=== PATIENT | male | born 1940 | race Caucasian/White ===

== ENCOUNTER 2016-12-05 19:30 | Inpatient (IN) | payer OTHER, MEDICARE ==
--- NOTE | 2016-12-05 21:36 | PDOC ---
History of Present Illness - General History Source: Patient, Old Records Exam Limitations: No Limitations <Domonique Mcgee - Last Filed: 12/05/16 23:54> - General History Source: Patient, Old Records Exam Limitations: No Limitations - History of Present Illness Initial Comments: 12/05/16 23:01 The patient is a 76 year old male, with a significant past medical history of hypothyroidism, chronic lower extremity venous insufficiency and recurrent left lower extremity ulcers, who presents to the emergency department with nausea, vomiting (coffee ground emesis) and abdominal pain for the past 2 days but worsening today. The patient describes the abdominal pain as burning which intermittently radiates to the throat. The patient reports 3 episodes of coffee ground emesis (2 yesterday, 1 today), prompting him to come to the ED for evaluation. The patient additionally reports a productive cough, he states that he is coughing up clear phlegm. The patient denies fever, chills, diarrhea, constipation or any dysuria. The patient denies any history of NSAID overuse. 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 Allergies: Vancomycin Past Surgical History: Appendectomy, Hernia Repair. Social History: Former smoker (quit 30 years ago). Reports social alcohol use (1 -2 glasses of wine per week). Denies drug use. Vascular Surgeon: Dr. Bakari Burkett <Ese Vallecillo - Last Filed: 12/05/16 23:59> - General Chief Complaint: Nausea/Vomiting Stated Complaint: NAUSEA/VOMITING Time Seen by Provider: 12/05/16 20:28 Past History - Past Medical History GI Disorders: Yes (GASTRIC) Thyroid Disease: Yes - Surgical History Abdominal Surgery: Yes (HERNIA) Appendectomy: Yes - Psycho/Social/Smoking Cessation Hx Anxiety: No Suicidal Ideation: No Smoking History: Former smoker Have you smoked in the past 12 months: No If you are a former smoker, when did you quit?: 30 yrs ago Information on smoking cessation initiated: No Hx Alcohol Use: Yes (SOCIAL) Drug/Substance Use Hx: No Substance Use Type: None <Yady Mcgeefany - Last Filed: 12/05/16 23:54> <Ese Vallecillo - Last Filed: 12/05/16 23:59> - Past Medical History Allergies/Adverse Reactions: Allergies Allergy/AdvReac Type Severity Reaction Status Date / Time levofloxacin [From Levaquin] Allergy Vomiting Verified 12/05/16 19:49 vancomycin Allergy Itching Verified 12/05/16 19:49 Home Medications: Ambulatory Orders Thyroid [[facility] Thyroid] 60 mg PO DAILY tablet 09/19/16 Collagenase Clostridium Hist. [Santyl] 1 applic TP DAILY #90 oint...g. 11/20/16 Review of Systems - Review of Systems Able to Perform ROS?: Yes Comments:: 12/05/16 23:01 GENERAL/CONSTITUTIONAL: No fever or chills. No weakness. HEAD, EYES, EARS, NOSE AND THROAT: No change in vision. No ear pain or discharge. No sore throat. CARDIOVASCULAR: No chest pain or shortness of breath. RESPIRATORY: +Cough. No wheezing or hemoptysis. GASTROINTESTINAL: +Nausea, vomiting (coffee ground emesis), abdominal pain. No diarrhea or constipation. GENITOURINARY: No dysuria, frequency, or change in urination. MUSCULOSKELETAL: No joint or muscle swelling or pain. No neck or back pain. SKIN: No rash. NEUROLOGIC: No headache, vertigo, loss of consciousness, or change in strength/ sensation. ENDOCRINE: No increased thirst. No abnormal weight change. HEMATOLOGIC/LYMPHATIC: No anemia, easy bleeding, or history of blood clots. ALLERGIC/IMMUNOLOGIC: No hives or skin allergy. <Ese Vallecillo - Last Filed: 12/05/16 23:59> *Physical Exam - Vital Signs Last Vital Signs Temp Pulse Resp BP Pulse Ox 98 F 88 26 H 130/66 96 12/05/16 19:50 12/05/16 19:50 12/05/16 19:50 12/05/16 19:50 12/05/16 19:50 <Domonique Mcgee - Last Filed: 12/05/16 23:54> - Vital Signs Last Vital Signs Temp Pulse Resp BP Pulse Ox 98 F 88 26 H 130/66 96 12/05/16 19:50 12/05/16 19:50 12/05/16 19:50 12/05/16 19:50 12/05/16 19:50 - Physical Exam Comments: 12/05/16 22:51 GENERAL: Awake, alert, and fully oriented, in no acute distress. HEAD: No signs of trauma. EYES: PERRLA, EOMI, sclera anicteric, conjunctiva clear. ENT: Auricles normal inspection, hearing grossly normal, nares patent, oropharynx clear without exudates. Moist mucosa. NECK: Normal ROM, supple, no lymphadenopathy, JVD, or masses. LUNGS: Breath sounds equal, clear to auscultation bilaterally. No wheezes, and no crackles. HEART: 2/6 holosystolic murmur. Regular rate and rhythm, normal S1 and S2, no rubs or gallops. ABDOMEN: Soft, nontender, normoactive bowel sounds. No guarding, no rebound. No masses. EXTREMITIES: Normal range of motion, no edema. No clubbing or cyanosis. No cords, erythema, or tenderness. NEUROLOGICAL: Cranial nerves II through XII grossly intact. Normal speech, normal gait. SKIN: Left lower extremity has surrounding erythema, there are extensive ulcerations to the lateral aspect of tibia/fibula region with fibrinous exudates. Right lower extremity, there is hyperpigmentation consistent with chronic venous stasis changes. <Ese Vallecillo - Last Filed: 12/05/16 23:59> ED Treatment Course - LABORATORY CBC & Chemistry Diagram: 12/05/16 22:30 12/05/16 22:30 <Domonique Mcgee - Last Filed: 12/05/16 23:54> - LABORATORY CBC & Chemistry Diagram: 12/05/16 22:30 12/05/16 22:30 <Ese Vallecillo - Last Filed: 12/05/16 23:59> Medical Decision Making - Medical Decision Making 12/05/16 22:27 76-year-old male with history of thyroid disease and peripheral vascular disease with chronic lower extremity wounds who presents to the emergency Department with complaints of burning epigastric and chest pain as well as nausea and vomiting. His left lower extremity appears to be cellulitic. Differential diagnosis includes but is not limited to: ACS, GERD, pancreatitis, gastritis, electrolyte abnormality, gallbladder disease, dehydration, toxic/ metabolic derangement. Plan: 1. EKG 2. Labs 3. Urine 4. IV antibiotics for a cellulitis 5. Pain management 6. Observe and reevaluate 12/05/16 23:54 Addendum: Labs are reviewed and are noted in the EMR. The hemoglobin is 9.1 which is lower than his baseline. The stool was brown and trace guaiac positive. I've discussed the case with Dr. Burkett and the plan is to admit to [facility] for cellulitis. I will admit to the hospitalist service and also have them workup the coffee-ground emesis and rule out GI bleed. <Domonique Mcgee - Last Filed: 12/05/16 23:54> - Medical Decision Making 12/05/16 22:[address] Bakari Burkett at at 22:20. Referred to answering service , awaiting callback. Dr. Burkett returned call at 22:21, case discussed. <Ese Vallecillo - Last Filed: 12/05/16 23:59> *DC/Admit/Observation/Transfer - Discharge Dispostion Admit: Yes - Attestations Physician Attestion: 12/05/16 22:29 I, Dr. Domonique Mcgee, attest that the scribes documentation that appears above has been prepared under my direction and personally reviewed by me in its entirety. I confirmed that the note above accurately reflects all work, treatment, procedures, and medical decision-making performed by me. <Domonique Mcgee - Last Filed: 12/05/16 23:54> - Attestations Scribe Attestion: 12/05/16 22:20 Documentation prepared by Ese Vallecillo, acting as medical laboratory technician for Domonique Mcgee MD. 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
[2016-12-05] MEDS ORDERED: SODIUM CHLORIDE 1,000 ML IV STA (21:37)
[2016-12-05] MEDS ORDERED: ONDANSETRON 4 MG/2 ML VIAL IVPUSH ONE (21:37)
[2016-12-05] MEDS ORDERED: FAMOTIDINE 20 MG/50 ML IVPB 50 ML IVPB ONE ×2 (22:29→22:38)
[2016-12-05] MEDS ORDERED: CLINDAMYCIN IVPB 300 MG in DEXTROSE 5%-WATER - 48 ML IVPB ONE (22:29)
[2016-12-05] MEDS ORDERED: MAG HYDROX/AL HYDROX/SIMETH 30 ML UNIT-DOSE CUP PO ONE (22:29)
[2016-12-05 22:38] LABS: BASOPHIL 0.5 % (0-2.0); EOSINOPHIL 1.1 % (0-4.5); MCH 22.9 pg (25.7-33.7); MCHC 31.2 g/dl (32.0-35.9); MEAN CELL VOLUME 73.4 fl (80-96); MEAN PLT VOLUME 7.7 fl (7.5-11.1); NEUTROPHILS 60.4 % (42.8-82.8); PLATELET COUNT 298 K/MM3 (134-434); RDW 18.4 % (11.9-15.9); WHITE BLOOD COUNT 5.7 K/mm3 (4.0-10.0)
[2016-12-05] MEDS ORDERED: ONDANSETRON 4 MG/2 ML VIAL ONE (22:38)
[2016-12-05] MEDS ORDERED: MAG HYDROX/AL HYDROX/SIMETH 30 ML UNIT-DOSE CUP ONE (22:38)
[2016-12-05] MEDS ORDERED: CLINDAMYCIN 600MG PREMIX IVPB 50 ML IVPB ONE ×2 (22:38→22:39)
[2016-12-05] MEDS ORDERED: WATER IVPB ONE (22:40)
[2016-12-05] MEDS ORDERED: DEXTROSE 5% IVPB ONE (22:40)
[2016-12-05] MEDS ORDERED: CLINDAMYCIN IVPB ONE (22:40)
[2016-12-05 23:01] LABS: ALBUMIN 2.6 g/dl (3.4-5.0); ANION GAP 8 (8-16); BILIRUBIN,TOTAL 0.2 mg/dL (0.2-1.0); CALCIUM 7.7 mg/dL (8.5-10.1); CO2 24 mmol/L (21-32); CREATININE 1.1 mg/dL (0.7-1.3); GLUCOSE,RANDOM 113 mg/dL (74-106); MAGNESIUM 2.1 mg/dL (1.8-2.4); PHOSPHOROUS 2.9 mg/dL (2.5-4.9); SGOT/AST 14 U/L (15-37); SGPT/ALT 18 U/L (12-78)
[2016-12-05 23:02] LABS: ALK PHOS 79 U/L (45-117); TROPONIN I < 0.02 ng/ml (0.00-0.05)
--- NOTE | 2016-12-06 00:15 | HP ---
<Aneudy Fulton - Last Filed: 12/06/16 01:53> CHIEF COMPLAINT: Nausea/Vomiting PCP: n/a HISTORY OF PRESENT ILLNESS: The patient is a 76 year old male, with a significant past medical history of hypothyroidism, chronic lower extremity venous insufficiency and recurrent left lower extremity ulcers, who presented to the emergency department with nausea, vomiting (coffee ground emesis) and abdominal pain for the past 2 days but worsening today. The patient described the abdominal pain as burning. The patient reported 3 episodes of coffee ground emesis (2 yesterday, 1 today), prompting him to come to the ED for evaluation. Patient also complained of left lower extremity swelling and redness which has worsened in the last few days associated with subjective fever and chills. ER course was notable for: (1) IVF (2) Clindomyosin (3) Famotidine Recent Travel: Denied PAST MEDICAL HISTORY: hypothyroidism, lower extremity venous insufficiency, recurrent lower extremity ulcers PAST SURGICAL HISTORY: Appendectomy, revascularization surgeries in lower extremities, tonsillectomy, hernia Social History: Smoking: Denied Alcohol: Social Drugs: Denied Family History: None reported Allergies levofloxacin [From Levaquin] Allergy (Verified 12/05/16 19:49) Vomiting vancomycin Allergy (Verified 12/05/16 19:49) Itching HOME MEDICATIONS: Home Medications Medication Instructions Recorded Thyroid [[place] Thyroid] 60 mg PO DAILY tablet 09/19/16 Collagenase Clostridium Hist. 1 applic TP DAILY #90 oint...g. 11/20/16 [Santyl] REVIEW OF SYSTEMS CONSTITUTIONAL: Present: fever, chills, Absent: diaphoresis, generalized weakness, malaise, loss of appetite, weight change HEENT: Absent: rhinorrhea, nasal congestion, throat pain, throat swelling, difficulty swallowing, mouth swelling, ear pain, eye pain, visual changes CARDIOVASCULAR: Absent: chest pain, syncope, palpitations, irregular heart rate, lightheadedness , peripheral edema RESPIRATORY: Absent: cough, shortness of breath, dyspnea with exertion, orthopnea, wheezing, stridor, hemoptysis GASTROINTESTINAL: Present: Nausea, vomiting, abdominal pain Absent: abdominal distension, diarrhea, constipation, melena, hematochezia GENITOURINARY: Absent: dysuria, frequency, urgency, hesitancy, hematuria, flank pain, genital pain MUSCULOSKELETAL: Present: Left lower extremity pain. Absent: arthralgia, joint swelling, back pain, neck pain SKIN: Absent: rash, itching, pallor HEMATOLOGIC/IMMUNOLOGIC: Absent: easy bleeding, easy bruising, lymphadenopathy, frequent infections ENDOCRINE: Absent: unexplained weight gain, unexplained weight loss, heat intolerance, cold intolerance NEUROLOGIC: Absent: headache, focal weakness or paresthesias, dizziness, unsteady gait, seizure, mental status changes, bladder or bowel incontinence PSYCHIATRIC: Absent: anxiety, depression, suicidal or homicidal ideation, hallucinations. PHYSICAL EXAMINATION GENERAL: Awake, alert, and fully oriented, in no acute distress. HEENT: Atraumatic. Moist mucosa. Normocephalic. No sinus tenderness. No LAD. NECK: No JVD. No thyroid masses. Supple. LUNGS: Clear to auscultation bilaterally. No wheezing, rhonchi or rales. HEART: Regular rate and rhythm, normal S1 and S2, (+) systolic murmur, rubs or gallops, peripheral pulses normal and equal bilaterally. ABDOMEN: Soft, nontender, normoactive bowel sounds. No guarding, no rebound. No Masses. MUSCULOSKELETAL: No muscle tenderness. Normal muscle bulk and tone. EXTREMITIES: (+) Left lower extremity is erythematous and warm to touch from ankle up to thigh. Chronic venous stasis changes bilaterally in legs. NEUROLOGICAL: Normal speech, no focal sensorimotor deficits. ASSESSMENT/PLAN: 1. Coffee ground emesis for 2 days with trace fecal occult blood in stool drop in hemoglobin. Hemodynamically stable, no melena. - NPO - IVF - [id number] IVPB Q12H - Monitor CBC Q8H -GI consult for endoscopy 2. Left lower extremity cellulitis with underlying chronic venous stasis changes. Allergic to vancomycin - Blood cultures x2 - Clindamycin 600mg Q8H IV - Local wound care - Wound care consult - Lower extremity duplex to r/o DVT 3. Hypothyroidism - Send TSH - Continue armour thyroid 60 mg daily 4. DVT moderate risk - SCDs (no heparin due to coffee ground emesis) Admit to observation Documentation prepared by Aneudy Fulton, acting as medical appointment clerk for Dr. Mary Ann MD. <Daren Reese - Last Filed: 12/06/16 06:56> CHIEF COMPLAINT: PCP: HISTORY OF PRESENT ILLNESS: ER course was notable for: (1) (2) (3) Recent Travel: PAST MEDICAL HISTORY: PAST SURGICAL HISTORY: Social History: Smoking: Alcohol: Drugs: Family History: Allergies levofloxacin [From Levaquin] Allergy (Verified 12/05/16 19:49) Vomiting vancomycin Allergy (Verified 12/05/16 19:49) Itching HOME MEDICATIONS: Home Medications Medication Instructions Recorded Thyroid [[place] Thyroid] 60 mg PO DAILY tablet 09/19/16 Collagenase Clostridium Hist. 1 applic TP DAILY #90 oint...g. 11/20/16 [Santyl] REVIEW OF SYSTEMS CONSTITUTIONAL: Absent: fever, chills, diaphoresis, generalized weakness, malaise, loss of appetite, weight change HEENT: Absent: rhinorrhea, nasal congestion, throat pain, throat swelling, difficulty swallowing, mouth swelling, ear pain, eye pain, visual changes CARDIOVASCULAR: Absent: chest pain, syncope, palpitations, irregular heart rate, lightheadedness , peripheral edema RESPIRATORY: Absent: cough, shortness of breath, dyspnea with exertion, orthopnea, wheezing, stridor, hemoptysis GASTROINTESTINAL: Absent: abdominal pain, abdominal distension, nausea, vomiting, diarrhea, constipation, melena, hematochezia GENITOURINARY: Absent: dysuria, frequency, urgency, hesitancy, hematuria, flank pain, genital pain MUSCULOSKELETAL: Absent: myalgia, arthralgia, joint swelling, back pain, neck pain SKIN: Absent: rash, itching, pallor HEMATOLOGIC/IMMUNOLOGIC: Absent: easy bleeding, easy bruising, lymphadenopathy, frequent infections ENDOCRINE: Absent: unexplained weight gain, unexplained weight loss, heat intolerance, cold intolerance NEUROLOGIC: Absent: headache, focal weakness or paresthesias, dizziness, unsteady gait, seizure, mental status changes, bladder or bowel incontinence PSYCHIATRIC: Absent: anxiety, depression, suicidal or homicidal ideation, hallucinations. PHYSICAL EXAMINATION Vital Signs - 24 hr 12/05/16 19:50 Temperature 98 F Pulse Rate 88 Respiratory 26 H Rate Blood Pressure 130/66 O2 Sat by Pulse 96 Oximetry (%) GENERAL: Awake, alert, and fully oriented, in no acute distress. HEAD: Normal with no signs of trauma. EYES: Pupils equal, round and reactive to light, extraocular movements intact, sclera anicteric, conjunctiva clear. No lid lag. EARS, NOSE, THROAT: Ears normal, nares patent, oropharynx clear without exudates. Moist mucous membranes. NECK: Normal range of motion, supple without lymphadenopathy, JVD, or masses. LUNGS: Breath sounds equal, clear to auscultation bilaterally. No wheezes, and no crackles. No accessory muscle use. HEART: Regular rate and rhythm, normal S1 and S2 without murmur, rub or gallop. ABDOMEN: Soft, nontender, not distended, normoactive bowel sounds, no guarding, no rebound, no masses. No hepatomegaly or splenomegaly. MUSCULOSKELETAL: Normal range of motion at all joints. No bony deformities or tenderness. No CVA tenderness. UPPER EXTREMITIES: 2+ pulses, warm, well-perfused. No cyanosis. No clubbing. Cap refill <2 seconds. No peripheral edema. LOWER EXTREMITIES: 2+ pulses, warm, well-perfused. No calf tenderness. No peripheral edema. NEUROLOGICAL: Cranial nerves II-XII intact. Normal speech. Normal gait. PSYCHIATRIC: Cooperative. Good eye contact. Appropriate mood and affect. SKIN: Warm, dry, normal turgor, no rashes or lesions noted. Laboratory Results - last 24 hr 12/05/16 12/05/16 12/05/16 22:30 22:30 22:30 WBC 5.7 RBC 3.97 L Hgb 9.1 L D Hct 29.1 L D MCV 73.4 L MCHC 31.2 L RDW 18.4 H D Plt Count 298 MPV 7.7 Neutrophils % 60.4 Lymphocytes % 27.0 D Monocytes % 11.0 H Eosinophils % 1.1 D Basophils % 0.5 Sodium 141 Potassium 4.1 Chloride 109 H Carbon Dioxide 24 Anion Gap 8 BUN 28 H D Creatinine 1.1 Creat Clearance w eGFR > 60 Random Glucose 113 H Lactic Acid 1.393 Calcium 7.7 L Phosphorus 2.9 Magnesium 2.1 Total Bilirubin 0.2 D AST 14 L ALT 18 Alkaline Phosphatase 79 Creatine Kinase 76 Troponin I < 0.02 Total Protein 6.0 L Albumin 2.6 L Lipase 102 Stool Occult Blood 12/05/16 22:35 WBC RBC Hgb Hct MCV MCHC RDW Plt Count MPV Neutrophils % Lymphocytes % Monocytes % Eosinophils % Basophils % Sodium Potassium Chloride Carbon Dioxide Anion Gap BUN Creatinine Creat Clearance w eGFR Random Glucose Lactic Acid Calcium Phosphorus Magnesium Total Bilirubin AST ALT Alkaline Phosphatase Creatine Kinase Troponin I Total Protein Albumin Lipase Stool Occult Blood Trace ASSESSMENT/PLAN: Visit type - Emergency Visit Emergency Visit: Yes ED Registration Date: 12/05/16 Care time: The patient presented to the Emergency Department on the above date and was hospitalized for further evaluation of their emergent condition. - New Patient This patient is new to me today: Yes Date on this admission: 12/06/16 - Critical Care Critical Care patient: No
[2016-12-06] MEDS ORDERED: ONDANSETRON 4 MG/2 ML VIAL IVPB PRN (01:41)
[2016-12-06] MEDS ORDERED: ACETAMINOPHEN 325 MG TABLET (FP) PO PRN (01:41)
[2016-12-06] MEDS: DEXTROSE 5%-NORMAL SALINE 1,000 ML IV SCH ×2 (02:25→21:41)
[2016-12-06] MEDS: PANTOPRAZOLE SODIUM 100 ML IVPB SCH ×3 (02:26→21:34)
[2016-12-06] MEDS: CLINDAMYCIN 600MG PREMIX IVPB 50 ML IVPB SCH ×3 (02:26→17:00)
[2016-12-06 03:26] VITALS: BMI 31.9
--- NOTE | 2016-12-06 09:02 | CON.GI ---
Consult Consult Specialty:: GI Referred by:: Hospitalists Reason for Consultation:: Coffee ground vomiting - History of Present Illness Chief Complaint: "I had nausea, vomiting and vomited coffee grounds" History of Present Illness: 76M admitted for evaluation of N/V coffee ground emesis. States he was in his USOH up until wednesday when he began having intermittent episodes on vomiting and nausea. the vomitus was clear at first/food material and then progressed to coffee grounds. This was the first episode of this kind. He denied any abdominal pain prior to the onset of his symptoms however described epigastric and chest burning afterwards. He has had no further episodes of vomiting since admission. In ER Hgb was 9.1 with miccrocytosis (This is lower than his usual baseline anemia) and stool guaiac sent was noted to be tracely guaiac positive. He denies rectal bleeding or melena. He denies any sick contacts with similar complaints / recent antibiotic use/medication adjustements. He has never had an upper endoscopy or colonoscopy. There is no family history of colorectal cancer or other GI malignancy. 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 [Santyl] 1 applic TP DAILY #90 oint...g. 11/20/16 Family Disease History - Family Disease History Family Disease History: Other: Father (: 65: [place]), Mother (: 76: CVA), Son (2 sons, 1 paralyzed from diving accident in pool), Daughter (healthy) Other Family History: No family history of colorectal cancer or other GI malignancy Review of Systems - Review of Systems Constitutional: denies: Unintentional Wgt. Loss Cardiovascular: denies: Chest Pain Respiratory: denies: SOB Gastrointestinal: reports: Vomiting. denies: Abdominal Pain, Dysphagia, Rectal Bleeding, Vomiting Blood Physical Exam-GI Vital Signs: Vital Signs Temperature 97.3 F L 12/06/16 06:11 Pulse Rate 60 12/06/16 06:11 Respiratory Rate 18 12/06/16 06:11 Blood Pressure 112/46 12/06/16 06:11 O2 Sat by Pulse Oximetry (%) 94 L 12/06/16 02:00 Constitutional: Yes: Calm Eyes: No: Sclera Icterus Cardiovascular: Yes: Regular Rate and Rhythm, Murmur (2/6 systolic murmur) Respiratory: Yes: CTA Bilaterally Gastrointestinal Inspection: Yes: Scars (RLQ) ...Auscultate: Yes: Normoactive Bowel Sounds ...Palpate: No: Hepatomegaly (Markedly enlarged prostate, scant light brown stool, guaiac negative), Splenomegaly, Tenderness ...Percussion: No: Tympanitic Edema: Yes (with left LE ulceration) Edema: LLE: 1+, RLE: 1+ Neurological: Yes: Alert, Oriented Problem List - Problems (1) Coffee ground emesis Assessment/Plan: No further vomiting and patient is hemodyamically stable ? if secondary to self limited process / acute gastroenteritis or alternate intraluminal pathology Discussed Upper Endoscopy with Dr. Sotelo to exclude intraluminal pathology such as PUD, bleeding blood vessels, reflux esophagitis, mass lesion. We discussed potential risks of the procedure like but not limited to bleeding, perforation, infection, sedation medication effects all of which could be potentially life threatening. he has agreed to the procedure Pending findings from the above we also discussed colonoscopy, especially in the setting of a micocytic anemia For now Continue Protonix 40mg IVPB BID Clear liquids Code(s): K92.0 - HEMATEMESIS
--- NOTE | 2016-12-06 09:14 | PN ---
Progress Note, Physician - Current Medication List Current Medications: Active Medications Acetaminophen (Tylenol -) 650 mg PO Q4H PRN PRN Reason: FEVER OR PAIN Collagenase (Santyl -) 1 applic TP DAILY [facility] Dextrose/Sodium Chloride (D5-Ns -) 1,000 mls @ 75 mls/hr IV ASDIR [facility] Last Admin: 12/06/16 02:25 Dose: 75 mls/hr Pantoprazole Sodium (Protonix 40mg Ivpb (Pre-Docked)) 100 mls @ 200 mls/hr IVPB BID [facility] Last Admin: 12/06/16 02:26 Dose: 200 mls/hr Clindamycin Phosphate (Cleocin 600 Mg Premix Ivpb -) 50 mls @ 100 mls/hr IVPB Q8H-IV [facility] Last Admin: 12/06/16 02:26 Dose: 100 mls/hr Ondansetron HCl (Zofran Injection) 4 mg IVPB Q6H PRN PRN Reason: NAUSEA Thyroid ([place] Thyroid -) 60 mg PO DAILY [facility] - Objective Vital Signs: Vital Signs Temperature 97.3 F L 12/06/16 06:11 Pulse Rate 60 12/06/16 06:11 Respiratory Rate 18 12/06/16 06:11 Blood Pressure 112/46 12/06/16 06:11 O2 Sat by Pulse Oximetry (%) 94 L 12/06/16 02:00 Constitutional: Yes: Well Nourished, No Distress, Calm Eyes: Yes: WNL, Conjunctiva Clear HENT: Yes: WNL, Atraumatic, Normocephalic Neck: Yes: WNL, Supple, Trachea Midline Cardiovascular: Yes: WNL, Regular Rate and Rhythm Respiratory: Yes: WNL, Regular, CTA Bilaterally Gastrointestinal: Yes: WNL, Normal Bowel Sounds Musculoskeletal: Yes: WNL Extremities: Yes: Other (wrapped in compression dressing) Edema: No Integumentary: Yes: WNL, Venous Stasis Changes Neurological: Yes: WNL, Alert, Oriented ...Motor Strength: WNL Psychiatric: Yes: WNL Impression/Plan Impression/Plan: 76 year old male, with a significant past medical history of hypothyroidism, chronic lower extremity venous insufficiency and recurrent left lower extremity ulcers admitted for acute blood loss anemia due to upper GI bleed Upper GI bleed -has had coffee ground emesis for past few days -decrease of Hb from baseline of 11 to 9 -cont PPI BID -GI consult greatly appreciated; for EGD in AM Lower extremity venous stasis ulcers -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 Burkett as an outpatient Visit type - Emergency Visit Emergency Visit: Yes ED Registration Date: 12/05/16 Care time: The patient presented to the Emergency Department on the above date and was hospitalized for further evaluation of their emergent condition. - New Patient This patient is new to me today: Yes Date on this admission: 12/06/16 - Critical Care Critical Care patient: No - Discharge Referral Referred to [facility] No
[2016-12-06] MEDS ORDERED: PT OWN MED DRAWER 7, Y5N ONE (09:17)
[2016-12-06] MEDS: THYROID 60 MG TABLET PO SCH (09:28)
[2016-12-06 10:20] LABS: MCH 22.9 pg (25.7-33.7); MCHC 30.7 g/dl (32.0-35.9); MEAN CELL VOLUME 74.4 fl (80-96); MEAN PLT VOLUME 7.8 fl (7.5-11.1); PLATELET COUNT 247 K/MM3 (134-434); RDW 18.7 % (11.9-15.9); WHITE BLOOD COUNT 4.5 K/mm3 (4.0-10.0)
[2016-12-06] MEDS: COLLAGENASE CLOSTRIDIUM HIST. 30 GRAMS TUBE TP SCH (10:59)
--- NOTE | 2016-12-06 11:01 | PN ---
Progress Note (short form) - Note Progress Note: The patient is known to Dr. Burkett's surgical service. Three week ago he had a vein procedure to the left leg for venous insufficiency/varicosities. He came to the ER because he had substernal pain/upper abd with nausea and emesis. He also experienced some coffee ground emesis. He denies any obvious blood in his stools/dark stool, although he does have anemia. Overall he has had venous insufficiency for years and has had venous procedures on both of his lower ext. The wounds to his left lower ext have been in various healing/non-healing states. He has had these ulcer since this past June and was currently using santyl for the ulcers. He last say Dr. Burkett this past . Vital Signs Period Temp Pulse Resp BP Sys/Costa Pulse Ox Last 24 Hr 97.3 F-98.0 F 60-88 16-26 112-147/46-68 94-97 PE: RLE: venous stasis changes with dilated varicosities. No swelling or open sores. +2 DP pulse LLE: large 16x8cm superficial ulcer to the left lateral and posterior aspect of the lower ext. Two smaller ulcers noted, One superiorly to the large wound 1x3cm and medically 2x3cm. The base of the wound has some fibrous slough. +2 DP pulse. Mild swelling to LLE with some erythema. CBC, BMP 12/06/16 09:45 12/05/16 22:30 Problem List - Problems (1) Venous insufficiency of both lower extremities Assessment/Plan: With LLE ulcer from venous insufficiency Receiving IV abx for mild cellulitis to the leg Local wound care ordered with santyl/roni wrap D/w Dr. Burkett Code(s): I87.2 - VENOUS INSUFFICIENCY (CHRONIC) (PERIPHERAL)
[2016-12-06 16:29] LABS: MCH 22.7 pg (25.7-33.7); MCHC 30.5 g/dl (32.0-35.9); MEAN CELL VOLUME 74.3 fl (80-96); MEAN PLT VOLUME 7.9 fl (7.5-11.1); PLATELET COUNT 265 K/MM3 (134-434); RDW 18.5 % (11.9-15.9); WHITE BLOOD COUNT 3.8 K/mm3 (4.0-10.0)
--- NOTE | 2016-12-07 00:41 | EKG ---
Test Reason : Blood Pressure : / mmHG Vent. Rate : 071 BPM Atrial Rate : 071 BPM P-R Int : 166 ms QRS Dur : 164 ms QT Int : 456 ms P-R-T Axes : 048 079 043 degrees QTc Int : 495 ms NORMAL SINUS RHYTHM RIGHT BUNDLE BRANCH BLOCK ABNORMAL ECG WHEN COMPARED WITH ECG OF 17-SEP-2016 09:12, NO SIGNIFICANT CHANGE WAS FOUND Confirmed by ABBY BAILEY MD ([id number]) on 12/07/2016 12:41:40 AM Referred By: Confirmed By:ABBY BAILEY MD
[2016-12-07] MEDS: DEXTROSE 5%-NORMAL SALINE 1,000 ML IV SCH (01:18)
[2016-12-07] MEDS: CLINDAMYCIN 600MG PREMIX IVPB 50 ML IVPB SCH ×3 (01:45→17:42)
[2016-12-07 08:36] LABS: BASOPHIL 0.6 % (0-2.0); EOSINOPHIL 5.8 % (0-4.5); MCHC 31.2 g/dl (32.0-35.9); MEAN CELL VOLUME 73.6 fl (80-96); MEAN PLT VOLUME 7.8 fl (7.5-11.1); NEUTROPHILS 53.3 % (42.8-82.8); PLATELET COUNT 280 K/MM3 (134-434); WHITE BLOOD COUNT 4.8 K/mm3 (4.0-10.0)
[2016-12-07 09:19] LABS: CALCIUM 8.4 mg/dL (8.5-10.1); CREATININE 0.9 mg/dL (0.7-1.3); PHOSPHOROUS 3.4 mg/dL (2.5-4.9)
[2016-12-07] MEDS: PANTOPRAZOLE SODIUM 100 ML IVPB SCH ×2 (09:31→21:31)
[2016-12-07] MEDS ORDERED: LIDOCAINE HCL/PF 1% SDV 5ML VIAL ONE (11:07)
[2016-12-07] MEDS ORDERED: PROPOFOL 20 ML ONE (11:07)
--- NOTE | 2016-12-07 11:40 | PN ---
Progress Note (short form) - Note Progress Note: GI Procedure NOte: Please see scanned EGD report. Severe reflux esophagitis with ulceration was found. No active bleeding so will proceed with colonoscopy tomorrow. Dr Sotelo is agreeable.
[2016-12-07] MEDS ORDERED: BISACODYL 5 MG TABLET.DR (FP) PO ONE ×2 (11:41→18:00)
[2016-12-07] MEDS ORDERED: PEG3350/SOD SULF,BICARB,CL/KCL 4,000 ML SOLN.RECON PO ONE (12:00)
--- NOTE | 2016-12-07 12:06 | PN ---
<Leah Paula - Last Filed: 12/07/16 11:59> Physical Exam: SUBJECTIVE: Patient seen and examined at bed side. patient reports feeling well in good spirit. Denied any SOB, N/V/D/C, fevers chills. patient for endoscopy today. OBJECTIVE: Vital Signs Period Temp Pulse Resp BP Sys/Costa Pulse Ox Last 24 Hr 97.2 F-98.2 F 51-67 16-20 119-163/56-90 99-100 Constitutional: Yes: Calm Eyes: No: Sclera Icterus Cardiovascular: Yes: Regular Rate and Rhythm, Murmur (2/6 systolic murmur) Respiratory: Yes: CTA Bilaterally Gastrointestinal Inspection: Yes: Scars (RLQ) ...Auscultate: Yes: Normoactive Bowel Sounds ...Palpate: No: Hepatomegaly (Markedly enlarged prostate, scant light brown stool, guaiac negative), Splenomegaly, Tenderness ...Percussion: No: Tympanitic Edema: Yes (with left LE ulceration) Edema: LLE: 1+, RLE: 1+ Neurological: Yes: Alert, Oriented GENERAL: The patient is awake, alert, and fully oriented, in no acute distress. HEAD: Normal with no signs of trauma. EYES: PERRL, extraocular movements intact, sclera anicteric, conjunctiva clear. NECK: Trachea midline, full range of motion, supple. LUNGS: Breath sounds equal, clear to auscultation bilaterally, no wheezes, no crackles, no accessory muscle use. HEART: Regular rate and rhythm, S1, S2 2/6 systolic murmur, rub or gallop. ABDOMEN: Soft, nontender, nondistended, normoactive bowel sounds, no guarding, no rebound, no hepatosplenomegaly, no masses. EXTREMITIES: peripheral pulses normal and equal bilaterally, warm, well-perfused , +1 BL LE edema. RLE: venous stasis changes with dilated varicosities. No swelling or open sores. +2 DP pulse LLE: large 16x8cm superficial ulcer to the left lateral and posterior aspect of the lower ext. Two smaller ulcers noted, One superiorly to the large wound 1x3cm and medically 2x3cm. The base of the wound has some fibrous slough. +2 DP pulse. Mild swelling to LLE with some erythema. PSYCH: Normal mood, normal affect. SKIN: Warm, dry, normal turgor, no rashes or lesions noted Laboratory Results - last 24 hr 12/06/16 12/07/16 12/07/16 15:55 06:05 06:05 WBC 3.8 L 4.8 RBC 3.67 L 4.18 Hgb 8.3 L 9.6 L D Hct 27.2 L 30.8 L MCV 74.3 L 73.6 L MCHC 30.5 L 31.2 L RDW 18.5 H 18.0 H Plt Count 265 280 MPV 7.9 7.8 Neutrophils % 53.3 Lymphocytes % 31.2 Monocytes % 9.1 Eosinophils % 5.8 H D Basophils % 0.6 Sodium 143 Potassium 4.3 Chloride 108 H Carbon Dioxide 27 Anion Gap 8 BUN 12 D Creatinine 0.9 Random Glucose 95 Calcium 8.4 L Phosphorus 3.4 Magnesium 2.0 Active Medications Generic Name Dose Route Start Last Admin Trade Name Freq PRN Reason Stop Dose Admin Acetaminophen 650 mg 12/06/16 01:41 Tylenol - PO Q4H PRN FEVER OR PAIN Bisacodyl 20 mg 12/07/16 18:00 Dulcolax - PO 12/07/16 18:01 ONCE ONE Collagenase 1 applic 12/06/16 10:00 12/06/16 10:59 Santyl - TP 1 applic DAILY AMI Administration Dextrose/Sodium Chloride 1,000 mls @ 75 mls/hr 12/06/16 01:45 12/07/16 01:18 D5-Ns - IV Not Given ASDIR AMI Pantoprazole Sodium 100 mls @ 200 mls/hr 12/06/16 02:00 12/07/16 09:31 Protonix 40mg Ivpb (Pre-Docked) IVPB 200 mls/hr BID AMI Administration Clindamycin Phosphate 50 mls @ 100 mls/hr 12/06/16 02:00 12/07/16 09:32 Cleocin 600 Mg Premix Ivpb - IVPB 100 mls/hr Q8H-IV AMI Administration Ondansetron HCl 4 mg 12/06/16 01:41 Zofran Injection IVPB Q6H PRN NAUSEA Thyroid 60 mg 12/06/16 10:00 12/06/16 09:28 [place] Thyroid - PO 60 mg DAILY AMI Administration ASSESSMENT/PLAN: Venous insufficiency of both lower extremities With LLE ulcer from venous insufficiency Receiving IV abx for mild cellulitis to the leg Local wound care ordered with santyl/roni wrap <Selvin Carter - Last Filed: 12/07/16 15:06> Physical Exam: ATTENDING PHYSICIAN STATEMENT I saw and evaluated the patient. I reviewed the resident's note and discussed the case with the resident. I agree with the resident's findings and plan as documented. SUBJECTIVE: seen and evaluated at the bedside OBJECTIVE: resting comfortably in bed, leg wrapped in dressing ASSESSMENT AND PLAN: 76 year old male, with a significant past medical history of hypothyroidism, chronic lower extremity venous insufficiency and recurrent left lower extremity ulcers admitted for acute blood loss anemia due to upper GI bleed Upper GI bleed -has had coffee ground emesis for past few days -decrease of Hb from baseline of 11 to 9 -cont PPI BID -GI consult greatly appreciated; for EGD Lower extremity venous stasis ulcers -as per flume tender had surrounding erythema suggestive of cellulitis -cont clindamycin as pt has allergy to vancomycin -follow up vascular consult as pt follows with Dr. Burkett as an outpatient Visit type - Emergency Visit Emergency Visit: Yes ED Registration Date: 12/05/16 Care time: The patient presented to the Emergency Department on the above date and was hospitalized for further evaluation of their emergent condition. - New Patient This patient is new to me today: No - Critical Care Critical Care patient: No
[2016-12-07] MEDS: COLLAGENASE CLOSTRIDIUM HIST. 30 GRAMS TUBE TP SCH (13:56)
[2016-12-07] MEDS: THYROID 60 MG TABLET PO SCH (13:56)
--- NOTE | 2016-12-07 15:35 | PN ---
Progress Note (short form) - Note Progress Note: VAscular Surgery Pt seen and examined. Left lower extremity stable. Minimal cellulitis. EGD done todaY Colonscopy in am. Cont with dressing changes. Bakari Burkett DO
[2016-12-07] MEDS ORDERED: SODIUM PHOSPHATE/NA BIPHOS 133 ML ENEMA PR ONE (20:00)
[2016-12-08] MEDS: CLINDAMYCIN 600MG PREMIX IVPB 50 ML IVPB SCH ×2 (01:02→09:56)
[2016-12-08] MEDS: DEXTROSE 5%-NORMAL SALINE 1,000 ML IV SCH (02:21)
[2016-12-08 02:36] LABS: URINE APPEARANCE CLEAR; URINE BILIRUBIN NEGATIVE (NEGATIVE); URINE BLOOD NEGATIVE (NEGATIVE); URINE COLOR STRAW; URINE GLUCOSE (UA) NEGATIVE (NEGATIVE); URINE KETONE NEGATIVE (NEGATIVE); URINE LEUK ESTERASE NEGATIVE (NEGATIVE); URINE NITRITE NEGATIVE (NEGATIVE); URINE PROTEIN NEGATIVE (NEGATIVE); URINE UROBILINOGEN NEGATIVE E.U./dl (0.2-1.0)
[2016-12-08] MEDS ORDERED: SODIUM PHOSPHATE/NA BIPHOS 133 ML ENEMA PR ONE (08:00)
[2016-12-08] MEDS: THYROID 60 MG TABLET PO SCH (09:11)
[2016-12-08] MEDS: PANTOPRAZOLE SODIUM 100 ML IVPB SCH (09:56)
[2016-12-08] MEDS ORDERED: PROPOFOL 20 ML ONE ×3 (12:21)
[2016-12-08] MEDS: COLLAGENASE CLOSTRIDIUM HIST. 30 GRAMS TUBE TP SCH (12:58)
--- NOTE | 2016-12-08 13:11 | PN ---
Progress Note (short form) - Note Progress Note: EGD report in front of physical chart and to be scanned into [employer] Problem List - Problems (1) Coffee ground emesis Code(s): K92.0 - HEMATEMESIS
[2016-12-08 13:17] VITALS: TEMP 98.3
[2016-12-08 13:40] VITALS: BP 156/71; PULSE 57
--- NOTE | 2016-12-08 13:41 | DS ---
Physical Exam: SUBJECTIVE: Patient seen and examined at bed side. currently asymptomatic. states he is fine and wants to go home. patient denies fevers, chills, n/V/D/C, SOB, CP. OBJECTIVE: Vital Signs Period Temp Pulse Resp BP Sys/Costa Pulse Ox Last 24 Hr 97.2 F-98.3 F 51-61 12-20 127-156/43-71 95-100 PHYSICAL EXAM ENERAL: The patient is awake, alert, and fully oriented, in no acute distress. HEAD: Normal with no signs of trauma. EYES: PERRL, extraocular movements intact, sclera anicteric, conjunctiva clear. NECK: Trachea midline, full range of motion, supple. LUNGS: Breath sounds equal, clear to auscultation bilaterally, no wheezes, no crackles, no accessory muscle use. HEART: Regular rate and rhythm, S1, S2 2/6 systolic murmur, rub or gallop. ABDOMEN: Soft, nontender, nondistended, normoactive bowel sounds, no guarding, no rebound, no hepatosplenomegaly, no masses. EXTREMITIES: peripheral pulses normal and equal bilaterally, warm, well-perfused , +1 BL LE edema. RLE: venous stasis changes with dilated varicosities. No swelling or open sores. +2 DP pulse LLE: large 16x8cm superficial ulcer to the left lateral and posterior aspect of the lower ext. Two smaller ulcers noted, One superiorly to the large wound 1x3cm and medically 2x3cm. The base of the wound has some fibrous slough. +2 DP pulse. Mild swelling to LLE with some erythema. PSYCH: Normal mood, normal affect. SKIN: Warm, dry, normal turgor, no rashes or lesions noted LABS Laboratory Results - last 24 hr 12/08/16 01:50 Urine Color Straw Urine Appearance Clear Urine pH 6.0 Ur Specific [place] 1.004 Urine Protein Negative Urine Glucose (UA) Negative Urine Ketones Negative Urine Blood Negative Urine Nitrite Negative Urine Bilirubin Negative Urine Urobilinogen Negative Ur Leukocyte Esterase Negative Microbiology 12/05/16 22:30 Wound Gram Stain - Final 12/05/16 22:30 Wound Wound Culture - Preliminary Pseudomonas Aeruginosa Streptococcus Pyogenes Grp A Staphylococcus Latex Coag Pos Diphtheroid/Corynebacterium Group D Strep Or Entero Coccus 12/05/16 22:31 Blood - Peripheral Venous Blood Culture - Preliminary NO GROWTH OBTAINED AFTER 48 HOURS, INCUBATION TO CONTINUE FOR 3 DAYS. 12/05/16 14:30 Blood - Peripheral Venous Blood Culture - Preliminary NO GROWTH OBTAINED AFTER 48 HOURS, INCUBATION TO CONTINUE FOR 3 DAYS. 12/06/16 13:40 Urine - Urine Clean Catch Urine Culture - Final NO GROWTH OBTAINED Active Medications Generic Name Dose Route Start Last Admin Trade Name Freq PRN Reason Stop Dose Admin Acetaminophen 650 mg 12/06/16 01:41 Tylenol - PO Q4H PRN FEVER OR PAIN Collagenase 1 applic 12/06/16 10:00 12/08/16 12:58 Santyl - TP Not Given DAILY AMI Dextrose/Sodium Chloride 1,000 mls @ 75 mls/hr 12/06/16 01:45 12/08/16 02:21 D5-Ns - IV 75 mls/hr ASDIR AMI Administration Clindamycin Phosphate 50 mls @ 100 mls/hr 12/06/16 02:00 12/08/16 09:56 Cleocin 600 Mg Premix Ivpb - IVPB 100 mls/hr Q8H-IV AMI Administration Ondansetron HCl 4 mg 12/06/16 01:41 Zofran Injection IVPB Q6H PRN NAUSEA Pantoprazole Sodium 40 mg 12/09/16 10:00 Protonix - PO DAILY AMI Thyroid 60 mg 12/06/16 10:00 12/08/16 09:11 [place] Thyroid - PO Not Given DAILY AMI Microbiology 12/05/16 22:30 Wound Gram Stain - Final 12/05/16 22:30 Wound Wound Culture - Preliminary Pseudomonas Aeruginosa Streptococcus Pyogenes Grp A Staphylococcus Latex Coag Pos Diphtheroid/Corynebacterium Group D Strep Or Entero Coccus 12/05/16 22:31 Blood - Peripheral Venous Blood Culture - Preliminary NO GROWTH OBTAINED AFTER 48 HOURS, INCUBATION TO CONTINUE FOR 3 DAYS. 12/05/16 14:30 Blood - Peripheral Venous Blood Culture - Preliminary NO GROWTH OBTAINED AFTER 48 HOURS, INCUBATION TO CONTINUE FOR 3 DAYS. 12/06/16 13:40 Urine - Urine Clean Catch Urine Culture - Final NO GROWTH OBTAINED HOSPITAL COURSE: Date of Admission:12/05/16 Date of Discharge: 12/08/16 The patient is a 76 year old male, with a significant past medical history of hypothyroidism, chronic lower extremity venous insufficiency and recurrent left lower extremity ulcers, who presented to the emergency department with nausea, vomiting (coffee ground emesis) and abdominal pain for the past 2 days but worsening today. The patient described the abdominal pain as burning. The patient reported 3 episodes of coffee ground emesis (2 yesterday, 1 today), prompting him to come to the ED for evaluation. Patient also complained of left lower extremity swelling and redness which has worsened in the last few days associated with subjective fever and chills. -decrease of Hb from baseline of 11 to 9. patient treated with IVF, protonix IV, clyndamycin - as pt has allergy to vancomycin for cellulitis , wound care. LLE cellulitis- wound Cx reported with pseudomonas. pt is not agreeable to staying for official cx report and wants to go home with oral abx. was treated with levaquin previous admission for 5 days (allergy is nausea). will treat with 750mg x7 days. will need to follow up in wound care clinic. cont clinda to complete 7 day course. ( Hx of MRSA). Endoscopy and colonoscopy performed: mild Diverticulosis sigmoid colon, flat polyp measuring 5mm size found on decending colon, and one found sigmoid colon, medium internal hemorrhoids, normal colonic mucosa inn terminal ileum. instructed patient to avoid NSAIDS for 10 days, awaiting pathology report, High fiber diet, repeat colonoscopy in 5 years, follow up with GI Dr. Sidhu in one to two weeks for pathology report. No further vomiting and patient is hemodyamically stable, H/H stable, no leukocytosis, afebrile. Vascular Surgery Dr. Burkett examined Left lower extremity and assesses as it being stable with Minimal cellulitis. Cont with dressing changes. will see pateint in office for wound care. Minutes to complete discharge: 35 Discharge Summary Reason For Visit: CELLULITIS,ANEMIA, EPIGASTRIC PAIN Current Active Problems Anemia (Acute) Cellulitis (Acute) Infected skin ulcer limited to breakdown of skin (Acute) Venous insufficiency of both lower extremities (Acute) Condition: Stable - Instructions Diet, Activity, Other Instructions: You are being discharged to home. Please call and follow up with your primary care provider in one week to assess your health. Please call and follow up with GI dr. Sidhu in one week. Please call and follow up with Dr. Burkett at wound care this Wednesday or the following Wednesday. Please take your medication as prescribed. Avoid NSAIDS for 10 days,High fiber diet, awaiting pathology report, follow up with GI Dr. Sidhu in one to two weeks for pathology report, repeat colonoscopy in 5 years. Please reports to the ER or the nearest ER if you have any persistent and worsening symptoms, chest pain, palpitation, fevers, chills, night sweats, Nausea, Vomiting, severe headache dizziness or loss of consciousness. Referrals: Roldan Sidhu DO [Staff Physician] - 1 Week Bakari Burkett MD [Staff Physician] - 1 Week Disposition: HOME - Home Medications Comprehensive Discharge Medication List: Ambulatory Orders Thyroid [[place] Thyroid] 60 mg PO DAILY tablet 09/19/16 Collagenase Clostridium Hist. [Santyl] 1 applic TP DAILY #90 oint...g. 11/20/16 This patient is new to me today: Yes Date on this admission: 12/08/16 Emergency Visit: No Critical Care patient: No - Discharge Referral Referred to [facility] Med P.C.: Yes Physician Referral: Bakari Burkett DO ([facility])
--- NOTE | 2016-12-08 15:26 | PATH ---
Surgical Pathology Report Patient Name: JW MONTILLA [facility]. Rec. #: [id number] /Age/Gender: 1940 (Age: 76) / M Account: [id number] Location: 4 PEDS/ADOL Taken: 12/07/2016 Received: 12/07/2016 Reported: 12/08/2016 Physicians: Emilia Tate M.D. Specimen(s) Received A: BX SECOND PORTION DUODENUM AND DUODENAL BULB B: BX ANTRUM C: BX DISTAL ESOPHAGUS Clinical History Hematemesis, upper GI bleed GERD, hiatal hernia Final Diagnosis A. DUODENUM, SECOND PORTION AND BULB, BIOPSY: DUODENAL MUCOSA WITH CHRONIC INFLAMMATION. NO HISTOLOGIC EVIDENCE OF GLUTEN SENSITIVE ENTEROPATHY (CELIAC DISEASE). B. STOMACH, ANTRUM, BIOPSY: GASTRIC ANTRAL EXTRINSIC MUCOSA WITH MILD TO MODERATE CHRONIC GASTRITIS AND REACTIVE GASTROPATHY. IMMUNOSTAIN FOR H. PYLORI IS NEGATIVE FOR ORGANISMS. C. ESOPHAGUS, DISTAL, BIOPSY: ULCERATED SQUAMOUS EPITHELIUM WITH MARKED ACUTE AND CHRONIC INFLAMMATION, FOCAL GRANULATION TISSUE FORMATION AND REFLUX TYPE CHANGES. NO FUNGAL ORGANISMS IDENTIFIED WITH PAS STAIN. Electronically Signed Sai Marsh M.D. Gross Description A. Received in formalin, labeled "biopsy second portion of duodenum and duodenal bulb" are 3 [place], irregular portions of soft tissue averaging 0.3 cm in greatest dimension. The specimens are submitted in toto in one cassette. B. Received in formalin, labeled "biopsy antrum" are 3 [place], irregular portions of soft tissue ranging from 0.1-0.7 cm in greatest dimension. The specimens are submitted in toto in one cassette. C. Received in formalin, labeled "biopsy distal esophagus" are 5 quez[place], irregular portions of soft tissue ranging from 0.1-0.3 cm in greatest dimension. The specimens are submitted in toto in one cassette. /12/07/2016 saudi12/07/2016
--- NOTE | 2016-12-08 15:59 | PN ---
Teaching Attending Note Name of Resident: Leah Paula ATTENDING PHYSICIAN STATEMENT I saw and evaluated the patient. I reviewed the resident's note and discussed the case with the resident. I agree with the resident's findings and plan as documented. SUBJECTIVE:currently asymptomatic. states he is fine and wants to go home. denies CP, SOB,fever, chills, N/V/C/D OBJECTIVE: Last Vital Signs Temp Pulse Resp BP Pulse Ox 98.3 F 57 L 16 156/71 100 12/08/16 13:09 12/08/16 13:40 12/08/16 13:40 12/08/16 13:40 12/08/16 13:40 General NAD abdomen soft NT/ND normoactive bs Extremities large lateral ulcer on LLE superior to malleolus, mild surrounding erythema, good granulation tissue. nontender ASSESSMENT AND PLAN: 76yo M with PMH hypothyroid and chronic leg ulcers presented to the ER and was admitted for further evaluation of their emergent condition 1. Upper GI bleed- no repeated episodes in past 24H. plan for colonoscopy today by GI. on PPI bid. 2. LLE cellulitis- with ulceration. evaluated by vascular surgery and wound care recommendations appreciated. wound Cx reported with pseudomonas. pt is not agreeable to staying for official cx report and wants to go home with oral abx. was treated with levaquin previous admission for 5 days (allergy is nausea). will treat with 750mg x7 days. will need to follow up in wound care clinic. cont clinda to complete 7 day course. (Hx of MRSA). 3. hypothyroid- on armour thyroid 4. d/c home. follow up with GI and wound care
[2016-12-09] MEDS ORDERED: PANTOPRAZOLE 40 MG TABLET (FP) PO SCH (10:00)
--- NOTE | 2016-12-09 13:40 | PATH ---
Surgical Pathology Report Patient Name: JW MONTILLA [facility]. Rec. #: [id number] /Age/Gender: 1940 (Age: 76) / M Account: [id number] Location: 4 SO PEDS/ADOL Taken: 12/08/2016 Received: 12/08/2016 Reported: 12/09/2016 Physicians: Jos Carreno D.O. Specimen(s) Received A: BX POLYP DESCENDING COLON B: BX POLYP SIGMOID COLON Clinical History Anemia Polyps, diverticulosis, hemorrhoids Final Diagnosis A. COLON, DESCENDING, POLYP, BIOPSY: HYPERPLASTIC POLYP. B. COLON, SIGMOID, POLYP, BIOPSY: TUBULAR ADENOMA. Electronically Signed Sai Marsh M.D. Gross Description A. Received in formalin, labeled "polyp descending colon" is a quezada, irregular portion of soft tissue measuring 0.3 cm in greatest dimension. The specimen is submitted in toto in one cassette. B. Received in formalin, labeled "sigmoid polyp" are 2 [place], irregular portions of soft tissue measuring 0.1 and 0.3 cm in greatest dimension. The specimens are submitted in toto in one cassette. 12/08/2016 saudi12/08/2016
== END 2016-12-08 17:40 | disposition home or self-care (01) | DRG 378 ==
LOC: JER 19:30 → JERBED 23:56 → UNDOADMIN 12-06 00:30 → JERBED 12-06 01:35 → J4S 12-06 01:35
PROVIDERS: ADMIT Internal Medicine; ATTEND Internal Medicine
PROC: 0DB98ZX Excision of Duodenum, Via Natural or Artificial Opening Endoscopic, Diagnostic (ICD-10-PCS; 2016-12-07)
PROC: 0DB68ZX Excision of Stomach, Via Natural or Artificial Opening Endoscopic, Diagnostic (ICD-10-PCS; principal; 2016-12-07 11:30)
PROC: 0DBN8ZZ Excision of Sigmoid Colon, Via Natural or Artificial Opening Endoscopic (ICD-10-PCS; 2016-12-08)
PROC: 0DBM8ZZ Excision of Descending Colon, Via Natural or Artificial Opening Endoscopic (ICD-10-PCS; 2016-12-08)
DX: K92.2 Gastrointestinal hemorrhage, unspecified (principal); D62 Acute posthemorrhagic anemia; K22.10 Ulcer of esophagus without bleeding; L03.116 Cellulitis of left lower limb; I87.2 Venous insufficiency (chronic) (peripheral); E03.9 Hypothyroidism, unspecified; N40.0 Benign prostatic hyperplasia without lower urinary tract symptoms; I83.028 Varicose veins of left lower extremity with ulcer other part of lower leg; I07.1 Rheumatic tricuspid insufficiency; K21.0 Gastro-esophageal reflux disease with esophagitis; K57.30 Diverticulosis of large intestine without perforation or abscess without bleeding; D12.4 Benign neoplasm of descending colon; D12.5 Benign neoplasm of sigmoid colon; K64.8 Other hemorrhoids; K44.9 Diaphragmatic hernia without obstruction or gangrene
CPT/HCPCS: 36415; 71010-TC; 80048; 80053; 81003; 82272; 82550; 83605; 83690; 83735; 84100; 84484; 85025; 85027; 86850; 86900; 86901; 87040; 87070; 87077; 87086; 87186; 87205; 88305-TC; 93005; 93010; 93970-TC; 99285-25; A4649; G0463-25

== ENCOUNTER 2017-04-02 19:34 | Emergency (ER) | payer OTHER, MEDICARE ==
[2017-04-02 19:43] VITALS: BP 146/72; PULSE 70; TEMP 98.1; BMI 29.7
[2017-04-02] MEDS ORDERED: OXYCODONE/APAP 5/325MG COMBO TABLET PO ONE (19:58)
[2017-04-02] MEDS ORDERED: KETOROLAC TROMETHAMINE 60 MG/2 ML VIAL IM ONE (19:59)
--- NOTE | 2017-04-02 20:00 | PDOC ---
History of Present Illness - General History Source: Patient Exam Limitations: No Limitations - History of Present Illness Initial Comments: 04/02/17 20:29 The patient is a 76 year old male, with a significant past medical history of hypothyroidism, diabetes, and vascular insufficiency, who presents to the emergency department s/p mechanical fall yesterday. The patient reports he was at work and went to the bathroom. He states he saw the cleaning lady and smelled a cleaning product, but did not realize the floor was wet. Patient reports he tried to hold on to the rail in the bathroom, but slipped and fell on the wet floor. Patient reports he landed on his right side, but denies any head trauma or LOC. Since the fall, he reports associated right rib and back pain. He states his pain is exacerbated when breathing. Patient also reports a cough productive of clear sputum. He denies any fever, chills, headache, or dizziness. He denies any abdominal pain, nausea, vomiting, diarrhea, constipation, or changes in urination patterns. He denies any chest pain, shortness of breath, diaphoresis, or palpitations. Allergies: Vancomycin Past Surgical History: Inguinal hernia repair, Appendectomy Social History: Social ETOH use. Non smoker. No drug use. Vascular Surgeon: Dr. Burkett <Mariel Hernandez - Last Filed: 04/02/17 21:33> <Kellie Barraza - Last Filed: 04/02/17 23:46> - General Chief Complaint: Injury Stated Complaint: FALL/INJURY Time Seen by Provider: 04/02/17 19:57 Past History <Mariel Hernandez - Last Filed: 04/02/17 21:33> - Past Medical History GI Disorders: Yes (GASTRIC) Thyroid Disease: Yes (hypothyroidism) Other medical history: vascular insufficiency - Surgical History Abdominal Surgery: Yes (inguinal hernia repair) Appendectomy: Yes - Psycho/Social/Smoking Cessation Hx Anxiety: No Suicidal Ideation: No Smoking History: Never smoked Have you smoked in the past 12 months: No If you are a former smoker, when did you quit?: 30 yrs ago Information on smoking cessation initiated: No Hx Alcohol Use: Yes (SOCIAL wine a few x/week) Drug/Substance Use Hx: No Substance Use Type: None Hx Substance Use Treatment: No <Kellie Barraza - Last Filed: 04/02/17 23:46> - Past Medical History Allergies/Adverse Reactions: Allergies Allergy/AdvReac Type Severity Reaction Status Date / Time vancomycin Allergy Itching Verified 04/02/17 19:40 Home Medications: Ambulatory Orders Thyroid [[place] Thyroid] 60 mg PO DAILY tablet 09/19/16 Mupirocin Ointment [Bactroban 2% Ointment -] 1 applic TP BID #1 applic 01/22/17 Pantoprazole Sodium [Protonix -] 20 mg PO BID 02/26/17 Methocarbamol [Robaxin -] 500 mg PO TID #30 tablet 04/02/17 Oxycodone HCl/Acetaminophen [Percocet 5-325 mg Tablet] 1 tab PO Q6H #20 tablet MDD 4 tabs 04/02/17 Review of Systems - Review of Systems Able to Perform ROS?: Yes Comments:: 04/02/17 20:29 GENERAL/CONSTITUTIONAL: No fever or chills. No weakness. HEAD, EYES, EARS, NOSE AND THROAT: No change in vision. No ear pain or discharge. No sore throat. CARDIOVASCULAR: No chest pain or shortness of breath. RESPIRATORY: Yes: +cough. No wheezing, or hemoptysis. GASTROINTESTINAL: No nausea, vomiting, diarrhea or constipation. GENITOURINARY: No dysuria, frequency, or change in urination. MUSCULOSKELETAL: Yes: +right sided back pain, +pain to the right ribs. .No joint or muscle swelling or pain. No neck pain. SKIN: No rash NEUROLOGIC: No headache, vertigo, loss of consciousness, or change in strength/ sensation. ENDOCRINE: No increased thirst. No abnormal weight change. HEMATOLOGIC/LYMPHATIC: No anemia, easy bleeding, or history of blood clots. ALLERGIC/IMMUNOLOGIC: No hives or skin allergy. <Mariel Hernandez - Last Filed: 04/02/17 21:33> *Physical Exam - Vital Signs Last Vital Signs Temp Pulse Resp BP Pulse Ox 98.1 F 70 20 146/72 98 04/02/17 19:40 04/02/17 19:40 04/02/17 19:40 04/02/17 19:40 04/02/17 19:40 - Physical Exam Comments: 04/02/17 20:29 GENERAL: Awake, alert, and fully oriented, in no acute distress HEAD: No signs of trauma EYES: PERRLA, EOMI, sclera anicteric, conjunctiva clear ENT: Auricles normal inspection, hearing grossly normal, nares patent, oropharynx clear without exudates. Moist mucosa NECK: Normal ROM, supple, no lymphadenopathy, JVD, or masses LUNGS: Breath sounds equal, clear to auscultation bilaterally. No wheezes, and no crackles HEART: Regular rate and rhythm, normal S1 and S2, no murmurs, rubs or gallops ABDOMEN: Soft, nontender, normoactive bowel sounds. No guarding, no rebound. No masses MUSCULOSKELETAL: Posterior right rib pain EXTREMITIES:Bilateral lower extremity. Normal range of motion. No clubbing or cyanosis. No cords, erythema, or tenderness NEUROLOGICAL: Cranial nerves II through XII grossly intact. Normal speech, normal gait SKIN: Chronic skin changes and edema in legs bilaterally. Warm, Dry, normal turgor, no rashes or lesions noted. <Mariel Hernandez - Last Filed: 04/02/17 21:33> - Vital Signs Last Vital Signs Temp Pulse Resp BP Pulse Ox 98.1 F 70 20 146/72 98 04/02/17 19:40 04/02/17 19:40 04/02/17 19:40 04/02/17 19:40 04/02/17 19:40 <Kellie Barraza - Last Filed: 04/02/17 23:46> Medical Decision Making - Medical Decision Making 04/02/17 23:45 Pt comes with right rib pain after he fell on a wet bathroom floor yesterday. Rib series shown no acute fx. Pt will be treated with analgesics. Follow with PMD. <Kellie Barraza - Last Filed: 04/02/17 23:46> *DC/Admit/Observation/Transfer - Attestations Scribe Attestion: 04/02/17 20:30 Documentation prepared by Mariel Hernandez, acting as medical grade shoemaker for Kellie Barraza MD. <Mariel Hernandez - Last Filed: 04/02/17 21:33> - Discharge Dispostion Admit: No <Kellie Barraza - Last Filed: 04/02/17 23:46> Diagnosis at time of Disposition: Chest wall pain, Muscle strain - Discharge Dispostion Disposition: HOME Condition at time of disposition: Stable - Prescriptions Prescriptions: Oxycodone HCl/Acetaminophen [Percocet 5-325 mg Tablet] 1 tab PO Q6H #20 tablet MDD 4 tabs Methocarbamol [Robaxin -] 500 mg PO TID #30 tablet - Referrals Referrals: Carlito Roque MD [Primary Care Provider] - - Patient Instructions Printed Discharge Instructions: Muscle Strain
[2017-04-02] MEDS ORDERED: OXYCODONE/APAP 5/325MG COMBO TABLET ONE (20:16)
[2017-04-02] MEDS ORDERED: KETOROLAC TROMETHAMINE 60 MG/2 ML VIAL ONE (20:17)
== END 2017-04-02 21:30 | disposition home or self-care (01) ==
LOC: JER 19:34
PROC: 3E0233Z Introduction of Anti-inflammatory into Muscle, Percutaneous Approach (ICD-10-PCS; principal; 2017-04-02)
DX: S29.011A Strain of muscle and tendon of front wall of thorax, initial encounter (principal); S21.101A Unspecified open wound of right front wall of thorax without penetration into thoracic cavity, initial encounter; W01.0XXA Fall on same level from slipping, tripping and stumbling without subsequent striking against object, initial encounter; Y93.89 Activity, other specified; Y92.89 Other specified places as the place of occurrence of the external cause; Y99.0 Civilian activity done for income or pay
CPT/HCPCS: 71101-TC-RT; 96372; 99282-25

== ENCOUNTER 2017-08-04 09:16 | Emergency (ER) | payer OTHER, MEDICARE ==
[2017-08-04 09:27] VITALS: TEMP 97.6; BMI 29.0
--- NOTE | 2017-08-04 10:13 | PDOC ---
History of Present Illness - History of Present Illness Initial Comments: 08/04/17 10:14 76 M with h/o hypothyroidism, diabetes, and vascular insufficiency presenting to ER with R elbow swelling and pain. Pt states that it began as what he believed was an insect bite about 3 weeks ago. It was a small pustule that gradually expanded. Pt states that his drained it a week ago and expressed a small amount of pus. It began to feel much better afterwards, but yesterday he states the pain flared up again, and the elbow became more swollen. Pt denies any pain with extension or flexion of the elbow, denies F/C. Denies any recent redness or drainage. <Long Zurita - Last Filed: 08/04/17 13:28> <Mariel Hernandez - Last Filed: 08/04/17 13:35> - General Chief Complaint: Redness To Affected Area Stated Complaint: ABSCESS ON LT ARM Time Seen by Provider: 08/04/17 09:37 Past History - Past Medical History GI Disorders: Yes (ESOPHOGITIS) Thyroid Disease: Yes (hypothyroidism) - Surgical History Abdominal Surgery: Yes (inguinal hernia repair) Appendectomy: Yes - Suicide/Smoking/Psychosocial Hx Smoking History: Never smoked Have you smoked in the past 12 months: No If you are a former smoker, when did you quit?: 30 yrs ago Hx Alcohol Use: Yes (SOCIAL) Drug/Substance Use Hx: No Substance Use Type: None Hx Substance Use Treatment: No <Long Zurita - Last Filed: 08/04/17 13:28> <Mariel Hernandez - Last Filed: 08/04/17 13:35> - Past Medical History Allergies/Adverse Reactions: Allergies Allergy/AdvReac Type Severity Reaction Status Date / Time silver Allergy Intermediate Rash Verified 08/04/17 09:27 vancomycin Allergy Itching Verified 08/04/17 09:27 Home Medications: Ambulatory Orders Thyroid [[place] Thyroid] 60 mg PO DAILY tablet 09/19/16 Pantoprazole Sodium [Protonix -] 40 mg PO DAILY 08/04/17 Sulfamethoxazole/Trimethoprim [Bactrim Ds -] 1 tab PO BID #14 tablet 08/04/17 Review of Systems - Review of Systems Comments:: 08/04/17 10:16 "GENERAL/CONSTITUTIONAL: No fever or chills. No weakness. HEAD, EYES, EARS, NOSE AND THROAT: No change in vision. No ear pain or discharge. No sore throat. CARDIOVASCULAR: No chest pain or shortness of breath. RESPIRATORY: No cough, wheezing, or hemoptysis. GASTROINTESTINAL: No nausea, vomiting, diarrhea or constipation. GENITOURINARY: No dysuria, frequency, or change in urination. MUSCULOSKELETAL: no joint pain or swelling SKIN: RUE with swelling and pain NEUROLOGIC: No headache, vertigo, loss of consciousness, or change in strength/ sensation. ENDOCRINE: No increased thirst. No abnormal weight change. HEMATOLOGIC/LYMPHATIC: No anemia, easy bleeding, or history of blood clots. ALLERGIC/IMMUNOLOGIC: No hives or skin allergy. " <Ou,Long - Last Filed: 08/04/17 13:28> *Physical Exam - Vital Signs Last Vital Signs Temp Pulse Resp BP Pulse Ox 97.6 F 66 20 183/91 98 08/04/17 09:22 08/04/17 09:22 08/04/17 09:22 08/04/17 09:22 08/04/17 09:22 - Physical Exam Comments: 08/04/17 10:18 "GENERAL: Awake, alert, and fully oriented, in no acute distress HEAD: No signs of trauma EYES: PERRLA, EOMI, sclera anicteric, conjunctiva clear ENT: Auricles normal inspection, hearing grossly normal, nares patent, oropharynx clear without exudates. Moist mucosa NECK: Nontender, no stepoffs, Normal ROM, supple, no lymphadenopathy, JVD, or masses LUNGS: Breath sounds equal, clear to auscultation bilaterally. No wheezes, and no crackles HEART: Regular rate and rhythm, normal S1 and S2, no murmurs, rubs or gallops ABDOMEN: Soft, nontender, normoactive bowel sounds. No guarding, no rebound. No masses EXTREMITIES: RUE with area of induration just distal to elbow, no ulceration or drainage, no erythema, + TTP, elbow joint without effusion, normal range of motion, extremity neurovascularly intact distally NEUROLOGICAL: Cranial nerves II through XII intact. 5/5 strength and sensation in all extremities, Normal speech, normal gait SKIN: Warm, Dry, normal turgor, no rashes or lesions noted. " <Ou,Long - Last Filed: 08/04/17 13:28> - Vital Signs Last Vital Signs Temp Pulse Resp BP Pulse Ox 97.6 F 66 20 183/91 98 08/04/17 09:22 08/04/17 09:22 08/04/17 09:22 08/04/17 09:22 08/04/17 09:22 <Mariel Hernandez - Last Filed: 08/04/17 13:35> ED Treatment Course - LABORATORY CBC & Chemistry Diagram: 08/04/17 10:43 08/04/17 10:43 - RADIOLOGY Radiology Studies Ordered: Category Date Time Status ELBOW-RIGHT [RAD] Stat Radiology 08/04/17 10:09 Ordered DUPLEX VASCUL US-1 ARM [US] Stat Ultrasound 08/04/17 10:09 Ordered SOFT TISSUE EXTREMITY US [US] Stat Ultrasound 08/04/17 10:09 Ordered <Long Zurita - Last Filed: 08/04/17 13:28> - LABORATORY CBC & Chemistry Diagram: 08/04/17 10:43 08/04/17 10:43 - RADIOLOGY Radiograph Interpretation: 08/04/17 13:32 EXAM: US/DUPLEX VASCUL US-1 ARM. US/SOFT TISSUE EXTREMITY US INTERPRETED BY: Dr. Taveras REVIEWED BY: Dr. Zurita IMPRESSION: 1. In the region of clinical interest in the right elbow, there is soft tissue thickening, heterogeneous echogenicity and reticulation of the subcutaneous fat with increased flow related color Doppler signal/hyperemia. These findings are compatible with cellulitis in the proper clinical setting. No discrete collection/abscess in these soft tissues. 2. No evidence of deep vein thrombosis in the right upper extremity, as above. EXAM: XR Elbow-Right INTERPRETED BY: Dr. De La Rosa REVIEWED BY: Dr. Zurita IMPRESSION: Extensive degenerative arthritis with no fracture or acute bone or joint abnormalities. <Mariel Hernandez - Last Filed: 08/04/17 13:35> Medical Decision Making - Medical Decision Making 08/04/17 10:20 76 M with likely soft tissue infection of RUE. Pt was recently admitted for LLE wound that grew MRSA and pseudomonas. Pt with no fevers, no s/s systemic infection. - Labs, BCx - US to r/o abscess - XR to r/o bony pathology - Call Dr. Roque, pt's ID doctor, for abx recs 08/04/17 13:28 US with no abscess or DVT. Findings suggestive of cellulitis. XR negative. Spoke with Dr. Roque, who agrees with plan to DC pt with course of bactrim. Will see pt in clinic. Pt well appearing, stable vitals. Clinically well appearing. DC home. <Long Zurita - Last Filed: 08/04/17 13:28> - Medical Decision Making 08/04/17 10:26 First call placed to Dr. Roque at 10:27. Awaiting call back. Case discussed with Dr. Roque at 10:43. <Mariel Hernandez - Last Filed: 08/04/17 13:35> *DC/Admit/Observation/Transfer - Attestations Physician Attestion: 08/04/17 13:30 I, Dr. Long Zurita MD, attest that this document has been prepared under my direction and personally reviewed by me in its entirety. I further attest, that it accurately reflects all work, treatment, procedures and medical decision -making performed by me. <Long Zurita - Last Filed: 08/04/17 13:28> - Attestations Scribe Attestion: 08/04/17 10:27 Documentation prepared by Mariel Hernandez, acting as medical equipment sales for Long Zurita MD. <Mariel Hernandez - Last Filed: 08/04/17 13:35> Diagnosis at time of Disposition: Cellulitis - Discharge Dispostion Disposition: HOME - Prescriptions Prescriptions: Sulfamethoxazole/Trimethoprim [Bactrim Ds -] 1 tab PO BID #14 tablet - Patient Instructions Printed Discharge Instructions: DI for Cellulitis -- Adult Additional Instructions: Take the bactrim as prescribed. Follow up with Dr. Roque within 1 week for a re-evaluation. If you experience worsening pain, swelling ,redness, fevers, or any other concerning symptoms, return to the ER immediately.
[2017-08-04 10:55] LABS: BASOPHIL 0.8 % (0-2.0); EOSINOPHIL 3.5 % (0-4.5); MCH 24.9 pg (25.7-33.7); MCHC 31.2 g/dl (32.0-35.9); MEAN PLT VOLUME 8.6 fl (7.5-11.1); PLATELET COUNT 292 K/MM3 (134-434); RDW 18.3 % (11.9-15.9); WHITE BLOOD COUNT 7.8 K/mm3 (4.0-10.0)
[2017-08-04] MEDS ORDERED: SULFAMETHOXAZOLE/TRIMETHOPRIM 800MG/160MG D.S. TABLET PO ONE (10:55)
[2017-08-04] MEDS ORDERED: SULFAMETHOXAZOLE/TRIMETHOPRIM 800MG/160MG D.S. TABLET ONE (11:18)
[2017-08-04 11:21] LABS: ALBUMIN 3.4 g/dl (3.4-5.0); ANION GAP 7 (8-16); CALCIUM 8.5 mg/dL (8.5-10.1); CO2 26 mmol/L (21-32); GLUCOSE,RANDOM 95 mg/dL (74-106)
[2017-08-04 11:24] LABS: ALK PHOS 106 U/L (45-117); BILIRUBIN,TOTAL 0.4 mg/dL (0.2-1.0); SGOT/AST 19 U/L (15-37); SGPT/ALT 25 U/L (12-78); TOT PROT 7.4 g/dl (6.4-8.2)
[2017-08-04 11:47] LABS: C-REACTIVE PROTEIN 1.5 MG/DL (0.00-0.3)
[2017-08-04 13:01] LABS: ERYTHROCYTE SEDIMENTATION RATE 50 mm/hr (0-20)
[2017-08-04 13:49] VITALS: BP 152/89; PULSE 63
== END 2017-08-04 13:49 | disposition home or self-care (01) ==
LOC: JER 09:16
DX: L03.113 Cellulitis of right upper limb (principal); E03.9 Hypothyroidism, unspecified; I99.8 Other disorder of circulatory system
CPT/HCPCS: 36415; 73070-TC-RT; 76882; 80053; 85025; 85651; 86140; 87040; 93971; 99282-25

== ENCOUNTER 2018-01-08 20:08 | Inpatient (IN) | payer OTHER, MEDICARE ==
--- NOTE | 2018-01-08 20:47 | PDOC ---
Attending Attestation - HPI HPI: 01/08/18 21:45 The patient is a 77 year old male, with a significant past medical history of chronic vascular insufficiency to his bilateral lower extremity and non-healing ulcers to the left lower extremity, who presents to the emergency department with, a week and half of generalized weakness, fatigue, malaise, decreased appetite, and chills. As per patient he reports, worsening erythema and pain to his left lower extremity ulcers spreading past his knee. - Medical Decision Making 01/08/18 22:[address] Roque, infectious disease, case discussed. <Veronica Daniel - Last Filed: 01/08/18 22:42> - Resident Resident Name: Carrie Cotton - ED Attending Attestation I have performed the following: I have examined & evaluated the patient, The case was reviewed & discussed with the resident, I agree w/resident's findings & plan, Exceptions are as noted - Physicial Exam PE: 01/08/18 23:06 Patient is awake and alert, nontoxic-appearing, febrile. Normocephalic and atraumatic cta rrr Soft, nondistended, nontender LLE: + extensive erythema extending from the ankle joint up to the mid thigh with numerous ulcerations (stage I and stage II) mostly localized to the posterior aspect of the right lower extremity with several smaller lesions anteriorly; dorsalis pedis is +2. - Medical Decision Making 01/08/18 23:10 Patient is a 77-year-old male with history of peripheral vascular disease, chronic nonhealing lower extremity ulcers who presents with worsening left lower extremity cellulitis. Patient's febrile, hemodynamically stable, nontoxic appearing. There is no evidence of necrotizing fasciitis at this time. We'll obtain CBC/CMP/blood cultures. We'll administer vancomycin for gram-positive coverage and imipenem for suspected Pseudomonas and gram negatives. Will obtain soft tissue x-ray to rule out subcutaneous air. Will admit. Case discussed with Dr. Rodríguez of [place] who agrees with the plan of care. 01/09/18 00:27 pt wit chills. no rash, no respiratory sxs. po temp:97.9F. LLE erythema imroving. <Eduardo Ruelas - Last Filed: 01/09/18 00:28> Attestations - Attestations 01/08/18 21:46 Documentation prepared by Veronica Daniel, acting as medical office representative for Eduardo Ruelas MD. <Veronica Daniel - Last Filed: 01/08/18 22:42> - Attestations Physician Attestation: 01/08/18 23:11 The documentation was prepared by the scribe under my direct supervision. I have reviewed the documentation which correctly represents the findings, medical decision-making and critical action taken by me. <Eduardo Ruelas - Last Filed: 01/09/18 00:28>
[2018-01-08] MEDS ORDERED: SODIUM CHLORIDE 1,000 ML IV STA (21:17)
--- NOTE | 2018-01-08 21:31 | PDOC ---
History of Present Illness - General Chief Complaint: Weakness Stated Complaint: PCP SENT/FOOT [facility]LCER Time Seen by Provider: 01/08/18 20:43 History Source: Patient Exam Limitations: No Limitations - History of Present Illness Initial Comments: This is a 77 YOM with h/o chronic vascular insufficiency to his BLE and non- healing ulcers to the LLE (followed by wound care clinic with Dr. Burkett) who p/ w generalized weakness, fatigue, malaise, decreased appetite, and chills for the past 1.5 weeks in the setting of worsening pain and redness and drainage to his chronic LLE ulcers. Both legs are wrapped in dressings placed this morning, and the LLE dressing is soaked through (however this dressing also has honey on it as part of his wound care regimen). The patient states that he has taken two doses of Septra (about one week ago) and he got an injection of Bicillin LA this morning, but his LLE continue to worsen. Today there has been significant worsening redness which is now spreading proximally past the knee. 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 Past History - Past Medical History Allergies/Adverse Reactions: Allergies Allergy/AdvReac Type Severity Reaction Status Date / Time silver sulfadiazine Allergy Verified 01/08/18 20:22 [From Silvadene] Home Medications: Ambulatory Orders Pantoprazole Sodium [Protonix -] 20 mg PO DAILY 01/08/18 Ascorbate Calcium [Vitamin C] 500 mg PO BID 01/09/18 Thyroid [[place] Thyroid] 60 mg PO DAILY 01/09/18 GI Disorders: Yes (ESOPHOGITIS) Thyroid Disease: Yes (hypothyroidism) - Surgical History Abdominal Surgery: Yes (inguinal hernia repair) Appendectomy: Yes - Suicide/Smoking/Psychosocial Hx Smoking History: Never smoked Have you smoked in the past 12 months: No If you are a former smoker, when did you quit?: 30 yrs ago Information on smoking cessation initiated: No Hx Alcohol Use: No Drug/Substance Use Hx: No Substance Use Type: None Hx Substance Use Treatment: No Review of Systems - Review of Systems Able to Perform ROS?: Yes Constitutional: Yes: Chills, Loss of Appetite, Malaise, Weakness, Other (facial flushing) HEENTM: No: Nose Congestion, Throat Pain Respiratory: No: Shortness of Breath, Productive cough Cardiac (ROS): Yes: Edema. No: Chest Pain, Palpitations ABD/GI: No: Constipated, Diarrhea, Nausea, Vomiting : No: Burning, Dysuria Musculoskeletal: No: Back Pain, Neck Pain Integumentary: No: Bruising, Rash Neurological: No: Headache, Numbness, Tingling, Weakness, Dizziness Endocrine: No: Unexplained Weight Gain, Unexplained Weight Loss *Physical Exam - Vital Signs Last Vital Signs Temp Pulse Resp BP Pulse Ox 99.8 F H 91 H 16 118/61 100 01/08/18 20:19 01/08/18 20:19 01/08/18 20:19 01/08/18 20:19 01/08/18 20:19 - Physical Exam General Appearance: Yes: Nourished, Appropriately Dressed, Other (nontoxic and well-appearing elderly male, answering questions appropriately, accompanied at bedside by family). No: Apparent Distress HEENT: positive: EOMI, [place], Normal ENT Inspection, Normal Voice, Hearing Grossly Normal. negative: Scleral Icterus (R), Scleral Icterus (L), Nasal Congestion Neck: positive: Trachea midline, Supple. negative: Tender, Rigid Respiratory/Chest: positive: Lungs Clear, Normal Breath Sounds. negative: Respiratory Distress, Crackles, Rhonchi, Stridor, Wheezing Cardiovascular: positive: Regular Rhythm, Regular Rate, Edema (3+ pitting BLE worse on the left), Systolic Murmur. negative: Murmur (2/6 at LLSB) Vascular Pulses: Dorsalis-Pedis (R): 2+, Doralis-Pedis (L): 2+ Gastrointestinal/Abdominal: positive: Normal Bowel Sounds, Soft. negative: Tender, Organomegaly, Pulsatile Mass, Guarding Musculoskeletal: positive: Normal Inspection. negative: Decreased Range of Motion, Vertebral Tenderness Extremity: positive: Normal Capillary Refill, Normal Range of Motion, Tender ( LLE ttp from ankle to mid-thigh in area of ulcerations and erythema), Other ( LLE with large coalescing nonhealing ulcers with dressing soaked through. Dressing also with honey treatment and thus difficult to differentiate from wound drainage. Ulcerations extend almost the length of the tibia, most located medially and posteriorly. Ulcerations extend into the subcutaneous fat but there is no obvious muscle exposed. Only mildly malodorous. Surrounding cellulitis extending from ankle to mid-thigh worse medially and posteriorly.). negative: Coldness, Cyanosis, Delayed Capillary Refill Integumentary: positive: Normal Color, Dry, Warm. 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 VS notable for: rectal febrile to 100.7, otherwise VS wnl Exam notable for: LLE with large coalescing nonhealing ulcers with dressing soaked through. Dressing also with honey treatment and thus difficult to differentiate from wound drainage. Ulcerations extend almost the length of the tibia, most located medially and posteriorly. Ulcerations extend into the subcutaneous fat but there is no obvious muscle exposed. Only mildly malodorous. Surrounding cellulitis extending from ankle to mid-thigh worse medially and posteriorly. DDX IBNLT: cellulitis, necrotizing soft tissue infection, DVT, abscess, etc. W/U ordered: CBCD CMP Mg Coags T&S Lactate BCx UA UCx EKG CXR Leg XR. TX ordered: IVF, Ofirmev, Vancomycin. Cellulitis is outlined in pen. 01/08/18 22:[address] Carlito Roque, who is the patient's PCP and ID doctor. He agrees with vancomycin and also would add meropenem as pt had pseudomonas in the past. Meropenem added. EKG notable for: NSR, rate of 72, RBBB, XRa=276 CXR notable for: prominent mediastinum, otherwise nothing acute Labs notable for: Hgb 11.1 lactate 1.1, otherwise labs unremarkable. On reassessment: erythema already seems to have passed cellulitis outline. 01/08/18 23:55 The patient is unsafe for discharge at this time. He requires further hospital observation, workup, and treatment. Microblog sent to [facility] for admission. Spoke with [facility], in agreement patient to be admitted to Dr. Tolentino, IP Med/Surg. Decision to Admit order placed. *DC/Admit/Observation/Transfer Diagnosis at time of Disposition: Venous insufficiency of both lower extremities Cellulitis Qualifiers: Site of cellulitis: extremity Site of cellulitis of extremity: lower extremity Laterality: left Qualified Code(s): L03.116 - Cellulitis of left lower limb Sepsis Qualifiers: Sepsis type: sepsis due to unspecified organism Qualified Code(s): A41.9 - Sepsis, unspecified organism - Discharge Dispostion Condition at time of disposition: Guarded Admit: Yes - Referrals - Patient Instructions - Post Discharge Activity
[2018-01-08 22:10] LABS: BASO % 0.6 % (0-2.0); EOS % 1.1 % (0-4.5); HEMATOCRIT 33.5 % (35.4-49); HEMOGLOBIN 11.1 GM/dL (11.7-16.9); LYMPH % 11.3 % (8-40); MCH 25.6 pg (25.7-33.7); MCHC 33.2 g/dl (32.0-35.9); MEAN CELL VOLUME 77.1 fl (80-96); MEAN PLT VOLUME 7.7 fl (7.5-11.1); MONO % 7.6 % (3.8-10.2); NEUT % 79.4 % (42.8-82.8); PLATELET COUNT 350 K/MM3 (134-434); RBC 4.34 M/mm3 (4.00-5.60); RDW 16.2 % (11.9-15.9); WHITE BLOOD COUNT 9.8 K/mm3 (4.0-10.0)
[2018-01-08 22:31] LABS: INR 1.3 (0.82-1.09); PROTHROMBIN TIME (PATIENT) 14.7 SEC (9.98-11.88)
[2018-01-08] MEDS ORDERED: VANCOMYCIN 1 GRAM (PRE-DOCKED) 1,000 MG/250 ML BAG IVPB ONE (22:39)
[2018-01-08 22:40] LABS: ALBUMIN 2.7 g/dl (3.4-5.0); ANION GAP 8 (8-16); BILIRUBIN,TOTAL 0.5 mg/dL (0.2-1.0); BLOOD UREA NITROGEN 29 mg/dL (7-18); CALCIUM 8.3 mg/dL (8.5-10.1); CHLORIDE 108 mmol/L (98-107); CO2 23 mmol/L (21-32); CREATININE 0.9 mg/dL (0.7-1.3); GLUCOSE,RANDOM 96 mg/dL (74-106); SGPT/ALT 17 U/L (12-78); SODIUM 139 mmol/L (136-145); TOT PROT 6.6 g/dl (6.4-8.2)
[2018-01-08 22:41] LABS: ALK PHOS 79 U/L (45-117); POTASSIUM 4.9 mmol/L (3.5-5.1)
[2018-01-08 22:42] LABS: SGOT/AST 25 U/L (15-37)
[2018-01-08] MEDS ORDERED: VANCOMYCIN 2,000 MG in DEXTROSE 5%-WATER - 500 ML IVPB ONE (22:47)
[2018-01-08] MEDS ORDERED: ACETAMINOPHEN 1000 MG/100 ML VIAL (NON FORMULARY) IVPB ONE (22:49)
[2018-01-08] MEDS ORDERED: MEROPENEM 1,000 MG in DEXTROSE 5%-WATER - 100 ML IVPB ONE (22:49)
[2018-01-08] MEDS ORDERED: ACETAMINOPHEN INJECTION 100 ML IVPB ONE (22:51)
[2018-01-08] MEDS ORDERED: VANCOMYCIN 1 GRAM (PRE-DOCKED) 2,000 MG/500 ML BAG IVPB ONE ×2 (23:15→23:27)
--- NOTE | 2018-01-09 00:03 | PN ---
Teaching Attending Note Name of Resident: Yesenia Crooks ATTENDING PHYSICIAN STATEMENT I saw and evaluated the patient. I reviewed the resident's note and discussed the case with the resident. I agree with the resident's findings and plan as documented. SUBJECTIVE: This is a 77 year old man with a history of venous insufficiency of both legs, non-healing ulcers of his left leg, GERD, hypothyroidism who comes to the ED with fatigue, weakness, decreased appetite, fever and chills with drainage form the left leg ulcers and worsening pain and erythema of the left leg over the past 10 days. He has been following with Dr. Burkett at the wound clinic. He was being treated with Santyl, KLAUS wrap, and Tubigrips. He stopped the Santyl because of a reaction. On 12/31, he started manuka honey, alginate, and KLAUS wrap. He says he took two doses of Septra about one week ago and received an injection of Bicillin LA earlier today. OBJECTIVE: Vital Signs Period Temp Pulse Resp BP Sys/Costa Pulse Ox Last 24 Hr 99.8 F-100.7 F 91 16 118/61 100 HEART: S2S2, RRR, (+) 3/6 SM LUNGS: Clear ABDOMEN: Soft, non-tender, non-distended, normal BS EXTREMITIES: Chronic venous stasis changes bilaterally. Compression wrap on right lower leg. Ulcers on LLE with foul-smelling yellow drainage. Erythema of lower left leg extending up to thigh. Laboratory Tests 01/08/18 01/08/18 01/08/18 21:55 21:55 21:55 WBC 9.8 RBC 4.34 Hgb 11.1 L D Hct 33.5 L D MCV 77.1 L MCH 25.6 L MCHC 33.2 RDW 16.2 H D Plt Count 350 MPV 7.7 D Neutrophils % 79.4 Lymphocytes % 11.3 D Monocytes % 7.6 Eosinophils % 1.1 Basophils % 0.6 PT with INR 14.70 H INR 1.30 H Sodium 139 Potassium 4.9 Chloride 108 H Carbon Dioxide 23 Anion Gap 8 BUN 29 H Creatinine 0.9 Creat Clearance w eGFR > 60 Random Glucose 96 Lactic Acid Calcium 8.3 L Total Bilirubin 0.5 D AST 25 D ALT 17 D Alkaline Phosphatase 79 D Total Protein 6.6 Albumin 2.7 L D Blood Type Antibody Screen 01/08/18 01/08/18 21:55 21:55 WBC RBC Hgb Hct MCV MCH MCHC RDW Plt Count MPV Neutrophils % Lymphocytes % Monocytes % Eosinophils % Basophils % PT with INR INR Sodium Potassium Chloride Carbon Dioxide Anion Gap BUN Creatinine Creat Clearance w eGFR Random Glucose Lactic Acid 1.1 Calcium Total Bilirubin AST ALT Alkaline Phosphatase Total Protein Albumin Blood Type A POSITIVE Antibody Screen Negative Home Medications Medication Instructions Recorded Pantoprazole Sodium [Protonix -] 20 mg PO DAILY 01/08/18 Thyroid 1 gm PO DAILY 01/08/18 ASSESSMENT AND PLAN: This is a 77 year old man with a history of venous insufficiency of both legs, non-healing ulcers of his left leg, GERD, hypothyroidism who presented to the ED today with pain and redness of his left leg. 1. Sepsis secondary to infected venous ulcers of LLE with cellulitis - Zosyn, Vancomycin - ID, consult 2. Hypothyroidism - Continue thyroid replacement 3. GERD - Continue Protonix
[2018-01-09] MEDS ORDERED: ACETAMINOPHEN 325 MG TABLET (FP) PO PRN ×2 (00:11→06:28)
--- NOTE | 2018-01-09 00:25 | HP ---
CHIEF COMPLAINT: leg wounds PCP: Dr. 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 Patient states he took a few doses of bactrim that he had,( amt unknown). He endorses decreased sensation of plantar feet. 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 sitting up in bed; slight foul odor in room from wound HEAD: Normal with no signs of trauma. EYES: Pupils equal, round and reactive to light, extraocular movements intact, sclera anicteric, conjunctiva clear. No lid lag. EARS, NOSE, THROAT: Ears normal, nares patent, oropharynx clear without exudates. Moist mucous membranes. NECK: Normal range of motion, supple without lymphadenopathy, JVD, or masses. LUNGS: Breath sounds equal, clear to auscultation bilaterally. No wheezes, and no crackles. No accessory muscle use. HEART: Regular rate and rhythm, normal S1 and S2 without murmur, rub or gallop. ABDOMEN: Soft, nontender, not distended, normoactive bowel sounds, no guarding, no rebound, no masses. No hepatomegaly or splenomegaly. MUSCULOSKELETAL: No bony deformities or tenderness. No CVA tenderness. UPPER EXTREMITIES: 2+ pulses, warm, well-perfused. No cyanosis. No clubbing. No peripheral edema. LOWER EXTREMITIES: 2+ pulses, warm, well-perfused. No calf tenderness. bilateral LE edema;2+; with surrounding erythema marked with pen, warmth; NEUROLOGICAL: Cranial nerves II-XII intact. Normal speech. muscle strength 5/5 / upper and lower extremities; sensation to light touch decreased bl pantar and doral aspect of bilaeral feet; 1+ pedal pulses b/l; knee refles 2+; l LLE oozing clear yellow fluid PSYCHIATRIC: Cooperative. Good eye contact. Appropriate mood and affect. SKIN: Warm, dry, normal turgor, no rashes or lesions noted, normal capillary refill. Laboratory Results - last 24 hr 01/08/18 01/08/18 01/08/18 21:55 21:55 21:55 WBC 9.8 RBC 4.34 Hgb 11.1 L D Hct 33.5 L D MCV 77.1 L MCH 25.6 L MCHC 33.2 RDW 16.2 H D Plt Count 350 MPV 7.7 D Neutrophils % 79.4 Lymphocytes % 11.3 D Monocytes % 7.6 Eosinophils % 1.1 Basophils % 0.6 PT with INR 14.70 H INR 1.30 H Sodium 139 Potassium 4.9 Chloride 108 H Carbon Dioxide 23 Anion Gap 8 BUN 29 H Creatinine 0.9 Creat Clearance w eGFR > 60 Random Glucose 96 Lactic Acid Calcium 8.3 L Total Bilirubin 0.5 D AST 25 D ALT 17 D Alkaline Phosphatase 79 D Total Protein 6.6 Albumin 2.7 L D Blood Type Antibody Screen 01/08/18 01/08/18 21:55 21:55 WBC RBC Hgb Hct MCV MCH MCHC RDW Plt Count MPV Neutrophils % Lymphocytes % Monocytes % Eosinophils % Basophils % PT with INR INR Sodium Potassium Chloride Carbon Dioxide Anion Gap BUN Creatinine Creat Clearance w eGFR Random Glucose Lactic Acid 1.1 Calcium Total Bilirubin AST ALT Alkaline Phosphatase Total Protein Albumin Blood Type A POSITIVE Antibody Screen Negative ASSESSMENT/PLAN: This is a 77 year old male with a history of hypothyroid, chronic venous status ulcers, wound infections, presents non healing venous stasis ulcer or LLE with erythema, edema, fever, chills. Treat for cellulitis with IV antibiotics. #LLE cellulitis with chronic venous stasis ulcer -IV antibiotics: meropenam; -wound cx; blood cx -ID following -contact precautions -wound care #hypothyroid: -cont home med VtE: heparin SQ Case discussed with Dr. Tolentino Visit type - Emergency Visit Emergency Visit: Yes ED Registration Date: 01/08/18 Care time: The patient presented to the Emergency Department on the above date and was hospitalized for further evaluation of their emergent condition. - New Patient This patient is new to me today: Yes Date on this admission: 01/09/18 - Critical Care Critical Care patient: No Hospitalist Screening - Colonoscopy Questionnaire Colonoscopy Questionnaire: Colonoscopy Questionnaire - Patient: 50 - 75 years old and never had a screening colonoscopy: No History of colon or rectal polyps, or CA: Unknown History of IBD, Crohn's disease or UC: Unknown History of abdominal radiation therapy as a child: Unknown - Relative: 1 with colon or rectal CA, or polyps at age 60 or younger: Unknown Colon or rectal CA diagnosed at age 45 or younger: Unknown Multiple relatives with colon or rectal CA: Unknown - Outcome: Screening Result: Negative Screen
[2018-01-09] MEDS ORDERED: IBUPROFEN 800 MG/8 ML IJ IVPB ONE ×2 (00:30→00:35)
[2018-01-09] MEDS ORDERED: MEPERIDINE HCL CARPU-JECT 25 MG/1 ML DISP.SYRIN IVPUSH ONE (00:38)
[2018-01-09] MEDS ORDERED: MEPERIDINE HCL CARPU-JECT 50 MG/1 ML DISP.SYRIN ONE (00:45)
[2018-01-09] MEDS ORDERED: PIPERACILLIN/TAZOB 4.5 GM 4.5 GM/100 ML BAG IVPB SCH (02:00)
[2018-01-09] MEDS ORDERED: PIPERACILLIN/TAZOB 4.5 GM 4.5 GM in DEXTROSE 5%-WATER - 100 ML IVPB ONE ×2 (03:30→09:00)
[2018-01-09 04:47] VITALS: BMI 30.6
[2018-01-09] MEDS: HEPARIN NA (PORCINE) 5,000 UNITS/ML 1ML VIAL SQ SCH ×4 (06:49→21:38)
[2018-01-09] MEDS: PANTOPRAZOLE 20 MG TABLET (FP) PO SCH (09:50)
[2018-01-09] MEDS ORDERED: VANCOMYCIN 1,000 MG in DEXTROSE 5%-WATER - 250 ML IVPB ONE (10:00)
[2018-01-09] MEDS ORDERED: THYROID PO SCH (10:00)
[2018-01-09] MEDS ORDERED: VANCOMYCIN 1,500 MG in DEXTROSE 5%-WATER - 250 ML IVPB SCH (10:00)
[2018-01-09 10:18] LABS: URINE APPEARANCE CLEAR; URINE BILIRUBIN NEGATIVE (<2.0 mg/dL); URINE BLOOD NEGATIVE (NEGATIVE); URINE COLOR LTYELLOW; URINE GLUCOSE (UA) NEGATIVE (NEGATIVE); URINE KETONE NEGATIVE (NEGATIVE); URINE LEUK ESTERASE NEGATIVE (NEGATIVE); URINE NITRITE NEGATIVE (NEGATIVE); URINE PROTEIN NEGATIVE (NEGATIVE); URINE UROBILINOGEN NEGATIVE mg/dL (0.2-1.0)
--- NOTE | 2018-01-09 12:46 | CON.ID ---
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 He has chronic venous stasis. He has had multiple admission s for cellulitis of his legs. Hx MRSA & Pseudomonas in the past. Yesterday, he noted increased weakness. He came to the ED, where he was noted to be febrile with increased cellulitis. - History Source History Provided By: Patient Limitations to Obtaining History: No Limitations - Past Medical History Cardio/Vascular: Yes: Other (Tricuspid regurgitation) Renal/: Yes: BPH Endocrine: Yes: Hypothyroidism Dermatology: Yes: Other (PVD Venous stasis Leg ulcer) - Past Surgical History Past Surgical History: Yes: Appendectomy, Hernia Repair (RIH), TURP, Tonsillectomy - Alcohol/Substance Use Hx Alcohol Use: No - Smoking History Smoking history: Never smoked Have you smoked in the past 12 months: No If you are a former smoker, when did you quit?: 30 yrs ago - Social History Usual Living Arrangement: With Spouse ADL: Independent 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: [employer] History of Recent Travel: No Home Medications - Allergies Allergies/Adverse Reactions: Allergies Allergy/AdvReac Type Severity Reaction Status Date / Time silver sulfadiazine Allergy Verified 01/08/18 20:22 [From Silvadene] - Home Medications Home Medications: Ambulatory Orders Pantoprazole Sodium [Protonix -] 20 mg PO DAILY 01/08/18 Ascorbate Calcium [Vitamin C] 500 mg PO BID 01/09/18 Thyroid [[place] Thyroid] 60 mg PO DAILY 01/09/18 Family Disease History - Family Disease History Family Disease History: Other: Father (: 65: [place]), Mother (: 76: CVA), Son (2 sons, 1 paralyzed from diving accident in pool), Daughter (healthy) Review of Systems - Review of Systems Constitutional: reports: Chills, Fever HENT: reports: No Symptoms Neck: reports: No Symptoms Cardiovascular: reports: No Symptoms Respiratory: reports: No Symptoms Gastrointestinal: reports: No Symptoms Physical Exam Vital Signs: Vital Signs Temperature 98.9 F 01/09/18 04:15 Pulse Rate 86 01/09/18 04:15 Respiratory Rate 18 01/09/18 04:15 Blood Pressure 124/79 01/09/18 04:15 O2 Sat by Pulse Oximetry (%) 98 01/09/18 04:15 Constitutional: Yes: Well Nourished, No Distress Eyes: Yes: Conjunctiva Clear, PERRL HENT: Yes: Normocephalic Neck: Yes: Trachea Midline Cardiovascular: Yes: Regular Rate and Rhythm, Murmur Respiratory: Yes: Regular, CTA Bilaterally Gastrointestinal: Yes: Normal Bowel Sounds, Soft Extremities: Yes: Erythema ((+) redness (L) leg, (+) stasis ulcers, stasis changes (R) leg) Labs: CBC, BMP 01/08/18 21:55 01/08/18 21:55 Imaging - Results Chest X-ray: Report Reviewed Problem List - Problems (1) Cellulitis Code(s): L03.90 - CELLULITIS, UNSPECIFIED Qualifiers: Site of cellulitis: extremity Site of cellulitis of extremity: lower extremity Laterality: left Qualified Code(s): L03.116 - Cellulitis of left lower limb (2) Infected skin ulcer limited to breakdown of skin Code(s): L98.491 - NON-PRS CHRONIC ULCER SKIN/ SITES LIMITED TO BRKDWN SKIN Assessment/Plan Cellulitis Stahl c/s RX Vanco & Meropenem Will de-escalate based on c/s results.
[2018-01-09] MEDS: ASCORBIC ACID 500 MG TABLET (FP) PO SCH ×3 (14:18→21:34)
[2018-01-09] MEDS ORDERED: PT OWN MED DRAWER 7, Y5N ONE ×2 (16:23→19:05)
--- NOTE | 2018-01-09 19:04 | PN ---
Progress Note (short form) - Note Progress Note: Subjective: No fever or chills, has pain in L leg . No OSB Objective: Vital Signs: Last Vital Signs Temp Pulse Resp BP Pulse Ox 98.1 F 62 18 116/58 98 01/09/18 14:39 01/09/18 14:39 01/09/18 14:39 01/09/18 14:39 01/09/18 09:00 Laboratory Results - last 24 hr 01/08/18 01/08/18 01/08/18 21:55 21:55 21:55 WBC 9.8 RBC 4.34 Hgb 11.1 L D Hct 33.5 L D MCV 77.1 L MCH 25.6 L MCHC 33.2 RDW 16.2 H D Plt Count 350 MPV 7.7 D Neutrophils % 79.4 Lymphocytes % 11.3 D Monocytes % 7.6 Eosinophils % 1.1 Basophils % 0.6 PT with INR 14.70 H INR 1.30 H Sodium 139 Potassium 4.9 Chloride 108 H Carbon Dioxide 23 Anion Gap 8 BUN 29 H Creatinine 0.9 Creat Clearance w eGFR > 60 Random Glucose 96 Lactic Acid Calcium 8.3 L Total Bilirubin 0.5 D AST 25 D ALT 17 D Alkaline Phosphatase 79 D Total Protein 6.6 Albumin 2.7 L D Urine Color Urine Appearance Urine pH Ur Specific [place] Urine Protein Urine Glucose (UA) Urine Ketones Urine Blood Urine Nitrite Urine Bilirubin Urine Urobilinogen Ur Leukocyte Esterase Blood Type Antibody Screen 01/08/18 01/08/18 01/09/18 21:55 21:55 05:55 WBC RBC Hgb Hct MCV MCH MCHC RDW Plt Count MPV Neutrophils % Lymphocytes % Monocytes % Eosinophils % Basophils % PT with INR INR Sodium Potassium Chloride Carbon Dioxide Anion Gap BUN Creatinine Creat Clearance w eGFR Random Glucose Lactic Acid 1.1 Calcium Total Bilirubin AST ALT Alkaline Phosphatase Total Protein Albumin Urine Color Ltyellow Urine Appearance Clear Urine pH 5.0 Ur Specific [place] 1.014 Urine Protein Negative Urine Glucose (UA) Negative Urine Ketones Negative Urine Blood Negative Urine Nitrite Negative Urine Bilirubin Negative Urine Urobilinogen Negative Ur Leukocyte Esterase Negative Blood Type A POSITIVE Antibody Screen Negative 01/09/18 06:00 WBC RBC Hgb Hct MCV MCH MCHC RDW Plt Count MPV Neutrophils % Lymphocytes % Monocytes % Eosinophils % Basophils % PT with INR INR Sodium Potassium Chloride Carbon Dioxide Anion Gap BUN Creatinine Creat Clearance w eGFR Random Glucose Lactic Acid 0.9 Calcium Total Bilirubin AST ALT Alkaline Phosphatase Total Protein Albumin Urine Color Urine Appearance Urine pH Ur Specific [place] Urine Protein Urine Glucose (UA) Urine Ketones Urine Blood Urine Nitrite Urine Bilirubin Urine Urobilinogen Ur Leukocyte Esterase Blood Type Antibody Screen Physical Exam: NAD, MMM Lungs: CTAB CV: RRR, 3/6 SM LUSB Abd: soft, NT, ND , NL BS Ext: L leg with big longitudinal ulcer on posterior medial calf with erythema and edema and tenderness extending medially to mid to upper thigh. Assessment/Plan: 77 y/o man with h/o GERD, hypothyroidism and chronic venous insufficiency and chronic LE wounds who presented with worsening edema and pain on L leg 1- LLE infected ulcer and celllulitis - meropenem and vanco - follow blood cx - wound care . Dr. Burkett consulted 2- microcytic anemia : iron studies . rest of w/u as out pt 3- Hypothyroidism: cont thyroid armor 4- GERD: cont PPI DVT PX Visit type - Emergency Visit Emergency Visit: Yes ED Registration Date: 01/08/18 Care time: The patient presented to the Emergency Department on the above date and was hospitalized for further evaluation of their emergent condition. - New Patient This patient is new to me today: Yes Date on this admission: 01/09/18 - Critical Care Critical Care patient: No
[2018-01-09] MEDS: MEROPENEM 1 GM in DEXTROSE 5%-WATER - 100 ML IVPB SCH (19:08)
--- NOTE | 2018-01-09 21:31 | EKG ---
Test Reason : Blood Pressure : / mmHG Vent. Rate : 072 BPM Atrial Rate : 072 BPM P-R Int : 166 ms QRS Dur : 162 ms QT Int : 448 ms P-R-T Axes : 028 078 035 degrees QTc Int : 490 ms NORMAL SINUS RHYTHM RIGHT BUNDLE BRANCH BLOCK ABNORMAL ECG WHEN COMPARED WITH ECG OF 05-DEC-2016 23:48, NO SIGNIFICANT CHANGE WAS FOUND Confirmed by DANE WESTON MD ([id number]) on 01/09/2018 9:31:45 PM Referred By: Confirmed By:DANE WESTON MD
[2018-01-09] MEDS: VANCOMYCIN 1,000 MG in DEXTROSE 5%-WATER - 250 ML IVPB SCH (21:34)
[2018-01-10] MEDS: MEROPENEM 1 GM in DEXTROSE 5%-WATER - 100 ML IVPB SCH ×3 (01:39→18:54)
[2018-01-10] MEDS: HEPARIN NA (PORCINE) 5,000 UNITS/ML 1ML VIAL SQ SCH ×3 (05:52→21:48)
[2018-01-10] MEDS: THYROID 60 MG TABLET PO SCH (06:22)
[2018-01-10 08:09] LABS: BASO % 1.1 % (0-2.0); EOS % 7.8 % (0-4.5); HEMATOCRIT 32.1 % (35.4-49); HEMOGLOBIN 10.5 GM/dL (11.7-16.9); LYMPH % 23.4 % (8-40); MCH 25.3 pg (25.7-33.7); MCHC 32.7 g/dl (32.0-35.9); MEAN CELL VOLUME 77.4 fl (80-96); MEAN PLT VOLUME 7.5 fl (7.5-11.1); MONO % 11.5 % (3.8-10.2); NEUT % 56.2 % (42.8-82.8); PLATELET COUNT 296 K/MM3 (134-434); RBC 4.15 M/mm3 (4.00-5.60); RDW 16.4 % (11.9-15.9); WHITE BLOOD COUNT 4.5 K/mm3 (4.0-10.0)
[2018-01-10 08:48] LABS: ALBUMIN 2.3 g/dl (3.4-5.0); ANION GAP 6 (8-16); BLOOD UREA NITROGEN 18 mg/dL (7-18); CHLORIDE 111 mmol/L (98-107); CO2 25 mmol/L (21-32); GLUCOSE,RANDOM 95 mg/dL (74-106); MAGNESIUM 2.1 mg/dL (1.8-2.4); POTASSIUM 4.2 mmol/L (3.5-5.1); SODIUM 142 mmol/L (136-145)
[2018-01-10 08:52] LABS: ALK PHOS 68 U/L (45-117); BILIRUBIN,TOTAL 0.3 mg/dL (0.2-1.0); CREATININE 0.8 mg/dL (0.7-1.3); PHOSPHOROUS 2.9 mg/dL (2.5-4.9); SGOT/AST 18 U/L (15-37); SGPT/ALT 16 U/L (12-78); TOT PROT 5.8 g/dl (6.4-8.2)
[2018-01-10] MEDS ORDERED: PT OWN MED DRAWER 7, Y5N ONE ×2 (11:26→18:47)
[2018-01-10] MEDS: PANTOPRAZOLE 20 MG TABLET (FP) PO SCH (11:44)
[2018-01-10] MEDS: VANCOMYCIN 1,000 MG in DEXTROSE 5%-WATER - 250 ML IVPB SCH ×2 (11:44→22:57)
[2018-01-10] MEDS: ASCORBIC ACID 500 MG TABLET (FP) PO SCH ×2 (11:44→21:48)
--- NOTE | 2018-01-10 15:12 | PN ---
Physical Exam: SUBJECTIVE: Patient seen and examined No acute events overnight. Patient feels well this morning. Denies fever, chills , chest pain, shortness of breath. OBJECTIVE: Vital Signs Period Temp Pulse Resp BP Sys/Costa Pulse Ox Last 24 Hr 97.9 F-98.6 F 62-73 18-19 103-138/63-80 GENERAL: The patient is awake, alert, and fully oriented, in no acute distress. HEAD: Normal with no signs of trauma. EYES: Extraocular movements intact, sclera anicteric, conjunctiva clear. No ptosis. ENT: Oropharynx clear without exudates, moist mucous membranes. NECK: Trachea midline, full range of motion, supple. LUNGS: Breath sounds equal, clear to auscultation bilaterally, no wheezes, no crackles, no accessory muscle use. HEART: Regular rate and rhythm, S1, S2, +Left upper sternal border murmur ABDOMEN: Soft, nontender, nondistended, normoactive bowel sounds, no guarding, no rebound, no hepatosplenomegaly, no masses. EXT: Left leg has Large ulcer on calf with erythema and edema and severe tenderness. Erythema has improved from admission Laboratory Results - last 24 hr 01/09/18 01/10/18 01/10/18 19:50 07:55 07:55 WBC 4.5 D RBC 4.15 Hgb 10.5 L Hct 32.1 L MCV 77.4 L MCH 25.3 L MCHC 32.7 RDW 16.4 H Plt Count 296 MPV 7.5 Neutrophils % 56.2 D Lymphocytes % 23.4 D Monocytes % 11.5 H Eosinophils % 7.8 H D Basophils % 1.1 Sodium 142 Potassium 4.2 Chloride 111 H Carbon Dioxide 25 Anion Gap 6 L BUN 18 D Creatinine 0.8 Creat Clearance w eGFR > 60 Random Glucose 95 Calcium 8.0 L Phosphorus 2.9 Magnesium 2.1 Ferritin 97.691 Total Bilirubin 0.3 D AST 18 D ALT 16 Alkaline Phosphatase 68 Total Protein 5.8 L Albumin 2.3 L Active Medications Generic Name Dose Route Start Last Admin Trade Name Freq PRN Reason Stop Dose Admin Acetaminophen 650 mg 01/09/18 06:28 Tylenol - PO Q4H PRN PAIN LEVEL 3-6 Ascorbic Acid 500 mg 01/09/18 12:30 01/10/18 11:44 Vitamin C - PO 500 mg BID AMI Administration Heparin Sodium (Porcine) 5,000 unit 01/09/18 06:00 01/10/18 05:52 Heparin - SQ Not Given TID AMI Meropenem 1 gm/ Dextrose 100 mls @ 100 mls/hr 01/09/18 18:00 01/10/18 11:44 IVPB 100 mls/hr Q8H-IV AMI Administration Protocol Vancomycin HCl 1,000 mg/ 250 mls @ 250 mls/hr 01/09/18 22:00 01/10/18 11:44 Dextrose IVPB 250 mls/hr BID AMI Administration Protocol Pantoprazole Sodium 20 mg 01/09/18 10:00 01/10/18 11:44 Protonix - PO 20 mg DAILY AMI Administration Thyroid 60 mg 01/10/18 07:00 01/10/18 06:22 [place] Thyroid - PO 60 mg AM AMI Administration ASSESSMENT/PLAN: 77 year old M with pmh of hypothyroidism, and chronic venous insufficiency and chronic lower extremity wounds presented with fever, chills, edema and left leg pain #LLE ulcer and cellulitis -Continue Vancomycin 1g bid -Continue Meropenem 1g q8h -BCX NGTD -vascular surgery on board, Dr. Burkett #Hypothyroidism -continue thyroid armour 60 mg po am #GERD -continue protonix 20 mg po daily #microcytic anemia -pending iron studies #FEN/GI -no ivf -wnl -Regular diet #ppx heparin 5000 sq tid protonix 20 mg po daily Visit type - Emergency Visit Emergency Visit: Yes ED Registration Date: 01/08/18 Care time: The patient presented to the Emergency Department on the above date and was hospitalized for further evaluation of their emergent condition. - New Patient This patient is new to me today: Yes Date on this admission: 01/10/18 - Critical Care Critical Care patient: No
--- NOTE | 2018-01-10 18:09 | PN ---
Teaching Attending Note Name of Resident: Jonathon Segovia ATTENDING PHYSICIAN STATEMENT I saw and evaluated the patient. I reviewed the resident's note and discussed the case with the resident. I agree with the resident's findings and plan as documented. SUBJECTIVE: No fever or chills . No abd pain. pain in L leg OBJECTIVE: NAD, MMM Lungs: CTAB CV: RRR, 3/6 SM LUSB Abd: soft, NT, ND , NL BS Ext: L leg with big longitudinal ulcer on posterior medial calf with erythema and edema and tenderness extending medially to just below th eknee Assessment/Plan: 77 y/o man with h/o GERD, hypothyroidism and chronic venous insufficiency and chronic LE wounds who presented with worsening edema and pain on L leg 1- LLE infected ulcer and celllulitis - meropenem and vanco - vanco trough - follow blood cx - Dr. Burkett consult pending 2- Microcytic anemia: iron studies still pending. 3- Hypothyroidism: cont thyroid armor 4- GERD: cont PPI DVT PX
[2018-01-11] MEDS: MEROPENEM 1 GM in DEXTROSE 5%-WATER - 100 ML IVPB SCH ×3 (02:28→18:26)
[2018-01-11] MEDS: HEPARIN NA (PORCINE) 5,000 UNITS/ML 1ML VIAL SQ SCH ×3 (06:48→22:00)
[2018-01-11] MEDS: THYROID 60 MG TABLET PO SCH (06:49)
[2018-01-11 07:59] LABS: EOS % 6.5 % (0-4.5); HEMATOCRIT 38.9 % (35.4-49); HEMOGLOBIN 12.6 GM/dL (11.7-16.9); LYMPH % 20.1 % (8-40); MCH 25.4 pg (25.7-33.7); MCHC 32.4 g/dl (32.0-35.9); MEAN CELL VOLUME 78.6 fl (80-96); MEAN PLT VOLUME 7.4 fl (7.5-11.1); MONO % 8.6 % (3.8-10.2); NEUT % 63.8 % (42.8-82.8); PLATELET COUNT 378 K/MM3 (134-434); RBC 4.95 M/mm3 (4.00-5.60); RDW 16.6 % (11.9-15.9); WHITE BLOOD COUNT 5.7 K/mm3 (4.0-10.0)
[2018-01-11 08:07] LABS: SERUM IRON SATURATION 5 % (15-55); TOTAL IRON BINDING CAPACITY 239 ug/dL (250-450); UIBC 228 ug/dL (111-343)
[2018-01-11 08:16] LABS: CHLORIDE 106 mmol/L (98-107); POTASSIUM 4.8 mmol/L (3.5-5.1); SODIUM 143 mmol/L (136-145)
[2018-01-11 08:21] LABS: ANION GAP 12 (8-16); BLOOD UREA NITROGEN 19 mg/dL (7-18); CO2 25 mmol/L (21-32); CREATININE 0.9 mg/dL (0.7-1.3); GLUCOSE,RANDOM 107 mg/dL (74-106)
[2018-01-11] MEDS: PANTOPRAZOLE 20 MG TABLET (FP) PO SCH ×2 (08:31→10:55)
[2018-01-11] MEDS ORDERED: PT OWN MED DRAWER 7, Y5N ONE (10:57)
[2018-01-11] MEDS: VANCOMYCIN 1,000 MG in DEXTROSE 5%-WATER - 250 ML IVPB SCH ×2 (10:58→22:00)
[2018-01-11] MEDS: ASCORBIC ACID 500 MG TABLET (FP) PO SCH ×2 (10:58→22:00)
--- NOTE | 2018-01-11 11:18 | PN ---
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 He has chronic venous stasis. He has had multiple admission s for cellulitis of his legs. Hx MRSA & Pseudomonas in the past. Yesterday, he noted increased weakness. He came to the ED, where he was noted to be febrile with increased cellulitis. Started on IV VAnco and Meropenem. Now, much improved. - Current Medication List Current Medications: Active Medications Acetaminophen (Tylenol -) 650 mg PO Q4H PRN PRN Reason: PAIN LEVEL 3-6 Ascorbic Acid (Vitamin C -) 500 mg PO BID [facility] Last Admin: 01/11/18 10:58 Dose: 500 mg Heparin Sodium (Porcine) (Heparin -) 5,000 unit SQ TID [facility] Last Admin: 01/11/18 06:48 Dose: Not Given Meropenem 1 gm/ Dextrose 100 mls @ 100 mls/hr IVPB Q8H-IV AMI PRN Reason: Protocol Last Admin: 01/11/18 10:58 Dose: 100 mls/hr Vancomycin HCl 1,000 mg/ (Dextrose) 250 mls @ 250 mls/hr IVPB BID AMI PRN Reason: Protocol Last Admin: 01/11/18 10:58 Dose: 250 mls/hr Pantoprazole Sodium (Protonix -) 20 mg PO DAILY [facility] Last Admin: 01/11/18 10:55 Dose: Not Given Thyroid ([place] Thyroid -) 60 mg PO AM [facility] Last Admin: 01/11/18 06:49 Dose: 60 mg - Objective Vital Signs: Vital Signs Temperature 98.5 F 01/11/18 06:00 Pulse Rate 70 01/11/18 09:58 Respiratory Rate 18 01/11/18 09:58 Blood Pressure 155/77 01/11/18 09:58 O2 Sat by Pulse Oximetry (%) 98 01/10/18 21:00 Constitutional: Yes: Well Nourished Cardiovascular: Yes: Regular Rate and Rhythm Respiratory: Yes: Regular Gastrointestinal: Yes: Normal Bowel Sounds, Soft Extremities: Yes: Other (Much improved cellulitis (L) leg) Edema: Yes Labs: CBC, BMP 01/11/18 06:35 01/11/18 06:35 INR, PTT INR 1.30 (0.82-1.09) H 01/08/18 21:55 Problem List - Problems (1) Cellulitis Code(s): L03.90 - CELLULITIS, UNSPECIFIED Qualifiers: Site of cellulitis: extremity Site of cellulitis of extremity: lower extremity Laterality: left Qualified Code(s): L03.116 - Cellulitis of left lower limb (2) Infected skin ulcer limited to breakdown of skin Code(s): L98.491 - NON-PRS CHRONIC ULCER SKIN/ SITES LIMITED TO BRKDWN SKIN Assessment/Plan Cellulitis (L) leg - improved PVD RX Vanco & Meropenem Can transition to PO in AM - PO Augmentin X [address] Burkett
--- NOTE | 2018-01-11 13:17 | PN ---
Physical Exam: SUBJECTIVE: Patient seen and examined No acute events overnight. Patient feels well this morning. Denies fever, chills , chest pain, shortness of breath. OBJECTIVE: Vital Signs Period Temp Pulse Resp BP Sys/Costa Pulse Ox Last 24 Hr 97.9 F-98.5 F 18-76 18-18 103-158/67-80 98 GENERAL: The patient is awake, alert, and fully oriented, in no acute distress. HEAD: Normal with no signs of trauma. EYES: Extraocular movements intact, sclera anicteric, conjunctiva clear. No ptosis. ENT: Oropharynx clear without exudates, moist mucous membranes. NECK: Trachea midline, full range of motion, supple. LUNGS: Breath sounds equal, clear to auscultation bilaterally, no wheezes, no crackles, no accessory muscle use. HEART: Regular rate and rhythm, S1, S2, +Left upper sternal border murmur ABDOMEN: Soft, nontender, nondistended, normoactive bowel sounds, no guarding, no rebound, no hepatosplenomegaly, no masses. EXT: Left leg erythema improved. Ulcer not unwrapped today, patient waiting for vascular surgery Laboratory Results - last 24 hr 01/09/18 01/10/18 01/10/18 19:50 16:15 21:30 WBC RBC Hgb Hct MCV MCH MCHC RDW Plt Count MPV Neutrophils % Lymphocytes % Monocytes % Eosinophils % Basophils % Sodium Potassium Chloride Carbon Dioxide Anion Gap BUN Creatinine Random Glucose Calcium Iron 11 L TIBC 239 L Iron Saturation 5 L Random Vancomycin 19.740 Vancomycin Pre-Dose 15.041 H* 01/11/18 01/11/18 06:35 06:35 WBC 5.7 RBC 4.95 Hgb 12.6 D Hct 38.9 D MCV 78.6 L MCH 25.4 L MCHC 32.4 RDW 16.6 H Plt Count 378 D MPV 7.4 L Neutrophils % 63.8 Lymphocytes % 20.1 Monocytes % 8.6 Eosinophils % 6.5 H Basophils % 1.0 Sodium 143 Potassium 4.8 Chloride 106 Carbon Dioxide 25 Anion Gap 12 BUN 19 H Creatinine 0.9 Random Glucose 107 H Calcium 9.0 Iron TIBC Iron Saturation Random Vancomycin Vancomycin Pre-Dose Active Medications Generic Name Dose Route Start Last Admin Trade Name Freq PRN Reason Stop Dose Admin Acetaminophen 650 mg 01/09/18 06:28 Tylenol - PO Q4H PRN PAIN LEVEL 3-6 Ascorbic Acid 500 mg 01/09/18 12:30 01/11/18 10:58 Vitamin C - PO 500 mg BID AMI Administration Heparin Sodium (Porcine) 5,000 unit 01/09/18 06:00 01/11/18 06:48 Heparin - SQ Not Given TID AMI Meropenem 1 gm/ Dextrose 100 mls @ 100 mls/hr 01/09/18 18:00 01/11/18 10:58 IVPB 100 mls/hr Q8H-IV AMI Administration Protocol Vancomycin HCl 1,000 mg/ 250 mls @ 250 mls/hr 01/09/18 22:00 01/11/18 10:58 Dextrose IVPB 250 mls/hr BID AMI Administration Protocol Pantoprazole Sodium 20 mg 01/09/18 10:00 01/11/18 10:55 Protonix - PO Not Given DAILY AMI Thyroid 60 mg 01/10/18 07:00 01/11/18 06:49 [place] Thyroid - PO 60 mg AM AMI Administration ASSESSMENT/PLAN: 77 year old M with pmh of hypothyroidism, and chronic venous insufficiency and chronic lower extremity wounds presented with fever, chills, edema and left leg pain #LLE ulcer and cellulitis -Continue Vancomycin 1g bid, vanc trough tomorrow prior to night dose -Continue Meropenem 1g q8h -BCX NGTD -vascular surgery on board, Dr. Burkett #Hypothyroidism -continue thyroid armour 60 mg po am #GERD -continue protonix 20 mg po daily #microcytic anemia -Suggests anemia of chronic disease -Can f/u outpt #FEN/GI -no ivf -wnl -Regular diet #ppx heparin 5000 sq tid protonix 20 mg po daily Visit type - Emergency Visit Emergency Visit: Yes ED Registration Date: 01/08/18 Care time: The patient presented to the Emergency Department on the above date and was hospitalized for further evaluation of their emergent condition. - New Patient This patient is new to me today: No - Critical Care Critical Care patient: No
--- NOTE | 2018-01-11 13:44 | CONSULT ---
Consult - text type - Consultation Consultation Note: Podiatry consult for possible abscess left foot Patient states he had once had and ingrown toenail and wanted to know if it was healed. Also Had discomfort to the second toe left foot. Though not hurting now. pt deneis f/c/n/v Past Medical History Cardio/Vascular Other (Tricuspid regurgitation) Renal/ BPH Endocrine Hypothyroidism Dermatology Other (PVD Venous stasis Leg ulcer) LORENZO pedal pulses full to palpation stasis changes with leg ulcer and leg erythema and edema foot and digits, no erythema, no edema, no tenderness to palpation. no sign of infection. Hammertoe deformity stable second toe A/P history of paronychia left great toe-resolved hammertoe left no intervention at this time, shoe gear and padding recommendations outpatient.
--- NOTE | 2018-01-11 17:16 | PN ---
Teaching Attending Note Name of Resident: Jonathon Segovia ATTENDING PHYSICIAN STATEMENT I saw and evaluated the patient. I reviewed the resident's note and discussed the case with the resident. I agree with the resident's findings and plan as documented. SUBJECTIVE: pain in foot improved. no fever or chills OBJECTIVE: NAD, MMM Lungs: CTAB CV: RRR, 3/6 SM LUSB Abd: soft, NT, ND , NL BS Ext: L LE with resolved erythema on this and upper leg. Ulcer on posterior and medial aspect of L leg was not examined today due to pain with dressing removal Assessment/Plan: 77 y/o man with h/o GERD, hypothyroidism and chronic venous insufficiency and chronic LE wounds who presented with worsening edema and pain on L leg 1- LLE infected ulcer and cellulites - meropenem and vanco - vanco trough noted . cont same dose - follow blood cx - Po abx in am - Dr. Burkett consult pending 2- Microcytic anemia: no evidence of iron def on iron studies . w/u as out pt 3- Hypothyroidism: cont thyroid armor 4- GERD: cont PPI DVT PX dc tomorrow . walked 30 feet with PT. he declined rehab placement . will dc to home tomorrow with VNS
--- NOTE | 2018-01-11 18:17 | PN ---
Progress Note (short form) - Note Progress Note: Vascular Surgery Pt seen and examined. Dressing changed to left leg. Wound looks good. some weeping. Cellulitis much better as per pt. Alginate dressing placed on wound, and KLAUS bandage for compression placed. If pt gets DC, pt has a appt on wednesday in wound care. Bakari Burkett DO
[2018-01-12] MEDS: MEROPENEM 1 GM in DEXTROSE 5%-WATER - 100 ML IVPB SCH ×2 (02:15→10:50)
[2018-01-12] MEDS: HEPARIN NA (PORCINE) 5,000 UNITS/ML 1ML VIAL SQ SCH ×2 (06:35→14:36)
[2018-01-12] MEDS: THYROID 60 MG TABLET PO SCH (06:36)
[2018-01-12 07:37] LABS: BASO % 1.1 % (0-2.0); EOS % 5.6 % (0-4.5); HEMATOCRIT 37.6 % (35.4-49); HEMOGLOBIN 12.3 GM/dL (11.7-16.9); LYMPH % 20.1 % (8-40); MCH 25.3 pg (25.7-33.7); MCHC 32.7 g/dl (32.0-35.9); MEAN CELL VOLUME 77.2 fl (80-96); MEAN PLT VOLUME 7.3 fl (7.5-11.1); MONO % 7.9 % (3.8-10.2); NEUT % 65.3 % (42.8-82.8); PLATELET COUNT 377 K/MM3 (134-434); RBC 4.87 M/mm3 (4.00-5.60); RDW 16.6 % (11.9-15.9); WHITE BLOOD COUNT 6.4 K/mm3 (4.0-10.0)
[2018-01-12 08:13] LABS: ANION GAP 11 (8-16); BLOOD UREA NITROGEN 18 mg/dL (7-18); CALCIUM 8.6 mg/dL (8.5-10.1); CHLORIDE 106 mmol/L (98-107); CO2 23 mmol/L (21-32); GLUCOSE,RANDOM 110 mg/dL (74-106); POTASSIUM 4.2 mmol/L (3.5-5.1); SODIUM 140 mmol/L (136-145)
[2018-01-12 08:15] LABS: CREATININE 0.8 mg/dL (0.7-1.3)
[2018-01-12] MEDS ORDERED: PT OWN MED DRAWER 7, Y5N ONE ×2 (09:36→10:42)
[2018-01-12] MEDS: ASCORBIC ACID 500 MG TABLET (FP) PO SCH (10:50)
[2018-01-12] MEDS: PANTOPRAZOLE 20 MG TABLET (FP) PO SCH (10:50)
[2018-01-12] MEDS: VANCOMYCIN 1,000 MG in DEXTROSE 5%-WATER - 250 ML IVPB SCH (10:50)
--- NOTE | 2018-01-12 13:32 | DS ---
Physical Exam: Microbiology 01/09/18 05:55 Urine - Urine Clean Catch Urine Culture - Final 01/08/18 21:55 Blood - Peripheral Venous Blood Culture - Preliminary NO GROWTH OBTAINED AFTER 72 HOURS, INCUBATION TO CONTINUE FOR 2 DAYS. 01/08/18 21:55 Blood - Peripheral Venous Blood Culture - Preliminary NO GROWTH OBTAINED AFTER 72 HOURS, INCUBATION TO CONTINUE FOR 2 DAYS. Selected Entries 01/08/18 01/08/18 01/12/18 20:19 22:08 14:43 Temperature 99.8 F H 100.7 F H 97.4 F L Pulse Rate 75 Respiratory 18 Rate Blood Pressure 154/79 Laboratory Tests 01/08/18 01/09/18 01/09/18 21:55 05:55 06:00 WBC Hgb Hct Plt Count INR 1.30 H Sodium Potassium Chloride Carbon Dioxide Anion Gap BUN Creatinine Random Glucose Lactic Acid 0.9 Iron TIBC Iron Saturation Ferritin Urine Protein Negative Urine Glucose (UA) Negative Urine Ketones Negative Urine Blood Negative Urine Nitrite Negative Urine Bilirubin Negative Urine Urobilinogen Negative Ur Leukocyte Esterase Negative 01/09/18 01/09/18 01/12/18 19:50 19:50 07:20 WBC 6.4 Hgb 12.3 Hct 37.6 Plt Count 377 INR Sodium Potassium Chloride Carbon Dioxide Anion Gap BUN Creatinine Random Glucose Lactic Acid Iron 11 L TIBC 239 L Iron Saturation 5 L Ferritin 97.691 Urine Protein Urine Glucose (UA) Urine Ketones Urine Blood Urine Nitrite Urine Bilirubin Urine Urobilinogen Ur Leukocyte Esterase 01/12/18 07:20 WBC Hgb Hct Plt Count INR Sodium 140 Potassium 4.2 Chloride 106 Carbon Dioxide 23 Anion Gap 11 BUN 18 Creatinine 0.8 Random Glucose 110 H Lactic Acid Iron TIBC Iron Saturation Ferritin Urine Protein Urine Glucose (UA) Urine Ketones Urine Blood Urine Nitrite Urine Bilirubin Urine Urobilinogen Ur Leukocyte Esterase Imaging: CXR- no acute pathology Tib/Fib xray-Degenerative changes. No sign of subcutaneous air or blastic/lytic changes. 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 Patinet treated with vanocmycin and meropenem for 5 days with improvement in the cellulitis. Patient will f/u in Wound clinic on Wednesday and will continue augmentin 875 bid x 7 days. Patient with microcytic anemia on workup. Will need to be re-evaluated outpatient. Minutes to complete discharge: 45 <Jonathon Segovia - Last Filed: 01/12/18 15:46> Physical Exam: Patient seen and examined. As per ID to continue 7 more days of po Augmentin 875mg Bid , and follow up with Dr.Nirav Burkett, vascular surgeon Vital Signs Temperature 97.4 F L 01/12/18 14:43 Pulse Rate 75 01/12/18 14:43 Respiratory Rate 18 01/12/18 14:43 Blood Pressure 154/79 01/12/18 14:43 O2 Sat by Pulse Oximetry (%) 98 01/12/18 09:00 CBCD WBC 6.4 K/mm3 (4.0-10.0) 01/12/18 07:20 RBC 4.87 M/mm3 (4.00-5.60) 01/12/18 07:20 Hgb 12.3 GM/dL (11.7-16.9) 01/12/18 07:20 Hct 37.6 % (35.4-49) 01/12/18 07:20 MCV 77.2 fl (80-96) L 01/12/18 07:20 MCHC 32.7 g/dl (32.0-35.9) 01/12/18 07:20 RDW 16.6 % (11.9-15.9) H 01/12/18 07:20 Plt Count 377 K/MM3 (134-434) 01/12/18 07:20 MPV 7.3 fl (7.5-11.1) L 01/12/18 07:20 CMP Sodium 140 mmol/L (136-145) 01/12/18 07:20 Potassium 4.2 mmol/L (3.5-5.1) 01/12/18 07:20 Chloride 106 mmol/L (98-107) 01/12/18 07:20 Carbon Dioxide 23 mmol/L (21-32) 01/12/18 07:20 Anion Gap 11 (8-16) 01/12/18 07:20 BUN 18 mg/dL (7-18) 01/12/18 07:20 Creatinine 0.8 mg/dL (0.7-1.3) 01/12/18 07:20 Creat Clearance w eGFR > 60 (>60) 01/10/18 07:55 Random Glucose 110 mg/dL (74-106) H 01/12/18 07:20 Calcium 8.6 mg/dL (8.5-10.1) 01/12/18 07:20 Total Bilirubin 0.3 mg/dL (0.2-1.0) D 01/10/18 07:55 AST 18 U/L (15-37) D 01/10/18 07:55 ALT 16 U/L (12-78) 01/10/18 07:55 Alkaline Phosphatase 68 U/L (45-117) 01/10/18 07:55 Total Protein 5.8 g/dl (6.4-8.2) L 01/10/18 07:55 Albumin 2.3 g/dl (3.4-5.0) L 01/10/18 07:55 Home Medications Medication Instructions Recorded Pantoprazole Sodium [Protonix -] 20 mg PO DAILY 01/08/18 Ascorbate Calcium [Vitamin C] 500 mg PO BID 01/09/18 Thyroid [[place] Thyroid] 60 mg PO DAILY 01/09/18 Amox-Tr/K Cl [Augmentin - 875Mg 1 tab PO BID #14 tablet 01/12/18 Tablet] <Valerie Washington - Last Filed: 01/12/18 20:08> Discharge Summary Reason For Visit: CELLULITIS SEPSIS Current Active Problems Cellulitis (Acute) GERD (gastroesophageal reflux disease) (Chronic) Hypothyroidism (Chronic) Microcytic anemia (Chronic) Venous insufficiency of both lower extremities (Chronic) Venous stasis ulcer (Chronic) - Home Medications Comprehensive Discharge Medication List: Ambulatory Orders Pantoprazole Sodium [Protonix -] 20 mg PO DAILY 01/08/18 Ascorbate Calcium [Vitamin C] 500 mg PO BID 01/09/18 Thyroid [[place]omers Thyroid] 60 mg PO DAILY 01/09/18 Amox-Tr/K Cl [Augmentin - 875Mg Tablet] 1 tab PO BID #14 tablet 01/12/18 <Jonathon Segovia - Last Filed: 01/12/18 15:46> - Home Medications Comprehensive Discharge Medication List: Ambulatory Orders Pantoprazole Sodium [Protonix -] 20 mg PO DAILY 01/08/18 Ascorbate Calcium [Vitamin C] 500 mg PO BID 01/09/18 Thyroid [[place]omers Thyroid] 60 mg PO DAILY 01/09/18 Amox-Tr/K Cl [Augmentin - 875Mg Tablet] 1 tab PO BID #14 tablet 01/12/18 <TerevarshamoreliaValerie - Last Filed: 01/12/18 20:08> Condition: Stable - Instructions Diet, Activity, Other Instructions: You were in the hospital for your left leg ulcer and surrounding skin infection. You were treated with antibiotics. You will need 1 more week of oral antibiotics (Augmentin) Please follow up with your PCP within [address] Burkett on Sunday 01/14. Discuss your anemia with your primary care provider Continue your home medications. If you have chest pain, shortness of breath, or any new/worsening symptoms please come back to the hospital immediately. Referrals: Carlito Roque MD [Primary Care Provider] - Bakari Burkett MD [Staff Physician] - 01/14/18 Disposition: HOME This patient is new to me today: No Emergency Visit: Yes ED Registration Date: 01/08/18 Care time: The patient presented to the Emergency Department on the above date and was hospitalized for further evaluation of their emergent condition. Critical Care patient: No - Discharge Referral Referred to [facility] No <Jonathon Segovia - Last Filed: 01/12/18 15:46>
[2018-01-12 14:44] VITALS: BP 154/79; PULSE 75; TEMP 97.4
== END 2018-01-12 15:24 | disposition home or self-care (01) | DRG 603 ==
LOC: JER 20:08 → JERBED 22:56 → J5S 01-09 03:16
PROVIDERS: ADMIT Internal Medicine; ATTEND Internal Medicine
DX: L03.116 Cellulitis of left lower limb (principal); L97.829 Non-pressure chronic ulcer of other part of left lower leg with unspecified severity; E03.9 Hypothyroidism, unspecified; K21.9 Gastro-esophageal reflux disease without esophagitis; I73.9 Peripheral vascular disease, unspecified; N40.0 Benign prostatic hyperplasia without lower urinary tract symptoms; I07.1 Rheumatic tricuspid insufficiency; D64.9 Anemia, unspecified
CPT/HCPCS: 36415; 71045-TC-FY; 73590-TC-LT-FY; 80048; 80053; 81003; 82728; 83540; 83550; 83605; 83735; 84100; 85025; 85610; 86850; 86900; 86901; 87040; 87086; 93005; 93010; 97116-GP; 97161-GP; 99285-25; G0480; J0131; J1644; J7030

== ENCOUNTER 2018-02-02 20:52 | Emergency (ER) | payer OTHER, MEDICARE ==
--- NOTE | 2018-02-02 21:00 | PDOC ---
Rapid Medical Evaluation Medical Evaluation: Allergies Allergy/AdvReac Type Severity Reaction Status Date / Time silver sulfadiazine Allergy Verified 01/08/18 20:22 [From Bret] 02/02/18 20:58 I have performed a brief in-person evaluation of this patient. The patient presents with a chief complaint of: chronic left lower leg cellulitis and b/l lyph edema of the legs, told by vascular MD Burkett to come in for dressing change, denies fevers, chills, "i stink" Pertinent physical exam findings: b/l edematous legs, dyspnea on exertion I have ordered the following: labs The patient will proceed to the ED for further evaluation. Discharge Disposition - Diagnosis Cellulitis - Referrals Referrals: Christian Coulter [Primary Care Provider] - - Patient Instructions - Post Discharge Activity
[2018-02-02 21:01] VITALS: BP 139/71; PULSE 72; TEMP 97.7; BMI 29.0
== END 2018-02-02 23:35 | disposition left against medical advice (07) ==
LOC: JER 20:52
DX: L03.116 Cellulitis of left lower limb (principal); I89.0 Lymphedema, not elsewhere classified
CPT/HCPCS: 99281-25

== ENCOUNTER 2018-02-07 10:23 | Inpatient (IN) | payer OTHER, MEDICARE ==
[2018-02-07 10:48] VITALS: BMI 29.0
[2018-02-07] MEDS ORDERED: VANCOMYCIN 1,000 MG in DEXTROSE 5%-WATER - 250 ML IVPB ONE (11:22)
[2018-02-07] MEDS ORDERED: PIPERACILLIN/TAZOB 3.375 GM 3.375 GM in DEXTROSE 5%-WATER - 50 ML IVPB ONE (11:23)
--- NOTE | 2018-02-07 11:29 | PDOC ---
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 The patient reports receiving wound cultures by Dr. Brian Burkett last week which showed the presence of Pseudomonas and Staph with resistance. He denies being on antibiotics for his LLE wound. The patient denies LE stents. He denies fevers or chills. The patient denies chest pain, shortness of breath, headache, and dizziness. Denies nausea, vomit, diarrhea, and constipation. Denies dysuria, frequency, urgency, and hematuria. Allergies: Silver sulfadiazine Past surgical history: Inguinal hernia repair. Appendectomy. Tonsillectomy. TURP. Social history: Former smoker. No reported alcohol or drug use. PCP: Dr. Carlito Roque Wound Care: Dr. Brian Burkett <Dov Desir - Last Filed: 02/07/18 12:16> - General History Source: Patient Exam Limitations: No Limitations <Mamie Calvin - Last Filed: 02/07/18 15:21> - General Chief Complaint: Wound Stated Complaint: admission WOUND Past History <Dov Desir - Last Filed: 02/07/18 12:16> - Past Medical History Anemia: No Asthma: No Cancer: No CVA: No COPD: No DVT: No Dementia: No Diabetes: No Dialysis: No GI Disorders: Yes (ESOPHOGITIS) Disorders: No HTN: No Hypercholesterolemia: No Kidney Stones: No Liver Disease: No Psychiatric Problems: No Seizures: No Thyroid Disease: Yes (hypothyroidism) Lung CA: No - Surgical History Abdominal Surgery: Yes (inguinal hernia repair) Appendectomy: Yes - Suicide/Smoking/Psychosocial Hx Smoking History: Never smoked Have you smoked in the past 12 months: No If you are a former smoker, when did you quit?: 30 yrs ago Information on smoking cessation initiated: No Hx Alcohol Use: No Drug/Substance Use Hx: No Substance Use Type: None Hx Substance Use Treatment: No <Mamie Calvin - Last Filed: 02/07/18 15:21> - Past Medical History Allergies/Adverse Reactions: Allergies Allergy/AdvReac Type Severity Reaction Status Date / Time silver sulfadiazine Allergy Verified 02/07/18 10:44 [From Bret] Home Medications: Ambulatory Orders Pantoprazole Sodium [Protonix -] 20 mg PO DAILY 01/08/18 Ascorbate Calcium [Vitamin C] 500 mg PO BID 01/09/18 Thyroid [[place] Thyroid] 60 mg PO DAILY 01/09/18 Review of Systems - Review of Systems Able to Perform ROS?: Yes Comments:: 02/07/18 11:37 GENERAL/CONSTITUTIONAL: No fever or chills. No weakness. HEAD, EYES, EARS, NOSE AND THROAT: No change in vision. No ear pain or discharge. No sore throat. CARDIOVASCULAR: No chest pain or shortness of breath. RESPIRATORY: No cough, wheezing, or hemoptysis. GASTROINTESTINAL: No nausea, vomiting, diarrhea or constipation. GENITOURINARY: No dysuria, frequency, or change in urination. MUSCULOSKELETAL: (+) LE swelling. No joint pain. No neck or back pain. SKIN: (+) Increased drainage and erythema of LLE wound. NEUROLOGIC: (+) Left leg weakness. No headache, vertigo, or loss of consciousness. ENDOCRINE: No increased thirst. No abnormal weight change. HEMATOLOGIC/LYMPHATIC: No anemia, easy bleeding, or history of blood clots. ALLERGIC/IMMUNOLOGIC: No hives or skin allergy. <Dov Desir - Last Filed: 02/07/18 12:16> *Physical Exam - Vital Signs Last Vital Signs Temp Pulse Resp BP Pulse Ox 98.9 F 68 18 137/66 100 02/07/18 10:45 02/07/18 10:45 02/07/18 10:45 02/07/18 10:45 02/07/18 10:45 - Physical Exam Comments: 02/07/18 11:37 GENERAL: Awake, alert, and fully oriented, in no acute distress HEAD: No signs of trauma EYES: PERRLA, EOMI, sclera anicteric, conjunctiva clear ENT: Auricles normal inspection, nares patent. Moist mucosa NECK: Normal ROM, supple, no JVD, or masses LUNGS: Breath sounds equal, clear to auscultation bilaterally. No wheezes, and no crackles. HEART: (+) Systolic murmur 2/6. Regular rate and rhythm, normal S1 and S2, no rubs or gallops ABDOMEN: Soft, nontender, normoactive bowel sounds. No guarding, no rebound. No masses EXTREMITIES: (+) Draining right medial calf wound. 2+ DPPT pulses. (+) Bilateral lower extremity nonpitting edema. (+) LLE warmth, erythema. Normal range of motion, no edema. No clubbing or cyanosis. No cords, erythema, or tenderness NEUROLOGICAL: Alert and oriented x 3. Moves all extremities. Face is symmetric. SKIN: Warm, Dry, normal turgor, no rashes or lesions noted. <Dov Desir - Last Filed: 02/07/18 12:16> - Vital Signs Last Vital Signs Temp Pulse Resp BP Pulse Ox 98.9 F 68 18 137/66 100 02/07/18 10:45 02/07/18 10:45 02/07/18 10:45 02/07/18 10:45 02/07/18 10:45 <Mamie Calvin - Last Filed: 02/07/18 15:21> Heart Score/ECG Review #1 General ECG Interpretation: Sinus Rhythm, Normal Rate, Normal Intervals, No acute ischemic changes Compared to previous ECG there are: No significant change (comparison 02/07/18) <Mamie Calvin - Last Filed: 02/07/18 15:21> ED Treatment Course - LABORATORY CBC & Chemistry Diagram: 02/07/18 11:55 02/07/18 11:55 <Dov Desir - Last Filed: 02/07/18 12:16> - LABORATORY CBC & Chemistry Diagram: 02/07/18 11:55 02/07/18 11:55 <Mamie Calvin - Last Filed: 02/07/18 15:21> Medical Decision Making - Medical Decision Making 02/07/18 12:[address] Matos at 11:55. Spoke with Dr. Brian Burkett at 12:00. <Dov Desir - Last Filed: 02/07/18 12:16> - Medical Decision Making 02/07/18 11:25 69-year-old male with a chronic left leg wound which she has had for 1-1/2 years here today for increased drainage from the wound and foul-smelling odor. Patient states he was here 5 days ago discharge himself to the ED volume has been followed by Dr. Burkett at the wound clinic and was sent to the ED for concerns for worsening infection. Patient has had cultures were drawn on January 08 which were positive for pseudomonas, staff with various resistant pattern. Is not currently on any antibiotics denies fevers or chills also is complaining of a sense of weakness has had chronic right leg weakness due to an injury sustained in his younger years Differential includes cellulitis, osteomyelitis, no current signs of sepsis. Plan x-rays of the left wagner IV antibiotics with vancomycin and Zosyn in accordance with week recent cultures repeat blood cultures labs will discuss with Dr. Burkett infectious disease and admit. <Mamie Calvin - Last Filed: 02/07/18 15:21> *DC/Admit/Observation/Transfer - Attestations Scribe Attestion: 02/07/18 11:37 Documentation prepared by Dov Desir, acting as program medical director for Mamie Calvin MD. <Dov Desir - Last Filed: 02/07/18 12:16> - Discharge Dispostion Admit: Yes <Mamie Calvin - Last Filed: 02/07/18 15:21> Diagnosis at time of Disposition: Venous stasis ulcer, Leg wound, left
[2018-02-07 12:10] LABS: BASO % 0.8 % (0-2.0); HEMATOCRIT 32.5 % (35.4-49); HEMOGLOBIN 10.6 GM/dL (11.7-16.9); LYMPH % 14.4 % (8-40); MCHC 32.5 g/dl (32.0-35.9); MEAN CELL VOLUME 76.8 fl (80-96); NEUT % 75.8 % (42.8-82.8); PLATELET COUNT 349 K/MM3 (134-434); RBC 4.23 M/mm3 (4.00-5.60); RDW 17.2 % (11.9-15.9); WHITE BLOOD COUNT 6.7 K/mm3 (4.0-10.0)
[2018-02-07] MEDS ORDERED: VANCOMYCIN 1 GRAM (PRE-DOCKED) 1,000 MG/250 ML BAG IVPB ONE (12:13)
[2018-02-07] MEDS ORDERED: PIPERACILLIN/TAZOB 3.375 GM 3.375 GM/50 ML BAG IVPB ONE (12:14)
[2018-02-07 12:41] LABS: ALBUMIN 2.6 g/dl (3.4-5.0); ANION GAP 5 (8-16); BLOOD UREA NITROGEN 31 mg/dL (7-18); CALCIUM 8.5 mg/dL (8.5-10.1); CHLORIDE 107 mmol/L (98-107); CO2 28 mmol/L (21-32); CREATININE 0.9 mg/dL (0.7-1.3); GLUCOSE,RANDOM 100 mg/dL (74-106); POTASSIUM 4.6 mmol/L (3.5-5.1); SGOT/AST 17 U/L (15-37); SGPT/ALT 17 U/L (12-78); SODIUM 140 mmol/L (136-145)
[2018-02-07 12:43] LABS: ALK PHOS 72 U/L (45-117); BILIRUBIN,TOTAL 0.4 mg/dL (0.2-1.0); TOT PROT 6.8 g/dl (6.4-8.2)
--- NOTE | 2018-02-07 15:08 | EKG ---
Test Reason : Blood Pressure : / mmHG Vent. Rate : 067 BPM Atrial Rate : 067 BPM P-R Int : 166 ms QRS Dur : 158 ms QT Int : 448 ms P-R-T Axes : 045 074 029 degrees QTc Int : 473 ms NORMAL SINUS RHYTHM RIGHT BUNDLE BRANCH BLOCK ABNORMAL ECG WHEN COMPARED WITH ECG OF 08-JAN-2018 22:26, NO SIGNIFICANT CHANGE WAS FOUND Confirmed by ABBY BAILEY MD ([id number]) on 02/07/2018 3:08:07 PM Referred By: Confirmed By:ABBY BAILEY MD
[2018-02-07] MEDS ORDERED: ACETAMINOPHEN INJECTION 100 ML IVPB ONE (15:47)
--- NOTE | 2018-02-07 15:51 | HP ---
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 The patient reports receiving wound cultures by Dr. Brian Burkett last week which showed the presence of Pseudomonas and Staph with resistance. He denies being on antibiotics for his LLE wound. The patient denies LE stents. He denies fevers or chills. The patient denies chest pain, shortness of breath, headache, and dizziness. Denies nausea, vomit, diarrhea, and constipation. Denies dysuria, frequency, urgency, and hematuria. Allergies: Silver sulfadiazine Past surgical history: Inguinal hernia repair. Appendectomy. Tonsillectomy. TURP. Social history: Former smoker. No reported alcohol or drug use. PCP: Dr. Carlito Roque Wound Care: Dr. 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: [employer] History of Recent Travel: No Home Medications - Allergies Allergies/Adverse Reactions: Allergies Allergy/AdvReac Type Severity Reaction Status Date / Time silver sulfadiazine Allergy Verified 02/07/18 10:44 [From Silvadene] - Home Medications Home Medications: Ambulatory Orders Pantoprazole Sodium [Protonix -] 20 mg PO DAILY 01/08/18 Ascorbate Calcium [Vitamin C] 500 mg PO BID 01/09/18 Thyroid [[place] Thyroid] 60 mg PO DAILY 01/09/18 Family Disease History - Family Disease History Family Disease History: Other: Father (: 65: MD), Mother (: 76: CVA), Son (2 sons, 1 paralyzed from diving accident in pool), Daughter (healthy) Physical Examination Vital Signs: Vital Signs Temperature 98.9 F 02/07/18 10:45 Pulse Rate 68 02/07/18 10:45 Respiratory Rate 18 02/07/18 10:45 Blood Pressure 137/66 02/07/18 10:45 O2 Sat by Pulse Oximetry (%) 100 02/07/18 10:45 Labs: CBC, BMP 02/07/18 11:55 02/07/18 11:55
[2018-02-07] MEDS ORDERED: ACETAMINOPHEN 1000 MG/100 ML VIAL (NON FORMULARY) IVPB ONE (15:56)
--- NOTE | 2018-02-07 20:13 | CON.ID ---
Consult Consult Specialty:: Infectious Diseases Referred by:: Dr. 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 His recent wound cultures by Dr. Brian Burkett last week which showed the presence of Pseudomonas, Enterobacter, Enterococcus. 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: [employer] History of Recent Travel: No Home Medications - Allergies Allergies/Adverse Reactions: Allergies Allergy/AdvReac Type Severity Reaction Status Date / Time silver sulfadiazine Allergy Verified 02/07/18 10:44 [From Silvadene] - Home Medications Home Medications: Ambulatory Orders Pantoprazole Sodium [Protonix -] 20 mg PO DAILY 01/08/18 Ascorbate Calcium [Vitamin C] 500 mg PO BID 01/09/18 Thyroid [[place] Thyroid] 60 mg PO DAILY 01/09/18 Family Disease History - Family Disease History Family Disease History: Other: Father (: 65: PR), Mother (: 76: CVA), Son (2 sons, 1 paralyzed from diving accident in pool), Daughter (healthy) Physical Exam Vital Signs: Vital Signs Temperature 98.6 F 02/07/18 18:59 Pulse Rate 74 02/07/18 18:59 Respiratory Rate 16 02/07/18 18:59 Blood Pressure 114/86 02/07/18 18:59 O2 Sat by Pulse Oximetry (%) 98 02/07/18 18:59 Constitutional: Yes: Well Nourished Eyes: Yes: PERRL HENT: Yes: Atraumatic Neck: Yes: Supple Cardiovascular: Yes: Regular Rate and Rhythm Respiratory: Yes: CTA Bilaterally Gastrointestinal: Yes: Normal Bowel Sounds, Soft Musculoskeletal: Yes: Other ((+) redness (L) LE, intact dressing) Labs: CBC, BMP 02/07/18 11:55 02/07/18 11:55 Assessment/Plan Pt with PVD, Venous Insufficiency Cellulitis Rx Zosyn.
[2018-02-07] MEDS ORDERED: PIPERACILLIN/TAZOBACTAM 3.375 GM VIAL IVPB ONE (20:35)
[2018-02-07] MEDS ORDERED: DEXTROSE 5%-WATER - 50 ML IVPB ONE (20:35)
[2018-02-07] MEDS: PIPERACILLIN/TAZOB 3.375 GM 3.375 GM in DEXTROSE 5%-WATER - 50 ML IVPB SCH (20:49)
[2018-02-07] MEDS: HEPARIN NA (PORCINE) 5,000 UNITS/ML 1ML VIAL SQ SCH (21:04)
[2018-02-07] MEDS: ASCORBIC ACID 500 MG TABLET (FP) PO SCH (21:05)
[2018-02-08] MEDS ORDERED: PIPERACILLIN/TAZOBACTAM 3.375 GM VIAL IVPB ONE ×3 (00:22→17:33)
[2018-02-08] MEDS ORDERED: DEXTROSE 5%-WATER - 50 ML IVPB ONE ×3 (00:23→17:33)
[2018-02-08] MEDS: PIPERACILLIN/TAZOB 3.375 GM 3.375 GM in DEXTROSE 5%-WATER - 50 ML IVPB SCH ×3 (02:42→17:37)
[2018-02-08 07:39] LABS: BASO % 0.9 % (0-2.0); EOS % 4.9 % (0-4.5); HEMATOCRIT 29.6 % (35.4-49); HEMOGLOBIN 9.7 GM/dL (11.7-16.9); LYMPH % 13.9 % (8-40); MCH 25.1 pg (25.7-33.7); MCHC 32.8 g/dl (32.0-35.9); MEAN CELL VOLUME 76.6 fl (80-96); MEAN PLT VOLUME 7.5 fl (7.5-11.1); MONO % 11.3 % (3.8-10.2); PLATELET COUNT 316 K/MM3 (134-434); RBC 3.87 M/mm3 (4.00-5.60); WHITE BLOOD COUNT 5.6 K/mm3 (4.0-10.0)
[2018-02-08 08:04] LABS: CHLORIDE 110 mmol/L (98-107); POTASSIUM 4.4 mmol/L (3.5-5.1); SODIUM 142 mmol/L (136-145)
[2018-02-08 08:22] LABS: ANION GAP 5 (8-16); BLOOD UREA NITROGEN 24 mg/dL (7-18); CALCIUM 7.8 mg/dL (8.5-10.1); CO2 27 mmol/L (21-32); GLUCOSE,RANDOM 100 mg/dL (74-106)
[2018-02-08] MEDS ORDERED: PT OWN MED DRAWER 7, Y5N ONE (10:45)
[2018-02-08] MEDS: ASCORBIC ACID 500 MG TABLET (FP) PO SCH ×2 (10:59→21:08)
[2018-02-08] MEDS: HEPARIN NA (PORCINE) 5,000 UNITS/ML 1ML VIAL SQ SCH ×2 (10:59→21:09)
--- NOTE | 2018-02-08 12:18 | CONSULT ---
- Consultation REQUESTING PROVIDER: CONSULT REQUEST: We have been asked to surgically evaluate this patient for left leg wound. PCP:Sepideh Matos MD HISTORY OF PRESENT ILLNESS: The patient is a 77 year old male with a h/o of chronic venous stasis and non healing wound to LLE. He was seen by Dr. Burkett on Wednesday in the wound clinic and sent to the ER for admission. A culture from revealed multiple bacteria and he had increased greenish drainage from his wound. He denies fevers or chills. Overall he states that the swelling has improved since admission. PMHx: hypothyroidism, chronic venous stasis, esophagitis Home Medications Medication Instructions Recorded Pantoprazole Sodium [Protonix -] 20 mg PO DAILY 01/08/18 Ascorbate Calcium [Vitamin C] 500 mg PO BID 01/09/18 Thyroid [[place] Thyroid] 60 mg PO DAILY 01/09/18 Allergies Allergy/AdvReac Type Severity Reaction Status Date / Time silver sulfadiazine Allergy Verified 02/07/18 10:44 [From [facility]] REVIEW OF SYSTEMS: CONSTITUTIONAL: Absent: fever, chills SKIN: Present: drainage from left leg wound PHYSICAL EXAM: GENERAL: Awake, alert, and fully oriented, in no acute distress. LOWER EXTREMITIES: warm to touch b/l. Chronic venous stasis b/l to LE. LLE with superficial ulcerations over 80% of his calf which is circumferential. the anterior medial aspect with more greenish/brown drainage. NEUROLOGICAL: Normal speech, gait not observed. PSYCH: Cooperative. Good eye contact. Appropriate mood and affect. Microbiology 01/28/18 11:00 Calf - Left Lateral Gram Stain - Final 01/28/18 11:00 Calf - Left Lateral Wound Culture - Final Pseudomonas Aeruginosa Enterobacter Cloacae Enterococcus Faecalis Staphylococcus Coagulase Neg 02/07/18 11:45 Blood - Peripheral Venous Blood Culture - Preliminary NO GROWTH OBTAINED AFTER 24 HOURS, INCUBATION TO CONTINUE FOR 4 DAYS. 02/07/18 11:45 Blood - Peripheral Venous Blood Culture - Preliminary NO GROWTH OBTAINED AFTER 24 HOURS, INCUBATION TO CONTINUE FOR 4 DAYS. Vital Signs Temperature 98.3 F 02/08/18 04:00 Pulse Rate 63 02/08/18 04:00 Respiratory Rate 18 02/08/18 04:00 Blood Pressure 140/66 02/08/18 04:00 O2 Sat by Pulse Oximetry (%) 96 02/07/18 21:00 Lab Results WBC 5.6 K/mm3 (4.0-10.0) 02/08/18 06:20 RBC 3.87 M/mm3 (4.00-5.60) L 02/08/18 06:20 Hgb 9.7 GM/dL (11.7-16.9) L 02/08/18 06:20 Hct 29.6 % (35.4-49) L 02/08/18 06:20 MCV 76.6 fl (80-96) L 02/08/18 06:20 MCHC 32.8 g/dl (32.0-35.9) 02/08/18 06:20 RDW 17.0 % (11.9-15.9) H 02/08/18 06:20 Plt Count 316 K/MM3 (134-434) 02/08/18 06:20 Sodium 142 mmol/L (136-145) 02/08/18 06:20 Potassium 4.4 mmol/L (3.5-5.1) 02/08/18 06:20 Chloride 110 mmol/L (98-107) H 02/08/18 06:20 Carbon Dioxide 27 mmol/L (21-32) 02/08/18 06:20 Anion Gap 5 (8-16) L 02/08/18 06:20 BUN 24 mg/dL (7-18) H D 02/08/18 06:20 Creatinine 1.0 mg/dL (0.7-1.3) 02/08/18 06:20 Random Glucose 100 mg/dL (74-106) 02/08/18 06:20 Calcium 7.8 mg/dL (8.5-10.1) L 02/08/18 06:20 Problem List - Problems (1) Venous stasis ulcer Assessment/Plan: Pt D/w Dr. Burkett. Local wound care ordered daily with xeroform, abd, and compression ID consult noted and the pt is receiving IV zosyn. No surgical debridment needed at this time, local wound care and will continue to follow the patient. Code(s): I83.009 - VARICOSE VEINS OF UNSP LOWER EXTREMITY W ULCER OF UNSP SITE; L97.909 - NON-PRS CHRONIC ULC UNSP PRT OF UNSP LOW LEG W UNSP SEVERITY Qualifiers: Venous stasis ulcer site: calf Varicose vein presence: without varicose veins Laterality: left Visit type - Case Type Case Type: ED Admission - Emergency Emergency Visit: Yes ED Registration Date: 02/07/18 Care time: The patient presented to the Emergency Department on the above date and was hospitalized for further evaluation of their emergent condition. - New patient This patient is new to me today: Yes Date on this admission: 02/08/18
--- NOTE | 2018-02-08 12:20 | PN ---
Progress Note (short form) - Note Progress Note: azalia seen and examined in room comfortable no complaints dressing just just completed - he reports wound looks better Vital Signs Period Temp Pulse Resp BP Sys/Costa Pulse Ox Last 24 Hr 98.3 F-100.5 F 63-84 16-18 114-164/66-86 96-98 no fever + chills when he was in ER neck supple heart S1/S2 lungs clear Extremeties left leg dressing to knee /+ palpable pulse right LE chronic changes / no calf tenderness CBC, BMP 02/08/18 06:20 02/08/18 06:20 Microbiology 02/07/18 11:45 Blood - Peripheral Venous Blood Culture - Preliminary NO GROWTH OBTAINED AFTER 24 HOURS, INCUBATION TO CONTINUE FOR 4 DAYS. 02/07/18 11:45 Blood - Peripheral Venous Blood Culture - Preliminary NO GROWTH OBTAINED AFTER 24 HOURS, INCUBATION TO CONTINUE FOR 4 DAYS. Active Medications Ascorbic Acid (Vitamin C -) 500 mg PO BID [facility] Last Admin: 02/08/18 10:59 Dose: 500 mg Heparin Sodium (Porcine) (Heparin -) 5,000 unit SQ BID [facility] Last Admin: 02/08/18 10:59 Dose: 5,000 unit Piperacillin Sod/Tazobactam (Sod 3.375 gm/ Dextrose) 50 mls @ 100 mls/hr IVPB Q8H-IV AMI PRN Reason: Protocol Stop: 02/13/18 23:59 Last Admin: 02/08/18 10:59 Dose: 100 mls/hr Thyroid ([place] Thyroid -) 60 mg PO DAILY [facility] Assessment/Plan # PVD Venous insifficiency non healing wound since 2016 attends wound center [facility] ID recommendation / Zosyn local wound care # Hypothyroid continue home meds
[2018-02-08] MEDS ORDERED: [UNRECOGNIZED DRUG - REMARK] MM PRN (14:25)
[2018-02-08] MEDS: THYROID 60 MG TABLET PO SCH (15:55)
[2018-02-08] MEDS: [UNRECOGNIZED DRUG - REMARK] TP SCH (15:55)
[2018-02-09] MEDS ORDERED: PIPERACILLIN/TAZOBACTAM 3.375 GM VIAL IVPB ONE ×3 (01:11→17:26)
[2018-02-09] MEDS ORDERED: DEXTROSE 5%-WATER - 50 ML IVPB ONE ×3 (01:12→17:26)
[2018-02-09] MEDS: PIPERACILLIN/TAZOB 3.375 GM 3.375 GM in DEXTROSE 5%-WATER - 50 ML IVPB SCH ×3 (02:52→18:04)
[2018-02-09 08:03] LABS: BASO % 0.8 % (0-2.0); EOS % 6.2 % (0-4.5); HEMATOCRIT 31.3 % (35.4-49); LYMPH % 23.6 % (8-40); MCH 24.7 pg (25.7-33.7); MCHC 32.1 g/dl (32.0-35.9); MEAN CELL VOLUME 76.9 fl (80-96); MEAN PLT VOLUME 7.5 fl (7.5-11.1); MONO % 13.8 % (3.8-10.2); NEUT % 55.6 % (42.8-82.8); PLATELET COUNT 339 K/MM3 (134-434); RBC 4.07 M/mm3 (4.00-5.60); RDW 17.6 % (11.9-15.9); WHITE BLOOD COUNT 4.8 K/mm3 (4.0-10.0)
[2018-02-09 08:16] LABS: CHLORIDE 112 mmol/L (98-107); POTASSIUM 4.9 mmol/L (3.5-5.1); SODIUM 145 mmol/L (136-145)
[2018-02-09 08:22] LABS: ANION GAP 7 (8-16); BLOOD UREA NITROGEN 21 mg/dL (7-18); CALCIUM 8.1 mg/dL (8.5-10.1); CO2 26 mmol/L (21-32); CREATININE 0.9 mg/dL (0.7-1.3); GLUCOSE,RANDOM 99 mg/dL (74-106)
[2018-02-09] MEDS ORDERED: PT OWN MED DRAWER 7, Y5N ONE (08:44)
[2018-02-09] MEDS: ASCORBIC ACID 500 MG TABLET (FP) PO SCH ×2 (09:31→21:33)
[2018-02-09] MEDS: HEPARIN NA (PORCINE) 5,000 UNITS/ML 1ML VIAL SQ SCH ×2 (09:31→21:33)
[2018-02-09] MEDS: THYROID 60 MG TABLET PO SCH (09:32)
--- NOTE | 2018-02-09 12:51 | PN ---
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 His recent wound cultures by Dr. Brian Burkett last week which showed the presence of Pseudomonas, Enterobacter, Enterococcus. Feels better on IV Zosyn. - Current Medication List Current Medications: Active Medications Ascorbic Acid (Vitamin C -) 500 mg PO BID [facility] Last Admin: 02/09/18 09:31 Dose: 500 mg Heparin Sodium (Porcine) (Heparin -) 5,000 unit SQ BID [facility] Last Admin: 02/09/18 09:31 Dose: Not Given Piperacillin Sod/Tazobactam (Sod 3.375 gm/ Dextrose) 50 mls @ 100 mls/hr IVPB Q8H-IV AMI PRN Reason: Protocol Stop: 02/13/18 23:59 Last Admin: 02/09/18 09:31 Dose: 100 mls/hr Non-Form(Lasercyn (Dermal [place])) 1 each TP DAILY [facility] Last Admin: 02/08/18 15:55 Dose: Not Given Non-Form Med( ([place] R55 Drops)) 10 each MM Q6H PRN PRN Reason: PAIN Thyroid ([place] Thyroid -) 60 mg PO DAILY [facility] Last Admin: 02/09/18 09:32 Dose: 60 mg - Objective Vital Signs: Vital Signs Temperature 97.9 F 02/09/18 06:00 Pulse Rate 64 02/09/18 06:00 Respiratory Rate 20 02/09/18 06:00 Blood Pressure 144/75 02/09/18 06:00 O2 Sat by Pulse Oximetry (%) 96 02/09/18 09:00 Constitutional: Yes: Well Nourished Cardiovascular: Yes: Regular Rate and Rhythm Respiratory: Yes: CTA Bilaterally Gastrointestinal: Yes: Normal Bowel Sounds, Soft Labs: CBC, BMP 02/09/18 06:20 02/09/18 06:20 Assessment/Plan Pt with PVD, Venous Insufficiency Cellulitis Rx Zosyn for now
--- NOTE | 2018-02-09 13:32 | PN ---
Progress Note (short form) - Note Progress Note: azalia seen and examined in room comfortable / sitting in chair seen with Dr Roque no complaints dressing just just completed - he reports wound looks better Vital Signs Period Temp Pulse Resp BP Sys/Costa Pulse Ox Last 24 Hr 97.9 F-98.2 F 64-70 18-20 122-151/63-75 96-98 no fever neck supple heart S1/S2 lungs clear Extremeties left leg dressing to knee /+ palpable pulse right LE chronic changes / no calf tenderness CBC, BMP 02/09/18 06:20 02/09/18 06:20 Microbiology 02/07/18 11:45 Blood - Peripheral Venous Blood Culture - Preliminary NO GROWTH OBTAINED AFTER 48 HOURS, INCUBATION TO CONTINUE FOR 3 DAYS. 02/07/18 11:45 Blood - Peripheral Venous Blood Culture - Preliminary NO GROWTH OBTAINED AFTER 48 HOURS, INCUBATION TO CONTINUE FOR 3 DAYS. Active Medications Ascorbic Acid (Vitamin C -) 500 mg PO BID [facility] Last Admin: 02/09/18 09:31 Dose: 500 mg Heparin Sodium (Porcine) (Heparin -) 5,000 unit SQ BID [facility] Last Admin: 02/09/18 09:31 Dose: Not Given Piperacillin Sod/Tazobactam (Sod 3.375 gm/ Dextrose) 50 mls @ 100 mls/hr IVPB Q8H-IV AMI PRN Reason: Protocol Stop: 02/13/18 23:59 Last Admin: 02/09/18 09:31 Dose: 100 mls/hr Non-Form(Lasercyn (Dermal [place])) 1 each TP DAILY [facility] Last Admin: 02/08/18 15:55 Dose: Not Given Non-Form Med( ([place] R55 Drops)) 10 each MM Q6H PRN PRN Reason: PAIN Thyroid ([place] Thyroid -) 60 mg PO DAILY [facility] Last Admin: 02/09/18 09:32 Dose: 60 mg Assessment/Plan # PVD Venous insifficiency non healing wound since 2016 attends wound center [facility] ID recommendation / Zosyn local wound care # Hypothyroid continue home meds
[2018-02-09] MEDS: [UNRECOGNIZED DRUG - REMARK] TP SCH (18:43)
[2018-02-10] MEDS ORDERED: PIPERACILLIN/TAZOBACTAM 3.375 GM VIAL IVPB ONE ×4 (00:49→20:05)
[2018-02-10] MEDS ORDERED: DEXTROSE 5%-WATER - 50 ML IVPB ONE ×4 (00:49→20:06)
[2018-02-10] MEDS: PIPERACILLIN/TAZOB 3.375 GM 3.375 GM in DEXTROSE 5%-WATER - 50 ML IVPB SCH ×3 (01:25→18:12)
[2018-02-10 08:56] LABS: EOS % 4.5 % (0-4.5); HEMATOCRIT 38.2 % (35.4-49); HEMOGLOBIN 12.1 GM/dL (11.7-16.9); LYMPH % 22.9 % (8-40); MCH 24.7 pg (25.7-33.7); MCHC 31.8 g/dl (32.0-35.9); MEAN CELL VOLUME 77.6 fl (80-96); MEAN PLT VOLUME 7.2 fl (7.5-11.1); MONO % 9.7 % (3.8-10.2); NEUT % 61.9 % (42.8-82.8); PLATELET COUNT 449 K/MM3 (134-434); RBC 4.92 M/mm3 (4.00-5.60); RDW 17.2 % (11.9-15.9); WHITE BLOOD COUNT 7.2 K/mm3 (4.0-10.0)
[2018-02-10 09:20] LABS: ANION GAP 8 (8-16); BLOOD UREA NITROGEN 25 mg/dL (7-18); CALCIUM 9.1 mg/dL (8.5-10.1); CHLORIDE 109 mmol/L (98-107); CO2 26 mmol/L (21-32); CREATININE 1.1 mg/dL (0.7-1.3); GLUCOSE,RANDOM 137 mg/dL (74-106); POTASSIUM 4.2 mmol/L (3.5-5.1); SODIUM 143 mmol/L (136-145)
--- NOTE | 2018-02-10 10:00 | PN ---
Progress Note (short form) - Note Progress Note: Afebrile Doing better C/S reviewed C/L CTA CVS RRR Intact dressing A/P Cellulitis Rx IV Zosyn
--- NOTE | 2018-02-10 10:10 | PN ---
Progress Note (short form) - Note Progress Note: 77 y/o found lying in bed. States less pain now due to treatment. Afebrile. Vital Signs Period Temp Pulse Resp BP Sys/Costa Pulse Ox Last 24 Hr 97.4 F-98.2 F 60-76 16-20 128-179/63-82 96 CBC, BMP 02/10/18 08:30 02/10/18 08:30 HEENT- Normocephalic Neck- Supple Lungs- CTAB Heart- S1/S2 Abd- Pos BS x 4, soft, NT Ext- No LE edema. Dsg in place LT LE Active Medications Ascorbic Acid (Vitamin C -) 500 mg PO BID [facility] Last Admin: 02/09/18 21:33 Dose: 500 mg Heparin Sodium (Porcine) (Heparin -) 5,000 unit SQ BID [facility] Last Admin: 02/09/18 21:33 Dose: Not Given Piperacillin Sod/Tazobactam (Sod 3.375 gm/ Dextrose) 50 mls @ 100 mls/hr IVPB Q8H-IV AMI PRN Reason: Protocol Stop: 02/13/18 23:59 Last Admin: 02/10/18 01:25 Dose: 100 mls/hr Non-Form(Lasercyn (Dermal [place])) 1 each TP DAILY [facility] Last Admin: 02/09/18 18:43 Dose: 1 each Non-Form Med( ([place] R55 Drops)) 10 each MM Q6H PRN PRN Reason: PAIN Thyroid ([place] Thyroid -) 60 mg PO DAILY [facility] Last Admin: 02/09/18 09:32 Dose: 60 mg Assessment/ Plan # PVD Venous Insufficiency Continue Wd care Continue IV antibiotics #Hypothyroidism Continue [place] Thyroid
[2018-02-10] MEDS: ASCORBIC ACID 500 MG TABLET (FP) PO SCH ×2 (11:47→22:20)
[2018-02-10] MEDS: HEPARIN NA (PORCINE) 5,000 UNITS/ML 1ML VIAL SQ SCH ×2 (11:50→22:20)
[2018-02-10] MEDS: THYROID 60 MG TABLET PO SCH (11:51)
[2018-02-10] MEDS: [UNRECOGNIZED DRUG - REMARK] TP SCH (18:12)
[2018-02-11] MEDS: PIPERACILLIN/TAZOB 3.375 GM 3.375 GM in DEXTROSE 5%-WATER - 50 ML IVPB SCH ×3 (01:27→17:56)
--- NOTE | 2018-02-11 10:19 | PN ---
Progress Note (short form) - Note Progress Note: 77y/o male found lying in bed. Denies pain at present but reports upset stomach due to antibiotics. Vital Signs Period Temp Pulse Resp BP Sys/Costa Pulse Ox Last 24 Hr 97.5 F-97.8 F 68-76 18-20 126-154/68-75 CBC, BMP 02/10/18 08:30 02/10/18 08:30 HEENT- Normocephalic Neck- supple Lungs-CTAB Heart-S1/S2 Abd- Pos BS x 4, Soft, NT Ext-Dsg in place rt LE. Palpable pulses. B/L ext warm to touch Active Medications Ascorbic Acid (Vitamin C -) 500 mg PO BID [facility] Last Admin: 02/10/18 22:20 Dose: 500 mg Heparin Sodium (Porcine) (Heparin -) 5,000 unit SQ BID [facility] Last Admin: 02/10/18 22:20 Dose: Not Given Piperacillin Sod/Tazobactam (Sod 3.375 gm/ Dextrose) 50 mls @ 100 mls/hr IVPB Q8H-IV AMI PRN Reason: Protocol Stop: 02/13/18 23:59 Last Admin: 02/11/18 01:27 Dose: 100 mls/hr Non-Form(Lasercyn (Dermal [place])) 1 each TP DAILY [facility] Last Admin: 02/10/18 18:12 Dose: 1 each Non-Form Med( ([place] R55 Drops)) 10 each MM Q6H PRN PRN Reason: PAIN Last Admin: 02/10/18 18:12 Dose: 10 each Thyroid ([place] Thyroid -) 60 mg PO DAILY [facility] Last Admin: 02/10/18 11:51 Dose: 60 mg Assessment/ Plan #Stomach upset secondary to Antibiotic use Probiotics ordered daily # PVD Venous Insufficiency Continue Wd care Continue IV antibiotics Monitor CBC/ CMP #Hypothyroidism Continue [place] Thyroid
[2018-02-11] MEDS ORDERED: PT OWN MED DRAWER 7, Y5N ONE (10:38)
[2018-02-11] MEDS ORDERED: DEXTROSE 5%-WATER - 50 ML IVPB ONE ×2 (10:38→17:51)
[2018-02-11] MEDS ORDERED: PIPERACILLIN/TAZOBACTAM 3.375 GM VIAL IVPB ONE ×2 (10:38→17:51)
[2018-02-11] MEDS: THYROID 60 MG TABLET PO SCH (10:42)
[2018-02-11] MEDS: ASCORBIC ACID 500 MG TABLET (FP) PO SCH ×2 (10:42→21:59)
[2018-02-11] MEDS: HEPARIN NA (PORCINE) 5,000 UNITS/ML 1ML VIAL SQ SCH ×2 (11:08→21:25)
[2018-02-11] MEDS: LACTOBACILLUS ACIDOPHILUS 1 TABLET PO SCH (12:00)
[2018-02-11] MEDS: [UNRECOGNIZED DRUG - REMARK] TP SCH (12:00)
--- NOTE | 2018-02-11 18:45 | PN ---
Progress Note (short form) - Note Progress Note: Afebrile Doing better C/S reviewed C/L CTA CVS RRR Intact dressing A/P Cellulitis Can DC after tomorrow afternoon's dose. Rx Levaquin 500 mg PO QD X 1 week.
[2018-02-12] MEDS ORDERED: PIPERACILLIN/TAZOBACTAM 3.375 GM VIAL IVPB ONE ×2 (00:05→08:51)
[2018-02-12] MEDS ORDERED: DEXTROSE 5%-WATER - 50 ML IVPB ONE ×2 (00:05→08:51)
[2018-02-12] MEDS: PIPERACILLIN/TAZOB 3.375 GM 3.375 GM in DEXTROSE 5%-WATER - 50 ML IVPB SCH ×2 (01:50→09:16)
[2018-02-12 07:35] LABS: BASO % 1.1 % (0-2.0); EOS % 4.2 % (0-4.5); HEMATOCRIT 33.3 % (35.4-49); LYMPH % 22.2 % (8-40); MCH 25.4 pg (25.7-33.7); MCHC 33.1 g/dl (32.0-35.9); MEAN CELL VOLUME 76.6 fl (80-96); MEAN PLT VOLUME 7.4 fl (7.5-11.1); NEUT % 63.5 % (42.8-82.8); PLATELET COUNT 369 K/MM3 (134-434); RBC 4.35 M/mm3 (4.00-5.60); RDW 16.8 % (11.9-15.9); WHITE BLOOD COUNT 6.5 K/mm3 (4.0-10.0)
[2018-02-12] MEDS ORDERED: PT OWN MED DRAWER 7, Y5N ONE (08:51)
[2018-02-12 08:56] LABS: CHLORIDE 110 mmol/L (98-107); POTASSIUM 4.4 mmol/L (3.5-5.1); SODIUM 143 mmol/L (136-145)
[2018-02-12] MEDS: THYROID 60 MG TABLET PO SCH (09:14)
[2018-02-12] MEDS: ASCORBIC ACID 500 MG TABLET (FP) PO SCH (09:15)
[2018-02-12] MEDS: HEPARIN NA (PORCINE) 5,000 UNITS/ML 1ML VIAL SQ SCH (09:15)
[2018-02-12] MEDS: LACTOBACILLUS ACIDOPHILUS 1 TABLET PO SCH (09:15)
[2018-02-12 09:33] LABS: ALBUMIN 2.5 g/dl (3.4-5.0); ALK PHOS 67 U/L (45-117); ANION GAP 10 (8-16); BILIRUBIN,TOTAL 0.2 mg/dL (0.2-1.0); BLOOD UREA NITROGEN 25 mg/dL (7-18); CALCIUM 8.3 mg/dL (8.5-10.1); CO2 23 mmol/L (21-32); GLUCOSE,RANDOM 95 mg/dL (74-106); SGOT/AST 20 U/L (15-37); SGPT/ALT 21 U/L (12-78); TOT PROT 6.5 g/dl (6.4-8.2)
--- NOTE | 2018-02-12 09:52 | DS ---
Physical Examination Vital Signs: Vital Signs Temperature 98.3 F 02/12/18 05:43 Pulse Rate 69 02/12/18 05:43 Respiratory Rate 18 02/12/18 05:43 Blood Pressure 129/68 02/12/18 05:43 O2 Sat by Pulse Oximetry (%) 96 02/11/18 21:00 Findings/Remarks: Pt found lying in bed. Denies pain. Cleared by ID. Plan to DC home with and PO Levaquin. to perform WD care. Constitutional: Yes: Well Nourished Eyes: Yes: WNL HENT: Yes: WNL, Normocephalic Neck: Yes: Trachea Midline Cardiovascular: Yes: WNL, Regular Rate and Rhythm Respiratory: Yes: WNL, Regular, CTA Bilaterally Gastrointestinal: Yes: Normal Bowel Sounds, Soft ...Rectal Exam: Yes: Deferred Renal/: Yes: WNL Musculoskeletal: Yes: Joint Stiffness Extremities: Yes: Other Edema: No Peripheral Pulses WNL: Yes Integumentary: Yes: Venous Stasis Changes (Lt le wd) Neurological: Yes: Alert, Oriented ...Motor Strength: WNL Psychiatric: Yes: Alert, Oriented Labs: CBC, BMP 02/12/18 07:05 Discharge Summary Reason For Visit: VENOUS STASIS ULCER Current Active Problems Leg wound, left (Acute) Venous stasis ulcer (Chronic) Condition: Good - Instructions Referrals: Carlito Roque MD [Primary Care Provider] - Disposition: HOME - Home Medications Comprehensive Discharge Medication List: Ambulatory Orders Pantoprazole Sodium [Protonix -] 20 mg PO DAILY 01/08/18 Ascorbate Calcium [Vitamin C] 500 mg PO BID 01/09/18 Thyroid [[place] Thyroid] 60 mg PO DAILY 01/09/18 Levofloxacin [Levaquin] 500 mg PO DAILY 7 Days #7 tablet 02/12/18
[2018-02-12] MEDS ORDERED: PANTOPRAZOLE 20 MG TABLET (FP) PO SCH (11:00)
[2018-02-12] MEDS: [UNRECOGNIZED DRUG - REMARK] TP SCH (13:17)
[2018-02-12 14:27] VITALS: BP 118/78; PULSE 75; TEMP 98.2
== END 2018-02-12 16:08 | disposition home or self-care (01) | DRG 300 ==
LOC: JER 10:23 → JERBED 14:06 → J8W 19:30
PROVIDERS: ADMIT Family Medicine; ATTEND Family Medicine
DX: I83.028 Varicose veins of left lower extremity with ulcer other part of lower leg (principal); L97.828 Non-pressure chronic ulcer of other part of left lower leg with other specified severity; L03.116 Cellulitis of left lower limb; I73.89 Other specified peripheral vascular diseases; N40.0 Benign prostatic hyperplasia without lower urinary tract symptoms; E03.9 Hypothyroidism, unspecified; I07.1 Rheumatic tricuspid insufficiency; Z87.891 Personal history of nicotine dependence
CPT/HCPCS: 11042; 11045; 29581-LT; 29581-RT; 36415; 73590-TC-LT-FY; 80048; 80053; 83605; 84443; 85025; 87040; 93005; 93010; 97116-GP; 97161-GP; 99283-25; A4649; A6197; G0463-25; J0131; J1644

== ENCOUNTER 2019-01-03 13:36 | Inpatient (IN) | payer OTHER, MEDICARE ==
[2019-01-03] MEDS ORDERED: SODIUM CHLORIDE 1,000 ML IV SCH (14:30)
--- NOTE | 2019-01-03 14:30 | PDOC ---
History of Present Illness - General Chief Complaint: CVA/TIA Stated Complaint: RT ARME NUMBNESS Time Seen by Provider: 01/03/19 14:02 History Source: Patient, Spouse Exam Limitations: Clinical Condition, Dementia - History of Present Illness Initial Comments: 01/03/19 14:46 Patient is a 78M with history of venous insufficiency, dementia, hypothyroidism , tricuspid regurg here today complaining of right arm weakness. Patient's states that he fell two days ago in the bathroom. Fall was unwitnessed, and states that she found him on the ground. Patient states he does not know what happened. states that she noticed weakness in his right hand since then. Patient and deny fevers, chills, nausea, vomiting. Denies chest pain and shortness of breath. Dr Anna was consulted, and aware of patient. He was told by that the patient had been getting worse for the past three to four days slowly, with a minor fall on Wednesday. Past History - Past Medical History Allergies/Adverse Reactions: Allergies Allergy/AdvReac Type Severity Reaction Status Date / Time No Known Allergies Allergy Verified 01/03/19 13:50 Home Medications: Ambulatory Orders Pantoprazole Sodium [Protonix -] 20 mg PO DAILY 01/08/18 Ascorbate Calcium [Vitamin C] 500 mg PO BID 01/09/18 Thyroid [[place] Thyroid] 60 mg PO DAILY 01/09/18 Anemia: No Asthma: No Cancer: No CVA: No COPD: No DVT: No Dementia: No Diabetes: No Dialysis: No GI Disorders: Yes (ESOPHOGITIS) Disorders: No HTN: No Hypercholesterolemia: No Kidney Stones: No Liver Disease: No Psychiatric Problems: No Seizures: No Thyroid Disease: Yes (hypothyroidism) Lung CA: No - Surgical History Abdominal Surgery: Yes (inguinal hernia repair) Appendectomy: Yes - Suicide/Smoking/Psychosocial Hx Smoking History: Unknown if ever smoked Have you smoked in the past 12 months: No If you are a former smoker, when did you quit?: 30 yrs ago Hx Alcohol Use: No Drug/Substance Use Hx: No Substance Use Type: None Hx Substance Use Treatment: No Review of Systems - Review of Systems Able to Perform ROS?: No (2/2 dementia) *Physical Exam - Vital Signs Last Vital Signs Temp Pulse Resp BP Pulse Ox 98.1 F 86 18 95/74 100 01/03/19 13:49 01/03/19 13:49 01/03/19 13:49 01/03/19 13:49 01/03/19 13:49 - Physical Exam Comments: 01/03/19 14:51 GENERAL: Awake, alert, oriented to self, in no acute distress HEAD: No signs of trauma, normocephalic, atraumatic EYES: PERRLA, EOMI, sclera anicteric, conjunctiva clear ENT: Auricles normal inspection, hearing grossly normal, nares patent, oropharynx clear without exudates. Moist mucosa NECK: Normal ROM, supple, no lymphadenopathy, JVD, or masses LUNGS: No distress, speaks full sentences, crackles bilaterally HEART: Regular rate and rhythm, normal S1 and S2, +2/6 diastolic murmur ABDOMEN: Soft, nontender, normoactive bowel sounds. No guarding, no rebound. No masses EXTREMITIES: +edema with erythema, weeping from wound NEUROLOGICAL: Cranial nerves II through XII grossly intact. Slurred speech, weakness in flexion of r wrist, +ataxia, +slurred speech. NIHSS 5. SKIN: Warm, Dry, normal turgor, no rashes or lesions noted. 01/03/19 15:32 NIH Stroke Scale - Last Known Well Date/Time & Onset Date Last Known Well: 01/01/19 Time Last Known Well: 09:00 - Initial Evaluation Level of consciousness: Alert Ask patient the month and their age: Both incorrect Ask patient to open & close eyes; make fist and let go: Obeys both correctly Best gaze (horizontal eye movement): Normal Visual field testing: No visual field loss Facial paresis (Show teeth/raise eyebrows/close eyes tight): Normal symmetrical movement Motor Function: Left Arm: Normal Motor Function: Right Arm: Normal (extends arm 90 (or 45) degrees for 10 seconds without drift Motor Function: Left Leg: Normal (extends leg 30 degrees for 5 seconds without drift) Motor Function: Right Leg: Normal (extends leg 30 degrees for 5 seconds without drift) Limb Ataxia: Present in two limbs Sensory(Use pinprick test arms,legs,trunk,face/side to side): Normal Best language (Describe picture, name items, read sentences): No Aphasia Dysarthria (read several words): Mild to moderate slurring of words Extinction and Inattention: No abnormality - Total Score NIH Stroke Scale Score: 5 Moderate Sedation - Procedure Monitoring Vital Signs: Procedure Monitoring Vital Signs Temperature 98.1 F 01/03/19 13:49 Pulse Rate 86 01/03/19 13:49 Respiratory Rate 18 01/03/19 13:49 Blood Pressure 95/74 01/03/19 13:49 O2 Sat by Pulse Oximetry (%) 100 01/03/19 13:49 Critical Care Time/MDM Note - Medical Decision Making Note: 01/03/19 14:53 Patient is 78M with history of dementia, likely CHF, hypothyroidism, tricuspid regurg here today with leg swelling, r wrist weakness, increased confusion. Vitals show BP of 90s/70s, HR and temp normal. DDx includes, but is not limited to: CVA, infection, myxdema coma. Broad workup initiated. Patient doesn't qualify for aggressive treatment of possible CVA given he is out of window and likely other cause. 01/03/19 15:14 POCUS evaluation of heart and lungs show b-lines bilaterally with moderate to good EF. Does show areas of posterior and lateral akinesis. Dilated IVC with minimal collapsibility. Likely diastolic CHF. Performed by Dr Rowe. Will hold fluid resuscitation at this time. 01/03/19 17:52 CBC normal. CMP reassuring. Trop negative. TSH low, patient takes levothyroxine. EKG shows afib with RBBB morphology. No st elevations. EKGs reviewed, no prior afib reported. Patient denies history of afib. UA pending. CT head shows two acute, 1 possible acute, infarcts. Neuro and cards paged. Heparin bolus and drip initiated per reqs. MRI/MRA ordered as per neurology. *DC/Admit/Observation/Transfer Diagnosis at time of Disposition: Cerebrovascular accident (CVA) - Discharge Dispostion Condition at time of disposition: Stable Decision to Admit order: Yes - Referrals Referrals: Carlito Roque MD [Primary Care Provider] - - Patient Instructions - Post Discharge Activity
--- NOTE | 2019-01-03 14:40 | PDOC ---
Attending Attestation - Resident Resident Name: Melvin Currei - ED Attending Attestation I have performed the following: I have examined & evaluated the patient, The case was reviewed & discussed with the resident, I agree w/resident's findings & plan, Exceptions are as noted - HPI HPI: 01/03/19 18:49 The patient is a 78 year old male, with a significant past medical history of venous insufficiency, dementia, hypothyroidism, tricuspid regurg, who presents to the emergency department with weakness to right hand s/p unwitnessed fall 2 days ago, as well as, increased confusion. As per the , the patient has been getting worse over the course of 3-5 days and reportedly found her on the bathroom floor 2 days ago. The patient can not recall LOC, head strike or the events leading up to his fall. Other than the R hand weakness, denies new numbness or weakness. Denies headache, CP, SOB, abd pain. Pt has chronic LE swelling per . Allergies: NKDA Social history: Denies toxic habits - Physicial Exam PE: 01/03/19 18:52 GENERAL: Awake, alert, oriented to name, in no acute distress eating an orange HEAD: No signs of trauma EYES: PERRLA, EOMI, sclera anicteric, conjunctiva clear ENT: Hearing grossly normal, nares patent, oropharynx clear without exudates. Moist mucosa NECK: Normal ROM, supple, no lymphadenopathy, JVD, or masses LUNGS: Breath sounds equal, clear to auscultation bilaterally. No wheezes, and no crackles HEART: irregularly irregular, tachycardic to 120s ABDOMEN: Soft, nontender, normoactive bowel sounds. No guarding, no rebound. No masses EXTREMITIES: Normal range of motion, R>L LE edema to the proximal calves. 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 - Medical Decision Making 01/03/19 18:56 78yo M presents to the ED with new R hand weakness, found to be in new afib with RVR. Pt likely had cva 2/2 Afib. gave him 4 baby aspirin at home today. Vitals remarkable for hypotension likely 2/2 RVR. CTH + for multiple strokes Case discussed by Dr. Currie with Dr. Anna and Dr Roberts (covering for Dr. Joni Chairez) Plan to bolus/gtt pt with heparin Admit Heart Score/ECG Review #1 01/03/19 18:55 Twelve-lead EKG was performed and reviewed by me. Atrial fibrillation with rapid ventricular response, rate 123. Right bundle branch block. Normal axis. When compared to previous EKG, atrial fibrillation is new.
[2019-01-03 15:10] LABS: HEMATOCRIT 39.2 % (35.4-49); HEMOGLOBIN 12.5 GM/dL (11.7-16.9); MCH 24.3 pg (25.7-33.7); MEAN CELL VOLUME 75.8 fl (80-96); MEAN PLT VOLUME 8.9 fl (7.5-11.1); PLATELET COUNT 305 K/MM3 (134-434); RBC 5.17 M/mm3 (4.00-5.60); RDW 17.3 % (11.9-15.9); WHITE BLOOD COUNT 7.6 K/mm3 (4.0-10.0)
[2019-01-03 15:37] LABS: INR 1.28 (0.83-1.09); PROTHROMBIN TIME (PATIENT) 15.1 SEC (9.7-13.0)
--- NOTE | 2019-01-03 15:37 | EKG ---
Test Reason : Blood Pressure : / mmHG Vent. Rate : 123 BPM Atrial Rate : 090 BPM P-R Int : 000 ms QRS Dur : 164 ms QT Int : 388 ms P-R-T Axes : 000 099 -07 degrees QTc Int : 555 ms ATRIAL FIBRILLATION WITH RAPID VENTRICULAR RESPONSE RIGHT BUNDLE BRANCH BLOCK ABNORMAL ECG WHEN COMPARED WITH ECG OF 07-FEB-2018 11:55, ATRIAL FIBRILLATION HAS REPLACED SINUS RHYTHM VENT. RATE HAS INCREASED BY 56 BPM Confirmed by Demario Oleary MD ([id number]) on 01/03/2019 3:37:25 PM Referred By: Confirmed By:Demario Oleary MD
[2019-01-03 15:58] LABS: ALBUMIN 3.2 g/dl (3.4-5.0); ALK PHOS 108 U/L (45-117); ANION GAP 7 MMOL/L (8-16); BILIRUBIN,TOTAL 0.4 mg/dL (0.2-1); BLOOD UREA NITROGEN 25 mg/dL (7-18); CALCIUM 8.5 mg/dL (8.5-10.1); CHLORIDE 109 mmol/L (98-107); CHOLESTEROL 137 mg/dL (50-200); CO2 24 mmol/L (21-32); CREATININE 1.3 mg/dL (0.55-1.3); GLUCOSE,RANDOM 63 mg/dL (74-106); HDL CHOLESTEROL 51 mg/dL (40-60); POTASSIUM 4.7 mmol/L (3.5-5.1); SGOT/AST 31 U/L (15-37); SGPT/ALT 41 U/L (13-61); SODIUM 140 mmol/L (136-145); TOT PROT 6.9 g/dl (6.4-8.2); TRIGLYCERIDES 98 mg/dL (0-150)
[2019-01-03 17:23] LABS: LYMPH % 15.7 % (8-40); MONO % 11.9 % (3.8-10.2); NEUT % 69.8 % (42.8-82.8)
[2019-01-03 17:24] LABS: BASO % 0.8 % (0-2.0); EOS % 1.8 % (0-4.5); PLATELET ESTIMATE ADEQUATE
[2019-01-03] MEDS ORDERED: HEPARIN NA (PORCINE) 5,000 UNITS/ML 1ML VIAL IVPUSH PRN ×3 (17:45→17:46)
[2019-01-03] MEDS ORDERED: HEPARIN INFUSION - 25,000 UNITS/500 ML INFUS.BAG IVPB ONE (17:56)
[2019-01-03] MEDS ORDERED: HEPARIN NA (PORCINE) 5,000 UNITS/ML 1ML VIAL IVPUSH ONE (17:58)
[2019-01-03] MEDS ORDERED: HEPARIN INFUSION - 25,000 UNITS/500 ML INFUS.BAG IVPB SCH (18:00)
[2019-01-03] MEDS ORDERED: HEPARIN NA (PORCINE) 5,000 UNITS/ML 1ML VIAL ONE (18:01)
[2019-01-03 18:12] LABS: URINE APPEARANCE CLEAR; URINE BILIRUBIN NEGATIVE (<2.0 mg/dL); URINE COLOR LTYELLOW; URINE GLUCOSE (UA) NEGATIVE (NEGATIVE); URINE KETONE NEGATIVE (NEGATIVE); URINE LEUK ESTERASE NEGATIVE (NEGATIVE); URINE NITRITE NEGATIVE (NEGATIVE); URINE PROTEIN NEGATIVE (NEGATIVE); URINE UROBILINOGEN NEGATIVE mg/dL (0.2-1.0)
--- NOTE | 2019-01-03 20:16 | HP ---
CHIEF COMPLAINT: lethargic , slurred speech PCP:Dr Mya maria [phone] , neurologist Dr Anna HISTORY OF PRESENT ILLNESS: 78 year old amle with pmhx of LE cellulitis , Venous insufficiency , Hypothyroidism presented to Ed today to worsening lethargia , generalized weakness and slurred speech. 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 To day his felt that he is more lethargic , weak and some slurred speech that prompt them to come to ED. In ED CT scan was positive for multiple stroke left temporal, parietal and occipital and then he was found to have AFIB with RVR , pt was started on Hep GTT and admitted to Tele inpatient pt denies any fever, headache, N/V/D/C, denies any urinary symptoms ,a bdominal pain , chest pain , sob. ER course was notable for: (1) Head CT positive for acute stroke (2) Hep Gtt (3)MRI, MRA, Recent Travel: denies PAST MEDICAL HISTORY: as per HPI PAST SURGICAL HISTORY: EGD, Colonoscopy , hernia repair , TURP Social History: Smoking:denies Alcohol:socially Drugs: denies Family History: Mother with AFib Allergies No Known Allergies Allergy (Verified 01/03/19 13:50) HOME MEDICATIONS: Home Medications Medication Instructions Recorded Pantoprazole Sodium [Protonix -] 20 mg PO DAILY 01/08/18 Ascorbate Calcium [Vitamin C] 500 mg PO BID 01/09/18 Thyroid [[place] Thyroid] 60 mg PO DAILY 01/09/18 REVIEW OF SYSTEMS CONSTITUTIONAL: Absent: fever, chills, diaphoresis, generalized weakness, malaise, loss of appetite, weight change HEENT: Absent: rhinorrhea, nasal congestion, throat pain, throat swelling, difficulty swallowing, mouth swelling, ear pain, eye pain, visual changes CARDIOVASCULAR: Absent: chest pain, syncope, palpitations, irregular heart rate, lightheadedness , peripheral edema RESPIRATORY: Absent: cough, shortness of breath, dyspnea with exertion, orthopnea, wheezing, stridor, hemoptysis GASTROINTESTINAL: Absent: abdominal pain, abdominal distension, nausea, vomiting, diarrhea, constipation, melena, hematochezia GENITOURINARY: Absent: dysuria, frequency, urgency, hesitancy, hematuria, flank pain, genital pain MUSCULOSKELETAL: Absent: myalgia, arthralgia, joint swelling, back pain, neck pain SKIN: Absent: rash, itching, pallor HEMATOLOGIC/IMMUNOLOGIC: Absent: easy bleeding, easy bruising, lymphadenopathy, frequent infections ENDOCRINE: Absent: unexplained weight gain, unexplained weight loss, heat intolerance, cold intolerance NEUROLOGIC: Absent: headache, focal weakness or paresthesias, dizziness, unsteady gait, seizure, mental status changes, bladder or bowel incontinence PSYCHIATRIC: Absent: anxiety, depression, suicidal or homicidal ideation, hallucinations. PHYSICAL EXAMINATION Vital Signs - 24 hr 01/03/19 01/03/19 01/03/19 13:49 17:32 18:56 Temperature 98.1 F 98.1 F Pulse Rate 86 96 H Pulse Rate [ 122 H 96 H Left Apical] Respiratory 18 16 16 Rate Blood Pressure 95/74 141/103 H Blood Pressure 153/91 141/103 H [Left Arm] O2 Sat by Pulse 100 98 98 Oximetry (%) GENERAL: AAOx3 in NAD HEAD: NC/AT EYES: EOMI, Conjunctiva clear, sclera anicteric ENT: moist mucous membrane NECK: Supple, no JVD LUNGS: CTA B/L, no crackles no wheezing no accessory muscle use. 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 Good eye contact. SKIN: Warm, dry, Laboratory Results - last 24 hr 01/03/19 01/03/19 01/03/19 14:27 14:45 14:45 WBC 7.6 RBC 5.17 Hgb 12.5 Hct 39.2 D MCV 75.8 L MCH 24.3 L MCHC 32.0 RDW 17.3 H Plt Count 305 MPV 8.9 D Absolute Neuts (auto) 5.6 Neutrophils % 69.8 Neutrophils % (Manual) 70.0 Band Neutrophils % 0.0 Lymphocytes % 15.7 D Lymphocytes % (Manual) 15.0 Monocytes % 11.9 H Monocytes % (Manual) 11 H Eosinophils % 1.8 Eosinophils % (Manual) 2.0 Basophils % 0.8 Basophils % (Manual) 0.0 Nucleated RBC % 0 Platelet Estimate Adequate Platelet Comment No clumping noted PT with INR 15.10 H INR 1.28 H Sodium Potassium Chloride Carbon Dioxide Anion Gap BUN Creatinine Creat Clearance w eGFR Random Glucose Lactic Acid 1.8 Calcium Total Bilirubin AST ALT Alkaline Phosphatase Creatine Kinase Troponin I Total Protein Albumin Triglycerides Cholesterol Total LDL Cholesterol HDL Cholesterol TSH Urine Color Urine Appearance Urine pH Ur Specific [place] Urine Protein Urine Glucose (UA) Urine Ketones Urine Blood Urine Nitrite Urine Bilirubin Urine Urobilinogen Ur Leukocyte Esterase Blood Type Antibody Screen 01/03/19 01/03/19 01/03/19 14:45 14:45 17:00 WBC RBC Hgb Hct MCV MCH MCHC RDW Plt Count MPV Absolute Neuts (auto) Neutrophils % Neutrophils % (Manual) Band Neutrophils % Lymphocytes % Lymphocytes % (Manual) Monocytes % Monocytes % (Manual) Eosinophils % Eosinophils % (Manual) Basophils % Basophils % (Manual) Nucleated RBC % Platelet Estimate Platelet Comment PT with INR INR Sodium 140 Potassium 4.7 Chloride 109 H Carbon Dioxide 24 Anion Gap 7 L BUN 25 H Creatinine 1.3 Creat Clearance w eGFR 53.25 Random Glucose 63 L Lactic Acid Calcium 8.5 Total Bilirubin 0.4 AST 31 ALT 41 Alkaline Phosphatase 108 Creatine Kinase 100 Troponin I 0.03 Total Protein 6.9 Albumin 3.2 L Triglycerides 98 Cholesterol 137 Total LDL Cholesterol 79 HDL Cholesterol 51 TSH 0.08 L D Urine Color Ltyellow Urine Appearance Clear Urine pH 6.0 Ur Specific [place] 1.013 Urine Protein Negative Urine Glucose (UA) Negative Urine Ketones Negative Urine Blood Negative Urine Nitrite Negative Urine Bilirubin Negative Urine Urobilinogen Negative Ur Leukocyte Esterase Negative Blood Type A POSITIVE Antibody Screen Negative CBC, BMP 01/03/19 14:45 01/03/19 14:45 ASSESSMENT/PLAN: 78 year old amle with pmxh of LE cellulites , venous insufficency , hypothyroidism presented to the hospital today due to lethargic and worsening generalized weakness , slured speech was found to have acute stroke , afib w RVR started on hep Gtt in ED admitted to tele for further evaluation . 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 , no facial assymetry , sensation intact , AAox3 , * court monitor , BP monitor * neurocheck q 4 hr * BP permissive hTN , * Head of bed elvation * NPO , Speech and swallow eval * PT * Neuro consult DR anna * Cardiac consult * Brain MRA, MRI , carotid doppler , echocardiogram * Fall precautions , aspiration precautions * Started on Hep Drip , Monitor PT, PTT ,switch to oral AC later * TSH 0.08 will hold Armur * R.O Infection UA, ucx , blood cx , cxr , esr , crp as cause of AFIB * lipid panel , cholesterol wnl repeat fasting * EKG with Afib and RVR * rate control * Doppler LE negative for DVT # QTC prolongation 555 * avoid meds that cause prolongation , zofran , azithromycin , .... # Hypothyroidism * tsh 0.08 * T3, T4 * hold [place] for now # PVD , venous insufficiency # left leg posteror ulcer 5x7 cm * chronic , stable * leg elevation * wound care * no signs of infection * monitor of abx # unsteady gait * use cane at home * advice him to use walker * PT * REYNA upon DC # FEN * D5/ns @ 42 CC/hr * E: monitor * N: npo till speecha and swallow eval # Proph * Dvts: on hep Gtt * GI: ppi 20 po daily # dispo * admit to tele * might benefit from REYNA # Full code Visit type - Emergency Visit Emergency Visit: Yes ED Registration Date: 01/03/19 Care time: The patient presented to the Emergency Department on the above date and was hospitalized for further evaluation of their emergent condition. - New Patient This patient is new to me today: Yes Date on this admission: 01/03/19 - Critical Care Critical Care patient: No
--- NOTE | 2019-01-03 20:56 | CONSULT ---
Consult - text type - Consultation Consultation Note: NEUROLOGY CONSULTATION is greatly appreciated: Events reviewed and discussed with daughter, Ebenezer Sotelo. Pt. examined with his at the bedside. 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 Maintained on protonix, amour thyroid. Hospitalized last year for peripheral edema and cellulitis. Now presenting after three days of neurological complaints beginning with an uncomplicated fall in the shower on Wednesday without head trauma. Since then has had some right hand weakness and today noted speech changes. In ED: BP+90/60. Severe pretibial edema. CT of head (reviewed) show 2 left cortical infarcts in the frontal and parietal regions and an old right occipital CVA. EKG shows AFib with history of same denied by Dr. Sotelo. ELIDA: No head trauma. No bruits. Cor Irreg/irreg. 3+ pretibial edema with atrophic and cellulitic changes. NEURO: Awake, alert. Ox 3. Mild non-fluent dysphasia CN II-XII sig for left inferior quadrantopsia. Sl slowing of tongue RAY's. gag OK Motor: Mild right drift. Right foot rests slightly everted. Increased reflexes on right including AJ. Right Babinski. Sl. Slowed RAY's on the right Coord: Slowed on right FTN without dystraxia Sensory: Normal Gait: Deferred. IMP: Moderate left and mild right cerebral dysfunction with CT suggesting multiple, recent, CVA's. Probably due to new onset AFIB. SUGGEST: Immediate heparin followed by effective oral anticoagulation Cardiology consultation Admit to monitored bed. MRI and MR Angio of brain (C-) PT and speech eval and Rx. Thank you very much, Hakeem Anna MD
[2019-01-03] MEDS ORDERED: ACETAMINOPHEN 325 MG TABLET (FP) PO PRN (21:14)
--- NOTE | 2019-01-03 21:21 | PN ---
Teaching Attending Note Name of Resident: Kalyan Shea ATTENDING PHYSICIAN STATEMENT I saw and evaluated the patient. I reviewed the resident's note and discussed the case with the resident. I agree with the resident's findings and plan as documented. SUBJECTIVE: Patient is a 78 year old man with PMH of venous insufficiency, dementia, GERD, hypothyroidism and tricuspid regurgitation, who presents to the ER with weakness to right hand after an unwitnessed fall 2 days ago, as well as, increased confusion. As per the , the patient has been getting worse over the course of 3-5 days and reportedly found her on the bathroom floor 2 days ago. The patient can not recall LOC, head trauma or the events leading up to his fall. Other than the R hand weakness, denies new numbness or weakness. Denies headache, chest pain, SOB, abdominal pain. As per , patient has chronic LE swelling. OBJECTIVE: Alert Vital Signs Period Temp Pulse Resp BP Sys/[place]osta Pulse Ox Last 24 Hr 98.1 F-98.1 F 86-122 16-18 95-153/74-103 96-100 HEENT: No Jaundice, eye redness or discharge, PERRLA, EOMI. Normocephalic, atraumatic. External ears are normal and hearing is grossly intact. No nasal discharge. Neck: Supple, nontender. No palpable adenopathy or thyromegaly. No JVD Chest: Good effort. Clear to auscultation and percussion. Heart: Regular. No S3, rub or murmur Abdomen: Not distended, soft, nontender and no HSM. No rebound or guarding. Normal bowel sounds. Ext: Peripheral pulses intact. Leg edema. Healing left calf ulcer. Skin: Warm and dry. No petechiae, rash or ecchymosis. Neuro: Alert. Oriented x3. 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 CN 2-12 grossly intact. Sensation grossly intact in all four extremities and DTR are symmetric. Gait not tested for safety reasons. Psych: Appropriate mood and affect. Good insight. Current Medications Generic Name Dose Route Start Last Admin Trade Name Freq PRN Reason Stop Dose Admin Heparin Sodium (Porcine) 1,000 unit 01/03/19 17:46 Heparin - IVPUSH PRN PRN Heparin Heparin Sodium (Porcine) 5,000 unit 01/03/19 17:46 Heparin - IVPUSH PRN PRN Heparin Sodium Chloride 1,000 mls @ 42 mls/hr 01/03/19 14:30 01/03/19 14:30 Normal Saline - IV 42 mls/hr ASDIR AMI Administration Heparin Sodium/Dextrose 25,000 units in 500 mls @ 20 mls/hr 01/03/19 18:00 18:01 Heparin Infusion - IVPB 1,000 units/hr TITR AMI 20 mls/hr Administration Protocol 1,000 UNITS/HR Home Medications Medication Instructions Recorded Pantoprazole Sodium [Protonix -] 20 mg PO DAILY 01/08/18 Ascorbate Calcium [Vitamin C] 500 mg PO BID 01/09/18 Thyroid [[place] Thyroid] 60 mg PO DAILY 01/09/18 Abnormal Lab Results 01/03/19 01/03/19 01/03/19 14:45 14:45 14:45 MCV 75.8 L MCH 24.3 L RDW 17.3 H Monocytes % 11.9 H Monocytes % (Manual) 11 H PT with INR 15.10 H INR 1.28 H Chloride 109 H Anion Gap 7 L BUN 25 H Random Glucose 63 L Albumin 3.2 L TSH 0.08 L D ASSESSMENT AND PLAN: 1. New onset Afib and CVA - Head CT showed 2 left cortical infarcts in frontal and parietal regions and an old right occipital CVA. EKG shows afib with RVR, RBBB and prolonged QTc. Patient started on IV heparin drip. Admit to telemetry, get ECHO, carotid doppler, brain MRI/MRA, PT consult, speech and swallow evaluation and fasting lipids. Will implement permissive hypertension, neurochecks, aspiration and fall precautions. NPO except medications. Lipitor 80 mg. Will give D5NS and also hold thyroid Jerome . 2. Hypoalbuminemia - Possibly due to combined effects of malnutrition and inflammation associated with comorbid chronic conditions. Will ensure adequate dietary protein intake and also consult aws solution architect. 3. DVT prophylaxis - On IV Heparin 5000u sq tid. 4. Advance directives - Full code
[2019-01-03] MEDS ORDERED: DEXTROSE 5%-NORMAL SALINE 1,000 ML IV SCH (21:30)
[2019-01-04] MEDS: ATORVASTATIN CA 80 MG TABLET (FP) PO SCH ×2 (01:20→21:04)
[2019-01-04 02:19] LABS: INR 1.32 (0.83-1.09); PROTHROMBIN TIME (PATIENT) 15.6 SEC (9.7-13.0)
[2019-01-04 06:51] LABS: BASO % 0.9 % (0-2.0); EOS % 5.3 % (0-4.5); HEMATOCRIT 36.3 % (35.4-49); HEMOGLOBIN 11.8 GM/dL (11.7-16.9); LYMPH % 26.4 % (8-40); MCH 24.5 pg (25.7-33.7); MCHC 32.4 g/dl (32.0-35.9); MEAN CELL VOLUME 75.5 fl (80-96); MEAN PLT VOLUME 8.6 fl (7.5-11.1); MONO % 13.1 % (3.8-10.2); NEUT % 54.3 % (42.8-82.8); PLATELET COUNT 278 K/MM3 (134-434); WHITE BLOOD COUNT 4.2 K/mm3 (4.0-10.0)
[2019-01-04 07:28] LABS: CHOLESTEROL 128 mg/dL (50-200); HDL CHOLESTEROL 51 mg/dL (40-60); TRIGLYCERIDES 43 mg/dL (0-150)
[2019-01-04 07:31] LABS: INR 1.34 (0.83-1.09); PROTHROMBIN TIME (PATIENT) 15.8 SEC (9.7-13.0)
[2019-01-04 07:33] LABS: ACTIVATED PTT 56.6 SECONDS (25.2-36.5)
[2019-01-04 08:24] LABS: ALBUMIN 3.2 g/dl (3.4-5.0); ALK PHOS 102 U/L (45-117); ANION GAP 6 MMOL/L (8-16); BILIRUBIN,TOTAL 0.5 mg/dL (0.2-1); BLOOD UREA NITROGEN 19 mg/dL (7-18); CALCIUM 8.5 mg/dL (8.5-10.1); CHLORIDE 110 mmol/L (98-107); CO2 24 mmol/L (21-32); CREATININE 0.9 mg/dL (0.55-1.3); GLUCOSE,RANDOM 140 mg/dL (74-106); MAGNESIUM 1.9 mg/dL (1.8-2.4); PHOSPHOROUS 3.5 mg/dL (2.5-4.9); POTASSIUM 3.9 mmol/L (3.5-5.1); SGOT/AST 18 U/L (15-37); SGPT/ALT 33 U/L (13-61); SODIUM 140 mmol/L (136-145); TOT PROT 6.5 g/dl (6.4-8.2)
[2019-01-04] MEDS ORDERED: metoPROLOL SUCCINATE 25 MG TAB.SR.24H (FP) PO ONE (08:54)
[2019-01-04 09:41] LABS: ERYTHROCYTE SEDIMENTATION RATE 18 mm/hr (0-20)
[2019-01-04] MEDS ORDERED: metoPROLOL SUCCINATE 25 MG TAB.SR.24H (FP) PO SCH (10:00)
[2019-01-04] MEDS: PANTOPRAZOLE 20 MG TABLET (FP) PO SCH (10:04)
--- NOTE | 2019-01-04 11:23 | CON.CARD ---
Consult Consult Specialty:: Cardiology Referred by:: Hospitalist Medicine Reason for Consultation:: Acute stroke, Afib - History of Present Illness Chief Complaint: Weakness History of Present Illness: Patient is a 78 year old man with PMH of venous insufficiency, dementia, GERD, hypothyroidism who presents to the ER with weakness to right hand after an unwitnessed fall 2 days ago, as well as, increased confusion, right hand weakness and dysarthria. The patient can not recall LOC, head trauma or the events leading up to his fall. Other than the R hand weakness, denies new numbness or weakness. Denies headache, chest pain, SOB, abdominal pain. As per , patient has chronic LE swelling. CT of head (reviewed) show 2 left cortical infarcts in the frontal and parietal regions and an old right occipital CVA. EKG shows AFib with history of same denied by Dr. Sotelo, patient declines DOACs and insists on coumadin despite review of current guidelines - History Source History Provided By: Patient Limitations to Obtaining History: No Limitations 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: [employer] History of Recent Travel: No Home Medications - Allergies Allergies/Adverse Reactions: Allergies Allergy/AdvReac Type Severity Reaction Status Date / Time No Known Allergies Allergy Verified 01/03/19 13:50 - Home Medications Home Medications: Ambulatory Orders Pantoprazole Sodium [Protonix -] 20 mg PO DAILY 01/08/18 Ascorbate Calcium [Vitamin C] 500 mg PO BID 01/09/18 Thyroid [[place] Thyroid] 60 mg PO DAILY 01/09/18 Family Disease History - Family Disease History Family Disease History: Other: Father (: 65: [place]), Mother (: 76: CVA), Son (2 sons, 1 paralyzed from diving accident in pool), Daughter (healthy) Review of Systems - Review of Systems Neurological: reports: Change in Speech, Weakness Vital Signs: Vital Signs Temperature 98.1 F 01/03/19 18:56 Pulse Rate 115 H 01/04/19 08:13 Respiratory Rate 22 H 01/04/19 08:13 Blood Pressure 160/108 H 01/04/19 08:13 O2 Sat by Pulse Oximetry (%) 96 01/04/19 08:13 Constitutional: Yes: No Distress, Calm, Thin Neck: Yes: Supple Respiratory: Yes: Regular, CTA Bilaterally Gastrointestinal: Yes: Normal Bowel Sounds, Soft Cardiovascular: Yes: Pulse Irregular JVD: No Carotid Bruit: No Heart Sounds: Yes: S1, S2 Murmur: Yes: Systolic Murmur, Grade 1 Edema: Yes Edema: LLE: 1+, RLE: 1+ Integumentary: Yes: Venous Stasis Changes Neurological: Yes: Dysarthria, Weakness (Right hand weakness) - Other Data Labs, Other Data: CBC, BMP 01/04/19 05:25 01/04/19 05:25 INR, PTT INR 1.34 (0.83-1.09) H 01/04/19 05:25 Troponin, BNP 01/03/19 01/04/19 14:45 01:43 Troponin I 0.03 0.04 Troponin, BNP 01/03/19 01/04/19 14:45 01:43 Troponin I 0.03 0.04 EKG shows AFib with history of same denied by Dr. Sotelo. Ejection Fraction %: LVEF > or = 40 % Imaging - Results Chest X-ray: Report Reviewed Cat Scan: Report Reviewed (CT of head (reviewed) show 2 left cortical infarcts in the frontal and parietal regions and an old right occipital CVA.) Problem List - Problems (1) Afib Code(s): I48.91 - UNSPECIFIED ATRIAL FIBRILLATION (2) Cerebrovascular accident (CVA) Code(s): I63.9 - CEREBRAL INFARCTION, UNSPECIFIED Qualifiers: CVA mechanism: embolism Laterality of affected vessel: bilateral (3) Hypothyroidism Code(s): E03.9 - HYPOTHYROIDISM, UNSPECIFIED Qualifiers: Hypothyroidism type: unspecified Qualified Code(s): E03.9 - Hypothyroidism , unspecified (4) Venous insufficiency of both lower extremities Code(s): I87.2 - VENOUS INSUFFICIENCY (CHRONIC) (PERIPHERAL) Assessment/Plan 01/03/2019 MRI: Subacute left frontal, left parietal, right precentral gyrus, chronic right occipital 1. Acute embolic strokes referable to 2. Newly diagnosed atrial fibrillation [id number] placed on heparin gtt 3. Hypothyroidism 4. Chronic LE edema P:1. Rate-control with Lopressor 25 bid with uptitration as tolerated 2. Heparin gtt->coumadin per INR 2-3 given elevated stroke risk, NOACs declined despite review of current guidelines 3. F/u echo results, fasting lipid 4. PT and speech eval and Rx. 5. Thank you for consultative opportunity
[2019-01-04] MEDS ORDERED: APIXABAN 5 MG TABLET PO SCH (11:45)
--- NOTE | 2019-01-04 12:07 | EKG ---
Test Reason : Blood Pressure : / mmHG Vent. Rate : 103 BPM Atrial Rate : 093 BPM P-R Int : 000 ms QRS Dur : 168 ms QT Int : 370 ms P-R-T Axes : 000 093 -11 degrees QTc Int : 484 ms ATRIAL FIBRILLATION WITH RAPID VENTRICULAR RESPONSE WITH PREMATURE VENTRICULAR OR ABERRANTLY CONDUCTED COMPLEXES RIGHT BUNDLE BRANCH BLOCK ABNORMAL ECG WHEN COMPARED WITH ECG OF 03-JAN-2019 15:07, NO SIGNIFICANT CHANGE WAS FOUND Confirmed by RENETTA TURCIOS, JANAK ([id number]) on 01/04/2019 12:06:44 PM Referred By: CALLIE SALDIVAR Confirmed By:JANAK JACKSON MD
--- NOTE | 2019-01-04 12:30 | CONSULT ---
Admitting History and Physical - Primary Care Physician PCP: Tavia Spear - Admission History of Present Illness: Pt reports losing his balance and falling in the bathroom near the bathtub on Wednesday . He denied hitting his head but fell on his right arm, bruising it. Pt later developed right hand weakness and communication changes. . 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 MRI: Subacute left frontal, left parietal, right precentral gyrus, chronic right occipital AFib Pt seen in ER. He passed the Dysphagia screen. He reports communication is improving. 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 History Source: Patient, Medical Record Limitations to Obtaining History: Clinical Condition - Past Medical History Cardiovascular: Yes: Other (Tricuspid regurgitation) Renal/: Yes: BPH Endocrine: Yes: Hypothyroidism Dermatology: Yes: Other (PVD Venous stasis Leg ulcer) - Past Surgical History Past Surgical History: Yes: Appendectomy, Hernia Repair (RIH), TURP, Tonsillectomy - Smoking History Smoking history: Unknown if ever smoked Have you smoked in the past 12 months: No If you are a former smoker, when did you quit?: 30 yrs ago - Alcohol/Substance Use Hx Alcohol Use: No - Social History ADL: Independent 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: [employer] History of Recent Travel: No History - Admission Reason For Visit: CEREBROVASCULAR ACCIDENT ( CVA ) - Diagnostics X-ray: Report Reviewed CT Scan: Report Reviewed MRI: Report Reviewed - General Mental Status: Alert and Oriented, Awake and Alert, Able to Follow Commands Attention: Intact Ability to Follow Directions: Good Head/Neck Control: WFL - Hearing Hearing: Functional Speech Evaluation - Communication Primary Language: [place] Communication: Yes: Aphasia Oral Expression Ability: Yes: Mild Impairment - Speech Production Able to Make Needs Known: Yes: Mildly Impaired Intelligibility: Yes: Mildly Impaired - Speech Characteristics Voice Loudness: Normal Voice Pitch: Yes: Normal Voice Phonatory-based Quality: Yes: Normal Speech Clarity: < 100% Nasal Resonance: Normal Articulation: Yes: Imprecise (slight) Rate of Speech: Too Slow (slight) - Language/Auditory Comprehension Observation: Able to respond to yes/no queries: Yes, Yes/No Confusion: No, Comprehends Conversational Speech: Yes - Language/Verbal Expression Aphasia: Yes: Nonfluent, Anomia (in propositoional speech tasks. Reduced verbal fluency. Able to name 8 animals) Able to Respond to Simple Queries: Yes: Mildly Impaired (slow but accurate) Able to Communicate Wants and Needs: Yes: Mildly Impaired (slow but accurate) Functional Communication Status: Yes: Mildly Impaired (slow but accurate) - Swallow Evaluation/Bedside Assessment Current Nutritional Intake: NPO Oral Secretions: Yes: WFL Dentition: Yes: Adequate, Missing Teeth Facial Symmetry at Rest: Symmetrical Facial Symmetry on Retraction: Symmetrical Facial Movement: Controlled Sensation: Normal Against Resistance Opening: Normal Against Resistance Closing: Normal Pucker Lips: Normal Smile: Normal Lingual Movement: Normal, Symmetric Lingual Speed of Movement: Normal Lingual Movement Strgth Against Opposition: Normal Lingual Movement Characteristics: Normal Velopharyngeal Movement: Normal Laryngeal Elevation: WFL Laryngeal Movement: Able to Palpate Rate of Intake: WFL Bolus Size: WFL Sensation: Bite Reflex Labial Seal: WFL Chewing: WFL Oral Prep Time: WFL A-P Transit: WFL Pocketing: None Timing of Swallow: WFL Coughing/Throat Clear: No Change in Voice: No Recommendations - Speech Evaluation, Impression/Plan Impression: Mildly reduced fluency of speech and word retrieval. Swallowing overtly intact. Excellent prognosis for recovery. Seems fully oriented. 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 - Disposition Discharge to: To be Determined - Dysphagia Impressions/Plan Swallowing Skills: WF Dysphagia Impressions: No Impairment *Silent aspiration: cannot be R/O at bedside Dysphagia Treatment Plan: Small Bites, Chin Tuck/Down, 1/2 tsp. at a time, Elevate HOB during feed - Recommendations Diet Consistency: Regular Medication Administration: Whole with water Liquids: Thin Liquids
[2019-01-04] MEDS ORDERED: HEPARIN NA (PORCINE) 5,000 UNITS/ML 1ML VIAL IVPUSH PRN (12:42)
--- NOTE | 2019-01-04 12:50 | PN ---
Physical Exam: SUBJECTIVE: Patient seen and examined at bedside- no acute events overnight. patient states he is feeling better- still feels like his right hand is not as strong but much improved- denies any CP/SOB/N/V thinks his speech is not quite back at baseline yet OBJECTIVE: Vital Signs Period Temp Pulse Resp BP Sys/Costa Pulse Ox Last 24 Hr 98.1 F-98.1 F 86-122 16-22 95-160/74-108 96-100 GENERAL: The patient is awake, alert, and fully oriented, in no acute distress. EYES: PEERLA; EOMI; no scleral icterus NECK: no JVD; no lymphadenopathy LUNGS:CTA B/L; no rales, rhonchi or wheezing. HEART: irregularly irregular, , S1, S2 tricuspid regurgitation murmur appreciated rub or gallop. ABDOMEN: Soft, nontender, nondistended, normoactive bowel sounds, no guarding, no rebound, no hepatosplenomegaly, no masses. EXTREMITIES: 2+ pulses, warm, well-perfused, chronic B/L venous stasis; LLE ulcer 4x6cm non oozing NEUROLOGICAL: Cranial nerves II through XII grossly intact. slight softening of right nasolabial fold; sensation symmetrically intact throughout; 5/5 strength B /L UE and LE; gait not observed PSYCH: Normal mood, normal affect. SKIN: Warm, dry, normal turgor, no rashes or lesions noted Laboratory Results - last 24 hr 01/03/19 01/03/19 01/03/19 14:27 14:45 14:45 WBC 7.6 RBC 5.17 Hgb 12.5 Hct 39.2 D MCV 75.8 L MCH 24.3 L MCHC 32.0 RDW 17.3 H Plt Count 305 MPV 8.9 D Absolute Neuts (auto) 5.6 Neutrophils % 69.8 Neutrophils % (Manual) 70.0 Band Neutrophils % 0.0 Lymphocytes % 15.7 D Lymphocytes % (Manual) 15.0 Monocytes % 11.9 H Monocytes % (Manual) 11 H Eosinophils % 1.8 Eosinophils % (Manual) 2.0 Basophils % 0.8 Basophils % (Manual) 0.0 Nucleated RBC % 0 Platelet Estimate Adequate Platelet Comment No clumping noted ESR PT with INR 15.10 H INR 1.28 H PTT (Actin FS) Sodium Potassium Chloride Carbon Dioxide Anion Gap BUN Creatinine Creat Clearance w eGFR Random Glucose Hemoglobin A1c % Lactic Acid 1.8 Calcium Phosphorus Magnesium Total Bilirubin AST ALT Alkaline Phosphatase Creatine Kinase Troponin I C-Reactive Protein Total Protein Albumin Triglycerides Cholesterol Total LDL Cholesterol HDL Cholesterol Vitamin B12 TSH Free T4 Urine Color Urine Appearance Urine pH Ur Specific Holden Urine Protein Urine Glucose (UA) Urine Ketones Urine Blood Urine Nitrite Urine Bilirubin Urine Urobilinogen Ur Leukocyte Esterase Blood Type Antibody Screen 01/03/19 01/03/19 01/03/19 14:45 14:45 17:00 WBC RBC Hgb Hct MCV MCH MCHC RDW Plt Count MPV Absolute Neuts (auto) Neutrophils % Neutrophils % (Manual) Band Neutrophils % Lymphocytes % Lymphocytes % (Manual) Monocytes % Monocytes % (Manual) Eosinophils % Eosinophils % (Manual) Basophils % Basophils % (Manual) Nucleated RBC % Platelet Estimate Platelet Comment ESR PT with INR INR PTT (Actin FS) Sodium 140 Potassium 4.7 Chloride 109 H Carbon Dioxide 24 Anion Gap 7 L BUN 25 H Creatinine 1.3 Creat Clearance w eGFR 53.25 Random Glucose 63 L Hemoglobin A1c % Lactic Acid Calcium 8.5 Phosphorus Magnesium Total Bilirubin 0.4 AST 31 ALT 41 Alkaline Phosphatase 108 Creatine Kinase 100 Troponin I 0.03 C-Reactive Protein Total Protein 6.9 Albumin 3.2 L Triglycerides 98 Cholesterol 137 Total LDL Cholesterol 79 HDL Cholesterol 51 Vitamin B12 TSH 0.08 L D Free T4 Urine Color Ltyellow Urine Appearance Clear Urine pH 6.0 Ur Specific Holden 1.013 Urine Protein Negative Urine Glucose (UA) Negative Urine Ketones Negative Urine Blood Negative Urine Nitrite Negative Urine Bilirubin Negative Urine Urobilinogen Negative Ur Leukocyte Esterase Negative Blood Type A POSITIVE Antibody Screen Negative 01/04/19 01/04/19 01/04/19 01:43 01:43 01:43 WBC RBC Hgb Hct MCV MCH MCHC RDW Plt Count MPV Absolute Neuts (auto) Neutrophils % Neutrophils % (Manual) Band Neutrophils % Lymphocytes % Lymphocytes % (Manual) Monocytes % Monocytes % (Manual) Eosinophils % Eosinophils % (Manual) Basophils % Basophils % (Manual) Nucleated RBC % Platelet Estimate Platelet Comment ESR PT with INR 15.60 H INR 1.32 H PTT (Actin FS) 62.0 H Sodium Potassium Chloride Carbon Dioxide Anion Gap BUN Creatinine Creat Clearance w eGFR Random Glucose Hemoglobin A1c % Lactic Acid Calcium Phosphorus Magnesium Total Bilirubin AST ALT Alkaline Phosphatase Creatine Kinase 62 Troponin I 0.04 C-Reactive Protein Total Protein Albumin Triglycerides Cholesterol Total LDL Cholesterol HDL Cholesterol Vitamin B12 TSH Free T4 Urine Color Urine Appearance Urine pH Ur Specific Holden Urine Protein Urine Glucose (UA) Urine Ketones Urine Blood Urine Nitrite Urine Bilirubin Urine Urobilinogen Ur Leukocyte Esterase Blood Type Antibody Screen 01/04/19 01/04/19 01/04/19 05:25 05:25 05:25 WBC 4.2 RBC 4.80 Hgb 11.8 Hct 36.3 MCV 75.5 L MCH 24.5 L MCHC 32.4 RDW 17.0 H Plt Count 278 MPV 8.6 Absolute Neuts (auto) 2.3 Neutrophils % 54.3 D Neutrophils % (Manual) Band Neutrophils % Lymphocytes % 26.4 D Lymphocytes % (Manual) Monocytes % 13.1 H Monocytes % (Manual) Eosinophils % 5.3 H D Eosinophils % (Manual) Basophils % 0.9 Basophils % (Manual) Nucleated RBC % 0 Platelet Estimate Platelet Comment ESR 18 PT with INR 15.80 H INR 1.34 H PTT (Actin FS) 56.6 H Sodium 140 Potassium 3.9 Chloride 110 H Carbon Dioxide 24 Anion Gap 6 L BUN 19 H Creatinine 0.9 Creat Clearance w eGFR 81.40 Random Glucose 140 H Hemoglobin A1c % Lactic Acid Calcium 8.5 Phosphorus 3.5 Magnesium 1.9 Total Bilirubin 0.5 AST 18 ALT 33 Alkaline Phosphatase 102 Creatine Kinase Troponin I C-Reactive Protein 1.2 H Total Protein 6.5 Albumin 3.2 L Triglycerides Cholesterol Total LDL Cholesterol HDL Cholesterol Vitamin B12 > 6000 H TSH Free T4 Urine Color Urine Appearance Urine pH Ur Specific Holden Urine Protein Urine Glucose (UA) Urine Ketones Urine Blood Urine Nitrite Urine Bilirubin Urine Urobilinogen Ur Leukocyte Esterase Blood Type Antibody Screen 01/04/19 01/04/19 01/04/19 05:25 05:25 05:25 WBC RBC Hgb Hct MCV MCH MCHC RDW Plt Count MPV Absolute Neuts (auto) Neutrophils % Neutrophils % (Manual) Band Neutrophils % Lymphocytes % Lymphocytes % (Manual) Monocytes % Monocytes % (Manual) Eosinophils % Eosinophils % (Manual) Basophils % Basophils % (Manual) Nucleated RBC % Platelet Estimate Platelet Comment ESR PT with INR INR PTT (Actin FS) Sodium Potassium Chloride Carbon Dioxide Anion Gap BUN Creatinine Creat Clearance w eGFR Random Glucose Hemoglobin A1c % 5.6 Lactic Acid Calcium Phosphorus Magnesium Total Bilirubin AST ALT Alkaline Phosphatase Creatine Kinase Troponin I C-Reactive Protein Total Protein Albumin Triglycerides 43 Cholesterol 128 Total LDL Cholesterol 73 HDL Cholesterol 51 Vitamin B12 TSH Free T4 1.11 Urine Color Urine Appearance Urine pH Ur Specific Holden Urine Protein Urine Glucose (UA) Urine Ketones Urine Blood Urine Nitrite Urine Bilirubin Urine Urobilinogen Ur Leukocyte Esterase Blood Type Antibody Screen Active Medications Generic Name Dose Route Start Last Admin Trade Name Freq PRN Reason Stop Dose Admin Acetaminophen 650 mg 01/03/19 21:14 Tylenol - PO Q4H PRN PAIN Atorvastatin Calcium 80 mg 01/03/19 22:00 01/04/19 01:20 Lipitor - PO 80 mg HS AMI Administration Heparin Sodium (Porcine) 1,000 unit 01/04/19 12:42 Heparin - IVPUSH PRN PRN Heparin Heparin Sodium (Porcine) 5,000 unit 01/04/19 12:42 Heparin - IVPUSH PRN PRN Heparin Dextrose/Sodium Chloride 1,000 mls @ 42 mls/hr 01/03/19 21:30 01/04/19 05:42 D5-Ns - IV 42 mls/hr ASDIR AMI Administration Heparin Sodium (Porcine) 25, 500 mls @ 20 mls/hr 01/04/19 12:45 000 unit/ Sodium Chloride IV TITR AMI Protocol 1,000 UNIT/HR Metoprolol Tartrate 25 mg 01/04/19 11:45 Lopressor - PO BID AMI Pantoprazole Sodium 20 mg 01/04/19 10:00 01/04/19 10:04 Protonix - PO 20 mg DAILY AMI Administration ASSESSMENT/PLAN: 78 year old male with pmxh of LE cellulites , venous insufficency , hypothyroidism presented to the due to lethargy and worsening generalized weakness , slurred speech after suffering a fall on wednesday was found to have acute stroke , new onset afib w RVR # stroke # New Onset Afib with RVR * MRI: nonhemorrhagic subacute infarct involving L middle frontal gyrus L frontal lobule * started on heparin drip will bridge to coumadin starting tonight * Metoprolol 25 BID for rate control * night monitor , BP monitor * neurocheck q 4 hr * Head of bed elvation * NPO , Speech and swallow eval * PT * Neuro consult DR boudreaux * Cardiac consult * Brain MRA, MRI , carotid doppler , echocardiogram done; pending reads * Fall precautions , aspiration precautions # Hypothyroidism * T3 pending TSH 0.08 free t4 normal * hold Gaines for now * endo consult # PVD , venous insufficiency left leg posteror ulcer 5x7 cm * chronic , stable * leg elevation * wound care * no signs of infection * monitor of abx # FEN * D5/ns @ 42 CC/hr * E: monitor * N: npo till speecha and swallow eval # Proph * Dvts: on hep Gtt * GI: ppi 20 po daily # dispo * admit to tele * might benefit from REYNA # Full code Problem List - Problems (1) Afib Code(s): I48.91 - UNSPECIFIED ATRIAL FIBRILLATION (2) Cerebrovascular accident (CVA) Code(s): I63.9 - CEREBRAL INFARCTION, UNSPECIFIED (3) Cellulitis Code(s): L03.90 - CELLULITIS, UNSPECIFIED Visit type - Emergency Visit Emergency Visit: Yes ED Registration Date: 01/03/19 Care time: The patient presented to the Emergency Department on the above date and was hospitalized for further evaluation of their emergent condition. - New Patient This patient is new to me today: Yes Date on this admission: 01/04/19 - Critical Care Critical Care patient: No
[2019-01-04] MEDS: METOPROLOL TARTRATE 25 MG TABLET (FP) PO SCH ×2 (13:43→21:04)
[2019-01-04] MEDS ORDERED: HEPARIN INFUSION - 25,000 UNITS/500 ML INFUS.BAG IVPB ONE (15:44)
--- NOTE | 2019-01-04 15:55 | ECHO ---
Name: JW MONTILLA Exam:Adult Echocardiogram Study Date: 01/04/2019 02:58 PM Age: 78 yrs Reason For Study: NEW ONSET OF ATRIAL FIBRILLATION R/O STRUCTURAL ABNORMAL Height: 73 in Weight: 195 lb BSA: 2.1 m2 MMode/2D Measurements & Calculations IVSd: 0.97 cm Ao root diam: 3.0 cm LVIDd: 4.6 cm LA dimension: 4.6 cm LVIDs: 3.6 cm LVPWd: 0.90 cm EDV(Teich): 95.4 ml LVOT diam: 2.1 cm ESV(Teich): 55.5 ml LAV (MOD-bp): 98.0 ml TAPSE: 1.5 cm Doppler Measurements & Calculations MV E max albin: 84.9 cm/sec Ao V2 max: 336.6 cm/sec MV A max albin: 33.6 cm/sec Ao max P.8 mmHg MV E/A: 2.5 Ao V2 mean: 234.9 cm/sec MV dec time: 0.16 sec Ao mean P.4 mmHg Ao V2 VTI: 62.1 cm MARIAM(I,D): 1.7 cm2 MARIAM(V,D): 1.9 cm2 LV V1 max P.9 mmHg SV(LVOT): 107.4 ml LV V1 mean P.4 mmHg LV V1 max: 173.1 cm/sec LV V1 mean: 129.7 cm/sec LV V1 VTI: 29.8 cm TR max albin: 243.3 cm/sec Med Peak E' Albin: 7.9 cm/sec TR max P.8 mmHg Med E/e': 10.7 Lat Peak E' Albin: 14.8 cm/sec Lat E/e': 5.8 Procedure A two-dimensional transthoracic echocardiogram with color flow and Doppler was performed. The study w as technically difficult with many images being suboptimal in quality. 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 An intracavitary gradient is suspected. The left ventricular ejection fraction is normal. Regional wall motion abnormalities cannot be excluded due to limited visualization. Septal motion is consistent with condu ction abnormality. Right Ventricle The right ventricle is not well visualized. Atria The left atrium is moderately dilated. The right atrium is moderately dilated. Mitral Valve The mitral valve is not well visualized. There is no mitral valve stenosis. There is mild mitral regurgitation. Tricuspid Valve The tricuspid valve is not well visualized. There is no tricuspid stenosis. There is mild to moderate tricuspid regurgitation. Right ventricular systolic pressure is normal. Aortic Valve There is moderate to severe aortic valve thickening. There is moderate to severe aortic sclerosis.;. The aortic valve is not well visualized. Moderate to severe valvular aortic stenosis. No aortic regurgita tion is present. Pulmonic Valve The pulmonic valve is not well visualized. Great Vessels The aortic root is normal size. Pericardium/Pleura There is no pericardial effusion. Interpretation Summary The study was technically difficult with many images being suboptimal in quality. 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 The left ventricular ejection fraction is normal. An intracavitary gradient is suspected. Moderate to severe valvular aortic stenosis. There is moderate to severe aortic valve thickening. There is moderate to severe aortic sclerosis.; Regional wall motion abnormalities cannot be excluded due to limited visualization. Septal motion is consistent with conduction abnormality. The aortic valve is not well visualized. The right ventricle is not well visualized. The left atrium is moderately dilated. The right atrium is moderately dilated. There is mild mitral regurgitation. There is mild to moderate tricuspid regurgitation. Right ventricular systolic pressure is normal. MD Doron Canela 01/04/2019 03:54 PM
--- NOTE | 2019-01-04 15:59 | PN ---
Teaching Attending Note Name of Resident: Trini Justin ATTENDING PHYSICIAN STATEMENT I saw and evaluated the patient. I reviewed the resident's note and discussed the case with the resident. I agree with the resident's findings and plan as documented. SUBJECTIVE: no fever or chills. no weaknes, he feels his speech is almost normal. weakness in R side has resolved. reports intermittent palpitations in past no visual changes, no PAUL . reports that numbness, and weakness in R hand started on Wednesday OBJECTIVE: NAD, awake, alert, oriented. CV: irreg irreg. 3/6 SM LLSB, RUSB, and apex . no radiation Lungs: CTAB Abd: soft, NT, ND < NL BS Ext : chronic discoloration, no ulcers, sllight erythema, no increased warmth. sllight edema. fungal infection among L sided toe webs Neuro: EOMI, round equal pupils, reactive to light . mild asymmetry in R nasolabial fold, tongue and uvula at mid line, nl facial sensation . strength 5/5 in upper and lower extremities proximally and distally ( can't flex knees though). sensation to light touch NL reflexes: 1+ knee jerk, 2+ biceps, b/l. 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 likely cause is A fib. - MRI, MRA, CUS reviewed. - will try to control BP , as sx started on Wednesday, so out of window for permissive hypertension . start with BB BID. repeat BP now 126/81. - cont heparin gtt - speech eval noted. - LDL is above goal, give 40 mg of lipitor 2- New onset A fib with RVR, likely triggered by supratherapeutic dose of armor thyroid, as TSH is low. FT3 pending - use BB , BID for now and monitor BP and HR response. - d/w him his AC choices and risk of bleeding with AC. He declined NOACS and chose coumadin - will start coumadin tonight - echo pending 3- HTN urgency: BP improved . 126/81. - cont BB . - if after rate control, more BP control is needed , can start ACEI/ARB 4- h/o Hypethyroidism, on armor thyroid 30 mg daily. ( self prescribed). - TSH is low, FT3nl, but FT4 pending. he could have subclinical or true hyperthyroidism induced by meds. - will ask endo to advise about dosing - follow FT3 4- DVT PX : on heparin gtt PT eval
[2019-01-04] MEDS: HEPARIN - 25,000 UNIT in SODIUM CHLORIDE 495 ML IV SCH (16:39)
[2019-01-04] MEDS ORDERED: dilTIAZem HCL 30 MG TABLET (FP) PO ONE (18:28)
[2019-01-04 18:50] VITALS: BMI 27.6
[2019-01-04] MEDS: WARFARIN NA 7.5 MG TABLET (FP) PO SCH (21:04)
[2019-01-04] MEDS: SILVER SULFADIAZINE 1% TOP CREAM 50 GM JAR TP SCH (22:49)
[2019-01-05 08:17] LABS: HEMATOCRIT 34.8 % (35.4-49); HEMOGLOBIN 11.3 GM/dL (11.7-16.9); MCH 24.2 pg (25.7-33.7); MCHC 32.4 g/dl (32.0-35.9); MEAN CELL VOLUME 74.8 fl (80-96); MEAN PLT VOLUME 8.6 fl (7.5-11.1); PLATELET COUNT 274 K/MM3 (134-434); RBC 4.65 M/mm3 (4.00-5.60); RDW 16.7 % (11.9-15.9); WHITE BLOOD COUNT 4.4 K/mm3 (4.0-10.0)
[2019-01-05 08:37] LABS: INR 1.31 (0.83-1.09); PROTHROMBIN TIME (PATIENT) 15.5 SEC (9.7-13.0)
[2019-01-05 08:44] LABS: ALBUMIN 2.9 g/dl (3.4-5.0); ALK PHOS 89 U/L (45-117); ANION GAP 5 MMOL/L (8-16); BILIRUBIN,TOTAL 0.5 mg/dL (0.2-1); BLOOD UREA NITROGEN 22 mg/dL (7-18); CALCIUM 8.4 mg/dL (8.5-10.1); CHLORIDE 113 mmol/L (98-107); CO2 24 mmol/L (21-32); CREATININE 0.8 mg/dL (0.55-1.3); GLUCOSE,RANDOM 86 mg/dL (74-106); MAGNESIUM 2.2 mg/dL (1.8-2.4); PHOSPHOROUS 3.6 mg/dL (2.5-4.9); SGOT/AST 15 U/L (15-37); SGPT/ALT 28 U/L (13-61); SODIUM 142 mmol/L (136-145)
[2019-01-05] MEDS: PANTOPRAZOLE 20 MG TABLET (FP) PO SCH (10:26)
[2019-01-05] MEDS: METOPROLOL TARTRATE 25 MG TABLET (FP) PO SCH (10:26)
--- NOTE | 2019-01-05 10:30 | PN ---
Progress Note (short form) - Note Progress Note: NEUROLOGY PROGRESS: Events reviewed and discussed with staff and KAY Jim. Consults read and appreciated. Patient examined Per nursing, pt was able to ambulate with PT with walker. Now transitioning from heparin to coumadin for new onset afib. INR= 1.31 MRI of brain (reviewed): mild atrophy, periventricular ischemic changes, subacute infarct involving L middle frontal gyrus, L front centrum semiovle, left parietal superior lobule. Chronic R occipital lobe infarct. MRA of brain (reviewed): normal study (ie: No intracranial stenoses to suggest thrombotic strokes) Carotid duplex: no significant stenosis Echocaqrdiogram: Significant aortic valvulopathy with possible ventricular wall motion abnormalities. B12 > 6000 TSH 0.08 UA, C & S negative ELIDA: Cor Irreg/irreg. 3+ pretibial edema with atrophic and cellulitic changes. NEURO: Awake, alert. Sl dysarthric. Ox [facility]. January 02 corrected to 2012. Wednesday, Wednesday. TRUMP. Poor reversals. EOM intact and full binocular ding appreciated. Sl slowing of tongue RAY's. gag OK Min right drift. Decreased RAY's (R>L) Increased reflexes on right including AJ. Right Babinski. No FTN dystaxia Sensory: Normal Gait: Stands with assistance. Wide-based, unsteady IMP: Left cerebral dysfunction with mild non-fluent aphasia and mild right sided weakness. Old right occipital cortical infarct (also c/w a prior cardioembolic event) SUGGEST: Adjust coumadin to INR between 2.5-3 (due to intercurrent valvular disease.) Agree with cardio and telemetry Rate control with BB, statin for cardiovascular protection Maintain Systolic BPs in 130s PT with rolling walker for gait training. Jack rehsb evaluation, please Thank you very much, Hakeem Anna MD
--- NOTE | 2019-01-05 11:02 | PN ---
Physical Exam: SUBJECTIVE: Patient seen and examined at bedside- patient converted to sinus rhythm last night at around 8 pm; he denies any CP/SOB/N/V fevers or chills; feels that his neuro status is improving OBJECTIVE: Vital Signs Period Temp Pulse Resp BP Sys/Costa Pulse Ox Last 24 Hr 97.5 F-98.0 F 69-94 16-20 123-148/63-108 97-100 GENERAL: The patient is awake, alert, and fully oriented, in no acute distress.. EYES: PEERLA: EOMI no scleral icteus. NECK: no JVD; no lymphadenopathy. LUNGS: CTA B/L; no rales, rhonchi or wheezing HEART: Regular rate and rhythm, S1, S2 without murmur, rub or gallop. ABDOMEN: Soft, nontender, nondistended, normoactive bowel sounds, no guarding, no rebound, no hepatosplenomegaly, no masses. EXTREMITIES: 2+ pulses, warm, well-perfused, no edema. NEUROLOGICAL: Cranial nerves II through XII grossly intact. Normal speech, gait not observed 5/5 strength B/L UE and LE; sensation intact throughout PSYCH: Normal mood, normal affect. SKIN: Warm, dry, normal turgor, no rashes or lesions noted Laboratory Results - last 24 hr 01/04/19 01/05/19 01/05/19 05:25 07:15 07:15 WBC 4.4 RBC 4.65 Hgb 11.3 L Hct 34.8 L MCV 74.8 L MCH 24.2 L MCHC 32.4 RDW 16.7 H Plt Count 274 MPV 8.6 PT with INR INR PTT (Actin FS) 46.2 H Sodium Potassium Chloride Carbon Dioxide Anion Gap BUN Creatinine Creat Clearance w eGFR Random Glucose Calcium Phosphorus Magnesium Total Bilirubin AST ALT Alkaline Phosphatase Total Protein Albumin Free T3 3.4 01/05/19 01/05/19 07:15 07:15 WBC RBC Hgb Hct MCV MCH MCHC RDW Plt Count MPV PT with INR 15.50 H INR 1.31 H PTT (Actin FS) Sodium 142 Potassium 4.0 Chloride 113 H Carbon Dioxide 24 Anion Gap 5 L BUN 22 H Creatinine 0.8 Creat Clearance w eGFR 93.25 Random Glucose 86 Calcium 8.4 L Phosphorus 3.6 Magnesium 2.2 Total Bilirubin 0.5 AST 15 ALT 28 Alkaline Phosphatase 89 Total Protein 6.0 L Albumin 2.9 L Free T3 Active Medications Generic Name Dose Route Start Last Admin Trade Name Freq PRN Reason Stop Dose Admin Acetaminophen 650 mg 01/03/19 21:14 Tylenol - PO Q4H PRN PAIN Atorvastatin Calcium 80 mg 01/03/19 22:00 01/04/19 21:04 Lipitor - PO Not Given HS AMI Heparin Sodium (Porcine) 1,000 unit 01/04/19 12:42 Heparin - IVPUSH PRN PRN Heparin Heparin Sodium (Porcine) 5,000 unit 01/04/19 12:42 Heparin - IVPUSH PRN PRN Heparin Heparin Sodium (Porcine) 25, 500 mls @ 20 mls/hr 01/04/19 12:45 01/04/19 16: 39 000 unit/ Sodium Chloride IV 1,000 unit/hr TITR AMI 20 mls/hr Administration Protocol 1,000 UNIT/HR Metoprolol Tartrate 25 mg 01/04/19 11:45 01/05/19 10:26 Lopressor - PO 25 mg BID AMI Administration Pantoprazole Sodium 20 mg 01/04/19 10:00 01/05/19 10:26 Protonix - PO 20 mg DAILY AMI Administration Silver Sulfadiazine 1 applic 01/04/19 22:00 01/04/19 22:49 Silvadene - TP 1 applic BID AMI Administration Warfarin Sodium 7.5 mg 01/04/19 18:00 01/04/19 21:04 Coumadin - PO 7.5 mg DAILY@1800 AMI Administration ASSESSMENT/PLAN: 78 year old male with pmxh of LE cellulites , venous insufficency , hypothyroidism presented to the due to lethargy and worsening generalized weakness , slurred speech after suffering a fall on wednesday was found to have acute stroke , new onset afib w RVR # stroke # New Onset Afib with RVR * MRI: nonhemorrhagic subacute infarct involving L middle frontal gyrus L frontal lobule * started on heparin drip bridging to coumadin was initiated last night; monitor INR until 2-3 * Metoprolol 25 BID for rate control * physical therapy aid , BP monitor * Head of bed elvation * PT * Neuro consult DR boudreaux * Cardiac consult * Fall precautions , aspiration precautions # Hypothyroidism * T3 pending TSH 0.08 free t4 and t3 normal * hold [place] for now * endo consult # PVD , venous insufficiency left leg posteror ulcer 5x7 cm * chronic , stable * leg elevation * wound care * no signs of infection * monitor of abx # FEN * D5/ns @ 42 CC/hr * E: monitor * N: follow speech and swallow recs # Proph * Dvts: on hep Gtt * GI: ppi 20 po daily # dispo * admit to tele # Full code Problem List - Problems (1) Afib Code(s): I48.91 - UNSPECIFIED ATRIAL FIBRILLATION (2) Cerebrovascular accident (CVA) Code(s): I63.9 - CEREBRAL INFARCTION, UNSPECIFIED Qualifiers: CVA mechanism: embolism Laterality of affected vessel: bilateral (3) Cellulitis Code(s): L03.90 - CELLULITIS, UNSPECIFIED Visit type - Emergency Visit Emergency Visit: Yes ED Registration Date: 01/03/19 Care time: The patient presented to the Emergency Department on the above date and was hospitalized for further evaluation of their emergent condition. - New Patient This patient is new to me today: No - Critical Care Critical Care patient: No
--- NOTE | 2019-01-05 11:05 | PN ---
Progress Note, Physician History of Present Illness: Right hand weakness and dysarthria improving, tolerating oral intake, now in sinus rhythm. - Current Medication List Current Medications: Active Medications Acetaminophen (Tylenol -) 650 mg PO Q4H PRN PRN Reason: PAIN Atorvastatin Calcium (Lipitor -) 80 mg PO HS [facility] Last Admin: 01/04/19 21:04 Dose: Not Given Heparin Sodium (Porcine) (Heparin -) 1,000 unit IVPUSH PRN PRN PRN Reason: Heparin Heparin Sodium (Porcine) (Heparin -) 5,000 unit IVPUSH PRN PRN PRN Reason: Heparin Heparin Sodium (Porcine) 25, (000 unit/ Sodium Chloride) 500 mls @ 20 mls/hr IV TITR [facility]; Protocol Last Admin: 01/04/19 16:39 Dose: 1,000 unit/hr, 20 mls/hr Metoprolol Tartrate (Lopressor -) 25 mg PO BID [facility] Last Admin: 01/05/19 10:26 Dose: 25 mg Pantoprazole Sodium (Protonix -) 20 mg PO DAILY [facility] Last Admin: 01/05/19 10:26 Dose: 20 mg Silver Sulfadiazine (Silvadene -) 1 applic TP BID [facility] Last Admin: 01/04/19 22:49 Dose: 1 applic Warfarin Sodium (Coumadin -) 7.5 mg PO DAILY@1800 [facility] Last Admin: 01/04/19 21:04 Dose: 7.5 mg - Objective Vital Signs: Vital Signs Temperature 97.6 F 01/05/19 05:31 Pulse Rate 69 01/05/19 05:31 Respiratory Rate 20 01/05/19 05:31 Blood Pressure 148/71 01/05/19 05:31 O2 Sat by Pulse Oximetry (%) 98 01/04/19 21:00 Constitutional: Yes: No Distress, Calm Neck: Yes: Supple Cardiovascular: Yes: Pulse Irregular, Murmur (2/6 SM) Respiratory: Yes: Regular, Diminished Gastrointestinal: Yes: Soft, Hypoactive Bowel Sounds Edema: No Neurological: Yes: Dysarthria, Weakness (Right hand) Labs: CBC, BMP 01/05/19 07:15 01/05/19 07:15 INR, PTT INR 1.31 (0.83-1.09) H 01/05/19 07:15 - ....Imaging EKG: Report Reviewed (Tele: SR with PVC) Problem List - Problems (1) Afib Code(s): I48.91 - UNSPECIFIED ATRIAL FIBRILLATION (2) Cerebrovascular accident (CVA) Code(s): I63.9 - CEREBRAL INFARCTION, UNSPECIFIED Qualifiers: CVA mechanism: embolism Laterality of affected vessel: bilateral (3) Hypothyroidism Code(s): E03.9 - HYPOTHYROIDISM, UNSPECIFIED Qualifiers: Hypothyroidism type: unspecified Qualified Code(s): E03.9 - Hypothyroidism , unspecified (4) Venous insufficiency of both lower extremities Code(s): I87.2 - VENOUS INSUFFICIENCY (CHRONIC) (PERIPHERAL) Assessment/Plan 01/03/2019 MRI: Subacute left frontal, left parietal, right precentral gyrus, chronic right occipital 01/04/2019 Echo: Hypertrophic cardiomyopathy with asymmetric septal hypertrophy intracavity gradient suspected, normal LV fxn, mod-severe , mod KEITH, mild-mod TR, mild MR 1. Subacute embolic strokes referable to 2. Newly diagnosed atrial fibrillation [id number] placed on heparin gtt 3. Hypertrophic cardiomyopathy of elderly with mod-severe 4. Hypothyroidism 5. Chronic LE edema P:1. Rate-control with increased Lopressor 50 bid with uptitration as tolerated , Lipitor 80 qd 2. Heparin gtt->coumadin per INR 2-3 with GI protection given elevated stroke risk, NOACs declined despite review of current guidelines 3. Further evaluation of HCM and as outpatient including R&LHc once neurologically stable 4. PT and speech eval and Rx.
--- NOTE | 2019-01-05 12:26 | PN ---
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 Chronic R occipital lobe infarct. Pt now on telemetry. Eating lunch independently. Speech improving. Remembers me from ER. Speech almost at baseline.
[2019-01-05] MEDS: HEPARIN - 25,000 UNIT in SODIUM CHLORIDE 495 ML IV SCH ×2 (13:15→20:00)
[2019-01-05] MEDS: HEPARIN NA (PORCINE) 5,000 UNITS/ML 1ML VIAL IVPUSH PRN (13:16)
--- NOTE | 2019-01-05 13:52 | PN ---
Teaching Attending Note Name of Resident: Nestor Silva ATTENDING PHYSICIAN STATEMENT I saw and evaluated the patient. I reviewed the resident's note and discussed the case with the resident. I agree with the resident's findings and plan as documented. SUBJECTIVE: seen at 8:30 am no PAUL , no weakness, numbness or tingling. speech is back to Nl. did not try to walk today yet. OBJECTIVE: NAD, awake, alert, oriented. CV: irreg irreg. 3/6 SM LLSB, RUSB, and apex . no radiation Lungs: CTAB Abd: soft, NT, ND ,NL BS Ext : chronic discoloration, ulceration on L lateral lower leg ( stable per pt ) , no increased warmth. slight edema. Neuro: EOMI, round equal pupils, reactive to light . mild asymmetry in R nasolabial fold, tongue and uvula at mid line, nl facial sensation . strength 5/5 in upper and lower extremities proximally and distally ( can't flex knees). sensation to light touch NL Reflexes: 1+ knee jerk, 2+ biceps, b/l. 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 likely cause is A fib. -speech eval done, PT pending - cont heparin ---> coumadin - tight control of BP - statin 2- New onset A fib with RVR, monitor reviewed, converted to sinus - cont BB - cont heparin to coumadin - Echo reviewed. 3- HTN: - cont BB .dose increased today. - if more BP control is needed , can start ACEI/ARB for extra benefit 4- h/o Hypethyroidism, on armor thyroid 30 mg daily. ( self prescribed). - decrease to 15 daily 4- DVT PX: on heparin gtt PT eval
[2019-01-05] MEDS: SILVER SULFADIAZINE 1% TOP CREAM 50 GM JAR TP SCH ×2 (16:56→21:31)
[2019-01-05] MEDS: WARFARIN NA 7.5 MG TABLET (FP) PO SCH (17:52)
[2019-01-05] MEDS: METOPROLOL TARTRATE 50 MG TABLET (FP) PO SCH (21:30)
[2019-01-05] MEDS: ATORVASTATIN CA 80 MG TABLET (FP) PO SCH (21:31)
--- NOTE | 2019-01-06 00:42 | CONSULT ---
Consult Consult Specialty:: endocrine Referred by:: fabrice bee Reason for Consultation:: hyperthyroidism - History of Present Illness Chief Complaint: anxiety History of Present Illness: 78 year male with pmhx of hypothyroidism self diagnosed. LE cellulitis , Venous insufficiency , presented to Ed today to worsening lethargia , weakness and slurred speech. sp recent fall at home on Wednesday in bath room without LOC or hitting his head no loss of conciousnes .has had, increased confusion,slurred speech,shaking of the hands,chills,found to have new onset afib admitted for anticoagulation and rate control to telemetry.he was taking nature thyroid extract 60mg daily. 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: [employer] History of Recent Travel: No Home Medications - Allergies Allergies/Adverse Reactions: Allergies Allergy/AdvReac Type Severity Reaction Status Date / Time No Known Allergies Allergy Verified 01/03/19 13:50 - Home Medications Home Medications: Ambulatory Orders Pantoprazole Sodium [Protonix -] 20 mg PO DAILY 01/08/18 Ascorbate Calcium [Vitamin C] 500 mg PO BID 01/09/18 Thyroid [Hugo Thyroid] 30 mg PO DAILY 01/09/18 Magnesium Oxide 400 mg 01/04/19 Family Disease History - Family Disease History Family Disease History: Other: Father (: 65: [place]), Mother (: 76: CVA), Son (2 sons, 1 paralyzed from diving accident in pool), Daughter (healthy) Review of Systems - Review of Systems Constitutional: reports: Weakness Eyes: reports: No Symptoms HENT: reports: No Symptoms Neck: reports: No Symptoms Cardiovascular: reports: No Symptoms Respiratory: reports: No Symptoms Gastrointestinal: reports: No Symptoms Genitourinary: reports: No Symptoms Breasts: reports: No Symptoms Reported Musculoskeletal: reports: Muscle Cramps Integumentary: reports: No Symptoms Endocrine: reports: No Symptoms Physical Exam Vital Signs: Vital Signs Temperature 97.8 F 01/05/19 21:00 Pulse Rate 67 01/05/19 21:00 Respiratory Rate 20 01/05/19 21:00 Blood Pressure 152/77 01/05/19 21:00 O2 Sat by Pulse Oximetry (%) 97 01/05/19 21:00 Constitutional: Yes: Anxious Eyes: Yes: EOM Intact HENT: Yes: Normocephalic Neck: Yes: Trachea Midline Cardiovascular: Yes: Pulse Irregular Respiratory: Yes: CTA Bilaterally Gastrointestinal: Yes: Normal Bowel Sounds ...Rectal Exam: Yes: Deferred Breast(s): Yes: WNL Musculoskeletal: Yes: WNL Extremities: Yes: WNL Edema: No Neurological: Yes: Alert, Oriented Labs: CBC, BMP 01/05/19 07:15 01/05/19 07:15 Problem List - Problems (1) Hyperthyroidism Code(s): E05.90 - THYROTOXICOSIS, UNSP WITHOUT THYROTOXIC CRISIS OR STORM (2) Afib Code(s): I48.91 - UNSPECIFIED ATRIAL FIBRILLATION (3) Cerebrovascular accident (CVA) Code(s): I63.9 - CEREBRAL INFARCTION, UNSPECIFIED Qualifiers: CVA mechanism: embolism Laterality of affected vessel: bilateral (4) Cellulitis Code(s): L03.90 - CELLULITIS, UNSPECIFIED Assessment/Plan Current Active Problems hyperthyroidism excess t4 intake Afib (Acute) Cerebrovascular accident (CVA) (Acute) Current Active Problems Abnormal Lab Results 01/05/19 01/05/19 01/05/19 07:15 07:15 07:15 Hgb 11.3 L Hct 34.8 L MCV 74.8 L MCH 24.2 L RDW 16.7 H PT with INR INR PTT (Actin FS) 46.2 H Chloride 113 H Anion Gap 5 L BUN 22 H Calcium 8.4 L Total Protein 6.0 L Albumin 2.9 L 01/05/19 01/05/19 07:15 18:30 Hgb Hct MCV MCH RDW PT with INR 15.50 H INR 1.31 H PTT (Actin FS) 49.7 H Chloride Anion Gap BUN Calcium Total Protein Albumin Laboratory Tests 01/03/19 01/04/19 01/04/19 14:45 05:25 05:25 TSH 0.08 L D Free T4 1.11 Free T3 3.4 plan: brenda giordano thyroid repeat tsh free t4 as outpatient cardiac workup in progress
[2019-01-06] MEDS ORDERED: PT OWN MED DRAWER 7, Y5N ONE (05:51)
[2019-01-06] MEDS ORDERED: THYROID 15 MG TABLET PO SCH (07:00)
[2019-01-06] MEDS ORDERED: THYROID 30 MG TABLET PO SCH (07:00)
[2019-01-06 07:29] LABS: INR 1.3 (0.83-1.09); PROTHROMBIN TIME (PATIENT) 15.4 SEC (9.7-13.0)
[2019-01-06 07:55] LABS: ALBUMIN 2.9 g/dl (3.4-5.0); ALK PHOS 88 U/L (45-117); ANION GAP 7 MMOL/L (8-16); BILIRUBIN,TOTAL 0.5 mg/dL (0.2-1); BLOOD UREA NITROGEN 23 mg/dL (7-18); CALCIUM 8.3 mg/dL (8.5-10.1); CHLORIDE 113 mmol/L (98-107); CO2 22 mmol/L (21-32); CREATININE 0.7 mg/dL (0.55-1.3); GLUCOSE,RANDOM 89 mg/dL (74-106); MAGNESIUM 2.1 mg/dL (1.8-2.4); PHOSPHOROUS 3.5 mg/dL (2.5-4.9); SGOT/AST 15 U/L (15-37); SGPT/ALT 28 U/L (13-61); SODIUM 142 mmol/L (136-145); TOT PROT 6.1 g/dl (6.4-8.2)
--- NOTE | 2019-01-06 09:32 | PN ---
Physical Exam: SUBJECTIVE: Patient seen and examined at bedside- no acute events overnight patient states he is feeling well and getting stronger; patient walked 30 feet yesterday with PT- denies any CP/SOB/N/V fevers or chlls OBJECTIVE: Vital Signs Period Temp Pulse Resp BP Sys/Costa Pulse Ox Last 24 Hr 97.7 F-98 F 61-80 16-20 148-163/72-94 97 GENERAL: The patient is awake, alert, and fully oriented, in no acute distress. EYES: PEERLA: EOMI no scleral icterus. NECK: no JVD; no lymphadenopathy LUNGS: CTA B/L; no rales, rhonchi or wheezing HEART: Regular rate and rhythm, S1, S2 without murmur, rub or gallop. ABDOMEN: Soft, nontender, nondistended, normoactive bowel sounds, no guarding, no rebound, no hepatosplenomegaly, no masses. EXTREMITIES: 2+ pulses, warm, well-perfused, no edema. NEUROLOGICAL: Cranial nerves II through XII grossly intact. Normal speech, strength 5/5 B/L UE/LE sensation intact symmetrically throughout DTR 2+ PSYCH: Normal mood, normal affect. SKIN: Warm, dry, normal turgor, no rashes or lesions noted Laboratory Results - last 24 hr 01/05/19 01/05/19 01/06/19 07:15 18:30 06:17 PT with INR INR PTT (Actin FS) 46.2 H 49.7 H 48.4 H Sodium Potassium Chloride Carbon Dioxide Anion Gap BUN Creatinine Creat Clearance w eGFR Random Glucose Calcium Phosphorus Magnesium Total Bilirubin AST ALT Alkaline Phosphatase Total Protein Albumin TSH Free T4 01/06/19 01/06/19 01/06/19 06:17 06:17 06:17 PT with INR 15.40 H INR 1.30 H PTT (Actin FS) Sodium 142 Potassium 4.0 Chloride 113 H Carbon Dioxide 22 Anion Gap 7 L BUN 23 H Creatinine 0.7 Creat Clearance w eGFR 108.79 Random Glucose 89 Calcium 8.3 L Phosphorus 3.5 Magnesium 2.1 Total Bilirubin 0.5 AST 15 ALT 28 Alkaline Phosphatase 88 Total Protein 6.1 L Albumin 2.9 L TSH 0.12 L D Free T4 1.16 Active Medications Generic Name Dose Route Start Last Admin Trade Name Freq PRN Reason Stop Dose Admin Acetaminophen 650 mg 01/03/19 21:14 Tylenol - PO Q4H PRN PAIN Atorvastatin Calcium 80 mg 01/03/19 22:00 01/05/19 21:31 Lipitor - PO Not Given HS AMI Heparin Sodium (Porcine) 1,000 unit 01/04/19 12:42 01/05/19 13:16 Heparin - IVPUSH 1,000 unit PRN PRN Administration Heparin Heparin Sodium (Porcine) 5,000 unit 01/04/19 12:42 Heparin - IVPUSH PRN PRN Heparin Heparin Sodium (Porcine) 25, 500 mls @ 20 mls/hr 01/04/19 12:45 01/05/19 20: 00 000 unit/ Sodium Chloride IV 1,100 unit/hr TITR AMI 22 mls/hr Administration Protocol 1,000 UNIT/HR Metoprolol Tartrate 50 mg 01/05/19 11:48 01/05/19 21:30 Lopressor - PO 50 mg BID AMI Administration Nystatin 1 applic 01/06/19 10:00 Nystop Powder - TP DAILY [facility] Pantoprazole Sodium 20 mg 01/04/19 10:00 01/05/19 10:26 Protonix - PO 20 mg DAILY [facility] Administration Silver Sulfadiazine 1 applic 01/04/19 22:00 01/05/19 21:31 Silvadene - TP Not Given BID AMI Warfarin Sodium 7.5 mg 01/04/19 18:00 01/05/19 17:52 Coumadin - PO 7.5 mg DAILY@1800 [facility] Administration ASSESSMENT/PLAN: 78 year old male with pmxh of LE cellulites , venous insufficency , hypothyroidism presented to the due to lethargy and worsening generalized weakness , slurred speech after suffering a fall on wednesday was found to have acute stroke , new onset afib w RVR # stroke # New Onset Afib with RVR patient has now been in sinus rhythm for almost 2 days * started on heparin drip bridging to coumadin was initiated; monitor INR until 2-3 * Metoprolol 50 BID for rate control * gambling monitor , BP monitor * Head of bed elevation # Hypothyroidism * hold [place] for now * Dr. fernandez saw patient last night; holding armour thyroid and can repeat TSH/ free t4 as outpatient # PVD , venous insufficiency left leg posteror ulcer 5x7 cm * chronic , stable * leg elevation * wound care * no signs of infection * monitor of abx # FEN * D5/ns @ 42 CC/hr * E: monitor * N: follow speech and swallow recs # Proph * Dvts: on hep Gtt * GI: ppi 20 po daily Problem List - Problems (1) Afib Code(s): I48.91 - UNSPECIFIED ATRIAL FIBRILLATION (2) Cerebrovascular accident (CVA) Code(s): I63.9 - CEREBRAL INFARCTION, UNSPECIFIED Qualifiers: CVA mechanism: embolism Laterality of affected vessel: bilateral (3) Cellulitis Code(s): L03.90 - CELLULITIS, UNSPECIFIED Visit type - Emergency Visit Emergency Visit: Yes ED Registration Date: 01/03/19 Care time: The patient presented to the Emergency Department on the above date and was hospitalized for further evaluation of their emergent condition. - New Patient This patient is new to me today: No - Critical Care Critical Care patient: No
[2019-01-06 09:42] LABS: HEMATOCRIT 35.8 % (35.4-49); HEMOGLOBIN 11.8 GM/dL (11.7-16.9); MCH 24.8 pg (25.7-33.7); MCHC 32.9 g/dl (32.0-35.9); MEAN CELL VOLUME 75.5 fl (80-96); PLATELET COUNT 257 K/MM3 (134-434); RBC 4.74 M/mm3 (4.00-5.60); WHITE BLOOD COUNT 4.7 K/mm3 (4.0-10.0)
[2019-01-06] MEDS: HEPARIN - 25,000 UNIT in SODIUM CHLORIDE 495 ML IV SCH ×2 (10:00→18:24)
--- NOTE | 2019-01-06 10:09 | PN ---
Progress Note, Physician History of Present Illness: Right hand weakness and dysarthria improving, tolerating oral intake, remains in sinus rhythm. - Current Medication List Current Medications: Active Medications Acetaminophen (Tylenol -) 650 mg PO Q4H PRN PRN Reason: PAIN Atorvastatin Calcium (Lipitor -) 80 mg PO HS [facility] Last Admin: 01/05/19 21:31 Dose: Not Given Heparin Sodium (Porcine) (Heparin -) 1,000 unit IVPUSH PRN PRN PRN Reason: Heparin Last Admin: 01/05/19 13:16 Dose: 1,000 unit Heparin Sodium (Porcine) (Heparin -) 5,000 unit IVPUSH PRN PRN PRN Reason: Heparin Heparin Sodium (Porcine) 25, (000 unit/ Sodium Chloride) 500 mls @ 20 mls/hr IV TITR [facility]; Protocol Last Admin: 01/05/19 20:00 Dose: 1,100 unit/hr, 22 mls/hr Metoprolol Tartrate (Lopressor -) 50 mg PO BID [facility] Last Admin: 01/05/19 21:30 Dose: 50 mg Nystatin (Nystop Powder -) 1 applic TP DAILY [facility] Pantoprazole Sodium (Protonix -) 20 mg PO DAILY [facility] Last Admin: 01/05/19 10:26 Dose: 20 mg Silver Sulfadiazine (Silvadene -) 1 applic TP BID [facility] Last Admin: 01/05/19 21:31 Dose: Not Given Warfarin Sodium (Coumadin -) 7.5 mg PO DAILY@1800 [facility] Last Admin: 01/05/19 17:52 Dose: 7.5 mg - Objective Vital Signs: Vital Signs Temperature 97.7 F 01/06/19 06:00 Pulse Rate 61 01/06/19 06:00 Respiratory Rate 18 01/06/19 06:00 Blood Pressure 163/79 01/06/19 06:00 O2 Sat by Pulse Oximetry (%) 97 01/05/19 21:00 Constitutional: Yes: No Distress, Calm, Thin Neck: Yes: Supple Cardiovascular: Yes: Regular Rate and Rhythm, Murmur (2/6 SM) Respiratory: Yes: Regular, CTA Bilaterally Gastrointestinal: Yes: Normal Bowel Sounds, Soft Edema: No Labs: CBC, BMP 01/06/19 06:17 01/06/19 06:17 INR, PTT INR 1.30 (0.83-1.09) H 01/06/19 06:17 - ....Imaging EKG: Report Reviewed (Tele: NSR occ PVC) Problem List - Problems (1) Afib Code(s): I48.91 - UNSPECIFIED ATRIAL FIBRILLATION (2) Cerebrovascular accident (CVA) Code(s): I63.9 - CEREBRAL INFARCTION, UNSPECIFIED Qualifiers: CVA mechanism: embolism Laterality of affected vessel: bilateral (3) Hypothyroidism Code(s): E03.9 - HYPOTHYROIDISM, UNSPECIFIED Qualifiers: Hypothyroidism type: unspecified Qualified Code(s): E03.9 - Hypothyroidism , unspecified (4) Venous insufficiency of both lower extremities Code(s): I87.2 - VENOUS INSUFFICIENCY (CHRONIC) (PERIPHERAL) Assessment/Plan 01/03/2019 MRI: Subacute left frontal, left parietal, right precentral gyrus, chronic right occipital 01/04/2019 Echo: Hypertrophic cardiomyopathy with asymmetric septal hypertrophy intracavity gradient suspected, normal LV fxn, mod-severe , mod KEITH, mild-mod TR, mild MR 1. Subacute embolic strokes referable to 2. Newly diagnosed paroxysmal atrial fibrillation now in SR [id number] placed on heparin gtt 3. Hypertrophic cardiomyopathy of elderly with mod-severe 4. Hypothyroidism 5. Chronic LE edema P:1. Rate-control with Lopressor 50 bid with uptitration as tolerated, Lipitor 80 qd, check ECG 2. Heparin gtt->coumadin per INR 2-3 with GI protection given elevated stroke risk, NOACs declined despite review of current guidelines 3. Further evaluation of HCM and as outpatient including R&LHc once neurologically stable 4. PT and speech eval and Rx.
[2019-01-06] MEDS: METOPROLOL TARTRATE 50 MG TABLET (FP) PO SCH ×2 (10:38→22:15)
[2019-01-06] MEDS: NYSTATIN POWDER 100,000 UNITS/GM - 15 GM TOPICAL POWDER TP SCH (10:38)
[2019-01-06] MEDS: PANTOPRAZOLE 20 MG TABLET (FP) PO SCH (10:38)
[2019-01-06] MEDS: SILVER SULFADIAZINE 1% TOP CREAM 50 GM JAR TP SCH ×2 (17:32→22:17)
[2019-01-06] MEDS ORDERED: WARFARIN NA 10 MG TABLET (FP) PO ONE (18:00)
--- NOTE | 2019-01-06 18:16 | PN ---
Teaching Attending Note Name of Resident: Trini Justin ATTENDING PHYSICIAN STATEMENT I saw and evaluated the patient. I reviewed the resident's note and discussed the case with the resident. I agree with the resident's findings and plan as documented. SUBJECTIVE: no fever or chills, no Cp, NO PAUL OBJECTIVE: NAD, awake, alert, oriented. CV:RRR. 3/6 SM LLSB, RUSB, and apex . no radiation Lungs: CTAB Abd: soft, NT, ND ,NL BS Ext : chronic discoloration, ulceration on L lateral lower leg Neuro: EOMI, round equal pupils, reactive to light . mild asymmetry in R nasolabial fold, tongue and uvula at mid line, nl facial sensation . strength 5/5 in upper and lower extremities proximally and distally ( can't flex knees). sensation to light touch NL Reflexes: 1+ knee jerk, 2+ biceps, b/l. 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 likely cause is A fib. - cont heparin ---> coumadin - tight control of BP - statin 2- New onset A fib with RVR,now in sinus rhythm - cont BB - cont heparin to coumadin 3- HTN: - cont BB . add low dose lisinopril 4- h/o Hypethyroidism, - dc armour thyroid . f/u as out pt for repeat TFTs in 4 weeks 4- DVT PX: on heparin gtt
[2019-01-06] MEDS: HEPARIN NA (PORCINE) 5,000 UNITS/ML 1ML VIAL IVPUSH PRN (18:56)
[2019-01-06] MEDS: ATORVASTATIN CA 80 MG TABLET (FP) PO SCH ×2 (22:15→22:22)
[2019-01-07] MEDS: HEPARIN NA (PORCINE) 5,000 UNITS/ML 1ML VIAL IVPUSH PRN (02:30)
[2019-01-07 06:47] LABS: HEMATOCRIT 36.7 % (35.4-49); HEMOGLOBIN 11.9 GM/dL (11.7-16.9); MCH 24.6 pg (25.7-33.7); MCHC 32.4 g/dl (32.0-35.9); MEAN CELL VOLUME 75.8 fl (80-96); MEAN PLT VOLUME 8.7 fl (7.5-11.1); PLATELET COUNT 252 K/MM3 (134-434); RBC 4.85 M/mm3 (4.00-5.60); RDW 17.4 % (11.9-15.9); WHITE BLOOD COUNT 5.2 K/mm3 (4.0-10.0)
[2019-01-07 07:01] LABS: INR 1.65 (0.83-1.09); PROTHROMBIN TIME (PATIENT) 19.6 SEC (9.7-13.0)
[2019-01-07 07:17] LABS: ANION GAP 7 MMOL/L (8-16); BLOOD UREA NITROGEN 19 mg/dL (7-18); CALCIUM 8.3 mg/dL (8.5-10.1); CHLORIDE 111 mmol/L (98-107); CO2 25 mmol/L (21-32); CREATININE 0.9 mg/dL (0.55-1.3); GLUCOSE,RANDOM 87 mg/dL (74-106); MAGNESIUM 1.8 mg/dL (1.8-2.4); PHOSPHOROUS 3.5 mg/dL (2.5-4.9); POTASSIUM 4.1 mmol/L (3.5-5.1); SODIUM 142 mmol/L (136-145)
--- NOTE | 2019-01-07 09:18 | PN ---
Progress Note (short form) - Note Progress Note: Chief Complaint: Events noted, notes reviewed, sitting in a chair denies any chest pain or dyspnea, sinus rhythm is noted History of Present Illness: Seen and examined on telemetry. Events noted, notes reviewed, sitting in a chair denies any chest pain or dyspnea, sinus rhythm is noted Echocardiography 01/04/2019 Hypertrophic cardiomyopathy with asymmetric septal hypertrophy intracavity gradient suspected, normal LV function, moderate-severe , moderate KEITH, mild MR, mild-moderate TR Medications: Current Medications Acetaminophen (Tylenol -) 650 mg PO Q4H PRN PRN Reason: PAIN Atorvastatin Calcium (Lipitor -) 80 mg PO HS [facility] Last Admin: 01/06/19 22:22 Dose: Not Given Heparin Sodium (Porcine) (Heparin -) 1,000 unit IVPUSH PRN PRN PRN Reason: Heparin Last Admin: 01/07/19 02:30 Dose: 1,000 unit Heparin Sodium (Porcine) (Heparin -) 5,000 unit IVPUSH PRN PRN PRN Reason: Heparin Heparin Sodium (Porcine) 25, (000 unit/ Sodium Chloride) 500 mls @ 20 mls/hr IV TITR [facility]; Protocol Last Titration: 01/07/19 02:31 Dose: 1,400 unit/hr, 28 mls/hr Lisinopril (Prinivil) 5 mg PO DAILY [facility] Metoprolol Tartrate (Lopressor -) 50 mg PO BID [facility] Last Admin: 01/06/19 22:15 Dose: 50 mg Nystatin (Nystop Powder -) 1 applic TP DAILY [facility] Last Admin: 01/06/19 10:38 Dose: 1 applic Pantoprazole Sodium (Protonix -) 20 mg PO DAILY [facility] Last Admin: 01/06/19 10:38 Dose: 20 mg Silver Sulfadiazine (Silvadene -) 1 applic TP BID [facility] Last Admin: 01/06/19 22:17 Dose: 1 applic Warfarin Sodium (Coumadin -) 7.5 mg PO DAILY@1800 [facility] Last Admin: 01/05/19 17:52 Dose: 7.5 mg Review of Systems Cardiovascular: As noted above Respiratory: denies: Cough or Sputum Production Gastrointestinal: denies: Nausea, Vomiting, Diarrhea, Constipation and Abdominal Pain Musculoskeletal: No Symptoms Reported Endocrine: No Symptoms Reported Vital Signs: Last Vital Signs Temp Pulse Resp BP Pulse Ox 97.8 F 65 18 158/90 97 01/07/19 06:00 01/07/19 06:00 01/07/19 06:00 01/07/19 06:00 01/06/19 21:00 Intake & Output 01/04/19 01/05/19 01/06/19 01/07/19 23:59 23:59 23:59 23:59 Intake Total 275 362 154 620 Output Total 225 200 Balance 50 362 -46 620 Neck: Supple Negative JVD no bruit appreciated Respiratory: Clear to A&P Bilaterally Cardiovascular: S1 S2 Regular Rate and Rhythm Grade 2-3/6 GUILHERME Gastrointestinal: Soft Benign Normal Bowel Sounds Ext: Positive Edema Labs: CBC, BMP 01/07/19 06:00 01/07/19 06:00 Hepatic Panel Total Bilirubin 0.5 mg/dL (0.2-1) 01/06/19 06:17 AST 15 U/L (15-37) 01/06/19 06:17 ALT 28 U/L (13-61) 01/06/19 06:17 Alkaline Phosphatase 88 U/L (45-117) 01/06/19 06:17 Albumin 2.9 g/dl (3.4-5.0) L 01/06/19 06:17 INR, PTT INR 1.65 (0.83-1.09) H 01/07/19 06:00 Assessment/Plan ASSESSMENT: 1. Subacute embolic strokes referable to 2. Newly diagnosed paroxysmal atrial fibrillation currently in sinus rhythm [id number] score of 4 on Heparin/Coumadin 3. Hypertrophic cardiomyopathy of elderly 4. Moderate-severe 5. Probable coronary artery disease 6. Hypothyroidism 7. Chronic LE edema PLAN: 1. Continue Lopressor 2. Continue Lisinopril 3. Continue Lipitor 4. Continue Heparin/Coumadin as per INR, DOACs declined despite review of current guidelines 5. Further evaluation of HCM as outpatient including Tc-PYP scan 6. Further evaluation of as outpatient including R&LHc once neurologically stable Above was discussed in detail with the patient Ga Rodríguez M.D.
--- NOTE | 2019-01-07 09:32 | PN ---
Physical Exam: SUBJECTIVE: Patient seen and examined at bedside. no overnight events. No new complaints. Tele reviewed. He states that he feels stronger today. Denies CP,PAUL , SOB, palpitations, abdominal pain, nausea or vomiting. OBJECTIVE: Vital Signs Period Temp Pulse Resp BP Sys/Costa Pulse Ox Last 24 Hr 97.5 F-98 F 64-74 16-20 148-159/71-90 97 GENERAL: The patient is awake, alert, and fully oriented, in no acute distress. EYES: PEERLA: EOMI no scleral icterus. NECK: no JVD; no lymphadenopathy LUNGS: CTA B/L; no rales, rhonchi or wheezing HEART: Regular rate and rhythm, S1, S2 without murmur, rub or gallop. ABDOMEN: Soft, nontender, nondistended, normoactive bowel sounds, no guarding, no rebound, no hepatosplenomegaly, no masses. EXTREMITIES: 2+ pulses, warm, well-perfused, no edema. NEUROLOGICAL: Cranial nerves II through XII grossly intact. Normal speech, strength 5/5 B/L UE/LE sensation intact symmetrically throughout DTR 2+ PSYCH: Normal mood, normal affect. SKIN: Warm, dry, normal turgor, no rashes or lesions noted Laboratory Results - last 24 hr 01/06/19 01/06/19 01/06/19 06:17 06:17 14:30 WBC 4.7 RBC 4.74 Hgb 11.8 Hct 35.8 MCV 75.5 L MCH 24.8 L MCHC 32.9 RDW 17.0 H Plt Count 257 MPV 9.0 PT with INR INR PTT (Actin FS) 46.7 H Sodium Potassium Chloride Carbon Dioxide Anion Gap BUN Creatinine Creat Clearance w eGFR Random Glucose Calcium Phosphorus Magnesium Thyroid Peroxidase Ab 76 H 01/07/19 01/07/19 01/07/19 00:05 06:00 06:00 WBC 5.2 RBC 4.85 Hgb 11.9 Hct 36.7 MCV 75.8 L MCH 24.6 L MCHC 32.4 RDW 17.4 H Plt Count 252 MPV 8.7 PT with INR INR PTT (Actin FS) 45.8 H 65.7 H Sodium Potassium Chloride Carbon Dioxide Anion Gap BUN Creatinine Creat Clearance w eGFR Random Glucose Calcium Phosphorus Magnesium Thyroid Peroxidase Ab 01/07/19 01/07/19 06:00 06:00 WBC RBC Hgb Hct MCV MCH MCHC RDW Plt Count MPV PT with INR 19.60 H INR 1.65 H PTT (Actin FS) Sodium 142 Potassium 4.1 Chloride 111 H Carbon Dioxide 25 Anion Gap 7 L BUN 19 H Creatinine 0.9 Creat Clearance w eGFR 81.40 Random Glucose 87 Calcium 8.3 L Phosphorus 3.5 Magnesium 1.8 Thyroid Peroxidase Ab Active Medications Generic Name Dose Route Start Last Admin Trade Name Freq PRN Reason Stop Dose Admin Acetaminophen 650 mg 01/03/19 21:14 Tylenol - PO Q4H PRN PAIN Atorvastatin Calcium 80 mg 01/03/19 22:00 01/06/19 22:22 Lipitor - PO Not Given HS [facility]I Heparin Sodium (Porcine) 1,000 unit 01/04/19 12:42 01/07/19 02:30 Heparin - IVPUSH 1,000 unit PRN PRN Administration Heparin Heparin Sodium (Porcine) 5,000 unit 01/04/19 12:42 Heparin - IVPUSH PRN PRN Heparin Heparin Sodium (Porcine) 25, 500 mls @ 20 mls/hr 01/04/19 12:45 01/07/19 02: 31 000 unit/ Sodium Chloride IV 1,400 unit/hr TITR [facility]I 28 mls/hr Titration Protocol 1,000 UNIT/HR Lisinopril 5 mg 01/07/19 10:00 Prinivil PO DAILY [facility]I Metoprolol Tartrate 50 mg 01/05/19 11:48 01/06/19 22:15 Lopressor - PO 50 mg BID [facility]I Administration Nystatin 1 applic 01/06/19 10:00 01/06/19 10:38 Nystop Powder - TP 1 applic DAILY [facility]I Administration Pantoprazole Sodium 20 mg 01/04/19 10:00 01/06/19 10:38 Protonix - PO 20 mg DAILY [facility]I Administration Silver Sulfadiazine 1 applic 01/04/19 22:00 01/06/19 22:17 Silvadene - TP 1 applic BID AMI Administration Warfarin Sodium 7.5 mg 01/04/19 18:00 01/05/19 17:52 Coumadin - PO 7.5 mg DAILY@1800 [facility]I Administration ASSESSMENT/PLAN: 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 * Continue Heparin awaiting therapeutic INR- today was 1.65 (goal 2-3) * Continue BP control with BB and KLAUS. * continue statin Lipitor 80 HS * continue physical therapy. (2) Afib Assessment/Plan: New onset Afib with RVR now in sinus rhythm * Continue rate control with BB * cont. bridge with heparin to coumadin.5mg PO daily. * [id number]=5 (3) Hyperthyroidism Assessment/Plan: thyroid medication held * Endocrine consult appreciated. * f/u TFT's in 4 weeks as outpatient. (4) HTN (hypertension) Assessment/Plan: * Cont. Metoprolol and lisinopril (5) Hypertrophic cardiomyopathy Assessment/Plan: 01/04/2019 Echo: Hypertrophic cardiomyopathy with asymmetric septal hypertrophy intracavity gradient suspected, normal LV fxn, mod-severe , mod KEITH, mild-mod TR, mild MR * Cardiology consult appreciated. * Further evaluation of HCM and as outpatient including R&LHc once neurologically stable Visit type - Emergency Visit Emergency Visit: Yes ED Registration Date: 01/03/19 Care time: The patient presented to the Emergency Department on the above date and was hospitalized for further evaluation of their emergent condition. - New Patient This patient is new to me today: Yes Date on this admission: 01/07/19 - Critical Care Critical Care patient: No
[2019-01-07] MEDS ORDERED: LISINOPRIL 5 MG TABLET (FP) PO SCH (10:00)
[2019-01-07] MEDS: PANTOPRAZOLE 20 MG TABLET (FP) PO SCH (10:22)
[2019-01-07] MEDS: SILVER SULFADIAZINE 1% TOP CREAM 50 GM JAR TP SCH ×2 (10:22→22:05)
[2019-01-07] MEDS: METOPROLOL TARTRATE 50 MG TABLET (FP) PO SCH ×2 (10:22→22:05)
[2019-01-07] MEDS: HEPARIN - 25,000 UNIT in SODIUM CHLORIDE 495 ML IV SCH ×2 (10:22→18:30)
[2019-01-07] MEDS: NYSTATIN POWDER 100,000 UNITS/GM - 15 GM TOPICAL POWDER TP SCH (10:22)
--- NOTE | 2019-01-07 11:37 | PN ---
Teaching Attending Note Name of Resident: Nestor Silva ATTENDING PHYSICIAN STATEMENT I saw and evaluated the patient. I reviewed the resident's note and discussed the case with the resident. I agree with the resident's findings and plan as documented. SUBJECTIVE: no fever or chills, no CP . no palpitations. refused his lipitor OBJECTIVE: NAD, awake, alert, oriented. CV:RRR. 3/6 SM LLSB, RUSB, and apex . 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 likely cause is A fib. - cont heparin ---> coumadin - tight control of BP - will dc statin as pt refuses to take despite explanation of goal of LDL < 70 2- New onset A fib with RVR,now in sinus rhythm - cont BB - cont heparin to coumadin 3- HTN: - cont BB . can increase lisinopril if needed today is first dose 4- h/o Hypethyroidism, f/u as out pt for repeat TFTs in 4 weeks 4- DVT PX: on heparin gtt ASSESSMENT AND PLAN:
--- NOTE | 2019-01-07 17:07 | EKG ---
Test Reason : Blood Pressure : / mmHG Vent. Rate : 063 BPM Atrial Rate : 063 BPM P-R Int : 184 ms QRS Dur : 168 ms QT Int : 498 ms P-R-T Axes : 052 094 064 degrees QTc Int : 509 ms NORMAL SINUS RHYTHM RIGHT BUNDLE BRANCH BLOCK ABNORMAL ECG WHEN COMPARED WITH ECG OF 04-JAN-2019 08:50, SINUS RHYTHM HAS REPLACED ATRIAL FIBRILLATION VENT. RATE HAS DECREASED BY 40 BPM T WAVE INVERSION NO LONGER EVIDENT IN INFERIOR LEADS Confirmed by EH CLINE MD ([id number]) on 01/07/2019 5:07:04 PM Referred By: Confirmed By:EH CLINE MD
[2019-01-07] MEDS ORDERED: PT OWN MED DRAWER 7, Y5N ONE ×2 (17:18→21:52)
[2019-01-07] MEDS ORDERED: WARFARIN NA 5 MG TABLET (UD) PO SCH (18:00)
[2019-01-07] MEDS: ATORVASTATIN CA 80 MG TABLET (FP) PO SCH ×2 (22:05→22:09)
[2019-01-08 07:59] LABS: BASO % 0.9 % (0-2.0); EOS % 5.4 % (0-4.5); HEMATOCRIT 38.2 % (35.4-49); HEMOGLOBIN 12.3 GM/dL (11.7-16.9); LYMPH % 30.5 % (8-40); MCH 24.1 pg (25.7-33.7); MCHC 32.3 g/dl (32.0-35.9); MEAN CELL VOLUME 74.7 fl (80-96); MEAN PLT VOLUME 8.2 fl (7.5-11.1); MONO % 10.4 % (3.8-10.2); NEUT % 52.8 % (42.8-82.8); PLATELET COUNT 284 K/MM3 (134-434); RBC 5.11 M/mm3 (4.00-5.60); RDW 17.3 % (11.9-15.9); WHITE BLOOD COUNT 5.3 K/mm3 (4.0-10.0)
[2019-01-08 08:19] LABS: ANION GAP 7 MMOL/L (8-16); BLOOD UREA NITROGEN 17 mg/dL (7-18); CALCIUM 8.5 mg/dL (8.5-10.1); CHLORIDE 108 mmol/L (98-107); CO2 24 mmol/L (21-32); CREATININE 0.9 mg/dL (0.55-1.3); GLUCOSE,RANDOM 87 mg/dL (74-106); SODIUM 140 mmol/L (136-145)
[2019-01-08 09:09] LABS: INR 1.96 (0.83-1.09); PROTHROMBIN TIME (PATIENT) 23.3 SEC (9.7-13.0)
[2019-01-08] MEDS ORDERED: LISINOPRIL 20 MG TABLET (FP) PO SCH (10:00)
--- NOTE | 2019-01-08 10:39 | PN ---
Progress Note (short form) - Note Progress Note: Chief Complaint: Events noted, notes reviewed, sitting in a chair denies any chest pain or dyspnea, sinus rhythm is noted History of Present Illness: Seen and examined on telemetry. Events noted, notes reviewed, sitting in a chair denies any chest pain or dyspnea, sinus rhythm is noted Long discussion with the patient in reference to A/C Coumadin vs. DOAC's, risk, benefits and alternatives reviewed, agreeable to initiate DOAC's/Eliquis Echocardiography 01/04/2019 Hypertrophic cardiomyopathy with asymmetric septal hypertrophy intracavity gradient suspected, normal LV function, moderate-severe , moderate KEITH, mild MR, mild-moderate TR Medications: Current Medications Acetaminophen (Tylenol -) 650 mg PO Q4H PRN PRN Reason: PAIN Atorvastatin Calcium (Lipitor -) 80 mg PO HS [facility] Last Admin: 01/07/19 22:09 Dose: Not Given Heparin Sodium (Porcine) (Heparin -) 1,000 unit IVPUSH PRN PRN PRN Reason: Heparin Last Admin: 01/07/19 02:30 Dose: 1,000 unit Heparin Sodium (Porcine) (Heparin -) 5,000 unit IVPUSH PRN PRN PRN Reason: Heparin Heparin Sodium (Porcine) 25, (000 unit/ Sodium Chloride) 500 mls @ 20 mls/hr IV TITR [facility]; Protocol Last Admin: 01/07/19 18:30 Dose: Not Given Lisinopril (Prinivil) 20 mg PO DAILY [facility] Metoprolol Tartrate (Lopressor -) 50 mg PO BID [facility] Last Admin: 01/07/19 22:05 Dose: 50 mg Nystatin (Nystop Powder -) 1 applic TP DAILY [facility] Last Admin: 01/07/19 10:22 Dose: 1 applic Pantoprazole Sodium (Protonix -) 20 mg PO DAILY [facility] Last Admin: 01/07/19 10:22 Dose: 20 mg Silver Sulfadiazine (Silvadene -) 1 applic TP BID [facility] Last Admin: 01/07/19 22:05 Dose: 1 applic Warfarin Sodium (Coumadin -) 5 mg PO DAILY@1800 [facility] Last Admin: 01/07/19 18:32 Dose: 5 mg Review of Systems Cardiovascular: As noted above Respiratory: denies: Cough or Sputum Production Gastrointestinal: denies: Nausea, Vomiting, Diarrhea, Constipation and Abdominal Pain Musculoskeletal: No Symptoms Reported Endocrine: No Symptoms Reported Vital Signs: Last Vital Signs Temp Pulse Resp BP Pulse Ox 97.9 F 62 18 167/84 98 01/08/19 06:00 01/08/19 06:00 01/08/19 06:00 01/08/19 06:00 01/07/19 21:00 Intake & Output 01/05/19 01/06/19 01/07/19 01/08/19 23:59 23:59 23:59 23:59 Intake Total 362 154 860 Output Total 200 Balance 362 -46 860 Neck: Supple Negative JVD no bruit appreciated Respiratory: Clear to A&P Bilaterally Cardiovascular: S1 S2 Regular Rate and Rhythm Grade 2-3/6 GUILHERME Gastrointestinal: Soft Benign Normal Bowel Sounds Ext: Positive Edema chronic Venous Stasis Changes Labs: CBC, BMP 01/08/19 06:30 01/08/19 06:30 INR, PTT INR 1.96 (0.83-1.09) H 01/08/19 06:30 Assessment/Plan ASSESSMENT: 1. Subacute embolic strokes referable to 2. Newly diagnosed paroxysmal atrial fibrillation currently in sinus rhythm [id number] score of 4 on Heparin/Coumadin, to initiate Eliquisa as outlined above 3. Hypertrophic cardiomyopathy of elderly 4. Moderate-severe 5. Probable coronary artery disease 6. Hypothyroidism 7. Chronic LE edema PLAN: 1. Continue Lopressor 2. Continue Lisinopril and titrate dosage 3. Continue Lipitor 4. Discontinue Heparin/Coumadin and initiate DOAC's/Eliquis as outlined above 5. Further evaluation of HCM as outpatient including Tc-PYP scan 6. Further evaluation of as outpatient including R&LHc once neurologically stable Above was discussed in detail with the patient Ga Rodríguez M.D.
[2019-01-08] MEDS: PANTOPRAZOLE 20 MG TABLET (FP) PO SCH (12:20)
[2019-01-08] MEDS: METOPROLOL TARTRATE 50 MG TABLET (FP) PO SCH ×2 (12:20→22:21)
[2019-01-08] MEDS: NYSTATIN POWDER 100,000 UNITS/GM - 15 GM TOPICAL POWDER TP SCH (12:25)
[2019-01-08] MEDS: ASCORBIC ACID 500 MG TABLET (FP) PO SCH ×2 (12:25→22:21)
[2019-01-08] MEDS: MAGNESIUM OXIDE 400 MG TABLET (FP) PO SCH ×2 (12:25→22:21)
[2019-01-08] MEDS: SILVER SULFADIAZINE 1% TOP CREAM 50 GM JAR TP SCH (12:25)
[2019-01-08] MEDS: LISINOPRIL 20 MG TABLET (FP) PO SCH (12:26)
--- NOTE | 2019-01-08 15:09 | PN ---
Progress Note (short form) - Note Progress Note: Subjective: no fever or chills. No PAUL , no Cp or palpitation Objective: Vital Signs: Last Vital Signs Temp Pulse Resp BP Pulse Ox 97.9 F 62 18 167/84 98 01/08/19 06:00 01/08/19 06:00 01/08/19 06:00 01/08/19 06:00 01/07/19 21:00 Laboratory Results - last 24 hr 01/08/19 01/08/19 01/08/19 06:30 06:30 06:30 WBC 5.3 RBC 5.11 Hgb 12.3 Hct 38.2 MCV 74.7 L MCH 24.1 L MCHC 32.3 RDW 17.3 H Plt Count 284 MPV 8.2 Absolute Neuts (auto) 2.8 Neutrophils % 52.8 Lymphocytes % 30.5 Monocytes % 10.4 H Eosinophils % 5.4 H Basophils % 0.9 Nucleated RBC % 0 PT with INR 23.30 H INR 1.96 H PTT (Actin FS) 86.3 H Sodium Potassium Chloride Carbon Dioxide Anion Gap BUN Creatinine Creat Clearance w eGFR Random Glucose Calcium 01/08/19 06:30 WBC RBC Hgb Hct MCV MCH MCHC RDW Plt Count MPV Absolute Neuts (auto) Neutrophils % Lymphocytes % Monocytes % Eosinophils % Basophils % Nucleated RBC % PT with INR INR PTT (Actin FS) Sodium 140 Potassium 4.0 Chloride 108 H Carbon Dioxide 24 Anion Gap 7 L BUN 17 Creatinine 0.9 Creat Clearance w eGFR 81.40 Random Glucose 87 Calcium 8.5 Physical Exam: AD, awake, alert, oriented. CV:RRR. 3/6 SM LLSB, RUSB, and apex . 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 likely cause is A fib. - AC - tight control of BP - refused statin 2- New onset A fib with RVR,now in sinus rhythm - cont BB -agreed to eliquis today as per d/w Dr. Rodríguez 3- HTN: - cont BB . increae lisinopril 4- h/o Hypethyroidism, f/u as out pt for repeat TFTs in 4 weeks 4- DVT PX: on Eliquis plan was to send pt home with VNS. he tells me he wants to go to [facility] rehab . will diogo HAYS. Visit type - Emergency Visit Emergency Visit: Yes ED Registration Date: 01/03/19 Care time: The patient presented to the Emergency Department on the above date and was hospitalized for further evaluation of their emergent condition. - New Patient This patient is new to me today: No - Critical Care Critical Care patient: No
[2019-01-08] MEDS: APIXABAN 5 MG TABLET PO SCH ×2 (15:41→22:21)
--- NOTE | 2019-01-08 19:49 | PN ---
Progress Note (short form) - Note Progress Note: NEUROLOGY PROGRESS: Events reviewed. Patient examined. INR= 1.96 today Accepted for transfer, [facility] EXAM: Decreased leg swelling and cellulitis NEURO: Mild non-fluent aphasia debibe re: repetitions Full ding Mild right facial Gag OK Min right drift and decreased RAY's IMP: Doing well s/p left CVA (s) with new onset AFib. SUGGEST: Coumadin to INR 2.5 For transfer to [place] tomorrow. Thank you very much, Hakeem Anna MD
[2019-01-08] MEDS: ATORVASTATIN CA 80 MG TABLET (FP) PO SCH (22:21)
[2019-01-09] MEDS: SILVER SULFADIAZINE 1% TOP CREAM 50 GM JAR TP SCH ×2 (00:59→10:14)
[2019-01-09 08:13] LABS: HEMATOCRIT 37.8 % (35.4-49); HEMOGLOBIN 12.2 GM/dL (11.7-16.9); MCH 24.4 pg (25.7-33.7); MCHC 32.4 g/dl (32.0-35.9); MEAN CELL VOLUME 75.2 fl (80-96); MEAN PLT VOLUME 8.3 fl (7.5-11.1); PLATELET COUNT 239 K/MM3 (134-434); RBC 5.02 M/mm3 (4.00-5.60); RDW 16.8 % (11.9-15.9); WHITE BLOOD COUNT 5.3 K/mm3 (4.0-10.0)
--- NOTE | 2019-01-09 09:57 | PN ---
Physical Exam: SUBJECTIVE: Patient seen and examined at bedside no acute events overnight; patient states he is feeling much better and is anxious to go to rehab; denies CP/SOB/N.V fevers or chills OBJECTIVE: Vital Signs Period Temp Pulse Resp BP Sys/Costa Pulse Ox Last 24 Hr 97.4 F-97.9 F 59-72 16-18 135-181/59-95 98 GENERAL: The patient is awake, alert, and fully oriented, in no acute distress. EYES: PEERLA; EOMI; no scleral icterus NECK: no JVD: no lymphadenopathy LUNGS: CTA B/L; no rales, rhonchi or wheezing HEART: Regular rate and rhythm, S1, S2 without murmur, rub or gallop. ABDOMEN: Soft, nontender, nondistended, normoactive bowel sounds, no guarding, no rebound, no hepatosplenomegaly, no masses. EXTREMITIES: 2+ pulses, warm, well-perfused, no edema. NEUROLOGICAL: Cranial nerves II through XII grossly intact. Normal speech, strength 5/5 B/L UE/LE sensation intact symmetrically throughout DTR 2+ PSYCH: Normal mood, normal affect. SKIN: Warm, dry, normal turgor, no rashes or lesions noted Laboratory Results - last 24 hr 01/09/19 01/09/19 07:30 07:30 WBC 5.3 RBC 5.02 Hgb 12.2 Hct 37.8 MCV 75.2 L MCH 24.4 L MCHC 32.4 RDW 16.8 H Plt Count 239 MPV 8.3 PTT (Actin FS) 42.1 H Active Medications Generic Name Dose Route Start Last Admin Trade Name Freq PRN Reason Stop Dose Admin Acetaminophen 650 mg 01/03/19 21:14 Tylenol - PO Q4H PRN PAIN Apixaban 5 mg 01/08/19 14:00 01/08/19 22:21 Eliquis - PO 5 mg BID AMI Administration Ascorbic Acid 500 mg 01/08/19 11:30 01/08/19 22:21 Vitamin C - PO 500 mg BID AMI Administration Atorvastatin Calcium 80 mg 01/03/19 22:00 01/08/19 22:21 Lipitor - PO Not Given HS AMI Lisinopril 40 mg 01/08/19 12:07 01/08/19 12:26 Prinivil PO 40 mg DAILY AMI Administration Magnesium Oxide 400 mg 01/08/19 11:30 01/08/19 22:21 Mag-Ox - PO 400 mg BID AMI Administration Metoprolol Tartrate 50 mg 01/05/19 11:48 01/08/19 22:21 Lopressor - PO 50 mg BID AMI Administration Nystatin 1 applic 01/06/19 10:00 01/08/19 12:25 Nystop Powder - TP 1 applic DAILY [facility]I Administration Pantoprazole Sodium 20 mg 01/04/19 10:00 01/08/19 12:20 Protonix - PO 20 mg DAILY [facility]I Administration Silver Sulfadiazine 1 applic 01/04/19 22:00 01/09/19 00:59 Silvadene - TP Not Given BID [facility] ASSESSMENT/PLAN: 78 year old male with pmxh of LE cellulites , venous insufficency , hypothyroidism presented to the due to lethargy and worsening generalized weakness , slurred speech after suffering a fall on wednesday was found to have acute stroke , new onset afib w RVR # stroke # New Onset Afib with RVR pateint is now in sinus * eliquis 5 BID * Metoprolol 50 BID for rate control * tight BP control with metoprolol in addition to lisinopril 40 daily * awaiting to see if patient got accepted to [place] # Hypothyroidism * hold [place] for now * Dr. fernandez saw patient holding armour thyroid and can repeat TSH/free t4 as outpatient # # FEN * D5/ns @ 42 CC/hr * E: monitor * N: follow speech and swallow recs # Proph * Dvts: on hep Gtt * GI: ppi 20 po daily Problem List - Problems (1) Afib Code(s): I48.91 - UNSPECIFIED ATRIAL FIBRILLATION Qualifiers: Atrial fibrillation type: paroxysmal Qualified Code(s): I48.0 - Paroxysmal atrial fibrillation (2) Cerebrovascular accident (CVA) Code(s): I63.9 - CEREBRAL INFARCTION, UNSPECIFIED Qualifiers: CVA mechanism: embolism Laterality of affected vessel: bilateral (3) Cellulitis Code(s): L03.90 - CELLULITIS, UNSPECIFIED Visit type - Emergency Visit Emergency Visit: Yes ED Registration Date: 01/03/19 Care time: The patient presented to the Emergency Department on the above date and was hospitalized for further evaluation of their emergent condition. - New Patient This patient is new to me today: No - Critical Care Critical Care patient: No
[2019-01-09] MEDS: ASCORBIC ACID 500 MG TABLET (FP) PO SCH (10:13)
[2019-01-09] MEDS: PANTOPRAZOLE 20 MG TABLET (FP) PO SCH (10:13)
[2019-01-09] MEDS: LISINOPRIL 20 MG TABLET (FP) PO SCH (10:13)
[2019-01-09] MEDS: APIXABAN 5 MG TABLET PO SCH (10:13)
[2019-01-09] MEDS: MAGNESIUM OXIDE 400 MG TABLET (FP) PO SCH (10:13)
[2019-01-09] MEDS: NYSTATIN POWDER 100,000 UNITS/GM - 15 GM TOPICAL POWDER TP SCH (10:14)
[2019-01-09] MEDS: METOPROLOL TARTRATE 50 MG TABLET (FP) PO SCH (10:14)
--- NOTE | 2019-01-09 11:18 | PN ---
Progress Note, Physician History of Present Illness: Right hand weakness and dysarthria improving, tolerating oral intake, remains in sinus rhythm. - Current Medication List Current Medications: Active Medications Acetaminophen (Tylenol -) 650 mg PO Q4H PRN PRN Reason: PAIN Apixaban (Eliquis -) 5 mg PO BID [facility] Last Admin: 01/09/19 10:13 Dose: 5 mg Ascorbic Acid (Vitamin C -) 500 mg PO BID [facility] Last Admin: 01/09/19 10:13 Dose: 500 mg Atorvastatin Calcium (Lipitor -) 80 mg PO HS [facility] Last Admin: 01/08/19 22:21 Dose: Not Given Lisinopril (Prinivil) 40 mg PO DAILY [facility] Last Admin: 01/09/19 10:13 Dose: 40 mg Magnesium Oxide (Mag-Ox -) 400 mg PO BID [facility] Last Admin: 01/09/19 10:13 Dose: 400 mg Metoprolol Tartrate (Lopressor -) 50 mg PO BID [facility] Last Admin: 01/09/19 10:14 Dose: 50 mg Nystatin (Nystop Powder -) 1 applic TP DAILY [facility] Last Admin: 01/09/19 10:14 Dose: 1 applic Pantoprazole Sodium (Protonix -) 20 mg PO DAILY [facility] Last Admin: 01/09/19 10:13 Dose: 20 mg Silver Sulfadiazine (Silvadene -) 1 applic TP BID [facility] Last Admin: 01/09/19 10:14 Dose: 1 applic - Objective Vital Signs: Vital Signs Temperature 97.4 F L 01/09/19 06:00 Pulse Rate 59 L 01/09/19 06:00 Respiratory Rate 16 01/09/19 06:00 Blood Pressure 171/70 H 01/09/19 06:00 O2 Sat by Pulse Oximetry (%) 98 01/08/19 21:00 Constitutional: Yes: No Distress, Calm, Thin Neck: Yes: Supple Cardiovascular: Yes: Regular Rate and Rhythm, Murmur (2/6 SM) Respiratory: Yes: Regular, CTA Bilaterally Gastrointestinal: Yes: Normal Bowel Sounds, Soft Edema: Yes Edema: LLE: 1+, RLE: 1+ Integumentary: Yes: Venous Stasis Changes Labs: CBC, BMP 01/09/19 07:30 01/08/19 06:30 INR, PTT INR 1.96 (0.83-1.09) H 01/08/19 06:30 Problem List - Problems (1) Afib Code(s): I48.91 - UNSPECIFIED ATRIAL FIBRILLATION Qualifiers: Atrial fibrillation type: paroxysmal Qualified Code(s): I48.0 - Paroxysmal atrial fibrillation (2) Cerebrovascular accident (CVA) Code(s): I63.9 - CEREBRAL INFARCTION, UNSPECIFIED Qualifiers: CVA mechanism: embolism Laterality of affected vessel: bilateral (3) Hypothyroidism Code(s): E03.9 - HYPOTHYROIDISM, UNSPECIFIED Qualifiers: Hypothyroidism type: unspecified Qualified Code(s): E03.9 - Hypothyroidism , unspecified (4) Venous insufficiency of both lower extremities Code(s): I87.2 - VENOUS INSUFFICIENCY (CHRONIC) (PERIPHERAL) (5) Hypertensive heart disease Code(s): I11.9 - HYPERTENSIVE HEART DISEASE WITHOUT HEART FAILURE Qualifiers: Heart failure presence: without heart failure Qualified Code(s): I11.9 - Hypertensive heart disease without heart failure (6) Hypertrophic cardiomyopathy Code(s): I42.2 - OTHER HYPERTROPHIC CARDIOMYOPATHY Assessment/Plan 01/03/2019 MRI: Subacute left frontal, left parietal, right precentral gyrus, chronic right occipital 01/04/2019 Echo: Hypertrophic cardiomyopathy with asymmetric septal hypertrophy intracavity gradient suspected, normal LV fxn, mod-severe , mod KEITH, mild-mod TR, mild MR 1. Subacute embolic strokes referable to 2. Newly diagnosed paroxysmal atrial fibrillation currently in sinus rhythm [id number] score of 4 on Eliquis 3. Hypertrophic cardiomyopathy of elderly 4. Moderate-severe 5. Probable coronary artery disease 6. Hypothyroidism 7. Chronic LE edema PLAN: 1. Continue Lopressor 50 bid 2. Increase Lisinopril 40 bid 3. Continue Lipitor 80 qhs 4. Continue Eliquis 5 bid 5. Further evaluation of HCM as outpatient including Tc-PYP scan 6. Further evaluation of as outpatient including R&LHc once neurologically stable 7. Await d/c planning to [facility]
--- NOTE | 2019-01-09 14:34 | PN ---
Teaching Attending Note Name of Resident: Trini Justin ATTENDING PHYSICIAN STATEMENT I saw and evaluated the patient. I reviewed the resident's note and discussed the case with the resident. I agree with the resident's findings and plan as documented. SUBJECTIVE: No fever or chills. No PAUL . no palpitations or CP OBJECTIVE: AD, awake, alert, oriented. CV:RRR. 3/6 SM LLSB, RUSB, and apex . no radiation Lungs: CTAB Ext : chronic discoloration, ulceration on L lateral lower leg . ulcer on posterior L leg with no drainage ASSESSMENT AND PLAN: Ebenezer Enamorado is a 78 y/o man with h/o TR, LE venous insufficiency, hypothyroidism , GERD, who presented with R sided weakness, and abnormal sppeech and was found to have subacute strokes and A fib with RVR 1- Subacute strokes. likely cause is A fib. - AC - refused statin 2- New onset A fib with RVR, now in sinus rhythm - cont BB -Cont eliquis 3- HTN: - cont BB and isinopril 4- h/o Hypethyroidism, f/u as out pt for repeat TFTs in 4 weeks 4- dispo : Dc to [facility] today
--- NOTE | 2019-01-09 14:48 | DS ---
Physical Exam: SUBJECTIVE: Patient seen and examined at bedside no acute events overnight patient states that he is feeling better and is anxious to leave; he denies any CP/SOB/N/.V fevers or chills OBJECTIVE: Vital Signs Period Temp Pulse Resp BP Sys/Costa Pulse Ox Last 24 Hr 97.4 F-98.2 F 59-67 16-18 148-181/59-95 98-98 PHYSICAL EXAM GENERAL: The patient is awake, alert, and fully oriented, in no acute distress. EYES: PEERLA: EOMI no scleral icterus NECK: no JVD no lymphadenopathy LUNGS: CTA B/L; no rales, rhonchi or wheezing HEART: Regular rate and rhythm, S1, S2 without murmur, rub or gallop. ABDOMEN: Soft, nontender, nondistended, normoactive bowel sounds, no guarding, no rebound, no hepatosplenomegaly, no masses. EXTREMITIES: 2+ pulses, warm, well-perfused, no edema. NEUROLOGICAL: Cranial nerves II through XII grossly intact. Normal speech, strength 5/5 B/L UE LE sensation intact throughout and symmetric PSYCH: Normal mood, normal affect. SKIN: Warm, dry, normal turgor, no rashes or lesions noted. LABS Laboratory Results - last 24 hr 01/09/19 01/09/19 07:30 07:30 WBC 5.3 RBC 5.02 Hgb 12.2 Hct 37.8 MCV 75.2 L MCH 24.4 L MCHC 32.4 RDW 16.8 H Plt Count 239 MPV 8.3 PTT (Actin FS) 42.1 H Brain MRI: Nonhemorrhagic subacute infarct involving the left middle frontal gyrus of the left frontal lobe ( cortex subcortical white matter), left frontal centrum semiovale medial to the left central sulcus, small cortical infarct left postcentral gyrus. Subacute nonhemorrhagic infarct is seen in the left postcentral gyrus, left parietal superior lobule, adjacent white matter. Small recent nonhemorrhagic infarct measuring 3.5 mm is seen in the cortex of the right precentral gyrus. Chronic right occipital infarct. Moderate supratentorial diffuse chronic matter microangiopathic ischemic changes, gliosis. Carotid Doppler: Minimal atherosclerotic disease with no evidence of hemodynamically significant stenoses. HOSPITAL COURSE: Date of Admission:01/03/19 78 y.o male with PMH of TR, LE venous insufficency, hypothyroidism, GERD who presented with R sided weakness an abnormal speech after suffering a fall at home and was found to have subacute strokes in addition patient was found to be in new onset afib with RVR- he was started on a Heparin drip for the afib in addition to lopressor 25 BID for rate control;transferred to [facility], in addition patient was started on high dose statin. he was seen by neurologist in addition to tmh teacher; his lopressor has to be increased to 50 BID in addition lisino[ pril needed to be added as his BP was eleavted.; he was found to have a very low TSH, so we held his armour thyroid- as this could have liekly caused his afib which led to his stroke. he initially wanted to bridge form heparin to coumadin but ultimately decided on eliquis 5mg BID. he was stable to be discharged to [facility]- he refused to go home with a statin. he was d/c'd home in eliuis 5 BID, lisinopril 40 daily, lopressor 50 BID with cardio f/ u in one week in addition to endocrinology and neurology follow up upon leaving rehab Date of Discharge: 01/09/19 Minutes to complete discharge: 39 Discharge Summary Reason For Visit: CEREBROVASCULAR ACCIDENT ( CVA ) Current Active Problems Hypertensive heart disease (Acute) HTN (hypertension) (Chronic) Hyperthyroidism (Chronic) Hypertrophic cardiomyopathy (Chronic) Condition: Improved - Instructions Diet, Activity, Other Instructions: You came to the emergency room with complaints of slurred speech/weakness and were found to have a stroke. In addition, you were found to be in new onset atrial fibrillation, however, you have now converted back to sinus rhythm. You will be going to [facility]. We started you on some medications while in the hospital: Please take Eliquis 5mg twice a day- please look out for any blood in your stool /urine, any increase in bruising on your body or any other sources of bleeding Lisinopril 40mg daily Lopressor 50mg twice a day Please do not take the [place] Thyroid until you follow up with the treadle cut off saw operator, Dr. Gaines as when you first came in the hospital your TSH was very low, you need thyroid function test in 8 weeks Please follow up with Dr. Anna, the neurologist within one week Please follow up with Dr. Roberts, the tmh teacher within one week for severe aortic stenosis and tricuspid regurgitation. might need cath and evaluation for symptoms. you will need further evaluation of hpertrophic cardiomyopathy Please follow up with Dr. Gaines, the treadle cut off saw operator within one week and have your TSH and free t4 repeated *if you begin to experience any weakness, chest pains, shortness of breath, nausea/vomiting please return to the emergency room immediately apply silver sufadiazine on leg wounds and cover wounds with clean gauze and change daily Referrals: Hakeem Anna MD [Staff Physician] - 1 Week Evangelista Gaines MD [Staff Physician] - Zach Roberts MD [Staff Physician] - 1 Week Disposition: [facility] - Home Medications Comprehensive Discharge Medication List: Ambulatory Orders Pantoprazole Sodium [Protonix -] 20 mg PO DAILY 01/08/18 Ascorbate Calcium [Vitamin C] 500 mg PO BID 01/09/18 Apixaban [Eliquis -] 5 mg PO BID tablet 01/09/19 Lisinopril [Prinivil] 40 mg PO DAILY tablet 01/09/19 Metoprolol Tartrate [Lopressor -] 50 mg PO BID tablet 01/09/19 Silver Sulfadiazine 1% Top Cr [Silvadene -] 1 applic TP DAILY #1 jar 01/09/19 Problem List - Problems (1) Afib Code(s): I48.91 - UNSPECIFIED ATRIAL FIBRILLATION Qualifiers: Atrial fibrillation type: paroxysmal Qualified Code(s): I48.0 - Paroxysmal atrial fibrillation (2) Cerebrovascular accident (CVA) Code(s): I63.9 - CEREBRAL INFARCTION, UNSPECIFIED Qualifiers: CVA mechanism: embolism Laterality of affected vessel: bilateral (3) Cellulitis Code(s): L03.90 - CELLULITIS, UNSPECIFIED This patient is new to me today: No Emergency Visit: Yes ED Registration Date: 01/03/19 Care time: The patient presented to the Emergency Department on the above date and was hospitalized for further evaluation of their emergent condition. Critical Care patient: No - Discharge Referral Referred to [facility] Med P.C.: No
[2019-01-09 15:27] VITALS: BP 145/69; PULSE 59; TEMP 97.8
== END 2019-01-09 17:45 | DRG 308 ==
LOC: JER 13:36 → JERBED 17:58 → J4S 01-04 18:00
PROVIDERS: ADMIT Internal Medicine; ATTEND Internal Medicine
DX: I48.0 Paroxysmal atrial fibrillation (principal); I63.40 Cerebral infarction due to embolism of unspecified cerebral artery; I50.30 Unspecified diastolic (congestive) heart failure; E46 Unspecified protein-calorie malnutrition; G81.91 Hemiplegia, unspecified affecting right dominant side; I16.0 Hypertensive urgency; E88.09 Other disorders of plasma-protein metabolism, not elsewhere classified; I42.2 Other hypertrophic cardiomyopathy; I35.0 Nonrheumatic aortic (valve) stenosis; E03.9 Hypothyroidism, unspecified; I11.0 Hypertensive heart disease with heart failure; K21.9 Gastro-esophageal reflux disease without esophagitis; E05.90 Thyrotoxicosis, unspecified without thyrotoxic crisis or storm; I87.2 Venous insufficiency (chronic) (peripheral); R29.705 NIHSS score 5
CPT/HCPCS: 36415; 70450-TC; 70544-TC; 70551-TC; 71045-TC-FY; 72125-TC; 80048; 80053; 80061; 81003; 82465; 82550; 82607; 83036; 83605; 83718; 83721; 83735; 84100; 84439; 84443; 84478; 84481; 84484; 85025; 85027; 85610; 85651; 85730; 86140; 86376; 86850; 86900; 86901; 87040; 87086; 93005; 93010; 93306-TC; 93880-TC; 93970-TC; 97116-GP; 97162-GP; 99285-25; J1644; J7030

== ENCOUNTER 2019-02-25 19:18 | Inpatient (IN) | payer OTHER, MEDICARE ==
--- NOTE | 2019-02-25 19:44 | PDOC ---
History of Present Illness - General Chief Complaint: Redness To Affected Area Stated Complaint: LT LEG PROBLEM/celulitis Time Seen by Provider: 02/25/19 19:30 History Source: Patient Exam Limitations: No Limitations - History of Present Illness Initial Comments: 02/25/19 20:25 Patient is a 78M with history vascular insufficiency with chronic wounds, CVA ( 1 month ago), afib (on eliquis), aortic stenosis here today complaining of redness to his left leg that started today. Has an old wound on his posterior left leg that is overall much improved. Denies pain. Denies fevers, chills, nausea, vomiting. Denies chest pain and shortness of breath. Denies history of blood clots. Wound was marked by his daughter, a physician, prior to arrival to the ED. Past History - Past Medical History Allergies/Adverse Reactions: Allergies Allergy/AdvReac Type Severity Reaction Status Date / Time No Known Allergies Allergy Verified 02/25/19 19:24 Home Medications: Ambulatory Orders Pantoprazole Sodium [Protonix -] 20 mg PO DAILY 01/08/18 Ascorbate Calcium [Vitamin C] 500 mg PO BID 01/09/18 Apixaban [Eliquis -] 5 mg PO BID tablet 01/09/19 Lisinopril [Prinivil] 40 mg PO DAILY tablet 01/09/19 Magnesium Oxide 400 mg PO BID 02/25/19 Metoprolol Tartrate [Lopressor -] 25 mg PO BID 02/25/19 Nystatin 100,000 unit PO TID 02/25/19 Nystatin Cream [Mycostatin Cream -] 1 applic TP DAILY 02/25/19 Nystatin Powder [Nystop Powder -] 1 applic TP DAILY 02/25/19 Anemia: No Asthma: No Cancer: No CVA: No COPD: No DVT: No Dementia: No Diabetes: No Dialysis: No GI Disorders: Yes (ESOPHOGITIS) Disorders: No HTN: No Hypercholesterolemia: No Kidney Stones: No Liver Disease: No Psychiatric Problems: No Seizures: No Thyroid Disease: Yes (hypothyroidism) Lung CA: No - Surgical History Abdominal Surgery: Yes (inguinal hernia repair) Appendectomy: Yes - Immunization History Immunization Up to Date: No - Suicide/Smoking/Psychosocial Hx Smoking History: Unknown if ever smoked Have you smoked in the past 12 months: No If you are a former smoker, when did you quit?: 30 yrs ago Information on smoking cessation initiated: No Hx Alcohol Use: No Drug/Substance Use Hx: No Substance Use Type: None Hx Substance Use Treatment: No Review of Systems - Review of Systems Able to Perform ROS?: Yes Comments:: 02/25/19 20:41 GENERAL/CONSTITUTIONAL: No fever or chills. No weakness. HEAD, EYES, EARS, NOSE AND THROAT: No change in vision. No sore throat. CARDIOVASCULAR: No chest pain or shortness of breath RESPIRATORY: No cough, wheezing, or hemoptysis. GASTROINTESTINAL: No nausea, vomiting, diarrhea or constipation. GENITOURINARY: No dysuria, frequency, or change in urination. MUSCULOSKELETAL: No neck or back pain. SKIN: +l leg erythema NEUROLOGIC: No headache, vertigo, loss of consciousness, or change in strength/ sensation. ENDOCRINE: No increased thirst. No abnormal weight change HEMATOLOGIC/LYMPHATIC: No anemia, easy bleeding, or history of blood clots. ALLERGIC/IMMUNOLOGIC: No hives or skin allergy. *Physical Exam - Vital Signs Last Vital Signs Temp Pulse Resp BP Pulse Ox 98.1 F 80 16 155/69 100 02/25/19 19:24 02/25/19 19:24 02/25/19 19:24 02/25/19 19:24 02/25/19 19:24 - Physical Exam Comments: 02/25/19 20:42 GENERAL: Awake, alert, and fully oriented, in no acute distress L LEG: Neurovascluarly intact, 1+ dp pulse, diffusely erythematous and warm to touch, grown from mid thigh to 3/4 of thigh in half hour HEAD: No signs of trauma, normocephalic, atraumatic EYES: PERRLA, EOMI, sclera anicteric, conjunctiva clear ENT: Auricles normal inspection, hearing grossly normal, nares patent, oropharynx clear without exudates. Moist mucosa NECK: Normal ROM, supple, no lymphadenopathy, JVD, or masses LUNGS: No distress, speaks full sentences, clear to auscultation bilaterally HEART: Regular rate and rhythm, normal S1 and S2, no murmurs, rubs or gallops, peripheral pulses normal and equal bilaterally. ABDOMEN: Soft, nontender, normoactive bowel sounds. No guarding, no rebound. No masses NEUROLOGICAL: Cranial nerves II through XII grossly intact. Normal speech, no focal sensorimotor deficits SKIN: Warm, Dry, normal turgor, no rashes or lesions noted. ED Treatment Course - LABORATORY CBC & Chemistry Diagram: 02/25/19 20:35 02/25/19 20:35 Medical Decision Making - Medical Decision Making 02/25/19 20:44 Patient is a 78M with history vascular insufficiency with chronic wounds, CVA ( 1 month ago), afib (on eliquis), aortic stenosis here today with likely cellulitis. Nec fasc less likely, considering due to rapid increase in erythema. DVT possible, less likely. Will workup with cbc, cmp, pt/inr, dvt study, ct. Will treat with vanc/zosyn. Dr Burkett consulted, patient has multiple prior episodes of this happening, will see in morning. 02/26/19 00:21 CBC normal. CMP reassuring. CRP/ESR elevated. DVT negative. CT shows no evidence of gas or nec fasc. Will admit, hospitalist paged. 02/26/19 00:46 Case d/w Dr Matos, accepted. *DC/Admit/Observation/Transfer Diagnosis at time of Disposition: Cellulitis - Discharge Dispostion Condition at time of disposition: Stable Decision to Admit order: Yes - Referrals Referrals: Carlito Roque MD [Primary Care Provider] - - Patient Instructions - Post Discharge Activity
[2019-02-25] MEDS ORDERED: VANCOMYCIN 1 GM in D5W (PRE-DOCKED) 1,000 MG/250 ML IVPB ONE (20:04)
[2019-02-25] MEDS ORDERED: PIPERACILLIN/TAZOB 3.375 GM 3.375 GM in DEXTROSE 5%-WATER - 50 ML IVPB ONE (20:04)
[2019-02-25] MEDS ORDERED: PIPERACILLIN/TAZOB 3.375 GM 3.375 GM/50 ML BAG IVPB ONE (20:16)
[2019-02-25] MEDS ORDERED: VANCOMYCIN 1 GRAM (PRE-DOCKED) 1,000 MG/250 ML BAG IVPB ONE (20:16)
[2019-02-25 20:55] LABS: HEMATOCRIT 38.1 % (35.4-49); HEMOGLOBIN 12.1 GM/dL (11.7-16.9); MCH 24.9 pg (25.7-33.7); MCHC 31.7 g/dl (32.0-35.9); MEAN CELL VOLUME 78.3 fl (80-96); MEAN PLT VOLUME 8.8 fl (7.5-11.1); PLATELET COUNT 223 K/MM3 (134-434); RBC 4.86 M/mm3 (4.00-5.60); RDW 24.5 % (11.9-15.9); WHITE BLOOD COUNT 9.4 K/mm3 (4.0-10.0)
[2019-02-25 21:11] LABS: INR 1.48 (0.83-1.09); PROTHROMBIN TIME (PATIENT) 17.5 SEC (9.7-13.0)
[2019-02-25 21:26] LABS: CALCIUM 8.7 mg/dL (8.5-10.1); CREATININE 0.8 mg/dL (0.55-1.3); TOT PROT 6.3 g/dl (6.4-8.2)
--- NOTE | 2019-02-25 23:47 | PDOC ---
Documentation entered by Jessica Orta SCRIBE, acting as scribe for Kellie Barraza MD. Kellie Barraza MD: This documentation has been prepared by the davidibe, Jessica Orta SCRIBE, under my direction and personally reviewed by me in its entirety. I confirm that the documentation accurately reflects all work, treatment, procedures, and medical decision making performed by me. Attending Attestation - Resident Resident Name: Melvin Currie - ED Attending Attestation I have performed the following: I have examined & evaluated the patient, The case was reviewed & discussed with the resident, I agree w/resident's findings & plan - HPI HPI: 02/25/19 21:17 The patient is a 78 year old male with a significant past medical history of afib (on eliquis), MRSA, CVA, aortic stenosis, and vascular insufficiency with chronic wound who presents to the emergency department with an acute onset of left leg redness since earlier today. The patient states that his redness began all today and was noted to be getting larger as time went by. The patient denies any associated pain, numbness, tingling, or weakness. He denies any fever , chills, nausea, vomiting, diarrhea, constipation or urinary symptoms . he denies any other complaints. The patient wanted to come to the ED for further evaluation. 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 - Physicial Exam PE: 02/25/19 23:43 GENERAL: Awake, alert, and fully oriented, in no acute distress HEAD: No signs of trauma EYES: PERRLA, EOMI, sclera anicteric, conjunctiva clear ENT: Auricles normal inspection, hearing grossly normal, nares patent, oropharynx clear without exudates. Moist mucosa NECK: Normal ROM, supple, no lymphadenopathy, JVD, or masses CHEST: pt has fullness of the left breast/pectoral area compared to the right side LUNGS: Breath sounds equal, clear to auscultation bilaterally. No wheezes, and no crackles HEART: Irregular rhythm, no murmurs, rubs or gallops ABDOMEN: Soft, nontender, normoactive bowel sounds. No guarding, no rebound. No masses EXTREMITIES: Ledt leg swollen and marked erythema and tenderness with distinct margins; cellulitis involving >75% of leg NEUROLOGICAL: Cranial nerves II through XII grossly intact. Normal speech, normal gait SKIN:Cellulitic leg. 02/26/19 04:15 Agree with resident exam - Medical Decision Making 02/25/19 22:50 Patient Name: JW MONTILLA THIS IS A PRELIMINARY REPORT FROM [facility] DATE OF SERVICE: 2019-02-25 21:22:56 IMAGES: [id number] EXAM: DUPLEX VASCULAR US-1 LEG HISTORY: Left leg cellulitis COMPARISON: None. FINDINGS: The deep veins of the left lower extremity are compressible, patent and augment normally with distal compression. No evidence of deep vein thrombosis Edema in the superficial calf soft tissues There are a few enlarged lymph nodes in the left groin which are possibly reactive 02/25/19 22:[address] Burkett and case discussed @8:40 pm 02/25/19 23:27 Sed rate and CRP are very elevated. 02/26/19 00:19 Patient Name: JW MONTILLA THIS IS A PRELIMINARY REPORT FROM [facility] DATE OF SERVICE: 2019-02-25 22:03:44 IMAGES: [id number] EXAM: LOWER EXTREMITY CT W/O CONTR HISTORY: Cellulitis COMPARISON: None. FINDINGS: There is extensive edema in the soft tissues extending from the visualized lower thigh, throughout the leg, ankle and foot with cutaneous thickening in the lower leg and ankle extending over the dorsum of the foot There are no drainable collections visualized. No evidence of soft tissue gas Severe degenerative changes in the knee with mild degenerative changes in the ankle and foot No acute osseous abnormalities Pt admitted for IV abx and workup Heart Score/ECG Review - ECG Intrepretation Rhythm: Regular Rhythm - [place]: Right [place] Deviation - P and NM Prominent R with upright T in V1 (true posterior PR): No Delta Wave(s) Present: No WPW: No - QRS Widened: RBBB Poor R Wave Progression: No Q Wave Present: No - ST and T Early Repolarization: No Non Specific ST-T Wave changes: No Flattened T Waves: No Prolonged Q-T Interval: No - ECG Impressions Normal ECG: Yes Non-specific ST Elevation: No Ischemic Changes: No Bradycardia: No Torsades oscar Pointes: No WPW: No
[2019-02-26 03:49] VITALS: BMI 27.3
[2019-02-26] MEDS: APIXABAN 5 MG TABLET PO SCH ×2 (09:26→21:36)
[2019-02-26] MEDS: METOPROLOL TARTRATE 25 MG TABLET (FP) PO SCH ×2 (09:26→21:36)
[2019-02-26] MEDS: ASCORBIC ACID 500 MG TABLET (FP) PO SCH ×2 (09:26→21:35)
[2019-02-26] MEDS: MAGNESIUM OXIDE 400 MG TABLET (FP) PO SCH ×2 (09:26→21:36)
[2019-02-26] MEDS: LISINOPRIL 20 MG TABLET (FP) PO SCH (09:26)
--- NOTE | 2019-02-26 09:34 | EKG ---
Test Reason : Blood Pressure : / mmHG Vent. Rate : 068 BPM Atrial Rate : 068 BPM P-R Int : 178 ms QRS Dur : 164 ms QT Int : 474 ms P-R-T Axes : 051 098 032 degrees QTc Int : 504 ms NORMAL SINUS RHYTHM POSSIBLE LEFT ATRIAL ENLARGEMENT RIGHT BUNDLE BRANCH BLOCK ABNORMAL ECG WHEN COMPARED WITH ECG OF 06-JAN-2019 13:20, NO SIGNIFICANT CHANGE WAS FOUND Confirmed by DILEEP TURCIOS, BO ([id number]) on 02/26/2019 9:34:40 AM Referred By: Confirmed By:BO FALK MD
--- NOTE | 2019-02-26 11:08 | PN ---
Progress Note (short form) - Note Progress Note: Vascular Surgery Pt seen and examined. One day history of cellulits in left lower ext. Palpable pulses. Pt on IV antibiotics. Leg elevation. Will follow Bakari Burkett DO
--- NOTE | 2019-02-26 11:10 | HP ---
Admitting History and Physical - Admission History Source: Patient, Medical Record Limitations to Obtaining History: No Limitations - Past Medical History PRINCIPAL EXAMINER: Yes: CVA Cardiovascular: Yes: AFIB, Murmur, Other (Tricuspid regurgitation PVD) Renal/: Yes: BPH Endocrine: Yes: Hypothyroidism Dermatology: Yes: Other (PVD Venous stasis Leg ulcer) - Past Surgical History Past Surgical History: Yes: Appendectomy, Hernia Repair (RIH), TURP, Tonsillectomy - Smoking History Smoking history: Former smoker Have you smoked in the past 12 months: No If you are a former smoker, when did you quit?: 30 yrs ago - Alcohol/Substance Use Hx Alcohol Use: No - Social History ADL: Independent 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: [employer] History of Recent Travel: No Home Medications - Allergies Allergies/Adverse Reactions: Allergies Allergy/AdvReac Type Severity Reaction Status Date / Time No Known Allergies Allergy Verified 02/25/19 19:24 - Home Medications Home Medications: Ambulatory Orders Pantoprazole Sodium [Protonix -] 20 mg PO DAILY 01/08/18 Ascorbate Calcium [Vitamin C] 500 mg PO BID 01/09/18 Apixaban [Eliquis -] 5 mg PO BID tablet 01/09/19 Lisinopril [Prinivil] 40 mg PO DAILY tablet 01/09/19 Magnesium Oxide 400 mg PO BID 02/25/19 Metoprolol Tartrate [Lopressor -] 25 mg PO BID 02/25/19 Nystatin 100,000 unit PO TID 02/25/19 Nystatin Cream [Mycostatin Cream -] 1 applic TP DAILY 02/25/19 Nystatin Powder [Nystop Powder -] 1 applic TP DAILY 02/25/19 Family Disease History - Family Disease History Family Disease History: Other: Father (: 65: [place]), Mother (: 76: CVA), Son (2 sons, 1 paralyzed from diving accident in pool), Daughter (healthy) Review of Systems - Review of Systems Constitutional: reports: No Symptoms Eyes: reports: No Symptoms HENT: reports: No Symptoms Neck: reports: No Symptoms Cardiovascular: reports: No Symptoms Respiratory: reports: No Symptoms Gastrointestinal: reports: No Symptoms Genitourinary: reports: No Symptoms Breasts: reports: No Symptoms Reported Musculoskeletal: reports: Decreased ROM, Joint Swelling, Muscle Weakness Integumentary: reports: Bruising, Change in Color, Erythema, Wound (on posterior left calf) Neurological: reports: Pre-Existing Deficit Endocrine: reports: No Symptoms Hematology/Lymphatic: reports: Easily Bruised Psychiatric: reports: No Symptoms Physical Examination Vital Signs: Vital Signs Temperature 98.1 F 02/26/19 03:29 Pulse Rate 68 02/26/19 03:29 Respiratory Rate 20 02/26/19 03:29 Blood Pressure 136/58 L 02/26/19 03:29 O2 Sat by Pulse Oximetry (%) 97 02/26/19 03:29 Constitutional: Yes: Well Nourished, No Distress, Calm Eyes: Yes: Conjunctiva Clear, EOM Intact HENT: Yes: Atraumatic, Normocephalic Neck: Yes: Supple, Trachea Midline Cardiovascular: Yes: Pulse Irregular, Murmur Respiratory: Yes: Regular, CTA Bilaterally Gastrointestinal: Yes: Normal Bowel Sounds, Soft ...Rectal Exam: Yes: Deferred Renal/: Yes: WNL Breast(s): Yes: WNL Musculoskeletal: Yes: Joint Stiffness (LE), Joint Swelling (left LE), Muscle Weakness, Other (venous stasis changes) Extremities: Yes: Cool, Erythema, Other (swollen left LE) Edema: Yes Peripheral Pulses WNL: Yes Wound/Incision: Yes: Open to air Neurological: Yes: Pre-Existing Deficit Psychiatric: Yes: Alert, Oriented Labs: CBC, BMP 02/25/19 20:35 02/25/19 20:35 Problem List - Problems (1) Cellulitis Code(s): L03.90 - CELLULITIS, UNSPECIFIED (2) Hypertensive heart disease Code(s): I11.9 - HYPERTENSIVE HEART DISEASE WITHOUT HEART FAILURE Qualifiers: Heart failure presence: without heart failure Qualified Code(s): I11.9 - Hypertensive heart disease without heart failure (3) Leg wound, left Code(s): S81.802A - UNSPECIFIED OPEN WOUND, LEFT LOWER LEG, INITIAL ENCOUNTER (4) HTN (hypertension) Code(s): I10 - ESSENTIAL (PRIMARY) HYPERTENSION Qualifiers: Hypertension type: essential hypertension Qualified Code(s): I10 - Essential (primary) hypertension (5) Hyperthyroidism Code(s): E05.90 - THYROTOXICOSIS, UNSP WITHOUT THYROTOXIC CRISIS OR STORM (6) Hypertrophic cardiomyopathy Code(s): I42.2 - OTHER HYPERTROPHIC CARDIOMYOPATHY (7) Venous insufficiency of both lower extremities Code(s): I87.2 - VENOUS INSUFFICIENCY (CHRONIC) (PERIPHERAL) (8) Venous stasis ulcer Code(s): I83.009 - VARICOSE VEINS OF UNSP LOWER EXTREMITY W ULCER OF UNSP SITE; L97.909 - NON-PRS CHRONIC ULC UNSP PRT OF UNSP LOW LEG W UNSP SEVERITY Qualifiers: Venous stasis ulcer site: calf Varicose vein presence: without varicose veins Laterality: left (9) Afib Code(s): I48.91 - UNSPECIFIED ATRIAL FIBRILLATION Qualifiers: Atrial fibrillation type: paroxysmal Qualified Code(s): I48.0 - Paroxysmal atrial fibrillation
[2019-02-26] MEDS: PANTOPRAZOLE 20 MG TABLET (FP) PO SCH (13:23)
[2019-02-26] MEDS: NYSTATIN POWDER 100,000 UNITS/GM - 15 GM TOPICAL POWDER TP SCH (13:26)
--- NOTE | 2019-02-26 14:51 | CON.ID ---
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: Yes: CVA Cardio/Vascular: Yes: AFIB, Murmur, Other (Tricuspid regurgitation PVD) Renal/: Yes: BPH Endocrine: Yes: Hypothyroidism Dermatology: Yes: Other (PVD Venous stasis Leg ulcer) - Past Surgical History Past Surgical History: Yes: Appendectomy, Hernia Repair (RIH), TURP, Tonsillectomy - Alcohol/Substance Use Hx Alcohol Use: No - Smoking History Smoking history: Former smoker Have you smoked in the past 12 months: No If you are a former smoker, when did you quit?: 30 yrs ago - Social History Usual Living Arrangement: With Spouse ADL: Independent 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: [employer] History of Recent Travel: No Home Medications - Allergies Allergies/Adverse Reactions: Allergies Allergy/AdvReac Type Severity Reaction Status Date / Time No Known Allergies Allergy Verified 02/25/19 19:24 - Home Medications Home Medications: Ambulatory Orders Pantoprazole Sodium [Protonix -] 20 mg PO DAILY 01/08/18 Ascorbate Calcium [Vitamin C] 500 mg PO BID 01/09/18 Apixaban [Eliquis -] 5 mg PO BID tablet 01/09/19 Lisinopril [Prinivil] 40 mg PO DAILY tablet 01/09/19 Magnesium Oxide 400 mg PO BID 02/25/19 Metoprolol Tartrate [Lopressor -] 25 mg PO BID 02/25/19 Nystatin 100,000 unit PO TID 02/25/19 Nystatin Cream [Mycostatin Cream -] 1 applic TP DAILY 02/25/19 Nystatin Powder [Nystop Powder -] 1 applic TP DAILY 02/25/19 Family Disease History - Family Disease History Family Disease History: Other: Father (: 65: [place]), Mother (: 76: CVA), Son (2 sons, 1 paralyzed from diving accident in pool), Daughter (healthy) Review of Systems - Review of Systems Constitutional: denies: Chills, Fever Physical Exam Vital Signs: Vital Signs Temperature 98.1 F 02/26/19 13:27 Pulse Rate 109 H 02/26/19 13:27 Respiratory Rate 20 02/26/19 13:27 Blood Pressure 124/60 02/26/19 13:27 O2 Sat by Pulse Oximetry (%) 97 02/26/19 09:00 Constitutional: Yes: Well Nourished Cardiovascular: Yes: Regular Rate and Rhythm Respiratory: Yes: CTA Bilaterally Gastrointestinal: Yes: Normal Bowel Sounds, Soft Extremities: Yes: Erythema, Other ((+) edema (L) Chronic stasis changes.) Labs: CBC, BMP 02/25/19 20:35 02/25/19 20:35 Assessment/Plan Pt with chronic venous stasis AFib Cellulitis Rx Vanco + Ancef 1 gr q 8 hrs Will follow
[2019-02-26] MEDS ORDERED: DEXTROSE 5%-WATER - 50 ML IVPB ONE (16:44)
[2019-02-26] MEDS ORDERED: ceFAZolin SODIUM 1 GM VIAL ONE (16:44)
[2019-02-26] MEDS: NYSTATIN 500,000 UNITS/5 ML SUSPENSION PO SCH ×2 (17:09→21:36)
[2019-02-26] MEDS: CEFAZOLIN 1 GM in DEXTROSE 5%-WATER - 50 ML IVPB SCH (17:09)
[2019-02-26] MEDS ORDERED: PT OWN MED DRAWER 7, Y5N ONE (20:50)
[2019-02-27] MEDS ORDERED: ceFAZolin SODIUM 1 GM VIAL ONE ×3 (00:06→16:22)
[2019-02-27] MEDS ORDERED: DEXTROSE 5%-WATER - 50 ML IVPB ONE ×3 (00:06→16:23)
[2019-02-27] MEDS: CEFAZOLIN 1 GM in DEXTROSE 5%-WATER - 50 ML IVPB SCH ×3 (02:03→17:02)
[2019-02-27] MEDS ORDERED: PT OWN MED DRAWER 7, Y5N ONE ×3 (05:15→16:22)
[2019-02-27] MEDS: NYSTATIN 500,000 UNITS/5 ML SUSPENSION PO SCH ×3 (05:27→21:38)
[2019-02-27 07:12] LABS: BASO % 0.5 % (0-2.0); EOS % 2.6 % (0-4.5); HEMATOCRIT 36.7 % (35.4-49); HEMOGLOBIN 11.9 GM/dL (11.7-16.9); LYMPH % 11.9 % (8-40); MCHC 32.3 g/dl (32.0-35.9); MEAN CELL VOLUME 77.4 fl (80-96); MONO % 11.1 % (3.8-10.2); NEUT % 73.9 % (42.8-82.8); PLATELET COUNT 244 K/MM3 (134-434); RBC 4.75 M/mm3 (4.00-5.60); RDW 24.5 % (11.9-15.9); WHITE BLOOD COUNT 11.9 K/mm3 (4.0-10.0)
[2019-02-27] MEDS: MAGNESIUM OXIDE 400 MG TABLET (FP) PO SCH ×2 (09:09→21:38)
[2019-02-27] MEDS: PANTOPRAZOLE 20 MG TABLET (FP) PO SCH (09:09)
[2019-02-27] MEDS: LISINOPRIL 20 MG TABLET (FP) PO SCH (09:09)
[2019-02-27] MEDS: APIXABAN 5 MG TABLET PO SCH ×2 (09:09→21:37)
[2019-02-27] MEDS: ASCORBIC ACID 500 MG TABLET (FP) PO SCH ×2 (09:09→21:38)
[2019-02-27] MEDS: METOPROLOL TARTRATE 25 MG TABLET (FP) PO SCH ×2 (09:09→21:37)
[2019-02-27] MEDS: NYSTATIN POWDER 100,000 UNITS/GM - 15 GM TOPICAL POWDER TP SCH (09:10)
--- NOTE | 2019-02-27 09:14 | PN ---
Progress Note (short form) - Note Progress Note: patient seen and exanimed in room appreciated ID follow up patient provides no complaints Vital Signs Period Temp Pulse Resp BP Sys/Costa Pulse Ox Last 24 Hr 98.1 F-99.0 F 70-122 20-20 124-157/60-81 98 neck supple heart s1/S2 lungs clear bilat abd soft non tender ext bilat LE chronic changes with Left LE swollen / erythema / open wound post calf / borders clean left groin lymphadenopathy CBC, BMP 02/27/19 05:55 02/25/19 20:35 Microbiology 02/25/19 20:48 Blood - Peripheral Venous Blood Culture - Preliminary NO GROWTH OBTAINED AFTER 24 HOURS, INCUBATION TO CONTINUE FOR 4 DAYS. 02/25/19 20:48 Blood - Peripheral Venous Blood Culture - Preliminary NO GROWTH OBTAINED AFTER 24 HOURS, INCUBATION TO CONTINUE FOR 4 DAYS. Active Medications Apixaban (Eliquis -) 5 mg PO BID [facility] Last Admin: 02/27/19 09:09 Dose: 5 mg Ascorbic Acid (Vitamin C -) 500 mg PO BID [facility] Last Admin: 02/27/19 09:09 Dose: 500 mg Cefazolin Sodium 1 gm/ (Dextrose) 50 mls @ 100 mls/hr IVPB Q8H-IV [facility] Last Admin: 02/27/19 09:09 Dose: 100 mls/hr Lisinopril (Prinivil) 40 mg PO DAILY [facility] Last Admin: 02/27/19 09:09 Dose: 40 mg Magnesium Oxide (Mag-Ox -) 400 mg PO BID [facility] Last Admin: 02/27/19 09:09 Dose: 400 mg Metoprolol Tartrate (Lopressor -) 25 mg PO BID [facility] Last Admin: 02/27/19 09:09 Dose: 25 mg Nystatin (Nystatin Oral Suspension -) 500,000 units PO TID [facility] Last Admin: 02/27/19 05:27 Dose: 500,000 units Nystatin (Nystop Powder -) 1 applic TP DAILY [facility] Last Admin: 02/27/19 09:10 Dose: 1 applic Pantoprazole Sodium (Protonix -) 20 mg PO DAILY [facility] Last Admin: 02/27/19 09:09 Dose: 20 mg Asssmt / plan # cellulitis chronic venous stasis ulcer apprecite ID and vascular consult continue ABX / Wound care #A fib continue with eliquis rate controllled # PVD continue care Problem List - Problems (1) Cellulitis Code(s): L03.90 - CELLULITIS, UNSPECIFIED (2) Hypertensive heart disease Code(s): I11.9 - HYPERTENSIVE HEART DISEASE WITHOUT HEART FAILURE Qualifiers: Heart failure presence: without heart failure Qualified Code(s): I11.9 - Hypertensive heart disease without heart failure (3) Leg wound, left Code(s): S81.802A - UNSPECIFIED OPEN WOUND, LEFT LOWER LEG, INITIAL ENCOUNTER (4) HTN (hypertension) Code(s): I10 - ESSENTIAL (PRIMARY) HYPERTENSION Qualifiers: Hypertension type: essential hypertension Qualified Code(s): I10 - Essential (primary) hypertension (5) Hyperthyroidism Code(s): E05.90 - THYROTOXICOSIS, UNSP WITHOUT THYROTOXIC CRISIS OR STORM (6) Hypertrophic cardiomyopathy Code(s): I42.2 - OTHER HYPERTROPHIC CARDIOMYOPATHY (7) Venous insufficiency of both lower extremities Code(s): I87.2 - VENOUS INSUFFICIENCY (CHRONIC) (PERIPHERAL) (8) Venous stasis ulcer Code(s): I83.009 - VARICOSE VEINS OF UNSP LOWER EXTREMITY W ULCER OF UNSP SITE; L97.909 - NON-PRS CHRONIC ULC UNSP PRT OF UNSP LOW LEG W UNSP SEVERITY Qualifiers: Venous stasis ulcer site: calf Varicose vein presence: without varicose veins Laterality: left
[2019-02-27] MEDS: SILVER SULFADIAZINE 1% TOP CREAM 50 GM JAR TP SCH (15:21)
[2019-02-28] MEDS ORDERED: ceFAZolin SODIUM 1 GM VIAL ONE ×2 (01:46→08:39)
[2019-02-28] MEDS ORDERED: DEXTROSE 5%-WATER - 50 ML IVPB ONE ×2 (01:47→08:39)
[2019-02-28] MEDS: CEFAZOLIN 1 GM in DEXTROSE 5%-WATER - 50 ML IVPB SCH ×2 (02:07→09:42)
[2019-02-28] MEDS: NYSTATIN 500,000 UNITS/5 ML SUSPENSION PO SCH ×2 (05:25→14:21)
[2019-02-28 06:58] LABS: BASO % 0.6 % (0-2.0); EOS % 4.5 % (0-4.5); HEMATOCRIT 36.7 % (35.4-49); HEMOGLOBIN 11.8 GM/dL (11.7-16.9); LYMPH % 14.4 % (8-40); MEAN CELL VOLUME 78.1 fl (80-96); MEAN PLT VOLUME 8.6 fl (7.5-11.1); NEUT % 70.5 % (42.8-82.8); PLATELET COUNT 294 K/MM3 (134-434); RDW 24.3 % (11.9-15.9); WHITE BLOOD COUNT 10.1 K/mm3 (4.0-10.0)
[2019-02-28 07:24] LABS: CALCIUM 8.6 mg/dL (8.5-10.1); CREATININE 0.7 mg/dL (0.55-1.3); POTASSIUM 3.9 mmol/L (3.5-5.1)
[2019-02-28] MEDS ORDERED: PT OWN MED DRAWER 7, Y5N ONE (08:39)
[2019-02-28] MEDS: APIXABAN 5 MG TABLET PO SCH (09:43)
[2019-02-28] MEDS: NYSTATIN POWDER 100,000 UNITS/GM - 15 GM TOPICAL POWDER TP SCH (09:43)
[2019-02-28] MEDS: LISINOPRIL 20 MG TABLET (FP) PO SCH (09:43)
[2019-02-28] MEDS: SILVER SULFADIAZINE 1% TOP CREAM 50 GM JAR TP SCH (09:43)
[2019-02-28] MEDS: PANTOPRAZOLE 20 MG TABLET (FP) PO SCH (09:43)
[2019-02-28] MEDS: METOPROLOL TARTRATE 25 MG TABLET (FP) PO SCH (09:43)
[2019-02-28] MEDS: ASCORBIC ACID 500 MG TABLET (FP) PO SCH (09:43)
[2019-02-28] MEDS: MAGNESIUM OXIDE 400 MG TABLET (FP) PO SCH (09:43)
--- NOTE | 2019-02-28 10:22 | PN ---
Progress Note, Physician Chief Complaint: Cellulitis History of Present Illness: Admitted with cellulitis - Current Medication List Current Medications: Active Medications Apixaban (Eliquis -) 5 mg PO BID [facility] Last Admin: 02/28/19 09:43 Dose: 5 mg Ascorbic Acid (Vitamin C -) 500 mg PO BID [facility] Last Admin: 02/28/19 09:43 Dose: 500 mg Cefazolin Sodium 1 gm/ (Dextrose) 50 mls @ 100 mls/hr IVPB Q8H-IV [facility] Last Admin: 02/28/19 09:42 Dose: 100 mls/hr Lisinopril (Prinivil) 40 mg PO DAILY [facility] Last Admin: 02/28/19 09:43 Dose: 40 mg Magnesium Oxide (Mag-Ox -) 400 mg PO BID [facility] Last Admin: 02/28/19 09:43 Dose: 400 mg Metoprolol Tartrate (Lopressor -) 25 mg PO BID [facility] Last Admin: 02/28/19 09:43 Dose: 25 mg Nystatin (Nystatin Oral Suspension -) 500,000 units PO TID [facility] Last Admin: 02/28/19 05:25 Dose: 500,000 units Nystatin (Nystop Powder -) 1 applic TP DAILY [facility] Last Admin: 02/28/19 09:43 Dose: 1 applic Pantoprazole Sodium (Protonix -) 20 mg PO DAILY [facility] Last Admin: 02/28/19 09:43 Dose: 20 mg Silver Sulfadiazine (Silvadene -) 1 applic TP DAILY [facility] Last Admin: 02/28/19 09:43 Dose: 1 applic - Objective Vital Signs: Vital Signs Temperature 98.0 F 02/28/19 10:03 Pulse Rate 81 02/28/19 10:03 Respiratory Rate 18 02/28/19 10:03 Blood Pressure 129/89 02/28/19 10:03 O2 Sat by Pulse Oximetry (%) 97 02/28/19 09:00 Constitutional: Yes: No Distress Cardiovascular: Yes: Regular Rate and Rhythm Respiratory: Yes: CTA Bilaterally Gastrointestinal: Yes: Normal Bowel Sounds, Soft Extremities: Yes: Other (less erythema) Labs: CBC, BMP 02/28/19 06:30 02/28/19 06:30 INR, PTT INR 1.48 (0.83-1.09) H 02/25/19 20:35 Assessment/Plan Pt with chronic venous stasis AFib Cellulitis Rx PO Bactrim DS 1 tab BID x 1 week OK to DC from ID standpoint
--- NOTE | 2019-02-28 14:13 | DS ---
Physical Examination Vital Signs: Vital Signs Temperature 98.0 F 02/28/19 10:03 Pulse Rate 81 02/28/19 10:03 Respiratory Rate 18 02/28/19 10:03 Blood Pressure 129/89 02/28/19 10:03 O2 Sat by Pulse Oximetry (%) 97 02/28/19 09:00 Findings/Remarks: Patient is a 78M with history vascular insufficiency with chronic wounds, CVA ( 1 month ago), afib (on eliquis), aortic stenosis arrived at hospital complaining of redness to his left leg that started day of admission. Has an old wound on his posterior left leg that is overall much improved. Denies pain. Denies fevers, chills, nausea, vomiting. Denies chest pain and shortness of breath. Denies history of blood clots. Wound was marked by his daughter, a physician, prior to arrival to the ED. Microbiology 02/25/19 20:48 Blood - Peripheral Venous Blood Culture - Preliminary NO GROWTH OBTAINED AFTER 24 HOURS, INCUBATION TO CONTINUE FOR 4 DAYS. 02/25/19 20:48 Blood - Peripheral Venous Blood Culture - Preliminary NO GROWTH OBTAINED AFTER 24 HOURS, INCUBATION TO CONTINUE FOR 4 DAYS. Active Medications Apixaban (Eliquis -) 5 mg PO BID [facility] Last Admin: 02/27/19 09:09 Dose: 5 mg Ascorbic Acid (Vitamin C -) 500 mg PO BID [facility] Last Admin: 02/27/19 09:09 Dose: 500 mg Cefazolin Sodium 1 gm/ (Dextrose) 50 mls @ 100 mls/hr IVPB Q8H-IV [facility] Last Admin: 02/27/19 09:09 Dose: 100 mls/hr Lisinopril (Prinivil) 40 mg PO DAILY [facility] Last Admin: 02/27/19 09:09 Dose: 40 mg Magnesium Oxide (Mag-Ox -) 400 mg PO BID [facility] Last Admin: 02/27/19 09:09 Dose: 400 mg Metoprolol Tartrate (Lopressor -) 25 mg PO BID [facility] Last Admin: 02/27/19 09:09 Dose: 25 mg Nystatin (Nystatin Oral Suspension -) 500,000 units PO TID [facility] Last Admin: 02/27/19 05:27 Dose: 500,000 units Nystatin (Nystop Powder -) 1 applic TP DAILY [facility] Last Admin: 05/13/19 09:10 Dose: 1 applic Pantoprazole Sodium (Protonix -) 20 mg PO DAILY [facility] Last Admin: 02/27/19 09:09 Dose: 20 mg Asssmt / plan # cellulitis chronic venous stasis ulcer apprecite ID and vascular consult continue ABX / Wound care per ID will d/c home on PO abx #A fib continue with eliquis rate controllled # PVD continue care - wound care Constitutional: Yes: Well Nourished, No Distress, Calm Eyes: Yes: Conjunctiva Clear, EOM Intact HENT: Yes: Atraumatic, Normocephalic Neck: Yes: Supple, Trachea Midline Cardiovascular: Yes: Pulse Irregular, Murmur Respiratory: Yes: Regular, CTA Bilaterally Gastrointestinal: Yes: Normal Bowel Sounds, Soft ...Rectal Exam: Yes: Deferred Renal/: Yes: WNL Breast(s): Yes: WNL Musculoskeletal: Yes: WNL Extremities: Yes: Erythema Edema: Yes Edema: LLE: 1+ Peripheral Pulses WNL: Yes Integumentary: Yes: Erythema, Pressure Ulcer, Onychomycosis, Venous Stasis Changes Neurological: Yes: Pre-Existing Deficit Psychiatric: Yes: Alert, Oriented Labs: CBC, BMP 02/28/19 06:30 02/28/19 06:30 Discharge Summary Reason For Visit: CELLULITIS Current Active Problems Cellulitis (Acute) Condition: Stable - Instructions - Home Medications Comprehensive Discharge Medication List: Ambulatory Orders Pantoprazole Sodium [Protonix -] 20 mg PO DAILY 01/08/18 Ascorbate Calcium [Vitamin C] 500 mg PO BID 01/09/18 Apixaban [Eliquis -] 5 mg PO BID tablet 01/09/19 Lisinopril [Prinivil] 40 mg PO DAILY tablet 01/09/19 Magnesium Oxide 400 mg PO BID 02/25/19 Metoprolol Tartrate [Lopressor -] 25 mg PO BID 02/25/19 Nystatin 100,000 unit PO TID 02/25/19 Nystatin Cream [Mycostatin Cream -] 1 applic TP DAILY 02/25/19 Nystatin Powder [Nystop Powder -] 1 applic TP DAILY 02/25/19
--- NOTE | 2019-02-28 14:13 | PN ---
Progress Note (short form) - Note Progress Note: patient seen and exanimed in room appreciated ID follow up patient provides no complaints Vital Signs Period Temp Pulse Resp BP Sys/Costa Pulse Ox Last 24 Hr 98.1 F-99.0 F 70-122 20-20 124-157/60-81 98 neck supple heart s1/S2 lungs clear bilat abd soft non tender ext bilat LE chronic changes with Left LE swollen / erythema / open wound post calf / borders clean left groin lymphadenopathy CBC, BMP 02/27/19 05:55 02/25/19 20:35 Microbiology 02/25/19 20:48 Blood - Peripheral Venous Blood Culture - Preliminary NO GROWTH OBTAINED AFTER 24 HOURS, INCUBATION TO CONTINUE FOR 4 DAYS. 02/25/19 20:48 Blood - Peripheral Venous Blood Culture - Preliminary NO GROWTH OBTAINED AFTER 24 HOURS, INCUBATION TO CONTINUE FOR 4 DAYS. Active Medications Apixaban (Eliquis -) 5 mg PO BID [facility] Last Admin: 02/27/19 09:09 Dose: 5 mg Ascorbic Acid (Vitamin C -) 500 mg PO BID [facility] Last Admin: 02/27/19 09:09 Dose: 500 mg Cefazolin Sodium 1 gm/ (Dextrose) 50 mls @ 100 mls/hr IVPB Q8H-IV [facility] Last Admin: 02/27/19 09:09 Dose: 100 mls/hr Lisinopril (Prinivil) 40 mg PO DAILY [facility] Last Admin: 02/27/19 09:09 Dose: 40 mg Magnesium Oxide (Mag-Ox -) 400 mg PO BID [facility] Last Admin: 02/27/19 09:09 Dose: 400 mg Metoprolol Tartrate (Lopressor -) 25 mg PO BID [facility] Last Admin: 02/27/19 09:09 Dose: 25 mg Nystatin (Nystatin Oral Suspension -) 500,000 units PO TID [facility] Last Admin: 02/27/19 05:27 Dose: 500,000 units Nystatin (Nystop Powder -) 1 applic TP DAILY [facility] Last Admin: 02/27/19 09:10 Dose: 1 applic Pantoprazole Sodium (Protonix -) 20 mg PO DAILY [facility] Last Admin: 02/27/19 09:09 Dose: 20 mg Asssmt / plan # cellulitis chronic venous stasis ulcer apprecite ID and vascular consult continue ABX / Wound care per ID will d/c home on PO abx #A fib continue with eliquis rate controllled # PVD continue care Problem List - Problems (1) Cellulitis Code(s): L03.90 - CELLULITIS, UNSPECIFIED (2) Hypertensive heart disease Code(s): I11.9 - HYPERTENSIVE HEART DISEASE WITHOUT HEART FAILURE Qualifiers: Heart failure presence: without heart failure Qualified Code(s): I11.9 - Hypertensive heart disease without heart failure (3) Leg wound, left Code(s): S81.802A - UNSPECIFIED OPEN WOUND, LEFT LOWER LEG, INITIAL ENCOUNTER (4) HTN (hypertension) Code(s): I10 - ESSENTIAL (PRIMARY) HYPERTENSION Qualifiers: Hypertension type: essential hypertension Qualified Code(s): I10 - Essential (primary) hypertension (5) Hyperthyroidism Code(s): E05.90 - THYROTOXICOSIS, UNSP WITHOUT THYROTOXIC CRISIS OR STORM (6) Hypertrophic cardiomyopathy Code(s): I42.2 - OTHER HYPERTROPHIC CARDIOMYOPATHY (7) Venous insufficiency of both lower extremities Code(s): I87.2 - VENOUS INSUFFICIENCY (CHRONIC) (PERIPHERAL) (8) Venous stasis ulcer Code(s): I83.009 - VARICOSE VEINS OF UNSP LOWER EXTREMITY W ULCER OF UNSP SITE; L97.909 - NON-PRS CHRONIC ULC UNSP PRT OF UNSP LOW LEG W UNSP SEVERITY Qualifiers: Venous stasis ulcer site: calf Varicose vein presence: without varicose veins Laterality: left
[2019-02-28 14:25] VITALS: BP 151/87; PULSE 72; TEMP 97.5
== END 2019-02-28 15:16 | disposition home or self-care (01) | DRG 603 ==
LOC: JER 19:18 → JERBED 02-26 00:22 → J7W 02-26 03:22
PROVIDERS: ADMIT Family Medicine; ATTEND Family Medicine
DX: L03.116 Cellulitis of left lower limb (principal); I42.2 Other hypertrophic cardiomyopathy; L97.828 Non-pressure chronic ulcer of other part of left lower leg with other specified severity; I48.0 Paroxysmal atrial fibrillation; I11.9 Hypertensive heart disease without heart failure; I87.2 Venous insufficiency (chronic) (peripheral); I83.008 Varicose veins of unspecified lower extremity with ulcer other part of lower leg; I35.0 Nonrheumatic aortic (valve) stenosis; E03.9 Hypothyroidism, unspecified; I07.1 Rheumatic tricuspid insufficiency; S81.802A Unspecified open wound, left lower leg, initial encounter; N40.0 Benign prostatic hyperplasia without lower urinary tract symptoms; B35.1 Tinea unguium; Z86.73 Personal history of transient ischemic attack (TIA), and cerebral infarction without residual deficits; Z87.891 Personal history of nicotine dependence
CPT/HCPCS: 36415; 71045-TC-FY; 73700-TC-RT; 80048; 80053; 83605; 84443; 85025; 85027; 85610; 85651; 86140; 87040; 87081; 93005; 93010; 93971-TC; 97116-GP; 97161-GP; 99284-25

== ENCOUNTER 2019-12-11 12:25 | Inpatient (IN) | payer OTHER, MEDICARE ==
--- NOTE | 2019-12-11 14:24 | PDOC ---
Attending Attestation - Resident Resident Name: Teofilo Mireles - ED Attending Attestation I have performed the following: I have examined & evaluated the patient, The case was reviewed & discussed with the resident, I agree w/resident's findings & plan, Exceptions are as noted - HPI HPI: 12/11/19 14:23 79y M hx of CVA, , htn, hashimotos thyroiditis, afib (off ac, recent 'allergy ' to eliquis) presents with ~1.5 months of cough productive of a 'glass like substance) -patient endorses shortness of breath, cough and generalized weakness for last month. Patient denies any fever, chills, hemoptysis, increased leg swelling, leg pain, chest pain, abdominal pain, nausea, vomiting. 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 HEAD: Normocephalic, atraumatic. EYES: extraocular movements intact, sclera anicteric, conjunctiva clear. ENT: Normal voice, Moist mucous membranes. NECK: Normal range of motion, supple LUNGS: Breath sounds equal, clear to auscultation bilaterally. No wheezes, no rhonchi, no rales. HEART: Regular rate and rhythm, normal S1 and S2 without murmur, rub or gallop. ABDOMEN: Soft, nontender, No guarding, no rebound. No CVA tenderness EXTREMITIES: Normal range of motion, bl lympehdema, open wound on L wagner that is clean/dry NEUROLOGICAL: No facial assymetry, Normal speech, PSYCH: Normal mood, normal affect. SKIN: Warm, Dry, normal turgor, Differential for the patient's symptoms include possible pneumonia, or other pulmonary disease as the patient has having this chronic cough Patient was also noted to be hypoxic to 93% although he does not appear to be any respiratory distress. Will obtain chest x-ray, blood work to rule out pneumonia, metabolic derangements. Chest x-ray is negative may consider CT of the chest - Physicial Exam PE: 12/14/19 17:11 see above - Medical Decision Making 12/11/19 16:00 The patient's blood work was reviewed it is noted for troponin of 0.25 pt noel logan active cp. no ischemic changes on ekg Heart Score/ECG Review - ECG Impressions Comment:: 12/11/19 15:33 Twelve-lead EKG was performed and reviewed by me. There is normal sinus rhythm with a normal rate. Rate of 60 Right bundle branch block
[2019-12-11 15:15] LABS: BASO % 1.3 % (0-2.0); EOS % 6.1 % (0-4.5); HEMATOCRIT 37.9 % (35.4-49); HEMOGLOBIN 12.3 GM/dL (11.7-16.9); LYMPH % 19.2 % (8-40); MCH 27.5 pg (25.7-33.7); MCHC 32.5 g/dl (32.0-35.9); MEAN CELL VOLUME 84.7 fl (80-96); MEAN PLT VOLUME 8.7 fl (7.5-11.1); MONO % 12.1 % (3.8-10.2); NEUT % 61.3 % (42.8-82.8); PLATELET COUNT 233 K/MM3 (134-434); RBC 4.47 M/mm3 (4.00-5.60); RDW 14.7 % (11.9-15.9); WHITE BLOOD COUNT 5.8 K/mm3 (4.0-10.0)
[2019-12-11 15:27] LABS: INR 1.15 (0.83-1.09); PROTHROMBIN TIME (PATIENT) 13.6 SEC (9.7-13.0)
[2019-12-11 15:30] LABS: ACTIVATED PTT 38.3 SECONDS (25.2-36.5)
[2019-12-11 15:46] LABS: ALBUMIN 3.6 g/dl (3.4-5.0); BILIRUBIN,TOTAL 0.5 mg/dL (0.2-1); BLOOD UREA NITROGEN 34.7 mg/dL (7-18); CALCIUM 9.3 mg/dL (8.5-10.1); MAGNESIUM 2.4 mg/dL (1.8-2.4); PHOSPHOROUS 3.5 mg/dL (2.5-4.9); POTASSIUM 4.1 mmol/L (3.5-5.1); TOT PROT 6.8 g/dl (6.4-8.2)
--- NOTE | 2019-12-11 16:32 | PDOC ---
History of Present Illness - General Chief Complaint: Weakness Stated Complaint: WEAKNESS Time Seen by Provider: 12/11/19 13:42 History Source: Patient Exam Limitations: No Limitations - History of Present Illness Initial Comments: HPI: 79 y/o male presenting to [facility] ER complaining of generalized fatigue and sensation of heavy feet bilaterally. Both sensations have worsened over the past several days. Believes he occasionally feels short of breath. Coughed with a clear sputum this morning. Denies chest pain, back pain, abdominal pain, fevers, or chills. Unable to determine any localizing symptoms. Was evaluated by his PCP on and told everything was normal. 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 Medical Hx: - CVA - Paroxysmal A-fib, stopped Eliquis 1.5 months ago because of a possible allergy , now taking Nattokinase - HTN - [place] Thyroiditis - Hypertrophic Cardiomyopathy - Chronic lower extremity lymphedema - GERD - Microcytic Anemia Review of Systems: In addition to that documented in the HPI above, the additional ROS was obtained : Constitutional- Denies fevers or chills Head- Denies vision changes ENMT- Denies sore throat CV- Denies chest pain Resp- Per HPI GI- Denies vomiting or diarrhea - Denies painful urination, hematuria MSK- Denies recent trauma Skin- Denies new rashes Neuro- Denies new numbness or tingling. No difficulty walking with rollator. Endocrine- Denies polyuria Heme- Denies bleeding or bruising Physical Examination: Vital signs and nursing notes reviewed. Constitutional- Obese adult male in no acute distress or obvious discomfort. Found semi-fowlers on hospital bed. Nontoxic appearing. Head- Normocephalic. No obvious external signs of trauma. Throat- Oral cavity and pharynx normal. No inflammation, swelling, exudate, or lesions. Teeth and gingiva in good general condition. Noted s/p extraction of left upper molar. No tenderness to the area or obvious abscess. Neck- Supple, trachea is midline. Cardiovascular / Chest- Regular rate and regular rhythm. Systolic murmur loudest at right sternal border. No rubs, clicks, or gallops. Peripheral pulses - radial pulses full. No anterior chest wall discomfort with palpation. Respiratory- Breathing mildly tachypneic. Able to speak in multi word responses without pausing. Equal chest rise and fall. Clear to auscultation bilaterally. No stridor, no wheezing, no rhonchi. No cough observed. Gastrointestinal- abdomen is soft, non-tender, non-distended. Neuro- Alert and oriented x4. Moving all four extremities spontaneously. No facial asymmetry. No slurred speech. MSK- 3+ pitting edema to R and L lower extremities. No open wounds. No erythema. Skin- Warm, dry, and intact. Psych- Affect- appropriate. Mood- normal. Speech was non-labored, non- pressured. MDM: 79 y/o male presenting with generalized weakness, leg heaviness, and cough. Afebrile. Vitals unremarkable for hypotension or tachycardia. Initial vitals revealed sienna hypertension, however the pt reports this measurement was obtained through a jacket and several other layers of clothing. Repeated measurement improved. Physical exam as described above. D/D includes PNA, ACS, CHF. Labs revealed mildly elevated troponin. No h/o of elevated troponin in the past. CXR revealed vascular congestion suggestive of pulmonary edema. Ordered ASA. Will admit the pt to telemetry for further cardiac workup. Considered PE. Pt did not agree and said he would prefer to not start with a Chest CTA. 11 Dec 2019 18:40 PM Telephone discussion with Dr. Oshea, covering for Dr. Matos. Verbally appraised of the pts HPI, ED course, and current plan of management. Will admit the pt to telemetry for further cardiac evaluation. No additional orders requested. Delta troponin and BNP pending at time of admission. Teofilo Mireles M.D., PGY2 Emergency Medicine Resident Past History - Past Medical History Allergies/Adverse Reactions: Allergies Allergy/AdvReac Type Severity Reaction Status Date / Time No Known Allergies Allergy Verified 12/11/19 12:31 Home Medications: Ambulatory Orders Pantoprazole Sodium [Protonix -] 20 mg PO DAILY 01/08/18 Ascorbate Calcium [Vitamin C] 500 mg PO BID 01/09/18 Apixaban [Eliquis -] 5 mg PO BID tablet 01/09/19 Lisinopril [Prinivil] 40 mg PO DAILY tablet 01/09/19 Magnesium Oxide 400 mg PO BID 02/25/19 Metoprolol Tartrate [Lopressor -] 25 mg PO BID 02/25/19 Nystatin 100,000 unit PO TID 02/25/19 Nystatin Cream [Mycostatin Cream -] 1 applic TP DAILY 02/25/19 Nystatin Powder [Nystop Powder -] 1 applic TP DAILY 02/25/19 Sulfamethoxazole/Trimethoprim [Bactrim Ds -] 1 tab PO BID #14 tablet 02/28/19 Anemia: No Asthma: No Cancer: No Cardiac Disorders: Yes (AF, PVD) CVA: Yes COPD: No DVT: No Dementia: No Diabetes: No Dialysis: No GI Disorders: Yes (Esophagitis) Disorders: Yes (BPH, TURP) HTN: No Hypercholesterolemia: No Kidney Stones: No Liver Disease: No Psychiatric Problems: No Seizures: No Thyroid Disease: Yes (hypothyroidism) Lung CA: No - Surgical History Abdominal Surgery: Yes (inguinal hernia repair) Appendectomy: Yes Cardiac Surgery: No Cholecystectomy: No Lung Surgery: No Neurologic Surgery: No Orthopedic Surgery: No - Immunization History Immunization Up to Date: No - Psycho Social/Smoking Cessation Hx Smoking History: Never smoked Have you smoked in the past 12 months: No If you are a former smoker, when did you quit?: 30 yrs ago Hx Alcohol Use: No Drug/Substance Use Hx: No Substance Use Type: None Hx Substance Use Treatment: No *Physical Exam - Vital Signs Last Vital Signs Temp Pulse Resp BP Pulse Ox 98 F 69 18 204/105 H 98 12/11/19 12:28 12/11/19 12:28 12/11/19 12:28 12/11/19 12:28 12/11/19 12:31 ED Treatment Course - LABORATORY CBC & Chemistry Diagram: 12/11/19 14:45 12/11/19 14:45 - ADDITIONAL ORDERS Additional order review: Laboratory Results 12/11/19 12/11/19 12/11/19 14:45 14:45 14:45 PT with INR 13.60 H INR 1.15 H PTT (Actin FS) 38.3 H Sodium 142 Potassium 4.1 Chloride 110 H Carbon Dioxide 27 Anion Gap 5 L BUN 34.7 H Creatinine 1.0 Est GFR (CKD-EPI)AfAm 82.02 Est GFR (CKD-EPI)NonAf 70.77 Random Glucose 80 Calcium 9.3 Phosphorus 3.5 Magnesium 2.4 Total Bilirubin 0.5 AST 32 ALT 47 Alkaline Phosphatase 98 Creatine Kinase 127 Troponin I 0.25 H Total Protein 6.8 Albumin 3.6 TSH 2.61 D Thyroxine (T4) 7.2 12/11/19 14:45 RBC 4.47 MCV 84.7 MCHC 32.5 RDW 14.7 D MPV 8.7 Neutrophils % 61.3 Lymphocytes % 19.2 D Monocytes % 12.1 H Eosinophils % 6.1 H Basophils % 1.3 - RADIOLOGY Radiology Studies Ordered: Category Date Time Status CHEST PA & LAT [RAD] Stat Radiology 12/11/19 16:19 Ordered Discharge - Discharge Information Problems reviewed: Yes Clinical Impression/Diagnosis: Weakness, Elevated troponin Pulmonary edema Qualifiers: Chronicity: acute Qualified Code(s): J81.0 - Acute pulmonary edema Condition: Stable - Admission Yes - Follow up/Referral Referrals: Carlito Roque MD [Primary Care Provider] - - Patient Discharge Instructions - Post Discharge Activity
[2019-12-11] MEDS ORDERED: ASPIRIN 81 MG CHEWABLE TABLETS PO ONE (16:33)
[2019-12-11] MEDS ORDERED: ASPIRIN 81 MG CHEWABLE TABLETS ONE (16:54)
[2019-12-11 19:25] LABS: N-TERMINAL BNP 3340.2 pg/ml (5-450)
--- NOTE | 2019-12-11 19:53 | HP ---
Admitting History and Physical - Admission Chief Complaint: Acute shortness of breath, cough, and generalized muscle weakness History of Present Illness: This 79 yr old w/m with hx of stroke, aortic stenosis, HTN, Robin's thyroiditis, and atrial fibrillation (reports he is allergic to Eliquis) admitted via ER with acute shortness of breath, cough, and generalized muscle weakness. 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 Cardiovascular: Yes: AFIB, Murmur, Other (Tricuspid regurgitation PVD) Pulmonary: No: Asthma, Bronchitis, Cancer, COPD, O2 Dependent, Pneumonia, Previously Intubated, Pulmonary Embolus, Pulmonary Fibrosis, Sleep Apnea, Other Gastrointestinal: Yes: Other (Ulcer of distal esophagus) Hepatobiliary: No: Cirrhosis, Cholelithiasis, Cholecystitis, Choledocholithiasis , Hepatitis A, Hepatitis B, Hepatitis C, Other Renal/: Yes: BPH Heme/Onc: No: Anemia, B12 Deficiency, Bleeding Disorder, Cancer, Current Chemotherapy, Current Radiation Therapy, Hemochromatosis, Hypercoaguable State, Myeloproliferative Synd, Sickle Cell Disease, Sickle Cell Trait, Thrombocytopenia, Other Infectious Disease: Yes: MRSA Psych: No: Addictions, Anxiety, Bipolar, Depression, Panic, Psychosis, Schizophrenia, Other Musculoskeletal: No: Bursitis, Chronic low back pain, Hemiparesis, Hemiplegia, Osteoarthritis, Paraplegia, Other Rheumatology: No: Fibromyalgia, Gout, Lupus, Rheumatoid Arthritis, Sarcoidosis, Vasculitis, Other Endocrine: Yes: Hypothyroidism Dermatology: Yes: Other (PVD Venous stasis Leg ulcer) - Past Surgical History Past Surgical History: Yes: Appendectomy, Hernia Repair (RIH), TURP, Tonsillectomy - Smoking History Smoking history: Never smoked Have you smoked in the past 12 months: No If you are a former smoker, when did you quit?: 30 yrs ago - Alcohol/Substance Use Hx Alcohol Use: No - Social History ADL: Independent 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: [employer] History of Recent Travel: No Home Medications - Allergies Allergies/Adverse Reactions: Allergies Allergy/AdvReac Type Severity Reaction Status Date / Time No Known Allergies Allergy Verified 12/11/19 12:31 - Home Medications Home Medications: Ambulatory Orders Pantoprazole Sodium [Protonix -] 20 mg PO DAILY 01/08/18 Ascorbate Calcium [Vitamin C] 500 mg PO BID 01/09/18 Apixaban [Eliquis -] 5 mg PO BID tablet 01/09/19 Lisinopril [Prinivil] 40 mg PO DAILY tablet 01/09/19 Magnesium Oxide 400 mg PO BID 02/25/19 Metoprolol Tartrate [Lopressor -] 25 mg PO BID 02/25/19 Nystatin 100,000 unit PO TID 02/25/19 Nystatin Cream [Mycostatin Cream -] 1 applic TP DAILY 02/25/19 Nystatin Powder [Nystop Powder -] 1 applic TP DAILY 02/25/19 Sulfamethoxazole/Trimethoprim [Bactrim Ds -] 1 tab PO BID #14 tablet 02/28/19 Review of Systems - Review of Systems Constitutional: reports: Weakness Eyes: reports: No Symptoms HENT: reports: No Symptoms Neck: reports: No Symptoms Cardiovascular: reports: No Symptoms Respiratory: reports: Cough, SOB, SOB on Exertion Gastrointestinal: reports: No Symptoms Genitourinary: reports: No Symptoms Breasts: reports: No Symptoms Reported Musculoskeletal: reports: Muscle Weakness Integumentary: reports: No Symptoms Neurological: reports: No Symptoms Endocrine: reports: No Symptoms Hematology/Lymphatic: reports: No Symptoms Psychiatric: reports: No Symptoms Physical Examination Vital Signs: Vital Signs Temperature 98.6 F 12/11/19 18:20 Pulse Rate 59 L 12/11/19 18:20 Respiratory Rate 18 12/11/19 18:20 Blood Pressure 172/74 H 12/11/19 18:20 O2 Sat by Pulse Oximetry (%) 98 12/11/19 12:31 Constitutional: Yes: Well Nourished, Calm, Mild Distress Eyes: Yes: Conjunctiva Clear, EOM Intact HENT: Yes: Atraumatic, Normocephalic Neck: Yes: Supple, Trachea Midline Cardiovascular: Yes: Regular Rate and Rhythm, Murmur () Respiratory: Yes: Cough, Diminished, Orthopnea, SOB Gastrointestinal: Yes: Normal Bowel Sounds, Soft ...Rectal Exam: Yes: Deferred Renal/: Yes: WNL Breast(s): Yes: WNL Musculoskeletal: Yes: Muscle Weakness Extremities: Yes: Other (chronic lymphedema) Edema: Yes Edema: LLE: 2+, RLE: 2+ Peripheral Pulses WNL: Yes Peripheral Pulses: Left Radial: 2+, Right Radial: 2+ Integumentary: Yes: WNL Neurological: Yes: WNL ...Motor Strength: WNL Psychiatric: Yes: WNL Labs: CBC, BMP 12/11/19 14:45 12/11/19 14:45 Imaging - Results Chest X-ray: Report Reviewed Other: Report Reviewed (Lab data reviewed) Problem List - Problems (1) Elevated troponin Code(s): R79.89 - OTHER SPECIFIED ABNORMAL FINDINGS OF BLOOD CHEMISTRY (2) Pulmonary edema Code(s): J81.1 - CHRONIC PULMONARY EDEMA Qualifiers: Chronicity: acute Qualified Code(s): J81.0 - Acute pulmonary edema (3) Weakness Code(s): R53.1 - WEAKNESS (4) Hypertensive heart disease Code(s): I11.9 - HYPERTENSIVE HEART DISEASE WITHOUT HEART FAILURE Qualifiers: Heart failure presence: without heart failure Qualified Code(s): I11.9 - Hypertensive heart disease without heart failure Assessment/Plan Assessment/plan: acute generalized muscle weakness, acute cough, acute shortness of breath, acute elevation of troponin level, enlarged heart with congestive changes; repeat troponin level in am, consult to Sales Representative Sales Manager, DVT prophylaxis.
[2019-12-11] MEDS ORDERED: ENOXAPARIN NA (PORCINE) 40 MG/0.4 ML DISP.SYRIN SQ ONE (20:26)
[2019-12-11] MEDS: ENOXAPARIN NA (PORCINE) 40 MG/0.4 ML DISP.SYRIN SQ SCH (20:28)
[2019-12-11] MEDS ORDERED: METOPROLOL TARTRATE 25 MG TABLET (FP) PO SCH (22:00)
[2019-12-11] MEDS: METOPROLOL TARTRATE 25 MG TABLET (FP) PO SCH ×3 (22:04→22:08)
[2019-12-11] MEDS: MAGNESIUM OXIDE 400 MG TABLET (FP) PO SCH (22:04)
[2019-12-11] MEDS: ASCORBIC ACID 500 MG TABLET (FP) PO SCH (22:04)
[2019-12-11] MEDS: NYSTATIN 500,000 UNITS/5 ML SUSPENSION PO SCH (22:04)
[2019-12-12 04:43] VITALS: BMI 33.1
--- NOTE | 2019-12-12 05:51 | PN ---
Progress Note, Physician Chief Complaint: Patient seen and examined at the bedside, no acute events from last night. History of Present Illness: This 79 yr old w/m with PMH of stroke, HTN, , and Robin's thyroiditis admitted via ER with an acute exacerbation of shortness of breath, acute generalized muscle weakness, and an acute cough. - Current Medication List Current Medications: Active Medications Ascorbic Acid (Vitamin C -) 500 mg PO BID [facility] Last Admin: 12/11/19 22:04 Dose: 500 mg Enoxaparin Sodium (Lovenox -) 40 mg SQ DAILY [facility] Last Admin: 12/11/19 20:28 Dose: 40 mg Lisinopril (Prinivil) 40 mg PO DAILY [facility] Magnesium Oxide (Mag-Ox -) 400 mg PO TID [facility] Last Admin: 12/11/19 22:04 Dose: 400 mg Metoprolol Tartrate (Lopressor -) 25 mg PO BID [facility] Last Admin: 12/11/19 22:08 Dose: Not Given Nystatin (Nystop Powder -) 1 applic TP DAILY [facility] Nystatin (Mycostatin Cream -) 1 applic TP DAILY [facility] Nystatin (Nystatin Oral Suspension -) 100,000 units PO TID [facility] Last Admin: 12/11/19 22:04 Dose: 100,000 units Pantoprazole Sodium (Protonix -) 20 mg PO DAILY [facility] - Objective Vital Signs: Vital Signs Temperature 97.7 F 12/12/19 04:21 Pulse Rate 64 12/12/19 04:21 Respiratory Rate 20 12/12/19 04:43 Blood Pressure 160/76 12/12/19 04:21 O2 Sat by Pulse Oximetry (%) 95 12/12/19 04:43 Constitutional: Yes: Well Nourished, Calm, Mild Distress Eyes: Yes: Conjunctiva Clear, EOM Intact HENT: Yes: Atraumatic, Normocephalic Neck: Yes: Supple, Trachea Midline Cardiovascular: Yes: Regular Rate and Rhythm, Murmur () Respiratory: Yes: Diminished Gastrointestinal: Yes: Normal Bowel Sounds, Soft ...Rectal Exam: Yes: Deferred Genitourinary: Yes: WNL Breast(s): Yes: WNL Musculoskeletal: Yes: WNL Extremities: Yes: WNL Edema: Yes Edema: LLE: 2+, RLE: 2+ Peripheral Pulses WNL: Yes Integumentary: Yes: WNL Neurological: Yes: WNL ...Motor Strength: WNL Psychiatric: Yes: WNL Labs: CBC, BMP 12/11/19 14:45 12/11/19 14:45 INR, PTT INR 1.15 (0.83-1.09) H 12/11/19 14:45 Problem List - Problems (1) Elevated troponin Code(s): R79.89 - OTHER SPECIFIED ABNORMAL FINDINGS OF BLOOD CHEMISTRY (2) Pulmonary edema Code(s): J81.1 - CHRONIC PULMONARY EDEMA Qualifiers: Chronicity: acute Qualified Code(s): J81.0 - Acute pulmonary edema (3) Weakness Code(s): R53.1 - WEAKNESS (4) Hypertensive heart disease Code(s): I11.9 - HYPERTENSIVE HEART DISEASE WITHOUT HEART FAILURE Qualifiers: Heart failure presence: without heart failure Qualified Code(s): I11.9 - Hypertensive heart disease without heart failure Assessment/Plan Assessment/plan: acute generalized muscle weakness, enlarged heart with congestive changes, acute elevation of troponin level; DVT prophylaxis, consult to patient's private Traffic Line Painter, repeat troponin I level pending.
[2019-12-12] MEDS: NYSTATIN 500,000 UNITS/5 ML SUSPENSION PO SCH ×2 (06:28→14:44)
[2019-12-12] MEDS: MAGNESIUM OXIDE 400 MG TABLET (FP) PO SCH ×2 (06:29→14:45)
--- NOTE | 2019-12-12 07:37 | CON.CARD ---
Cardiology Consult (text) - Consultation Consultation Note: Chief Complaint: Events noted, notes reviewed, progressive exertional dyspnea and generalized weakness, elevated troponin I and BNP levels History of Present Illness: Seen and examined on telemetry. Full consult dictated Echocardiography 03/16/2019 Hypertrophic cardiomyopathy with asymmetric septal hypertrophy with normal left ventricular systolic function and estimated LVEF between 55-60%, biatrial dilatation, aortic valve stenosis with calculated aortic valve area 1.2 cm with a mean transvalvular gradient of 35 mmHg and a peak transvalvular gradient of 54.5 mmHg, mild mitral valve regurgitation, mild to moderate tricuspid valve regurgitation Echocardiography 01/04/2019 Hypertrophic cardiomyopathy with asymmetric septal hypertrophy intracavity gradient suspected, normal LV function, moderate-severe , moderate KEITH, mild MR, mild-moderate TR Medications: Current Medications Ascorbic Acid (Vitamin C -) 500 mg PO BID [facility] Last Admin: 12/11/19 22:04 Dose: 500 mg Enoxaparin Sodium (Lovenox -) 40 mg SQ DAILY [facility] Last Admin: 12/11/19 20:28 Dose: 40 mg Lisinopril (Prinivil) 40 mg PO DAILY [facility] Magnesium Oxide (Mag-Ox -) 400 mg PO TID [facility] Last Admin: 12/12/19 06:29 Dose: 400 mg Metoprolol Tartrate (Lopressor -) 25 mg PO BID [facility] Last Admin: 12/11/19 22:08 Dose: Not Given Nystatin (Nystop Powder -) 1 applic TP DAILY [facility] Nystatin (Mycostatin Cream -) 1 applic TP DAILY [facility] Nystatin (Nystatin Oral Suspension -) 100,000 units PO TID [facility] Last Admin: 12/12/19 06:28 Dose: 100,000 units Pantoprazole Sodium (Protonix -) 20 mg PO DAILY [facility] Review of Systems Cardiovascular: As noted above Respiratory: denies: Cough or Sputum Production Gastrointestinal: denies: Nausea, Vomiting, Diarrhea, Constipation and Abdominal Pain Musculoskeletal: Lower extremity discomfort/weakness Endocrine: No Symptoms Reported Vital Signs: Last Vital Signs Temp Pulse Resp BP Pulse Ox 97.7 F 64 20 160/76 95 12/12/19 04:21 12/12/19 04:21 12/12/19 04:43 12/12/19 04:21 12/12/19 04:43 Intake & Output 12/09/19 12/10/19 12/11/19 12/12/19 23:59 23:59 23:59 23:59 Intake Total 250 Output Total 150 Balance 100 Weight 240 lb 258 lb Neck: Supple Negative JVD no bruit appreciated Respiratory: Diminished Breath Sounds Bilaterally Cardiovascular: S1 S2 Regular Rate and Rhythm Grade 2-3/6 GUILHERME Gastrointestinal: Soft Benign Normal Bowel Sounds Ext: Positive Edema chronic Venous Stasis Changes Labs: Troponin, BNP 12/11/19 12/11/19 14:45 18:20 Troponin I 0.25 H 0.26 H B-Natriuretic Peptide 3340.2 H CBC, BMP 12/11/19 14:45 12/11/19 14:45 Hepatic Panel Total Bilirubin 0.5 mg/dL (0.2-1) 12/11/19 14:45 AST 32 U/L (15-37) 12/11/19 14:45 ALT 47 U/L (13-61) 12/11/19 14:45 Alkaline Phosphatase 98 U/L (45-117) 12/11/19 14:45 Albumin 3.6 g/dl (3.4-5.0) 12/11/19 14:45 INR, PTT INR 1.15 (0.83-1.09) H 12/11/19 14:45 Assessment/Plan ASSESSMENT: 1. Clinical presentation is consistent with chronic class II [place] [employer] classification left ventricular failure related to diastolic left ventricular dysfunction and aortic valve pathology/aortic stenosis with probable underlying pulmonary hypertension 2. Coronary artery disease angina pectoris with evidence of demand ischemia 3. Paroxysmal atrial fibrillation currently in sinus rhythm [id number] score of 6 currently off of anticoagulation therapy self discontinued Eliquis therapy 4. Hypertrophic cardiomyopathy of elderly 5. Moderate-severe 6. Hypertensive cardiovascular disease 7. Hypercholesterolemia 8. Subacute embolic strokes referable to above-noted paroxysmal atrial fibrillation 9. Hypothyroidism 10. Chronic bilateral lower extremity edema most likely related to chronic venous insufficiency and probable pulmonary hypertension PLAN: 1. Continue Lopressor 2. Continue Lisinopril and titrate dosage 3. Resume Lipitor therapy unless it is absolutely contraindicated 4. Recommend resumption of anticoagulation therapy with preferably DOAC's/ Xarelto considering the above-noted [id number] score of 6 5. Diuretics/IV Lasix and subsequent PO Lasix 6. Additional cardiovascular evaluation to be performed on outpatient basis including follow-up echocardiography, pharmacologic Lexiscan myocardial perfusion imaging study and eventual right and left heart cardiac catheterization/coronary angiography and evaluation for possible intervention for the above-noted aortic valve pathology/aortic valve stenosis possible TAVR- transcutaneous aortic valve replacement Above was reviewed in detail with the patient Ga Rodríguez M.D.
--- NOTE | 2019-12-12 09:41 | EKG ---
Test Reason : Blood Pressure : / mmHG Vent. Rate : 060 BPM Atrial Rate : 060 BPM P-R Int : 166 ms QRS Dur : 176 ms QT Int : 510 ms P-R-T Axes : 015 093 041 degrees QTc Int : 510 ms NORMAL SINUS RHYTHM POSSIBLE LEFT ATRIAL ENLARGEMENT RIGHT BUNDLE BRANCH BLOCK ABNORMAL ECG WHEN COMPARED WITH ECG OF 25-FEB-2019 20:17, NO SIGNIFICANT CHANGE WAS FOUND Confirmed by Demario Oleary MD ([id number]) on 12/12/2019 9:40:51 AM Referred By: Confirmed By:Demario Oleary MD
[2019-12-12] MEDS ORDERED: NYSTATIN POWDER 100,000 UNITS/GM - 15 GM TOPICAL POWDER TP SCH (10:00)
[2019-12-12] MEDS ORDERED: LISINOPRIL 20 MG TABLET (FP) PO SCH (10:00)
[2019-12-12] MEDS ORDERED: NYSTATIN 100,000 UNIT/GM TOPICAL CREAM 15 GM TUBE TP SCH (10:00)
[2019-12-12] MEDS ORDERED: PANTOPRAZOLE 20 MG TABLET PO SCH (10:00)
[2019-12-12] MEDS: METOPROLOL TARTRATE 25 MG TABLET (FP) PO SCH (10:09)
[2019-12-12] MEDS: ASCORBIC ACID 500 MG TABLET (FP) PO SCH (10:09)
[2019-12-12] MEDS ORDERED: FUROSEMIDE 40 MG/4 ML INJECTABLE VIAL IVPUSH ONE (11:07)
[2019-12-12] MEDS: ENOXAPARIN NA (PORCINE) 40 MG/0.4 ML DISP.SYRIN SQ SCH (11:19)
--- NOTE | 2019-12-12 12:15 | CONS ---
DATE OF CONSULTATION: 12/12/2019 REQUESTED BY: Hospitalist service CHIEF COMPLAINT: Dyspnea, progressive weakness. HISTORY: Patient known to our service from our office. 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, angina pectoris, diastolic left ventricular dysfunction, hypertrophic cardiomyopathy with clinical class 0 [place] [employer] classification left ventricular failure, paroxysmal atrial fibrillation, CHADS2-VASc score of 6 on anticoagulation therapy with Eliquis until recently, aortic valve disease, aortic valve stenosis, cerebrovascular disease in the setting of paroxysmal atrial fibrillation, embolic stroke, hypertensive cardiovascular disease, probable hypercholesterolemia, hypothyroidism, gastroesophageal reflux disease, benign prostatic hypertrophy, chronic venous insufficiency with chronic venostasis ulcer, and degenerative disk disease. Presents to [facility] with progressive weakness, which has been noted over the last several days and, in addition, increasing dyspnea. Patient reported dyspnea with [id number] physical exertion. Patient's ambulation is limited related to bilateral lower extremity discomfort secondary to his degenerative disk disease. Patient, in addition, reported profound weakness. Patient denied any orthopnea or paroxysmal or nocturnal dyspnea. Patient reported persistence of bilateral lower extremity edema that worsens in the latter part of the day. The patient denied any chest discomfort. Patient denied any palpable, dizziness, lightheadedness, or syncope. Upon evaluation in the emergency room, the patient was noted to have evidence of elevated BNP and elevated troponin I levels. This AM the patient is resting comfortably in bed. PAST MEDICAL HISTORY: Coronary artery disease, angina pectoris, diastolic left ventricular dysfunction with clinical class 0 [place] [employer] classification left ventricular failure, paroxysmal atrial fibrillation, CHADS2-VASc score of 6 currently off of anticoagulation therapy, off of Eliquis therapy, self-discontinued by the patient related to side effects, probable hypertrophic cardiomyopathy of the elderly, aortic valve disease, aortic valve sclerosis, cerebrovascular disease, embolic stroke with no significant residual deficit, hypertensive cardiovascular disease, hypercholesterolemia, hypothyroidism, gastroesophageal reflux disease, chronic bilateral lower extremity edema related to chronic venous insufficiency, probable pulmonary hypertension, and degenerative disk disease. SOCIAL HISTORY: Nonsmoker. FAMILY HISTORY: No family history of coronary artery disease. ALLERGIES: None reported. MEDICAL THERAPY: Currently includes vitamin C 500 mg twice a day, Lovenox 40 mg subcutaneous once daily, lisinopril 40 mg once daily, magnesium oxide 400 mg 3 times a day, Lopressor 25 mg twice a day, Protonix 20 mg once a day. REVIEW OF SYSTEMS: Head and Neck: Denies headache, photophobia, blurring of vision. Respiratory: No cough or sputum production. Cardiovascular: As noted above. Gastrointestinal: Denies nausea, vomiting, diarrhea, abdominal discomfort. Genitourinary: No symptoms reported. Musculoskeletal: Degenerative joint disease. PHYSICAL EXAMINATION: Vital Signs: Blood pressure is 160/76 mmHg, pulse rate is 64 beats per minute. Head and Neck: Pupils equal and reactive to light and accommodation. Extraocular muscles are intact. Anicteric sclerae. Negative JVD. No bruits appreciated. Chest: Diminished breath sounds at the bases bilaterally. Cardiovascular: S1, S2 regular. Grade 2/6 to 3/6 systolic ejection murmur. No clicks or gallops. Abdomen: Soft, benign. Normoactive bowel sounds. Extremities: Bilateral edema. Chronic venostasis changes are noted. Skin: Skin dryness noted. DIAGNOSTIC DATA: EKG revealed sinus rhythm with right axis deviation, right bundle branch block, and nonspecific ST-segment and T-wave abnormality. Chest x-ray reported was noted. CBC revealed white cell count of 5.8, hemoglobin 12.3, platelet count 233. Basic metabolic profile revealed sodium 142, potassium 4.1, BUN 34.7, creatinine 1.0, glucose 80. Troponin 0.25, repeat 0.26. BNP 3340. INR 1.15. ASSESSMENT: 1. Clinical presentation is consistent with chronic class 2 [place] [employer] classification left ventricular failure related to diastolic left ventricular dysfunction and aortic valve pathology/aortic valve stenosis with probable underlying pulmonary hypertension. 2. Coronary artery disease with evidence of demand ischemia, angina pectoris. 3. Paroxysmal atrial fibrillation currently in sinus rhythm. CHADS2-VASc score of 6 currently off of anticoagulation therapy, self-discontinued Eliquis therapy. 4. Hypertrophic cardiomyopathy of the elderly. 5. Aortic valve stenosis [id number] in severity. 6. Hypertensive cardiovascular disease not at goal. 7. Hypercholesterolemia. 8. History of subacute embolic stroke referable to the above-noted paroxysmal atrial fibrillation. 9. Hypothyroidism. 10. Chronic kidney disease. 11. Chronic bilateral lower extremity edema most likely related to chronic venous insufficiency and probable pulmonary hypertension. RECOMMENDATION: 1. Continuation of Lopressor therapy. 2. Continuation of lisinopril therapy and titration of dosage. 3. Resumption of Lipitor therapy unless it is absolutely contraindicated. 4. Recommend resumption of anticoagulation therapy preferably with DOACs, Xarelto, considering the above-noted CHADS2-VASc score of 6. 5. Diuretics, IV Lasix, and subsequent p.o. Lasix. 6. Additional cardiovascular evaluation to be performed on outpatient basis including follow up echocardiography, pharmacologic Lexiscan myocardial perfusion imaging study, and eventual right and left heart cardiac catheterization coronary angiography and evaluation for possible intervention for the above-noted aortic valve pathology, aortic valve stenosis, possible transcutaneous aortic valve replacement. Above was reviewed in detail with history and physical. Thank you for kind referral. EZEQUIEL LOWE M.D. [id number]
[2019-12-12 13:29] VITALS: TEMP 97.8
[2019-12-12] MEDS ORDERED: RIVAROXABAN 20 MG TABLET PO SCH (18:00)
[2019-12-12 18:19] VITALS: BP 175/83; PULSE 59
--- NOTE | 2019-12-12 20:08 | CONSULT ---
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 CT showed 2 subacute infarcts and w/u revealed new-onset AFib. Patient has been on apixaban since that time but he D?C'ed 4 or 5 weeks ago when he developed increasing SOB,and diagnosed "Cardiac asthma" which he attributed to Eliquis allergy, and stopped A/C. Since then he has had persistent DAVIS, SOB and came to the ED with chest pains. Blood work supported cardiac ischemia. ROS sig for chronic contractures of both knees x "years" and Dr. Sotelo notes he is too late for previous recommended TKR's. ELIDA: No bruits. Cor- reg. III/ GUILHERME. 3+ edema, no open wounds. B/L Knee contractures NEURO: Awake, alert. 0x3. Occ hesitent speech and word finding difficulty. CN: II-XII: Normal Motor: No drift or tremor. Normal strength. Sl reduced RAY's. Normal reflexes in arms. Areflexic in legs. Plantars silent Coord: No FTN dystaxia Sensory: Decreased vibration feet. Gait: Flexed, shuffling, unsteady. Knee contractures. IMP: Mild B/L cerebral dysfunction, s/p CVAs No evidence for new or acute changes. 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 SUGGEST: Encourage compliance with Xarelto and Diuretics as out patient. PT for gait with walker Rest with legs elevated. Follow up Dr. Rodríguez for and CHF. Thank you very much, Hakeem Anna MD
--- NOTE | 2019-12-12 20:24 | DS ---
Physical Examination Vital Signs: Vital Signs Temperature 97.8 F 12/12/19 18:00 Pulse Rate 59 L 12/12/19 18:00 Respiratory Rate 20 12/12/19 18:00 Blood Pressure 175/83 H 12/12/19 18:00 O2 Sat by Pulse Oximetry (%) 95 12/12/19 09:00 Constitutional: Yes: Well Nourished, Calm, Mild Distress Eyes: Yes: Conjunctiva Clear, EOM Intact HENT: Yes: Atraumatic, Normocephalic Neck: Yes: Supple, Trachea Midline Cardiovascular: Yes: Regular Rate and Rhythm, Murmur () Respiratory: Yes: Diminished Gastrointestinal: Yes: Normal Bowel Sounds, Soft ...Rectal Exam: Yes: Deferred Renal/: Yes: WNL Breast(s): Yes: WNL Musculoskeletal: Yes: Muscle Weakness Extremities: Yes: Other (bilateral edema) Edema: Yes Edema: LLE: 2+, RLE: 2+ Peripheral Pulses WNL: Yes Integumentary: Yes: WNL Neurological: Yes: Unsteady Gait, Weakness ...Motor Strength: LUE (muscle weakness), LLE (muscle weakness), RUE (muscle weakness), RLE (muscle weakness) Psychiatric: Yes: WNL Labs: CBC, BMP 12/11/19 14:45 12/11/19 14:45 Discharge Summary Problems reviewed: Yes Reason For Visit: PULMONARY EDEMA Current Active Problems Elevated troponin (Acute) Pulmonary edema (Acute) Weakness (Acute) Condition: Stable - Instructions Diet, Activity, Other Instructions: K-Continue hospital meds especially Furosemide 20mg po daily Xarelto 20mg po daily K-dur 10meq po daily Follow up with and Dr. Matos. Total time spent over 30 minutes. Referrals: Carlito Roque MD [Primary Care Provider] - Disposition: HOME - Home Medications Comprehensive Discharge Medication List: Ambulatory Orders Pantoprazole Sodium [Protonix -] 20 mg PO DAILY 01/08/18 Magnesium Oxide 400 mg PO BID 02/25/19 Ascorbic Acid [Vitamin C -] 500 mg PO BID tablet 12/12/19 Furosemide [Lasix -] 20 mg PO DAILY tablet 12/12/19 Lisinopril [Prinivil] 40 mg PO DAILY tablet 12/12/19 Metoprolol Tartrate [Lopressor -] 25 mg PO BID tablet 12/12/19 Nystatin Cream [Mycostatin Cream -] 1 applic TP DAILY applic 12/12/19 Nystatin Oral Suspension - [Nystatin Oral Susp 523435 Units/5 ML -] 100,000 units PO TID cup 12/12/19 Nystatin Powder [Nystop Powder -] 1 applic TP DAILY applic 12/12/19 Pantoprazole Sodium [Protonix -] 20 mg PO DAILY tablet.ec 12/12/19 Potassium Chloride [K-Dur -] 10 meq PO DAILY tablet.er 12/12/19 Rivaroxaban [Xarelto -] 20 mg PO DAILY@1800 tablet 12/12/19
[2019-12-13] MEDS ORDERED: FUROSEMIDE 20 MG TABLET (FP) PO SCH (10:00)
[2019-12-13] MEDS ORDERED: POTASSIUM CHLORIDE TABS 10 MEQ TABLET.ER (FP) PO SCH (10:00)
== END 2019-12-12 21:15 | disposition home or self-care (01) | DRG 314 ==
LOC: JER 12:25 → JERBED 18:26 → J4S 12-12 03:45
PROVIDERS: ADMIT Family Medicine; ATTEND Family Medicine
DX: I27.20 Pulmonary hypertension, unspecified (principal); J81.0 Acute pulmonary edema; I13.0 Hypertensive heart and chronic kidney disease with heart failure and stage 1 through stage 4 chronic kidney disease, or unspecified chronic kidney disease; I50.30 Unspecified diastolic (congestive) heart failure; I24.8 Other forms of acute ischemic heart disease; I42.2 Other hypertrophic cardiomyopathy; I35.0 Nonrheumatic aortic (valve) stenosis; I45.10 Unspecified right bundle-branch block; I48.0 Paroxysmal atrial fibrillation; K21.9 Gastro-esophageal reflux disease without esophagitis; D64.9 Anemia, unspecified; E06.3 Autoimmune thyroiditis; Z86.73 Personal history of transient ischemic attack (TIA), and cerebral infarction without residual deficits; D50.9 Iron deficiency anemia, unspecified; I36.1 Nonrheumatic tricuspid (valve) insufficiency; I25.10 Atherosclerotic heart disease of native coronary artery without angina pectoris; E78.00 Pure hypercholesterolemia, unspecified; E03.9 Hypothyroidism, unspecified; I87.2 Venous insufficiency (chronic) (peripheral); N18.9 Chronic kidney disease, unspecified; I50.9 Heart failure, unspecified
CPT/HCPCS: 36415; 71046-TC-FY; 80053; 82550; 83735; 83880; 84100; 84436; 84443; 84484; 85025; 85610; 85730; 93005; 93010; 99285-25

== ENCOUNTER 2020-10-29 11:38 | Inpatient (IN) | payer OTHER, MEDICARE ==
[2020-10-29 12:09] VITALS: BMI 26.9
[2020-10-29 14:51] LABS: BASO % 0.4 % (0-2.0); EOS % 0.2 % (0-4.5); HEMATOCRIT 39.8 % (35.4-49); HEMOGLOBIN 13.4 GM/dL (11.7-16.9); LYMPH % 13.6 % (8-40); MCH 30.3 pg (25.7-33.7); MCHC 33.7 g/dl (32.0-35.9); MEAN CELL VOLUME 90.1 fl (80-96); MEAN PLT VOLUME 9.2 fl (7.5-11.1); NEUT % 75.8 % (42.8-82.8); PLATELET COUNT 143 K/MM3 (134-434); RBC 4.42 M/mm3 (4.00-5.60); RDW 15.3 % (11.9-15.9); WHITE BLOOD COUNT 3.9 K/mm3 (4.0-10.0)
[2020-10-29 15:19] LABS: POTASSIUM 4.2 mmol/L (3.5-5.1)
[2020-10-29 15:23] LABS: ALBUMIN 3.4 g/dl (3.4-5.0); BLOOD UREA NITROGEN 27.2 mg/dL (7-18); MAGNESIUM 1.8 mg/dL (1.8-2.4)
[2020-10-29 15:26] LABS: CREATININE 0.9 mg/dL (0.55-1.3)
[2020-10-29 15:28] LABS: BILIRUBIN,TOTAL 0.8 mg/dL (0.2-1); N-TERMINAL BNP 5061.7 pg/ml (5-450); TOT PROT 6.7 g/dl (6.4-8.2)
[2020-10-29] MEDS: ENOXAPARIN NA (PORCINE) 40 MG/0.4 ML DISP.SYRIN SQ SCH (18:04)
[2020-10-29] MEDS ORDERED: ASCORBIC ACID 500 MG TABLET (FP) ONE (22:23)
[2020-10-29] MEDS ORDERED: METOPROLOL TARTRATE 25 MG TABLET (FP) ONE (22:24)
[2020-10-29] MEDS: ASCORBIC ACID 500 MG TABLET (FP) PO SCH (22:28)
[2020-10-29] MEDS: METOPROLOL TARTRATE 25 MG TABLET (FP) PO SCH (22:28)
[2020-10-30 07:05] LABS: BASO % 0.9 % (0-2.0); EOS % 0.4 % (0-4.5); HEMATOCRIT 38.1 % (35.4-49); HEMOGLOBIN 12.9 GM/dL (11.7-16.9); LYMPH % 25.9 % (8-40); MCH 30.3 pg (25.7-33.7); MCHC 33.8 g/dl (32.0-35.9); MEAN CELL VOLUME 89.6 fl (80-96); MEAN PLT VOLUME 9.2 fl (7.5-11.1); MONO % 13.7 % (3.8-10.2); NEUT % 59.1 % (42.8-82.8); PLATELET COUNT 137 K/MM3 (134-434); RBC 4.25 M/mm3 (4.00-5.60); RDW 16.1 % (11.9-15.9)
[2020-10-30 07:27] LABS: BLOOD UREA NITROGEN 24.9 mg/dL (7-18)
[2020-10-30 07:31] LABS: CREATININE 0.8 mg/dL (0.55-1.3)
[2020-10-30] MEDS ORDERED: PT OWN MED DRAWER 7, Y5N ONE (08:57)
[2020-10-30] MEDS: METOPROLOL TARTRATE 25 MG TABLET (FP) PO SCH ×2 (09:07→21:43)
[2020-10-30] MEDS: ENOXAPARIN NA (PORCINE) 40 MG/0.4 ML DISP.SYRIN SQ SCH (09:07)
[2020-10-30] MEDS: ASCORBIC ACID 500 MG TABLET (FP) PO SCH ×2 (09:07→21:43)
[2020-10-30] MEDS: guaiFENesin 600 MG TABLET.ER (FP) PO SCH ×2 (09:07→21:43)
[2020-10-30] MEDS: PANTOPRAZOLE 20 MG TABLET PO SCH (09:07)
[2020-10-30] MEDS: NYSTATIN POWDER 100,000 UNITS/GM - 15 GM TOPICAL POWDER TP SCH (09:07)
[2020-10-30] MEDS ORDERED: LISINOPRIL 5 MG TABLET PO SCH (10:00)
[2020-10-30] MEDS ORDERED: FUROSEMIDE 40 MG/4 ML INJECTABLE VIAL IVPUSH ONE (10:45)
[2020-10-30] MEDS: SILVER SULFADIAZINE 1% TOP CREAM 50 GM JAR TP SCH (16:22)
[2020-10-30] MEDS: RIVAROXABAN 20 MG TABLET PO SCH (17:20)
[2020-10-30] MEDS ORDERED: RIVAROXABAN 15 MG TABLET PO SCH (18:00)
[2020-10-30] MEDS: ATORVASTATIN CA 20 MG TABLET (FP) PO SCH (21:43)
[2020-10-31 06:53] LABS: BASO % 0.7 % (0-2.0); EOS % 1.2 % (0-4.5); HEMATOCRIT 38.9 % (35.4-49); HEMOGLOBIN 13.2 GM/dL (11.7-16.9); LYMPH % 23.4 % (8-40); MCH 30.3 pg (25.7-33.7); MEAN PLT VOLUME 8.8 fl (7.5-11.1); MONO % 12.4 % (3.8-10.2); NEUT % 62.3 % (42.8-82.8); PLATELET COUNT 143 K/MM3 (134-434); RBC 4.37 M/mm3 (4.00-5.60); RDW 15.3 % (11.9-15.9); WHITE BLOOD COUNT 3.1 K/mm3 (4.0-10.0)
[2020-10-31 07:05] LABS: POTASSIUM 3.5 mmol/L (3.5-5.1)
[2020-10-31 07:15] LABS: BLOOD UREA NITROGEN 29.6 mg/dL (7-18); CALCIUM 7.9 mg/dL (8.5-10.1)
[2020-10-31 07:18] LABS: CREATININE 0.9 mg/dL (0.55-1.3)
[2020-10-31] MEDS ORDERED: LISINOPRIL 10 MG TABLET PO SCH (08:38)
[2020-10-31] MEDS ORDERED: PT OWN MED DRAWER 7, Y5N ONE (09:23)
[2020-10-31] MEDS: ASCORBIC ACID 500 MG TABLET (FP) PO SCH ×2 (09:27→21:55)
[2020-10-31] MEDS: METOPROLOL TARTRATE 25 MG TABLET (FP) PO SCH ×2 (09:27→21:55)
[2020-10-31] MEDS: guaiFENesin 600 MG TABLET.ER (FP) PO SCH ×2 (09:27→21:55)
[2020-10-31] MEDS: FUROSEMIDE 20 MG TABLET (FP) PO SCH (09:28)
[2020-10-31] MEDS: CHOLECALCIFEROL (VIT D3) 5000 UNITS (125 MCG) CAP PO SCH (09:28)
[2020-10-31] MEDS: COLLAGENASE CLOSTRIDIUM HIST. 30 GRAMS TUBE TP SCH (09:28)
[2020-10-31] MEDS: NYSTATIN POWDER 100,000 UNITS/GM - 15 GM TOPICAL POWDER TP SCH (09:28)
[2020-10-31] MEDS: PANTOPRAZOLE 20 MG TABLET PO SCH ×2 (09:28→09:42)
[2020-10-31] MEDS: SILVER SULFADIAZINE 1% TOP CREAM 50 GM JAR TP SCH (09:29)
[2020-10-31] MEDS: ZINC SULFATE 220 MG CAPSULE (FP) PO SCH ×2 (13:24→21:55)
[2020-10-31] MEDS ORDERED: BAMLANIVIMAB 700 MG in SODIUM CHLORIDE 180 ML IVPB ONE (14:00)
[2020-10-31] MEDS ORDERED: LISINOPRIL 20 MG TABLET PO SCH (17:41)
[2020-10-31] MEDS ORDERED: LISINOPRIL 10 MG TABLET PO ONE (17:42)
[2020-10-31] MEDS: RIVAROXABAN 20 MG TABLET PO SCH (17:50)
[2020-10-31] MEDS ORDERED: ACETAMINOPHEN 325 MG TABLET (FP) PO PRN (21:07)
[2020-10-31] MEDS: ATORVASTATIN CA 20 MG TABLET (FP) PO SCH (21:56)
[2020-11-01] MEDS: ZINC SULFATE 220 MG CAPSULE (FP) PO SCH ×3 (05:27→21:31)
[2020-11-01 07:05] LABS: BASO % 0.6 % (0-2.0); EOS % 0.7 % (0-4.5); HEMOGLOBIN 13.7 GM/dL (11.7-16.9); LYMPH % 18.3 % (8-40); MCH 30.4 pg (25.7-33.7); MCHC 34.3 g/dl (32.0-35.9); MEAN CELL VOLUME 88.6 fl (80-96); MONO % 11.9 % (3.8-10.2); NEUT % 68.5 % (42.8-82.8); PLATELET COUNT 148 K/MM3 (134-434); RBC 4.51 M/mm3 (4.00-5.60); RDW 15.8 % (11.9-15.9); WHITE BLOOD COUNT 4.2 K/mm3 (4.0-10.0)
[2020-11-01 07:16] LABS: POTASSIUM 3.6 mmol/L (3.5-5.1)
[2020-11-01 07:19] LABS: BLOOD UREA NITROGEN 29.8 mg/dL (7-18)
[2020-11-01 07:22] LABS: CALCIUM 8.3 mg/dL (8.5-10.1)
[2020-11-01 07:25] LABS: CREATININE 0.9 mg/dL (0.55-1.3)
[2020-11-01] MEDS ORDERED: PT OWN MED DRAWER 7, Y5N ONE (09:43)
[2020-11-01] MEDS: CHOLECALCIFEROL (VIT D3) 5000 UNITS (125 MCG) CAP PO SCH (09:48)
[2020-11-01] MEDS: FUROSEMIDE 20 MG TABLET (FP) PO SCH (09:48)
[2020-11-01] MEDS: PANTOPRAZOLE 20 MG TABLET PO SCH (09:48)
[2020-11-01] MEDS: LISINOPRIL 10 MG TABLET PO SCH (09:48)
[2020-11-01] MEDS: guaiFENesin 600 MG TABLET.ER (FP) PO SCH ×2 (09:49→21:29)
[2020-11-01] MEDS: ASCORBIC ACID 500 MG TABLET (FP) PO SCH ×2 (09:49→21:29)
[2020-11-01] MEDS: METOPROLOL TARTRATE 25 MG TABLET (FP) PO SCH ×2 (09:49→21:29)
[2020-11-01] MEDS: COLLAGENASE CLOSTRIDIUM HIST. 30 GRAMS TUBE TP SCH (13:20)
[2020-11-01] MEDS: NYSTATIN POWDER 100,000 UNITS/GM - 15 GM TOPICAL POWDER TP SCH (13:20)
[2020-11-01] MEDS: RIVAROXABAN 20 MG TABLET PO SCH (17:52)
[2020-11-01] MEDS: MAGNESIUM OXIDE 400 MG TABLET (FP) PO SCH (21:29)
[2020-11-01] MEDS: ATORVASTATIN CA 20 MG TABLET (FP) PO SCH (21:31)
[2020-11-02] MEDS ORDERED: diphenhydrAMINE HCL 25 MG CAPSULE (FP) PO PRN (03:15)
[2020-11-02] MEDS ORDERED: HYDROCORTISONE 2.5% TOPICAL CREAM 30 GM TUBE TP PRN (03:20)
[2020-11-02] MEDS: ZINC SULFATE 220 MG CAPSULE (FP) PO SCH ×3 (05:50→21:29)
[2020-11-02 07:23] LABS: BASO % 0.8 % (0-2.0); EOS % 3.4 % (0-4.5); HEMATOCRIT 42.4 % (35.4-49); HEMOGLOBIN 14.4 GM/dL (11.7-16.9); LYMPH % 34.7 % (8-40); MCH 30.5 pg (25.7-33.7); MCHC 33.8 g/dl (32.0-35.9); MONO % 15.6 % (3.8-10.2); NEUT % 45.5 % (42.8-82.8); PLATELET COUNT 147 K/MM3 (134-434); RBC 4.72 M/mm3 (4.00-5.60); RDW 15.4 % (11.9-15.9); WHITE BLOOD COUNT 3.4 K/mm3 (4.0-10.0)
[2020-11-02 07:51] LABS: POTASSIUM 4.5 mmol/L (3.5-5.1)
[2020-11-02 08:17] LABS: CALCIUM 8.5 mg/dL (8.5-10.1)
[2020-11-02 08:19] LABS: BLOOD UREA NITROGEN 29.1 mg/dL (7-18)
[2020-11-02 08:21] LABS: CREATININE 0.9 mg/dL (0.55-1.3)
[2020-11-02] MEDS: FUROSEMIDE 20 MG TABLET (FP) PO SCH (09:29)
[2020-11-02] MEDS: METOPROLOL TARTRATE 25 MG TABLET (FP) PO SCH ×2 (09:29→21:29)
[2020-11-02] MEDS: MAGNESIUM OXIDE 400 MG TABLET (FP) PO SCH ×2 (09:29→21:29)
[2020-11-02] MEDS: ASCORBIC ACID 500 MG TABLET (FP) PO SCH ×2 (09:29→21:29)
[2020-11-02] MEDS: LISINOPRIL 10 MG TABLET PO SCH (09:29)
[2020-11-02] MEDS: guaiFENesin 600 MG TABLET.ER (FP) PO SCH ×2 (09:29→21:29)
[2020-11-02] MEDS: PANTOPRAZOLE 20 MG TABLET PO SCH (09:29)
[2020-11-02] MEDS: COLLAGENASE CLOSTRIDIUM HIST. 30 GRAMS TUBE TP SCH (09:30)
[2020-11-02] MEDS: NYSTATIN POWDER 100,000 UNITS/GM - 15 GM TOPICAL POWDER TP SCH (09:30)
[2020-11-02] MEDS: CHOLECALCIFEROL (VIT D3) 5000 UNITS (125 MCG) CAP PO SCH (09:30)
[2020-11-02] MEDS: RIVAROXABAN 20 MG TABLET PO SCH (17:42)
[2020-11-02] MEDS: ATORVASTATIN CA 20 MG TABLET (FP) PO SCH (21:29)
[2020-11-03] MEDS: ZINC SULFATE 220 MG CAPSULE (FP) PO SCH ×2 (07:12→13:02)
[2020-11-03 07:26] LABS: BASO % 0.5 % (0-2.0); EOS % 4.3 % (0-4.5); HEMATOCRIT 40.3 % (35.4-49); HEMOGLOBIN 13.8 GM/dL (11.7-16.9); LYMPH % 24.1 % (8-40); MCH 30.4 pg (25.7-33.7); MCHC 34.2 g/dl (32.0-35.9); MEAN CELL VOLUME 88.8 fl (80-96); MEAN PLT VOLUME 8.7 fl (7.5-11.1); MONO % 11.4 % (3.8-10.2); NEUT % 59.7 % (42.8-82.8); PLATELET COUNT 162 K/MM3 (134-434); RBC 4.54 M/mm3 (4.00-5.60); RDW 15.1 % (11.9-15.9); WHITE BLOOD COUNT 4.8 K/mm3 (4.0-10.0)
[2020-11-03] MEDS: PANTOPRAZOLE 20 MG TABLET PO SCH (09:19)
[2020-11-03] MEDS: ASCORBIC ACID 500 MG TABLET (FP) PO SCH (09:19)
[2020-11-03] MEDS: MAGNESIUM OXIDE 400 MG TABLET (FP) PO SCH (09:19)
[2020-11-03] MEDS: METOPROLOL TARTRATE 25 MG TABLET (FP) PO SCH (09:19)
[2020-11-03] MEDS: NYSTATIN POWDER 100,000 UNITS/GM - 15 GM TOPICAL POWDER TP SCH (09:19)
[2020-11-03] MEDS: COLLAGENASE CLOSTRIDIUM HIST. 30 GRAMS TUBE TP SCH (09:19)
[2020-11-03] MEDS: guaiFENesin 600 MG TABLET.ER (FP) PO SCH (09:19)
[2020-11-03] MEDS: FUROSEMIDE 20 MG TABLET (FP) PO SCH (09:19)
[2020-11-03] MEDS: CHOLECALCIFEROL (VIT D3) 5000 UNITS (125 MCG) CAP PO SCH (09:20)
[2020-11-03] MEDS ORDERED: LISINOPRIL 20 MG TABLET PO SCH (10:00)
[2020-11-03 13:24] VITALS: BP 142/67; PULSE 66; TEMP 98.2
== END 2020-11-03 14:45 | disposition home or self-care (01) | DRG 178 ==
LOC: JER 11:38 → JERBED 16:35 → J4S 23:59
PROVIDERS: ADMIT Internal Medicine; ATTEND Internal Medicine
PROC: XW033F6 Introduction of Bamlanivimab Monoclonal Antibody into Peripheral Vein, Percutaneous Approach, New Technology Group 6 (ICD-10-PCS; principal; 2020-10-31)
DX: U07.1 COVID-19 (principal); I42.2 Other hypertrophic cardiomyopathy; I24.8 Other forms of acute ischemic heart disease; I13.0 Hypertensive heart and chronic kidney disease with heart failure and stage 1 through stage 4 chronic kidney disease, or unspecified chronic kidney disease; I50.32 Chronic diastolic (congestive) heart failure; R04.2 Hemoptysis; E78.5 Hyperlipidemia, unspecified; Z95.2 Presence of prosthetic heart valve; I45.10 Unspecified right bundle-branch block; I73.9 Peripheral vascular disease, unspecified; K21.9 Gastro-esophageal reflux disease without esophagitis; I48.0 Paroxysmal atrial fibrillation; N18.9 Chronic kidney disease, unspecified; E66.09 Other obesity due to excess calories; Z68.27 Body mass index [BMI] 27.0-27.9, adult; I25.10 Atherosclerotic heart disease of native coronary artery without angina pectoris; N40.0 Benign prostatic hyperplasia without lower urinary tract symptoms; Z86.73 Personal history of transient ischemic attack (TIA), and cerebral infarction without residual deficits
CPT/HCPCS: 36415; 71045-TC-FY; 80048; 80053; 82550; 82728; 83615; 83690; 83735; 83880; 84443; 84484; 85025; 85379; 86140; 87081; 87426; 93005; 93010; 97116-GP; 97161-GP; 99285-25; M0239; Q0239

== ENCOUNTER 2020-12-15 09:21 | Emergency (ER) | payer OTHER, MEDICARE ==
[2020-12-15 09:34] VITALS: BP 00/00; PULSE 65; TEMP 97.5; BMI 28.0
== END 2020-12-15 11:12 | disposition home or self-care (01) ==
LOC: JER 09:21
DX: L03.032 Cellulitis of left toe (principal)
CPT/HCPCS: 99283-25

== ENCOUNTER 2021-02-22 21:33 | Inpatient (IN) | payer OTHER, MEDICARE ==
[2021-02-22 21:44] VITALS: BMI 29.4
[2021-02-22] MEDS ORDERED: FUROSEMIDE 40 MG/4 ML INJECTABLE VIAL IVPUSH ONE (22:08)
[2021-02-22 22:50] LABS: BASO % 0.7 % (0-2.0); EOS % 0.9 % (0-4.5); LYMPH % 7.8 % (8-40); MCH 31.5 pg (25.7-33.7); MCHC 33.4 g/dl (32.0-35.9); MEAN CELL VOLUME 94.2 fl (80-96); MONO % 9.7 % (3.8-10.2); NEUT % 80.9 % (42.8-82.8); PLATELET COUNT 164 K/MM3 (134-434); RBC 4.14 M/mm3 (4.00-5.60); RDW 14.8 % (11.9-15.9)
[2021-02-22 22:51] LABS: VENOUS BASE EXCESS -3.2 mmol/L (-2-2); VENOUS O2 SATURATION 58.8 % (70-80); VENOUS PCO2 40.1 mmHg (38-52); VENOUS PH 7.358 (7.310-7.410)
[2021-02-22] MEDS ORDERED: FUROSEMIDE 40 MG/4 ML INJECTABLE VIAL ONE (22:54)
[2021-02-22 22:58] LABS: INR 1.32 (0.83-1.09); PROTHROMBIN TIME (PATIENT) 16.1 SEC (9.7-13.0)
[2021-02-22 23:00] LABS: ACTIVATED PTT 31.8 SECONDS (25.2-36.5)
[2021-02-22] MEDS ORDERED: GLUCAGON 1 MG KIT ONE ×2 (23:02→23:52)
[2021-02-22] MEDS ORDERED: GLUCAGON 1 MG KIT IVPUSH ONE ×3 (23:02→23:43)
[2021-02-22] MEDS ORDERED: ONDANSETRON 4 MG/2 ML VIAL IVPUSH ONE (23:10)
[2021-02-22 23:11] LABS: ALBUMIN 3.4 g/dl (3.4-5.0); CALCIUM 8.1 mg/dL (8.5-10.1); MAGNESIUM 2.2 mg/dL (1.8-2.4)
[2021-02-22 23:12] LABS: BLOOD UREA NITROGEN 40.9 mg/dL (7-18)
[2021-02-22 23:14] LABS: CREATININE 1.4 mg/dL (0.55-1.3)
[2021-02-22 23:15] LABS: PHOSPHOROUS 3.5 mg/dL (2.5-4.9)
[2021-02-22 23:16] LABS: BILIRUBIN,TOTAL 0.9 mg/dL (0.2-1); TOT PROT 6.1 g/dl (6.4-8.2)
[2021-02-22 23:20] LABS: N-TERMINAL BNP 4845.6 pg/ml (5-450)
[2021-02-22] MEDS ORDERED: ONDANSETRON 4 MG/2 ML VIAL IVPUSH PRN (23:40)
[2021-02-22] MEDS ORDERED: CEFTRIAXONE 1,000 MG in DEXTROSE 5%-WATER - 50 ML IVPB ONE (23:49)
[2021-02-22] MEDS ORDERED: AZITHROMYCIN IVPB 250 MG in DEXTROSE 5%-WATER - 250 ML IVPB ONE (23:51)
[2021-02-22] MEDS ORDERED: ONDANSETRON 4 MG/2 ML VIAL ONE (23:52)
[2021-02-23] MEDS ORDERED: AZITHROMYCIN IVPB 500 MG/250 ML BAG IVPB ONE (00:18)
[2021-02-23] MEDS ORDERED: CEFTRIAXONE 1 GM/50 ML BAG ONE (00:18)
[2021-02-23 00:19] LABS: EPI CELLS 4 /uL (0-25.1); HYALINE CASTS 0 /uL (0-3.1); PH,URINE 5.5 (5.0-8.0); URINE APPEARANCE CLEAR; URINE BACTERIA 18 /uL (0-1359); URINE BILIRUBIN NEGATIVE (NEGATIVE); URINE COLOR YELLOW; URINE GLUCOSE (UA) NEGATIVE (NEGATIVE); URINE KETONE NEGATIVE (NEGATIVE); URINE LEUK ESTERASE NEGATIVE (NEGATIVE); URINE NITRITE NEGATIVE (NEGATIVE); URINE PROTEIN 2+ (NEGATIVE); URINE RBC 8 /uL (0-23.9); URINE UROBILINOGEN 0.2 mg/dL (0.2-1.0); URINE WBC 38 /uL (0-25.8)
[2021-02-23] MEDS ORDERED: ENOXAPARIN NA (PORCINE) 40 MG/0.4 ML DISP.SYRIN SQ SCH ×2 (01:00→10:00)
[2021-02-23] MEDS ORDERED: LOSARTAN POTASSIUM 25 MG TABLET PO SCH (01:15)
[2021-02-23] MEDS ORDERED: ASCORBIC ACID 500 MG TABLET (FP) ONE (01:52)
[2021-02-23] MEDS ORDERED: PANTOPRAZOLE 40 MG TABLET ONE (01:52)
[2021-02-23] MEDS: ASCORBIC ACID 500 MG TABLET (FP) PO SCH ×3 (02:05→21:18)
[2021-02-23] MEDS: PANTOPRAZOLE 40 MG TABLET PO SCH ×2 (02:05→09:49)
[2021-02-23] MEDS: NYSTATIN POWDER 100,000 UNITS/GM - 15 GM TOPICAL POWDER TP SCH ×3 (05:23→21:17)
[2021-02-23] MEDS: ZINC SULFATE 220 MG CAPSULE (FP) PO SCH ×3 (05:50→21:18)
[2021-02-23 08:39] LABS: BASO % 0.7 % (0-2.0); HEMATOCRIT 37.2 % (35.4-49); HEMOGLOBIN 12.7 GM/dL (11.7-16.9); LYMPH % 15.1 % (8-40); MCH 31.6 pg (25.7-33.7); MCHC 34.2 g/dl (32.0-35.9); MEAN CELL VOLUME 92.6 fl (80-96); MEAN PLT VOLUME 9.4 fl (7.5-11.1); MONO % 11.5 % (3.8-10.2); NEUT % 70.7 % (42.8-82.8); PLATELET COUNT 158 K/MM3 (134-434); RBC 4.01 M/mm3 (4.00-5.60); RDW 14.4 % (11.9-15.9); WHITE BLOOD COUNT 7.1 K/mm3 (4.0-10.0)
[2021-02-23 09:08] LABS: CALCIUM 7.9 mg/dL (8.5-10.1)
[2021-02-23 09:09] LABS: BLOOD UREA NITROGEN 40.9 mg/dL (7-18)
[2021-02-23 09:12] LABS: CREATININE 1.2 mg/dL (0.55-1.3)
[2021-02-23] MEDS ORDERED: PT OWN MED DRAWER 7, Y5N ONE (09:36)
[2021-02-23] MEDS ORDERED: FUROSEMIDE 100 MG/10 ML INJECTABLE VIAL IVPB ONE (09:44)
[2021-02-23] MEDS: LOSARTAN POTASSIUM 50 MG TABLET PO SCH ×2 (09:49→21:18)
[2021-02-23] MEDS ORDERED: PANTOPRAZOLE 40 MG TABLET PO SCH (10:00)
[2021-02-23] MEDS: CHOLECALCIFEROL (VIT D3) 5000 UNITS (125 MCG) CAP PO SCH (11:48)
[2021-02-23] MEDS: COLLAGENASE CLOSTRIDIUM HIST. 30 GRAMS TUBE TP SCH (11:50)
[2021-02-23] MEDS: NYSTATIN 100,000 UNIT/GM TOPICAL CREAM 15 GM TUBE TP SCH ×2 (11:51→21:17)
[2021-02-23] MEDS ORDERED: METOPROLOL TARTRATE 25 MG TABLET (FP) PO SCH (12:45)
[2021-02-23] MEDS ORDERED: cefTRIAXone SODIUM 1 GM VIAL ONE (16:22)
[2021-02-23] MEDS ORDERED: DEXTROSE 5%-WATER - 50 ML IVPB ONE (16:22)
[2021-02-23] MEDS: CEFTRIAXONE 1 GM in DEXTROSE 5%-WATER - 50 ML IVPB SCH (16:33)
[2021-02-23] MEDS ORDERED: RIVAROXABAN 20 MG TABLET PO SCH (18:00)
[2021-02-23] MEDS: ATORVASTATIN CA 20 MG TABLET (FP) PO SCH ×2 (21:18→21:19)
[2021-02-23] MEDS: guaiFENesin 600 MG TABLET.ER (FP) PO SCH (21:18)
[2021-02-24] MEDS: ZINC SULFATE 220 MG CAPSULE (FP) PO SCH ×3 (05:33→22:30)
[2021-02-24 06:54] LABS: BASO % 0.9 % (0-2.0); EOS % 5.4 % (0-4.5); HEMATOCRIT 36.9 % (35.4-49); HEMOGLOBIN 12.6 GM/dL (11.7-16.9); LYMPH % 16.3 % (8-40); MCHC 34.2 g/dl (32.0-35.9); MEAN CELL VOLUME 93.5 fl (80-96); MONO % 8.8 % (3.8-10.2); NEUT % 68.6 % (42.8-82.8); PLATELET COUNT 139 K/MM3 (134-434); RBC 3.94 M/mm3 (4.00-5.60); RDW 14.3 % (11.9-15.9); WHITE BLOOD COUNT 6.4 K/mm3 (4.0-10.0)
[2021-02-24 07:42] LABS: CREATININE 1.2 mg/dL (0.55-1.3)
[2021-02-24 07:44] LABS: BILIRUBIN,TOTAL 0.6 mg/dL (0.2-1); TOT PROT 5.8 g/dl (6.4-8.2)
[2021-02-24] MEDS ORDERED: FUROSEMIDE 40 MG TABLET (FP) PO SCH (10:00)
[2021-02-24] MEDS ORDERED: cefTRIAXone SODIUM 1 GM VIAL ONE (10:25)
[2021-02-24] MEDS ORDERED: DEXTROSE 5%-WATER - 50 ML IVPB ONE (10:25)
[2021-02-24] MEDS: guaiFENesin 600 MG TABLET.ER (FP) PO SCH ×2 (10:30→22:30)
[2021-02-24] MEDS: CHOLECALCIFEROL (VIT D3) 5000 UNITS (125 MCG) CAP PO SCH (10:30)
[2021-02-24] MEDS: LOSARTAN POTASSIUM 50 MG TABLET PO SCH ×2 (10:30→22:30)
[2021-02-24] MEDS: PANTOPRAZOLE 40 MG TABLET PO SCH (10:30)
[2021-02-24] MEDS: CEFTRIAXONE 1 GM in DEXTROSE 5%-WATER - 50 ML IVPB SCH (10:30)
[2021-02-24] MEDS: ASCORBIC ACID 500 MG TABLET (FP) PO SCH ×2 (10:30→22:30)
[2021-02-24] MEDS: COLLAGENASE CLOSTRIDIUM HIST. 30 GRAMS TUBE TP SCH (10:31)
[2021-02-24] MEDS: NYSTATIN POWDER 100,000 UNITS/GM - 15 GM TOPICAL POWDER TP SCH ×2 (10:31→22:30)
[2021-02-24] MEDS: NYSTATIN 100,000 UNIT/GM TOPICAL CREAM 15 GM TUBE TP SCH ×2 (10:31→22:31)
[2021-02-24] MEDS ORDERED: FUROSEMIDE 100 MG/10 ML INJECTABLE VIAL IVPB ONE (14:50)
[2021-02-24] MEDS: RIVAROXABAN 20 MG TABLET PO SCH ×2 (17:44→18:19)
[2021-02-24] MEDS: ATORVASTATIN CA 20 MG TABLET (FP) PO SCH (22:29)
[2021-02-25] MEDS: ZINC SULFATE 220 MG CAPSULE (FP) PO SCH ×3 (06:40→21:28)
[2021-02-25 06:59] LABS: ALBUMIN 3.1 g/dl (3.4-5.0); BLOOD UREA NITROGEN 29.1 mg/dL (7-18)
[2021-02-25 07:00] LABS: CALCIUM 7.8 mg/dL (8.5-10.1); MAGNESIUM 1.8 mg/dL (1.8-2.4)
[2021-02-25 07:02] LABS: CREATININE 1.2 mg/dL (0.55-1.3)
[2021-02-25 07:04] LABS: BILIRUBIN,TOTAL 0.9 mg/dL (0.2-1); TOT PROT 5.8 g/dl (6.4-8.2)
[2021-02-25 07:05] LABS: BASO % 0.7 % (0-2.0); EOS % 4.5 % (0-4.5); LYMPH % 16.3 % (8-40); MCH 31.8 pg (25.7-33.7); MCHC 34.3 g/dl (32.0-35.9); MEAN CELL VOLUME 92.7 fl (80-96); MEAN PLT VOLUME 9.6 fl (7.5-11.1); MONO % 10.2 % (3.8-10.2); NEUT % 68.3 % (42.8-82.8); PLATELET COUNT 163 K/MM3 (134-434); RDW 14.5 % (11.9-15.9)
[2021-02-25] MEDS ORDERED: DEXTROSE 5%-WATER - 50 ML IVPB ONE (10:07)
[2021-02-25] MEDS ORDERED: PT OWN MED DRAWER 7, Y5N ONE (10:07)
[2021-02-25] MEDS ORDERED: cefTRIAXone SODIUM 1 GM VIAL ONE (10:07)
[2021-02-25] MEDS: PANTOPRAZOLE 40 MG TABLET PO SCH (10:09)
[2021-02-25] MEDS: POTASSIUM CHLORIDE TABS 20 MEQ TABLET.ER (FP) PO SCH (10:09)
[2021-02-25] MEDS: ASCORBIC ACID 500 MG TABLET (FP) PO SCH ×2 (10:10→21:28)
[2021-02-25] MEDS: guaiFENesin 600 MG TABLET.ER (FP) PO SCH ×2 (10:10→21:28)
[2021-02-25] MEDS: COLLAGENASE CLOSTRIDIUM HIST. 30 GRAMS TUBE TP SCH (10:10)
[2021-02-25] MEDS: LOSARTAN POTASSIUM 50 MG TABLET PO SCH ×2 (10:10→21:28)
[2021-02-25] MEDS: CHOLECALCIFEROL (VIT D3) 5000 UNITS (125 MCG) CAP PO SCH (10:10)
[2021-02-25] MEDS: FUROSEMIDE 40 MG TABLET (FP) PO SCH (10:10)
[2021-02-25] MEDS: CEFTRIAXONE 1 GM in DEXTROSE 5%-WATER - 50 ML IVPB SCH (10:10)
[2021-02-25] MEDS: NYSTATIN POWDER 100,000 UNITS/GM - 15 GM TOPICAL POWDER TP SCH ×2 (10:11→21:29)
[2021-02-25] MEDS: NYSTATIN 100,000 UNIT/GM TOPICAL CREAM 15 GM TUBE TP SCH ×2 (10:11→21:29)
[2021-02-25] MEDS: ATORVASTATIN CA 20 MG TABLET (FP) PO SCH (21:29)
[2021-02-26] MEDS: ZINC SULFATE 220 MG CAPSULE (FP) PO SCH (05:56)
[2021-02-26 06:46] LABS: EOS % 4.4 % (0-4.5); HEMATOCRIT 38.6 % (35.4-49); HEMOGLOBIN 13.1 GM/dL (11.7-16.9); LYMPH % 17.2 % (8-40); MCH 31.2 pg (25.7-33.7); MCHC 33.8 g/dl (32.0-35.9); MEAN CELL VOLUME 92.4 fl (80-96); MEAN PLT VOLUME 9.6 fl (7.5-11.1); MONO % 9.5 % (3.8-10.2); NEUT % 67.9 % (42.8-82.8); PLATELET COUNT 160 K/MM3 (134-434); RBC 4.18 M/mm3 (4.00-5.60); RDW 14.5 % (11.9-15.9); WHITE BLOOD COUNT 6.4 K/mm3 (4.0-10.0)
[2021-02-26 07:33] LABS: CALCIUM 8.1 mg/dL (8.5-10.1)
[2021-02-26 07:34] LABS: BLOOD UREA NITROGEN 25.3 mg/dL (7-18); MAGNESIUM 1.8 mg/dL (1.8-2.4)
[2021-02-26] MEDS ORDERED: DEXTROSE 5%-WATER - 50 ML IVPB ONE (09:48)
[2021-02-26] MEDS ORDERED: cefTRIAXone SODIUM 1 GM VIAL ONE (09:48)
[2021-02-26] MEDS ORDERED: PT OWN MED DRAWER 7, Y5N ONE (09:48)
[2021-02-26] MEDS: CEFTRIAXONE 1 GM in DEXTROSE 5%-WATER - 50 ML IVPB SCH (09:49)
[2021-02-26] MEDS: CHOLECALCIFEROL (VIT D3) 5000 UNITS (125 MCG) CAP PO SCH (09:50)
[2021-02-26] MEDS: POTASSIUM CHLORIDE TABS 20 MEQ TABLET.ER (FP) PO SCH (09:50)
[2021-02-26] MEDS: PANTOPRAZOLE 40 MG TABLET PO SCH (09:50)
[2021-02-26] MEDS: FUROSEMIDE 40 MG TABLET (FP) PO SCH (09:50)
[2021-02-26] MEDS: guaiFENesin 600 MG TABLET.ER (FP) PO SCH (09:50)
[2021-02-26] MEDS: LOSARTAN POTASSIUM 50 MG TABLET PO SCH (09:50)
[2021-02-26] MEDS: ASCORBIC ACID 500 MG TABLET (FP) PO SCH (09:50)
[2021-02-26] MEDS ORDERED: POLYETHYLENE GLYCOL 3350 119 GM BTL PO SCH (10:00)
[2021-02-26] MEDS: COLLAGENASE CLOSTRIDIUM HIST. 30 GRAMS TUBE TP SCH (10:07)
[2021-02-26] MEDS: NYSTATIN 100,000 UNIT/GM TOPICAL CREAM 15 GM TUBE TP SCH (10:25)
[2021-02-26] MEDS: NYSTATIN POWDER 100,000 UNITS/GM - 15 GM TOPICAL POWDER TP SCH (10:27)
[2021-02-26 11:28] VITALS: BP 185/67; PULSE 35; TEMP 97.9
== END 2021-02-26 13:21 | disposition short-term general hospital (02) | DRG 291 ==
LOC: JER 21:33 → JERBED 23:55 → J4S 02-23 02:31
PROVIDERS: ADMIT Internal Medicine; ATTEND Internal Medicine
DX: I13.0 Hypertensive heart and chronic kidney disease with heart failure and stage 1 through stage 4 chronic kidney disease, or unspecified chronic kidney disease (principal); J18.9 Pneumonia, unspecified organism; I50.33 Acute on chronic diastolic (congestive) heart failure; I24.8 Other forms of acute ischemic heart disease; N17.9 Acute kidney failure, unspecified; L97.929 Non-pressure chronic ulcer of unspecified part of left lower leg with unspecified severity; I73.9 Peripheral vascular disease, unspecified; E78.5 Hyperlipidemia, unspecified; I25.10 Atherosclerotic heart disease of native coronary artery without angina pectoris; Z95.5 Presence of coronary angioplasty implant and graft; I48.0 Paroxysmal atrial fibrillation; R00.1 Bradycardia, unspecified; I49.5 Sick sinus syndrome; I44.1 Atrioventricular block, second degree; K21.9 Gastro-esophageal reflux disease without esophagitis; E03.9 Hypothyroidism, unspecified
CPT/HCPCS: 36415; 71045-TC-FY; 80048; 80053; 81003; 82550; 82803; 83735; 83880; 84100; 84443; 84484; 85025; 85610; 85730; 87040; 87086; 87899; 93005; 93010; 93306-TC; 97116-GP; 97161-GP; 99285-25; C9803; U0003; U0005

== ENCOUNTER 2021-07-22 07:01 | Emergency (ER) | payer OTHER, MEDICARE ==
[2021-07-22 07:45] VITALS: BMI 32.3
[2021-07-22 07:52] VITALS: BP 151/70; PULSE 65; TEMP 98
[2021-07-22] MEDS ORDERED: LIDOCAINE HCL 2% (50ML VIAL) SQ ONE (08:52)
[2021-07-22] MEDS ORDERED: CLINDAMYCIN HCL 150 MG CAPSULE (FP) PO ONE (09:09)
[2021-07-22] MEDS ORDERED: CLINDAMYCIN HCL 150 MG CAPSULE (FP) ONE (09:13)
== END 2021-07-22 09:30 | disposition home or self-care (01) ==
LOC: JER 07:01
DX: L03.317 Cellulitis of buttock (principal); L02.31 Cutaneous abscess of buttock
CPT/HCPCS: 99283-25

== ENCOUNTER 2021-08-11 12:23 | Inpatient (IN) | payer OTHER, MEDICARE ==
[2021-08-11] MEDS ORDERED: PIPERACILLIN/TAZOB 3.375 GM 3.375 GM in DEXTROSE 5%-WATER - 50 ML IVPB ONE (14:10)
[2021-08-11] MEDS ORDERED: SODIUM CHLORIDE 500 ML IV STA (14:12)
[2021-08-11] MEDS ORDERED: PIPERACILLIN/TAZOB 3.375 GM 3.375 GM/50 ML BAG IVPB ONE (14:52)
[2021-08-11 14:54] LABS: BASO % 0.8 % (0-2.0); EOS % 0.2 % (0-4.5); HEMATOCRIT 36.9 % (35.4-49); HEMOGLOBIN 12.5 GM/dL (11.7-16.9); LYMPH % 8.4 % (8-40); MCH 29.6 pg (25.7-33.7); MCHC 33.9 g/dl (32.0-35.9); MEAN CELL VOLUME 87.5 fl (80-96); MEAN PLT VOLUME 8.4 fl (7.5-11.1); NEUT % 84.6 % (42.8-82.8); PLATELET COUNT 203 10^3/uL (134-434); RBC 4.22 M/mm3 (4.00-5.60); RDW 14.5 % (11.9-15.9); WHITE BLOOD COUNT 10.8 K/mm3 (4.0-10.0)
[2021-08-11 15:07] LABS: INR 1.3 (0.83-1.09); PROTHROMBIN TIME (PATIENT) 14.6 SEC (9.7-13.0)
[2021-08-11 15:17] LABS: BLOOD UREA NITROGEN 38.2 mg/dL (7-18)
[2021-08-11 15:18] LABS: ALBUMIN 3.2 g/dl (3.4-5.0)
[2021-08-11 15:20] LABS: CREATININE 1.1 mg/dL (0.55-1.3)
[2021-08-11 15:22] LABS: BILIRUBIN,TOTAL 0.6 mg/dL (0.2-1); TOT PROT 7.2 g/dl (6.4-8.2)
[2021-08-11] MEDS ORDERED: FUROSEMIDE 40 MG/4 ML INJECTABLE VIAL IVPUSH ONE (19:41)
[2021-08-11] MEDS: ATORVASTATIN CA 20 MG TABLET (FP) PO SCH ×2 (21:14→21:35)
[2021-08-11] MEDS: ACETAMINOPHEN 325 MG TABLET (FP) PO PRN (21:14)
[2021-08-11] MEDS: LOSARTAN POTASSIUM 50 MG TABLET PO SCH ×2 (21:15→21:36)
[2021-08-11] MEDS: METOPROLOL TARTRATE 25 MG TABLET (FP) PO SCH (21:15)
[2021-08-11] MEDS: COLLAGENASE CLOSTRIDIUM HIST. 30 GRAMS TUBE TP SCH (22:45)
[2021-08-11] MEDS: CLINDAMYCIN HCL 150 MG CAPSULE (FP) PO SCH (23:45)
[2021-08-12 00:15] VITALS: BMI 27.7
[2021-08-12] MEDS ORDERED: FAMOTIDINE 10 MG TABLET PO ONE (00:20)
[2021-08-12] MEDS ORDERED: DEXTROSE 5%-WATER - 50 ML IVPB ONE ×3 (01:38→18:01)
[2021-08-12] MEDS ORDERED: PIPERACILLIN/TAZOBACTAM 3.375 GM VIAL IVPB ONE ×3 (01:38→18:01)
[2021-08-12] MEDS: PIPERACILLIN/TAZOB 3.375 GM 3.375 GM in DEXTROSE 5%-WATER - 50 ML IVPB SCH ×5 (02:01→20:41)
[2021-08-12] MEDS: ACETAMINOPHEN 325 MG TABLET (FP) PO PRN (06:16)
[2021-08-12] MEDS: CLINDAMYCIN HCL 150 MG CAPSULE (FP) PO SCH ×2 (06:18→12:22)
[2021-08-12 08:41] LABS: BASO % 1.4 % (0-2.0); EOS % 3.2 % (0-4.5); HEMATOCRIT 36.5 % (35.4-49); HEMOGLOBIN 12.4 GM/dL (11.7-16.9); LYMPH % 17.1 % (8-40); MCH 29.9 pg (25.7-33.7); MCHC 33.9 g/dl (32.0-35.9); MEAN CELL VOLUME 88.1 fl (80-96); MEAN PLT VOLUME 8.4 fl (7.5-11.1); MONO % 11.5 % (3.8-10.2); NEUT % 66.8 % (42.8-82.8); PLATELET COUNT 196 10^3/uL (134-434); RBC 4.14 M/mm3 (4.00-5.60); RDW 14.7 % (11.9-15.9); WHITE BLOOD COUNT 5.7 K/mm3 (4.0-10.0)
[2021-08-12] MEDS ORDERED: FUROSEMIDE 40 MG/4 ML INJECTABLE VIAL IVPUSH ONE (09:00)
[2021-08-12 09:04] LABS: CALCIUM 8.8 mg/dL (8.5-10.1)
[2021-08-12 09:05] LABS: ALBUMIN 2.9 g/dl (3.4-5.0); BLOOD UREA NITROGEN 31.9 mg/dL (7-18); MAGNESIUM 2.2 mg/dL (1.8-2.4)
[2021-08-12 09:08] LABS: CREATININE 1.1 mg/dL (0.55-1.3); PHOSPHOROUS 3.5 mg/dL (2.5-4.9)
[2021-08-12] MEDS: COLLAGENASE CLOSTRIDIUM HIST. 30 GRAMS TUBE TP SCH (09:08)
[2021-08-12 09:09] LABS: BILIRUBIN,TOTAL 0.6 mg/dL (0.2-1); TOT PROT 6.8 g/dl (6.4-8.2)
[2021-08-12 09:52] LABS: PH,URINE 5.5 (5.0-8.0); URINE APPEARANCE CLEAR; URINE BILIRUBIN NEGATIVE (NEGATIVE); URINE COLOR YELLOW; URINE GLUCOSE (UA) NEGATIVE (NEGATIVE); URINE KETONE NEGATIVE (NEGATIVE); URINE LEUK ESTERASE NEGATIVE (NEGATIVE); URINE NITRITE NEGATIVE (NEGATIVE); URINE PROTEIN NEGATIVE (NEGATIVE); URINE UROBILINOGEN 0.2 mg/dL (0.2-1.0)
[2021-08-12] MEDS ORDERED: PT OWN MED DRAWER 7, Y5N ONE (10:21)
[2021-08-12] MEDS: FUROSEMIDE 40 MG TABLET (FP) PO SCH (10:28)
[2021-08-12] MEDS: PANTOPRAZOLE 40 MG TABLET PO SCH (10:28)
[2021-08-12] MEDS: LACTOBACILLUS ACIDOPHILUS 1 TABLET PO SCH (10:28)
[2021-08-12] MEDS: METOPROLOL TARTRATE 25 MG TABLET (FP) PO SCH ×2 (10:28→21:17)
[2021-08-12] MEDS: LOSARTAN POTASSIUM 50 MG TABLET PO SCH ×2 (10:34→21:17)
[2021-08-12] MEDS ORDERED: VANCOMYCIN 1 GRAM (PRE-DOCKED) 1,000 MG/250 ML BAG IVPB SCH (13:00)
[2021-08-12] MEDS ORDERED: RIVAROXABAN 20 MG TABLET PO SCH ×2 (18:00)
[2021-08-12] MEDS: ATORVASTATIN CA 20 MG TABLET (FP) PO SCH (21:17)
[2021-08-12] MEDS: diphenhydrAMINE HCL 25 MG CAPSULE (FP) PO SCH (21:17)
[2021-08-13] MEDS ORDERED: DEXTROSE 5%-WATER - 50 ML IVPB ONE ×3 (01:00→16:52)
[2021-08-13] MEDS ORDERED: PIPERACILLIN/TAZOBACTAM 3.375 GM VIAL IVPB ONE ×3 (01:00→16:52)
[2021-08-13] MEDS: PIPERACILLIN/TAZOB 3.375 GM 3.375 GM in DEXTROSE 5%-WATER - 50 ML IVPB SCH ×3 (01:05→17:48)
[2021-08-13] MEDS: diphenhydrAMINE HCL 25 MG CAPSULE (FP) PO SCH ×3 (05:00→21:13)
[2021-08-13 08:50] LABS: BASO % 1.3 % (0-2.0); EOS % 4.2 % (0-4.5); HEMATOCRIT 36.7 % (35.4-49); HEMOGLOBIN 12.6 GM/dL (11.7-16.9); LYMPH % 18.5 % (8-40); MCH 29.9 pg (25.7-33.7); MCHC 34.3 g/dl (32.0-35.9); MEAN CELL VOLUME 87.3 fl (80-96); MEAN PLT VOLUME 8.4 fl (7.5-11.1); MONO % 9.5 % (3.8-10.2); NEUT % 66.5 % (42.8-82.8); PLATELET COUNT 173 10^3/uL (134-434); RBC 4.21 M/mm3 (4.00-5.60); WHITE BLOOD COUNT 6.6 K/mm3 (4.0-10.0)
[2021-08-13 09:11] LABS: CALCIUM 8.5 mg/dL (8.5-10.1)
[2021-08-13 09:12] LABS: BLOOD UREA NITROGEN 31.2 mg/dL (7-18)
[2021-08-13 09:15] LABS: CREATININE 1.4 mg/dL (0.55-1.3)
[2021-08-13] MEDS: POTASSIUM CHLORIDE TABS 10 MEQ TABLET.ER (FP) PO SCH (10:57)
[2021-08-13] MEDS: METOPROLOL TARTRATE 25 MG TABLET (FP) PO SCH ×2 (10:58→21:14)
[2021-08-13] MEDS: LACTOBACILLUS ACIDOPHILUS 1 TABLET PO SCH (10:58)
[2021-08-13] MEDS: ASCORBIC ACID 500 MG TABLET (FP) PO SCH ×2 (10:58→21:14)
[2021-08-13] MEDS: LOSARTAN POTASSIUM 50 MG TABLET PO SCH ×3 (10:58→21:14)
[2021-08-13] MEDS: PANTOPRAZOLE 40 MG TABLET PO SCH (10:58)
[2021-08-13] MEDS: MAGNESIUM OXIDE 400 MG TABLET (FP) PO SCH ×2 (10:58→21:14)
[2021-08-13] MEDS: FUROSEMIDE 40 MG TABLET (FP) PO SCH (10:58)
[2021-08-13] MEDS: ATORVASTATIN CA 20 MG TABLET (FP) PO SCH (21:14)
[2021-08-14] MEDS: ACETAMINOPHEN 325 MG TABLET (FP) PO PRN (00:18)
[2021-08-14] MEDS ORDERED: DEXTROSE 5%-WATER - 50 ML IVPB ONE ×3 (00:50→17:15)
[2021-08-14] MEDS ORDERED: PIPERACILLIN/TAZOBACTAM 3.375 GM VIAL IVPB ONE ×3 (00:50→17:15)
[2021-08-14] MEDS: PIPERACILLIN/TAZOB 3.375 GM 3.375 GM in DEXTROSE 5%-WATER - 50 ML IVPB SCH ×3 (00:59→17:45)
[2021-08-14] MEDS: MAGNESIUM OXIDE 400 MG TABLET (FP) PO SCH ×2 (09:31→21:22)
[2021-08-14] MEDS: ASCORBIC ACID 500 MG TABLET (FP) PO SCH ×2 (09:31→21:22)
[2021-08-14] MEDS: POTASSIUM CHLORIDE TABS 10 MEQ TABLET.ER (FP) PO SCH (09:31)
[2021-08-14] MEDS: LACTOBACILLUS ACIDOPHILUS 1 TABLET PO SCH (09:31)
[2021-08-14] MEDS: FUROSEMIDE 40 MG TABLET (FP) PO SCH (09:32)
[2021-08-14] MEDS: LOSARTAN POTASSIUM 50 MG TABLET PO SCH ×2 (09:32→21:22)
[2021-08-14] MEDS: METOPROLOL TARTRATE 25 MG TABLET (FP) PO SCH ×2 (09:32→21:22)
[2021-08-14] MEDS: PANTOPRAZOLE 40 MG TABLET PO SCH (09:32)
[2021-08-14] MEDS ORDERED: diphenhydrAMINE HCL 25 MG CAPSULE (FP) PO SCH (10:00)
[2021-08-14 10:35] LABS: BASO % 1.4 % (0-2.0); EOS % 8.3 % (0-4.5); HEMATOCRIT 37.4 % (35.4-49); HEMOGLOBIN 12.7 GM/dL (11.7-16.9); MCH 30.1 pg (25.7-33.7); MCHC 34.1 g/dl (32.0-35.9); MEAN CELL VOLUME 88.1 fl (80-96); MEAN PLT VOLUME 8.2 fl (7.5-11.1); MONO % 10.7 % (3.8-10.2); NEUT % 60.6 % (42.8-82.8); PLATELET COUNT 183 10^3/uL (134-434); RBC 4.24 M/mm3 (4.00-5.60); RDW 15.1 % (11.9-15.9); WHITE BLOOD COUNT 5.5 K/mm3 (4.0-10.0)
[2021-08-14 10:57] LABS: BLOOD UREA NITROGEN 33.3 mg/dL (7-18); CALCIUM 8.7 mg/dL (8.5-10.1)
[2021-08-14 11:01] LABS: CREATININE 1.4 mg/dL (0.55-1.3)
[2021-08-14] MEDS: ATORVASTATIN CA 20 MG TABLET (FP) PO SCH (21:22)
[2021-08-15] MEDS ORDERED: FUROSEMIDE 40 MG TABLET (FP) PO SCH (01:00)
[2021-08-15] MEDS ORDERED: PIPERACILLIN/TAZOBACTAM 3.375 GM VIAL IVPB ONE ×3 (01:03→17:29)
[2021-08-15] MEDS ORDERED: DEXTROSE 5%-WATER - 50 ML IVPB ONE ×3 (01:03→17:29)
[2021-08-15] MEDS: PIPERACILLIN/TAZOB 3.375 GM 3.375 GM in DEXTROSE 5%-WATER - 50 ML IVPB SCH ×3 (01:11→17:55)
[2021-08-15 08:20] LABS: BASO % 1.2 % (0-2.0); EOS % 11.6 % (0-4.5); HEMATOCRIT 40.4 % (35.4-49); HEMOGLOBIN 13.9 GM/dL (11.7-16.9); LYMPH % 18.6 % (8-40); MCH 30.3 pg (25.7-33.7); MCHC 34.4 g/dl (32.0-35.9); MEAN PLT VOLUME 8.2 fl (7.5-11.1); MONO % 10.3 % (3.8-10.2); NEUT % 58.3 % (42.8-82.8); PLATELET COUNT 214 10^3/uL (134-434); RDW 14.7 % (11.9-15.9); WHITE BLOOD COUNT 6.3 K/mm3 (4.0-10.0)
[2021-08-15 08:41] LABS: CALCIUM 9.2 mg/dL (8.5-10.1)
[2021-08-15 08:45] LABS: CREATININE 1.2 mg/dL (0.55-1.3)
[2021-08-15] MEDS: MAGNESIUM OXIDE 400 MG TABLET (FP) PO SCH ×2 (09:42→21:52)
[2021-08-15] MEDS: LACTOBACILLUS ACIDOPHILUS 1 TABLET PO SCH (09:42)
[2021-08-15] MEDS: METOPROLOL TARTRATE 25 MG TABLET (FP) PO SCH ×2 (09:42→21:52)
[2021-08-15] MEDS: ASCORBIC ACID 500 MG TABLET (FP) PO SCH ×2 (09:42→21:52)
[2021-08-15] MEDS: PANTOPRAZOLE 40 MG TABLET PO SCH (09:42)
[2021-08-15] MEDS: LOSARTAN POTASSIUM 50 MG TABLET PO SCH ×2 (09:53→21:51)
[2021-08-15] MEDS: HEPARIN NA (PORCINE) 5,000 UNITS/ML 1ML VIAL SQ SCH ×2 (21:52→21:55)
[2021-08-15] MEDS: ATORVASTATIN CA 20 MG TABLET (FP) PO SCH (21:52)
[2021-08-16] MEDS ORDERED: PIPERACILLIN/TAZOBACTAM 3.375 GM VIAL IVPB ONE ×3 (01:53→17:08)
[2021-08-16] MEDS ORDERED: DEXTROSE 5%-WATER - 50 ML IVPB ONE ×3 (01:53→17:08)
[2021-08-16] MEDS: PIPERACILLIN/TAZOB 3.375 GM 3.375 GM in DEXTROSE 5%-WATER - 50 ML IVPB SCH ×3 (01:55→17:27)
[2021-08-16 07:58] LABS: BLOOD UREA NITROGEN 31.2 mg/dL (7-18)
[2021-08-16 08:02] LABS: CREATININE 1.2 mg/dL (0.55-1.3)
[2021-08-16 10:17] LABS: BASO % 1.9 % (0-2.0); EOS % 9.8 % (0-4.5); HEMATOCRIT 39.3 % (35.4-49); HEMOGLOBIN 13.5 GM/dL (11.7-16.9); LYMPH % 18.8 % (8-40); MCH 29.4 pg (25.7-33.7); MCHC 34.3 g/dl (32.0-35.9); MEAN CELL VOLUME 85.7 fl (80-96); MEAN PLT VOLUME 7.9 fl (7.5-11.1); MONO % 8.5 % (3.8-10.2); PLATELET COUNT 213 10^3/uL (134-434); RBC 4.58 M/mm3 (4.00-5.60); RDW 14.7 % (11.9-15.9); WHITE BLOOD COUNT 6.1 K/mm3 (4.0-10.0)
[2021-08-16] MEDS: METOPROLOL TARTRATE 50 MG TABLET (FP) PO SCH ×2 (10:32→22:03)
[2021-08-16] MEDS: LACTOBACILLUS ACIDOPHILUS 1 TABLET PO SCH (10:32)
[2021-08-16] MEDS: MAGNESIUM OXIDE 400 MG TABLET (FP) PO SCH ×2 (10:32→22:03)
[2021-08-16] MEDS: PANTOPRAZOLE 40 MG TABLET PO SCH (10:33)
[2021-08-16] MEDS: HEPARIN NA (PORCINE) 5,000 UNITS/ML 1ML VIAL SQ SCH (10:33)
[2021-08-16] MEDS: LOSARTAN POTASSIUM 50 MG TABLET PO SCH (10:33)
[2021-08-16] MEDS: ASCORBIC ACID 500 MG TABLET (FP) PO SCH ×2 (10:33→22:03)
[2021-08-16] MEDS: ATORVASTATIN CA 20 MG TABLET (FP) PO SCH (22:03)
[2021-08-17] MEDS ORDERED: PIPERACILLIN/TAZOBACTAM 3.375 GM VIAL IVPB ONE ×3 (00:51→17:34)
[2021-08-17] MEDS ORDERED: DEXTROSE 5%-WATER - 50 ML IVPB ONE ×3 (00:52→17:35)
[2021-08-17] MEDS: PIPERACILLIN/TAZOB 3.375 GM 3.375 GM in DEXTROSE 5%-WATER - 50 ML IVPB SCH ×3 (02:00→18:00)
[2021-08-17 10:14] LABS: BASO % 1.1 % (0-2.0); EOS % 8.3 % (0-4.5); HEMATOCRIT 39.4 % (35.4-49); HEMOGLOBIN 13.4 GM/dL (11.7-16.9); LYMPH % 17.2 % (8-40); MCH 29.9 pg (25.7-33.7); MCHC 34.1 g/dl (32.0-35.9); MEAN CELL VOLUME 87.6 fl (80-96); MEAN PLT VOLUME 8.1 fl (7.5-11.1); MONO % 9.4 % (3.8-10.2); PLATELET COUNT 223 10^3/uL (134-434); RDW 14.6 % (11.9-15.9); WHITE BLOOD COUNT 5.9 K/mm3 (4.0-10.0)
[2021-08-17] MEDS: METOPROLOL TARTRATE 50 MG TABLET (FP) PO SCH ×2 (11:08→21:32)
[2021-08-17] MEDS: MAGNESIUM OXIDE 400 MG TABLET (FP) PO SCH ×2 (11:08→21:32)
[2021-08-17] MEDS: ASCORBIC ACID 500 MG TABLET (FP) PO SCH ×2 (11:09→21:32)
[2021-08-17] MEDS: PANTOPRAZOLE 40 MG TABLET PO SCH (11:09)
[2021-08-17] MEDS: LACTOBACILLUS ACIDOPHILUS 1 TABLET PO SCH (11:09)
[2021-08-17] MEDS: FUROSEMIDE 20 MG TABLET (FP) PO SCH (16:29)
[2021-08-17] MEDS: ATORVASTATIN CA 20 MG TABLET (FP) PO SCH (21:32)
[2021-08-18] MEDS ORDERED: PIPERACILLIN/TAZOBACTAM 3.375 GM VIAL IVPB ONE ×2 (00:43→10:54)
[2021-08-18] MEDS ORDERED: DEXTROSE 5%-WATER - 50 ML IVPB ONE ×2 (00:43→10:54)
[2021-08-18] MEDS: PIPERACILLIN/TAZOB 3.375 GM 3.375 GM in DEXTROSE 5%-WATER - 50 ML IVPB SCH ×2 (01:09→11:00)
[2021-08-18] MEDS ORDERED: BISACODYL 10 MG SUPP.RECT PR ONE (08:30)
[2021-08-18] MEDS: PANTOPRAZOLE 40 MG TABLET PO SCH (11:00)
[2021-08-18] MEDS: LACTOBACILLUS ACIDOPHILUS 1 TABLET PO SCH (11:01)
[2021-08-18] MEDS: MAGNESIUM OXIDE 400 MG TABLET (FP) PO SCH (11:01)
[2021-08-18] MEDS: ASCORBIC ACID 500 MG TABLET (FP) PO SCH (11:01)
[2021-08-18] MEDS: METOPROLOL TARTRATE 50 MG TABLET (FP) PO SCH (11:01)
[2021-08-18] MEDS: FUROSEMIDE 20 MG TABLET (FP) PO SCH (11:01)
[2021-08-18 15:07] VITALS: BP 161/77; PULSE 61; TEMP 97.8
== END 2021-08-18 16:48 | disposition home or self-care (01) | DRG 603 ==
LOC: JER 12:23 → JERBED 15:26 → J6S 17:59
PROVIDERS: ADMIT Internal Medicine; ATTEND Internal Medicine
DX: L03.116 Cellulitis of left lower limb (principal); I44.2 Atrioventricular block, complete; N17.9 Acute kidney failure, unspecified; I42.8 Other cardiomyopathies; L97.909 Non-pressure chronic ulcer of unspecified part of unspecified lower leg with unspecified severity; I50.32 Chronic diastolic (congestive) heart failure; I13.0 Hypertensive heart and chronic kidney disease with heart failure and stage 1 through stage 4 chronic kidney disease, or unspecified chronic kidney disease; L03.115 Cellulitis of right lower limb; E78.5 Hyperlipidemia, unspecified; I73.9 Peripheral vascular disease, unspecified; E78.00 Pure hypercholesterolemia, unspecified; E03.9 Hypothyroidism, unspecified; I48.0 Paroxysmal atrial fibrillation; Z72.0 Tobacco use; D72.829 Elevated white blood cell count, unspecified; I87.2 Venous insufficiency (chronic) (peripheral); I49.5 Sick sinus syndrome; N18.9 Chronic kidney disease, unspecified; D64.9 Anemia, unspecified; E87.6 Hypokalemia; R31.9 Hematuria, unspecified; Z98.61 Coronary angioplasty status; I25.119 Atherosclerotic heart disease of native coronary artery with unspecified angina pectoris; I27.20 Pulmonary hypertension, unspecified; I34.0 Nonrheumatic mitral (valve) insufficiency; I36.1 Nonrheumatic tricuspid (valve) insufficiency; K29.00 Acute gastritis without bleeding
CPT/HCPCS: 36415; 71045-TC-FY; 73630-TC-LT; 80048; 80053; 81003; 83735; 84100; 85025; 85379; 85610; 86850; 86900; 86901; 87040; 87081; 93005; 93010; 93970-TC; 97116-GP; 97162-GP; 99285-25; C9803; J1644; U0003; U0005

== ENCOUNTER 2021-09-30 21:38 | Inpatient (IN) | payer OTHER, MEDICARE ==
[2021-09-30] MEDS ORDERED: METOPROLOL TARTRATE 50 MG TABLET (FP) PO ONE (22:44)
[2021-09-30 22:47] LABS: BASO % 1.2 % (0-2.0); EOS % 4.1 % (0-4.5); HEMATOCRIT 35.2 % (35.4-49); HEMOGLOBIN 11.8 GM/dL (11.7-16.9); LYMPH % 16.9 % (8-40); MCH 28.7 pg (25.7-33.7); MCHC 33.4 g/dl (32.0-35.9); MEAN CELL VOLUME 85.9 fl (80-96); MEAN PLT VOLUME 7.8 fl (7.5-11.1); MONO % 9.3 % (3.8-10.2); NEUT % 68.5 % (42.8-82.8); PLATELET COUNT 259 10^3/uL (134-434); RDW 16.3 % (11.9-15.9)
[2021-09-30] MEDS ORDERED: METOPROLOL TARTRATE 50 MG TABLET (FP) ONE (23:01)
[2021-09-30 23:09] LABS: CALCIUM 8.3 mg/dL (8.5-10.1)
[2021-09-30 23:10] LABS: ALBUMIN 2.9 g/dl (3.4-5.0)
[2021-09-30 23:14] LABS: CREATININE 1.3 mg/dL (0.55-1.3); TOT PROT 6.8 g/dl (6.4-8.2)
[2021-09-30 23:15] LABS: BILIRUBIN,TOTAL 0.4 mg/dL (0.2-1)
[2021-09-30 23:45] LABS: N-TERMINAL BNP 8279.3 pg/ml (5-450)
[2021-10-01] MEDS ORDERED: FUROSEMIDE 40 MG/4 ML INJECTABLE VIAL IVPUSH ONE (01:57)
[2021-10-01] MEDS ORDERED: FUROSEMIDE 40 MG/4 ML INJECTABLE VIAL ONE ×2 (02:17→10:39)
[2021-10-01] MEDS ORDERED: ACETAMINOPHEN 325 MG TABLET (FP) PO PRN (03:09)
[2021-10-01 05:47] LABS: PH,URINE 5.5 (5.0-8.0); URINE APPEARANCE CLEAR; URINE BILIRUBIN NEGATIVE (NEGATIVE); URINE COLOR YELLOW; URINE GLUCOSE (UA) NEGATIVE (NEGATIVE); URINE KETONE NEGATIVE (NEGATIVE); URINE LEUK ESTERASE NEGATIVE (NEGATIVE); URINE NITRITE NEGATIVE (NEGATIVE); URINE PROTEIN TRACE (NEGATIVE); URINE UROBILINOGEN 0.2 mg/dL (0.2-1.0)
[2021-10-01] MEDS ORDERED: LOSARTAN POTASSIUM 50 MG TABLET PO SCH (10:00)
[2021-10-01] MEDS ORDERED: ASCORBIC ACID 500 MG TABLET (FP) ONE ×2 (10:38→22:36)
[2021-10-01] MEDS ORDERED: PANTOPRAZOLE 40 MG TABLET ONE (10:39)
[2021-10-01] MEDS ORDERED: LOSARTAN POTASSIUM 50 MG TABLET ONE ×2 (10:39→22:37)
[2021-10-01] MEDS: FUROSEMIDE 40 MG/4 ML INJECTABLE VIAL IVPUSH SCH (11:05)
[2021-10-01] MEDS: LOSARTAN POTASSIUM 50 MG TABLET PO SCH ×2 (11:05→22:44)
[2021-10-01] MEDS: PANTOPRAZOLE 40 MG TABLET PO SCH (11:05)
[2021-10-01] MEDS: CHOLECALCIFEROL (VIT D3) 5000 UNITS (125 MCG) CAP PO SCH (11:05)
[2021-10-01] MEDS: ASCORBIC ACID 500 MG TABLET (FP) PO SCH ×2 (11:05→22:44)
[2021-10-01] MEDS ORDERED: METOPROLOL TARTRATE 25 MG TABLET (FP) ONE ×2 (16:06→22:37)
[2021-10-01] MEDS: METOPROLOL TARTRATE 25 MG TABLET (FP) PO SCH ×2 (16:50→22:44)
[2021-10-01] MEDS ORDERED: ATORVASTATIN CA 20 MG TABLET (FP) ONE (22:36)
[2021-10-01] MEDS: ATORVASTATIN CA 20 MG TABLET (FP) PO SCH (22:44)
[2021-10-02] MEDS ORDERED: METOPROLOL TARTRATE 25 MG TABLET (FP) ONE (09:25)
[2021-10-02] MEDS ORDERED: PANTOPRAZOLE 40 MG TABLET ONE (09:25)
[2021-10-02] MEDS ORDERED: ASCORBIC ACID 500 MG TABLET (FP) ONE (09:25)
[2021-10-02] MEDS ORDERED: LOSARTAN POTASSIUM 50 MG TABLET ONE (09:26)
[2021-10-02] MEDS ORDERED: FUROSEMIDE 40 MG/4 ML INJECTABLE VIAL ONE (09:26)
[2021-10-02] MEDS: METOPROLOL TARTRATE 25 MG TABLET (FP) PO SCH ×2 (09:36→21:34)
[2021-10-02] MEDS: LOSARTAN POTASSIUM 50 MG TABLET PO SCH ×2 (09:36→21:34)
[2021-10-02] MEDS: FUROSEMIDE 40 MG/4 ML INJECTABLE VIAL IVPUSH SCH (09:36)
[2021-10-02] MEDS: PANTOPRAZOLE 40 MG TABLET PO SCH (09:37)
[2021-10-02] MEDS: ASCORBIC ACID 500 MG TABLET (FP) PO SCH ×2 (09:37→21:34)
[2021-10-02] MEDS ORDERED: MAGNESIUM OXIDE 400 MG TABLET (FP) ONE (09:43)
[2021-10-02] MEDS: MAGNESIUM OXIDE 400 MG TABLET (FP) PO SCH ×2 (09:46→21:34)
[2021-10-02] MEDS: CHOLECALCIFEROL (VIT D3) 5000 UNITS (125 MCG) CAP PO SCH (09:46)
[2021-10-02 13:58] LABS: EOS % 4.6 % (0-4.5); HEMATOCRIT 36.8 % (35.4-49); HEMOGLOBIN 12.3 GM/dL (11.7-16.9); LYMPH % 21.2 % (8-40); MCH 28.7 pg (25.7-33.7); MCHC 33.3 g/dl (32.0-35.9); MEAN CELL VOLUME 86.1 fl (80-96); MONO % 11.9 % (3.8-10.2); NEUT % 61.3 % (42.8-82.8); PLATELET COUNT 254 10^3/uL (134-434); RBC 4.28 M/mm3 (4.00-5.60); RDW 16.5 % (11.9-15.9); WHITE BLOOD COUNT 5.4 K/mm3 (4.0-10.0)
[2021-10-02 14:14] LABS: CALCIUM 8.8 mg/dL (8.5-10.1)
[2021-10-02 14:15] LABS: BLOOD UREA NITROGEN 27.8 mg/dL (7-18)
[2021-10-02 14:18] LABS: CREATININE 1.1 mg/dL (0.55-1.3)
[2021-10-02] MEDS ORDERED: CLINDAMYCIN PHOSPHATE 600 MG/4 ML VIAL ONE (15:29)
[2021-10-02] MEDS ORDERED: CLINDAMYCIN 600MG PREMIX IVPB 600 MG/50 ML BAG IVPB ONE (15:34)
[2021-10-02] MEDS ORDERED: CEFEPIME 1 GM/100 ML BAG IVPB ONE (15:34)
[2021-10-02] MEDS: CLINDAMYCIN 600MG PREMIX IVPB 600 MG/50 ML BAG IVPB SCH ×2 (15:57→17:12)
[2021-10-02] MEDS: CEFEPIME 1 GM in DEXTROSE 5%-WATER - 1 GM/50 ML IVPB IVPB SCH ×2 (17:13)
[2021-10-02] MEDS: ATORVASTATIN CA 20 MG TABLET (FP) PO SCH (21:34)
[2021-10-02 23:32] VITALS: BMI 24.7
[2021-10-03] MEDS ORDERED: CEFEPIME HCL 1 GM VIAL (RESTRICTED TO ID) ONE ×3 (00:12→18:28)
[2021-10-03] MEDS ORDERED: DEXTROSE 5%-WATER - 50 ML IVPB ONE ×3 (00:12→18:29)
[2021-10-03] MEDS: CEFEPIME 1 GM in DEXTROSE 5%-WATER - 1 GM/50 ML IVPB IVPB SCH ×3 (01:02→19:04)
[2021-10-03] MEDS: CLINDAMYCIN 600MG PREMIX IVPB 600 MG/50 ML BAG IVPB SCH ×3 (03:20→18:32)
[2021-10-03 07:22] LABS: BASO % 0.9 % (0-2.0); EOS % 6.3 % (0-4.5); HEMOGLOBIN 12.7 GM/dL (11.7-16.9); LYMPH % 20.4 % (8-40); MCH 29.1 pg (25.7-33.7); MCHC 33.4 g/dl (32.0-35.9); MEAN PLT VOLUME 8.3 fl (7.5-11.1); MONO % 11.8 % (3.8-10.2); NEUT % 60.6 % (42.8-82.8); PLATELET COUNT 241 10^3/uL (134-434); RBC 4.37 M/mm3 (4.00-5.60); RDW 16.2 % (11.9-15.9); WHITE BLOOD COUNT 6.3 K/mm3 (4.0-10.0)
[2021-10-03 07:30] LABS: CALCIUM 8.7 mg/dL (8.5-10.1)
[2021-10-03 07:31] LABS: BLOOD UREA NITROGEN 33.8 mg/dL (7-18)
[2021-10-03 07:34] LABS: CREATININE 1.2 mg/dL (0.55-1.3)
[2021-10-03] MEDS ORDERED: PT OWN MED DRAWER 7, Y5N ONE (09:40)
[2021-10-03] MEDS: MAGNESIUM OXIDE 400 MG TABLET (FP) PO SCH ×2 (11:20→21:39)
[2021-10-03] MEDS: METOPROLOL TARTRATE 25 MG TABLET (FP) PO SCH ×2 (11:20→21:39)
[2021-10-03] MEDS: PANTOPRAZOLE 40 MG TABLET PO SCH (11:20)
[2021-10-03] MEDS: CHOLECALCIFEROL (VIT D3) 5000 UNITS (125 MCG) CAP PO SCH (11:20)
[2021-10-03] MEDS: LOSARTAN POTASSIUM 50 MG TABLET PO SCH ×2 (11:20→21:39)
[2021-10-03] MEDS: ASCORBIC ACID 500 MG TABLET (FP) PO SCH ×2 (11:20→21:39)
[2021-10-03] MEDS: FUROSEMIDE 40 MG/4 ML INJECTABLE VIAL IVPUSH SCH (11:21)
[2021-10-03] MEDS: ATORVASTATIN CA 20 MG TABLET (FP) PO SCH (21:39)
[2021-10-04] MEDS ORDERED: CEFEPIME HCL 1 GM VIAL (RESTRICTED TO ID) ONE ×3 (01:49→19:01)
[2021-10-04] MEDS ORDERED: DEXTROSE 5%-WATER - 50 ML IVPB ONE ×3 (01:49→19:02)
[2021-10-04] MEDS: CEFEPIME 1 GM in DEXTROSE 5%-WATER - 1 GM/50 ML IVPB IVPB SCH ×3 (01:52→19:03)
[2021-10-04] MEDS: CLINDAMYCIN 600MG PREMIX IVPB 600 MG/50 ML BAG IVPB SCH ×3 (01:52→18:00)
[2021-10-04 07:28] LABS: BASO % 1.2 % (0-2.0); EOS % 8.4 % (0-4.5); HEMATOCRIT 39.5 % (35.4-49); HEMOGLOBIN 13.3 GM/dL (11.7-16.9); LYMPH % 20.2 % (8-40); MCH 29.2 pg (25.7-33.7); MCHC 33.6 g/dl (32.0-35.9); MEAN PLT VOLUME 8.2 fl (7.5-11.1); MONO % 11.9 % (3.8-10.2); NEUT % 58.3 % (42.8-82.8); PLATELET COUNT 245 10^3/uL (134-434); RBC 4.54 M/mm3 (4.00-5.60); WHITE BLOOD COUNT 5.7 K/mm3 (4.0-10.0)
[2021-10-04 07:52] LABS: CALCIUM 8.7 mg/dL (8.5-10.1)
[2021-10-04 07:53] LABS: BLOOD UREA NITROGEN 36.9 mg/dL (7-18)
[2021-10-04 07:57] LABS: CREATININE 1.2 mg/dL (0.55-1.3)
[2021-10-04] MEDS ORDERED: LOPERAMIDE HCL 2 MG CAPSULE PO PRN (08:52)
[2021-10-04] MEDS ORDERED: PT OWN MED DRAWER 7, Y5N ONE ×2 (09:04→10:20)
[2021-10-04] MEDS: FUROSEMIDE 40 MG/4 ML INJECTABLE VIAL IVPUSH SCH (10:08)
[2021-10-04] MEDS: MAGNESIUM OXIDE 400 MG TABLET (FP) PO SCH ×4 (10:08→21:44)
[2021-10-04] MEDS: METOPROLOL TARTRATE 25 MG TABLET (FP) PO SCH (10:08)
[2021-10-04] MEDS: PANTOPRAZOLE 40 MG TABLET PO SCH (10:08)
[2021-10-04] MEDS: ASCORBIC ACID 500 MG TABLET (FP) PO SCH ×2 (10:09→21:45)
[2021-10-04] MEDS: LOSARTAN POTASSIUM 50 MG TABLET PO SCH ×2 (10:09→21:45)
[2021-10-04] MEDS: CHOLECALCIFEROL (VIT D3) 5000 UNITS (125 MCG) CAP PO SCH (10:11)
[2021-10-04] MEDS: LOPERAMIDE HCL 2 MG CAPSULE PO ONE ×2 (10:21→10:22)
[2021-10-04] MEDS ORDERED: METOPROLOL TARTRATE 25 MG TABLET (FP) PO ONE (17:16)
[2021-10-04] MEDS: METOPROLOL TARTRATE 50 MG TABLET (FP) PO SCH (21:45)
[2021-10-04] MEDS: ATORVASTATIN CA 20 MG TABLET (FP) PO SCH (21:45)
[2021-10-05] MEDS ORDERED: DEXTROSE 5%-WATER - 50 ML IVPB ONE ×3 (02:22→17:17)
[2021-10-05] MEDS ORDERED: CEFEPIME HCL 1 GM VIAL (RESTRICTED TO ID) ONE ×3 (02:22→17:17)
[2021-10-05] MEDS: CEFEPIME 1 GM in DEXTROSE 5%-WATER - 1 GM/50 ML IVPB IVPB SCH ×3 (02:43→17:18)
[2021-10-05] MEDS: CLINDAMYCIN 600MG PREMIX IVPB 600 MG/50 ML BAG IVPB SCH ×3 (02:43→17:18)
[2021-10-05 07:33] LABS: CALCIUM 8.3 mg/dL (8.5-10.1)
[2021-10-05 07:34] LABS: BLOOD UREA NITROGEN 41.2 mg/dL (7-18)
[2021-10-05 07:37] LABS: CREATININE 1.4 mg/dL (0.55-1.3)
[2021-10-05 07:55] LABS: BASO % 1.2 % (0-2.0); EOS % 9.8 % (0-4.5); HEMATOCRIT 39.2 % (35.4-49); HEMOGLOBIN 13.3 GM/dL (11.7-16.9); LYMPH % 19.9 % (8-40); MCH 29.1 pg (25.7-33.7); MCHC 33.9 g/dl (32.0-35.9); MEAN CELL VOLUME 85.9 fl (80-96); MEAN PLT VOLUME 8.2 fl (7.5-11.1); MONO % 9.8 % (3.8-10.2); NEUT % 59.3 % (42.8-82.8); PLATELET COUNT 220 10^3/uL (134-434); RBC 4.57 M/mm3 (4.00-5.60); RDW 15.8 % (11.9-15.9); WHITE BLOOD COUNT 5.8 K/mm3 (4.0-10.0)
[2021-10-05] MEDS: LOSARTAN POTASSIUM 50 MG TABLET PO SCH ×2 (10:22→21:30)
[2021-10-05] MEDS: PANTOPRAZOLE 40 MG TABLET PO SCH (10:22)
[2021-10-05] MEDS: FUROSEMIDE 40 MG/4 ML INJECTABLE VIAL IVPUSH SCH (10:22)
[2021-10-05] MEDS: ASCORBIC ACID 500 MG TABLET (FP) PO SCH ×2 (10:22→21:30)
[2021-10-05] MEDS: MAGNESIUM OXIDE 400 MG TABLET (FP) PO SCH ×2 (10:22→21:30)
[2021-10-05] MEDS: METOPROLOL TARTRATE 50 MG TABLET (FP) PO SCH ×2 (10:22→21:30)
[2021-10-05] MEDS: CHOLECALCIFEROL (VIT D3) 5000 UNITS (125 MCG) CAP PO SCH (10:23)
[2021-10-05] MEDS: ATORVASTATIN CA 20 MG TABLET (FP) PO SCH (21:31)
[2021-10-06] MEDS: POLYETHYLENE GLYCOL (HEALTHYLAX) 3350 17 GM PACKET PO SCH ×2 (00:20→10:28)
[2021-10-06] MEDS ORDERED: CEFEPIME HCL 1 GM VIAL (RESTRICTED TO ID) ONE ×3 (01:24→17:09)
[2021-10-06] MEDS ORDERED: DEXTROSE 5%-WATER - 50 ML IVPB ONE ×3 (01:24→17:09)
[2021-10-06] MEDS: CEFEPIME 1 GM in DEXTROSE 5%-WATER - 1 GM/50 ML IVPB IVPB SCH ×3 (01:26→17:28)
[2021-10-06] MEDS: CLINDAMYCIN 600MG PREMIX IVPB 600 MG/50 ML BAG IVPB SCH ×3 (01:26→17:28)
[2021-10-06 07:11] LABS: BASO % 1.2 % (0-2.0); EOS % 8.9 % (0-4.5); HEMATOCRIT 38.8 % (35.4-49); HEMOGLOBIN 13.1 GM/dL (11.7-16.9); LYMPH % 21.7 % (8-40); MCH 29.3 pg (25.7-33.7); MCHC 33.7 g/dl (32.0-35.9); MEAN CELL VOLUME 87.1 fl (80-96); MEAN PLT VOLUME 8.5 fl (7.5-11.1); MONO % 10.4 % (3.8-10.2); NEUT % 57.8 % (42.8-82.8); PLATELET COUNT 230 10^3/uL (134-434); RBC 4.45 M/mm3 (4.00-5.60); RDW 16.2 % (11.9-15.9)
[2021-10-06 07:29] LABS: BLOOD UREA NITROGEN 57.8 mg/dL (7-18); CALCIUM 8.2 mg/dL (8.5-10.1)
[2021-10-06 07:32] LABS: CREATININE 1.4 mg/dL (0.55-1.3)
[2021-10-06] MEDS: MAGNESIUM OXIDE 400 MG TABLET (FP) PO SCH ×2 (10:27→21:03)
[2021-10-06] MEDS: METOPROLOL TARTRATE 50 MG TABLET (FP) PO SCH ×2 (10:27→21:03)
[2021-10-06] MEDS: ASCORBIC ACID 500 MG TABLET (FP) PO SCH ×2 (10:27→21:03)
[2021-10-06] MEDS: PANTOPRAZOLE 40 MG TABLET PO SCH (10:27)
[2021-10-06] MEDS: LOSARTAN POTASSIUM 50 MG TABLET PO SCH ×2 (10:27→21:03)
[2021-10-06] MEDS ORDERED: PT OWN MED DRAWER 7, Y5N ONE (10:45)
[2021-10-06] MEDS: CHOLECALCIFEROL (VIT D3) 5000 UNITS (125 MCG) CAP PO SCH (10:58)
[2021-10-06] MEDS: ATORVASTATIN CA 20 MG TABLET (FP) PO SCH (21:03)
[2021-10-07] MEDS ORDERED: CEFEPIME HCL 1 GM VIAL (RESTRICTED TO ID) ONE ×3 (01:37→16:45)
[2021-10-07] MEDS ORDERED: DEXTROSE 5%-WATER - 50 ML IVPB ONE ×3 (01:38→16:45)
[2021-10-07] MEDS: CEFEPIME 1 GM in DEXTROSE 5%-WATER - 1 GM/50 ML IVPB IVPB SCH ×3 (01:39→17:33)
[2021-10-07] MEDS: CLINDAMYCIN 600MG PREMIX IVPB 600 MG/50 ML BAG IVPB SCH ×3 (01:39→17:32)
[2021-10-07 08:19] LABS: CALCIUM 8.9 mg/dL (8.5-10.1)
[2021-10-07 08:20] LABS: BLOOD UREA NITROGEN 44.9 mg/dL (7-18)
[2021-10-07 08:23] LABS: CREATININE 1.1 mg/dL (0.55-1.3)
[2021-10-07 08:56] LABS: WHITE BLOOD COUNT 6.3 K/mm3 (4.0-10.0)
[2021-10-07 08:57] LABS: EOS % 7.4 % (0-4.5); HEMATOCRIT 41.4 % (35.4-49); HEMOGLOBIN 13.8 GM/dL (11.7-16.9); LYMPH % 21.4 % (8-40); MCHC 33.3 g/dl (32.0-35.9); MEAN CELL VOLUME 87.2 fl (80-96); MEAN PLT VOLUME 8.8 fl (7.5-11.1); MONO % 10.5 % (3.8-10.2); NEUT % 59.5 % (42.8-82.8); PLATELET COUNT 223 10^3/uL (134-434); RBC 4.75 M/mm3 (4.00-5.60); RDW 16.2 % (11.9-15.9)
[2021-10-07 08:58] LABS: BASO % 1.2 % (0-2.0)
[2021-10-07] MEDS ORDERED: PT OWN MED DRAWER 7, Y5N ONE ×2 (09:38→20:58)
[2021-10-07] MEDS: LOSARTAN POTASSIUM 50 MG TABLET PO SCH ×2 (09:42→21:05)
[2021-10-07] MEDS: PANTOPRAZOLE 40 MG TABLET PO SCH (09:42)
[2021-10-07] MEDS: MAGNESIUM OXIDE 400 MG TABLET (FP) PO SCH ×2 (09:42→21:05)
[2021-10-07] MEDS: METOPROLOL TARTRATE 50 MG TABLET (FP) PO SCH ×2 (09:42→21:05)
[2021-10-07] MEDS: ASCORBIC ACID 500 MG TABLET (FP) PO SCH ×2 (09:42→21:05)
[2021-10-07] MEDS: POLYETHYLENE GLYCOL (HEALTHYLAX) 3350 17 GM PACKET PO SCH ×2 (09:42→09:50)
[2021-10-07] MEDS: CHOLECALCIFEROL (VIT D3) 5000 UNITS (125 MCG) CAP PO SCH (09:42)
[2021-10-07] MEDS: ATORVASTATIN CA 20 MG TABLET (FP) PO SCH (21:06)
[2021-10-08] MEDS ORDERED: DEXTROSE 5%-WATER - 50 ML IVPB ONE (03:07)
[2021-10-08] MEDS ORDERED: CEFEPIME HCL 1 GM VIAL (RESTRICTED TO ID) ONE (03:07)
[2021-10-08] MEDS: CLINDAMYCIN 600MG PREMIX IVPB 600 MG/50 ML BAG IVPB SCH (03:11)
[2021-10-08] MEDS: CEFEPIME 1 GM in DEXTROSE 5%-WATER - 1 GM/50 ML IVPB IVPB SCH (03:11)
[2021-10-08] MEDS: POLYETHYLENE GLYCOL (HEALTHYLAX) 3350 17 GM PACKET PO SCH ×2 (03:11→10:59)
[2021-10-08] MEDS ORDERED: MECLIZINE HCL 25 MG TABLET (FP) PO ONE (03:45)
[2021-10-08] MEDS ORDERED: diphenhydrAMINE HCL 25 MG CAPSULE (FP) PO ONE (04:15)
[2021-10-08] MEDS ORDERED: diphenhydrAMINE HCL 25 MG CAPSULE (FP) PO PRN (06:00)
[2021-10-08 07:32] LABS: HEMATOCRIT 39.5 % (35.4-49); HEMOGLOBIN 13.2 GM/dL (11.7-16.9); LYMPH % 22.1 % (8-40); MCH 28.6 pg (25.7-33.7); MCHC 33.4 g/dl (32.0-35.9); MEAN CELL VOLUME 85.9 fl (80-96); MEAN PLT VOLUME 8.2 fl (7.5-11.1); MONO % 9.1 % (3.8-10.2); NEUT % 62.8 % (42.8-82.8); PLATELET COUNT 208 10^3/uL (134-434); RDW 15.8 % (11.9-15.9); WHITE BLOOD COUNT 6.3 K/mm3 (4.0-10.0)
[2021-10-08] MEDS ORDERED: CEFEPIME 1 GM in DEXTROSE 5%-WATER - 1 GM/50 ML IVPB IVPB SCH (10:00)
[2021-10-08] MEDS ORDERED: CLINDAMYCIN 600MG PREMIX IVPB 600 MG/50 ML BAG IVPB SCH (10:00)
[2021-10-08] MEDS: ASCORBIC ACID 500 MG TABLET (FP) PO SCH ×2 (10:57→21:03)
[2021-10-08] MEDS: PANTOPRAZOLE 40 MG TABLET PO SCH (11:00)
[2021-10-08] MEDS: MAGNESIUM OXIDE 400 MG TABLET (FP) PO SCH ×2 (11:00→21:03)
[2021-10-08] MEDS: LOSARTAN POTASSIUM 50 MG TABLET PO SCH ×2 (11:00→21:09)
[2021-10-08] MEDS: METOPROLOL TARTRATE 50 MG TABLET (FP) PO SCH ×2 (11:00→21:03)
[2021-10-08] MEDS: CHOLECALCIFEROL (VIT D3) 5000 UNITS (125 MCG) CAP PO SCH (11:01)
[2021-10-08] MEDS: SPIRONOLACTONE 25 MG TABLET PO SCH (13:29)
[2021-10-08] MEDS: ATORVASTATIN CA 20 MG TABLET (FP) PO SCH (21:03)
[2021-10-09 08:49] LABS: BASO % 1.2 % (0-2.0); EOS % 4.5 % (0-4.5); HEMATOCRIT 40.2 % (35.4-49); HEMOGLOBIN 13.5 GM/dL (11.7-16.9); LYMPH % 22.4 % (8-40); MCH 28.7 pg (25.7-33.7); MCHC 33.5 g/dl (32.0-35.9); MEAN CELL VOLUME 85.6 fl (80-96); MEAN PLT VOLUME 8.5 fl (7.5-11.1); MONO % 10.1 % (3.8-10.2); NEUT % 61.8 % (42.8-82.8); PLATELET COUNT 196 10^3/uL (134-434); RDW 15.8 % (11.9-15.9); WHITE BLOOD COUNT 6.1 K/mm3 (4.0-10.0)
[2021-10-09] MEDS ORDERED: PT OWN MED DRAWER 7, Y5N ONE (09:30)
[2021-10-09] MEDS: POLYETHYLENE GLYCOL (HEALTHYLAX) 3350 17 GM PACKET PO SCH (09:47)
[2021-10-09] MEDS: MAGNESIUM OXIDE 400 MG TABLET (FP) PO SCH (09:47)
[2021-10-09] MEDS: PANTOPRAZOLE 40 MG TABLET PO SCH (09:47)
[2021-10-09] MEDS: METOPROLOL TARTRATE 50 MG TABLET (FP) PO SCH (09:47)
[2021-10-09] MEDS: ASCORBIC ACID 500 MG TABLET (FP) PO SCH (09:48)
[2021-10-09] MEDS: LOSARTAN POTASSIUM 50 MG TABLET PO SCH (09:48)
[2021-10-09] MEDS: SPIRONOLACTONE 25 MG TABLET PO SCH (09:48)
[2021-10-09] MEDS ORDERED: FUROSEMIDE 20 MG TABLET (FP) PO SCH (10:00)
[2021-10-09] MEDS: CHOLECALCIFEROL (VIT D3) 5000 UNITS (125 MCG) CAP PO SCH (11:07)
[2021-10-09 13:57] VITALS: BP 154/84; PULSE 65; TEMP 98
== END 2021-10-09 18:22 | disposition home or self-care (01) | DRG 291 ==
LOC: JER 21:38 → JERBED 10-01 00:05 → J4W 10-02 19:01
PROVIDERS: ADMIT Internal Medicine; ATTEND Internal Medicine
DX: I13.0 Hypertensive heart and chronic kidney disease with heart failure and stage 1 through stage 4 chronic kidney disease, or unspecified chronic kidney disease (principal); I50.33 Acute on chronic diastolic (congestive) heart failure; I44.2 Atrioventricular block, complete; L03.116 Cellulitis of left lower limb; I24.8 Other forms of acute ischemic heart disease; I47.2 Ventricular tachycardia; L03.115 Cellulitis of right lower limb; E03.9 Hypothyroidism, unspecified; I27.20 Pulmonary hypertension, unspecified; N18.9 Chronic kidney disease, unspecified; I48.0 Paroxysmal atrial fibrillation; E78.00 Pure hypercholesterolemia, unspecified; E78.5 Hyperlipidemia, unspecified
CPT/HCPCS: 36415; 70450-TC; 71045-TC-FY; 80048; 80053; 81003; 82550; 82553; 83880; 84484; 85025; 85730; 87040; 87086; 87804; 93005; 93010; 93970-TC; 97116-GP; 97162-GP; 99285-25; C9803; U0003; U0005

== ENCOUNTER 2021-12-15 10:18 | Inpatient (IN) | payer OTHER, MEDICARE ==
[2021-12-15 13:43] LABS: VENOUS BASE EXCESS -2.6 mmol/L (-2-2); VENOUS PCO2 34.6 mmHg (38-52); VENOUS PH 7.408 (7.310-7.410)
[2021-12-15 13:48] LABS: BASO % 0.6 % (0-2.0); HEMATOCRIT 36.8 % (35.4-49); HEMOGLOBIN 12.3 GM/dL (11.7-16.9); LYMPH % 16.1 % (8-40); MCH 28.9 pg (25.7-33.7); MCHC 33.5 g/dl (32.0-35.9); MEAN CELL VOLUME 86.5 fl (80-96); MEAN PLT VOLUME 8.1 fl (7.5-11.1); MONO % 8.6 % (3.8-10.2); NEUT % 71.7 % (42.8-82.8); PLATELET COUNT 220 10^3/uL (134-434); RBC 4.25 M/mm3 (4.00-5.60); RDW 17.2 % (11.9-15.9); WHITE BLOOD COUNT 6.1 K/mm3 (4.0-10.0)
[2021-12-15 14:03] LABS: CHLORIDE 111 mmol/L (98-107); SODIUM 141 mmol/L (136-145)
[2021-12-15 14:05] LABS: CALCIUM 8.5 mg/dL (8.5-10.1)
[2021-12-15 14:06] LABS: ALBUMIN 3.4 g/dl (3.4-5.0); ANION GAP 5 MMOL/L (8-16); BLOOD UREA NITROGEN 33.2 mg/dL (7-18); CO2 25 mmol/L (21-32); GLUCOSE,RANDOM 92 mg/dL (74-106)
[2021-12-15 14:09] LABS: CREATININE 1.1 mg/dL (0.55-1.3); SGOT/AST 24 U/L (15-37); SGPT/ALT 41 U/L (13-61)
[2021-12-15 14:11] LABS: BILIRUBIN,TOTAL 0.9 mg/dL (0.2-1); TOT PROT 6.7 g/dl (6.4-8.2)
[2021-12-15 14:12] LABS: ALK PHOS 108 U/L (45-117)
[2021-12-15 14:14] LABS: N-TERMINAL BNP 6618.3 pg/ml (5-450)
[2021-12-15] MEDS ORDERED: ASPIRIN 81 MG CHEWABLE TABLETS PO ONE (14:37)
[2021-12-15] MEDS ORDERED: ASPIRIN 81 MG CHEWABLE TABLETS ONE (15:02)
[2021-12-15 15:03] LABS: INR 1.28 (0.83-1.09); PROTHROMBIN TIME (PATIENT) 14.8 SEC (9.7-13.0)
[2021-12-15 15:05] LABS: ACTIVATED PTT 35.3 SECONDS (25.2-36.5)
[2021-12-15] MEDS ORDERED: FUROSEMIDE 40 MG/4 ML INJECTABLE VIAL IVPUSH ONE (15:51)
[2021-12-15] MEDS ORDERED: FUROSEMIDE 40 MG/4 ML INJECTABLE VIAL ONE (16:21)
[2021-12-15] MEDS ORDERED: ACETAMINOPHEN 325 MG TABLET (FP) PO PRN (17:12)
[2021-12-15] MEDS ORDERED: ENOXAPARIN NA (PORCINE) 40 MG/0.4 ML DISP.SYRIN SQ SCH (17:15)
[2021-12-15] MEDS ORDERED: PANTOPRAZOLE 40 MG TABLET ONE (17:28)
[2021-12-15] MEDS: PANTOPRAZOLE 40 MG TABLET PO SCH (17:30)
[2021-12-15] MEDS ORDERED: METOPROLOL TARTRATE 50 MG TABLET (FP) PO ONE (20:10)
[2021-12-15] MEDS: ATORVASTATIN CA 20 MG TABLET (FP) PO SCH ×2 (21:42→22:11)
[2021-12-15] MEDS: METOPROLOL TARTRATE 50 MG TABLET (FP) PO SCH (21:42)
[2021-12-15] MEDS: ASCORBIC ACID 500 MG TABLET (FP) PO SCH (21:42)
[2021-12-16 03:03] VITALS: BMI 28.2
[2021-12-16] MEDS: SPIRONOLACTONE 25 MG TABLET PO SCH (10:57)
[2021-12-16] MEDS: LACTOBACILLUS ACIDOPHILUS 1 TABLET PO SCH (10:57)
[2021-12-16] MEDS: FUROSEMIDE 40 MG/4 ML INJECTABLE VIAL IVPUSH SCH (10:58)
[2021-12-16] MEDS: ASPIRIN COATED 81 MG TABLET.EC PO SCH (10:58)
[2021-12-16] MEDS: METOPROLOL TARTRATE 50 MG TABLET (FP) PO SCH ×2 (10:59→21:27)
[2021-12-16] MEDS: MAGNESIUM OXIDE 400 MG TABLET (FP) PO SCH ×2 (10:59→21:27)
[2021-12-16] MEDS: PANTOPRAZOLE 40 MG TABLET PO SCH (10:59)
[2021-12-16] MEDS: ASCORBIC ACID 500 MG TABLET (FP) PO SCH ×2 (10:59→21:27)
[2021-12-16] MEDS: LOSARTAN POTASSIUM 50 MG TABLET PO SCH ×2 (11:00→21:28)
[2021-12-16 12:08] LABS: SARS-CoV-2 NAA Not Detected (Not Detected)
[2021-12-16] MEDS ORDERED: ASPIRIN 81 MG CHEWABLE TABLETS PO ONE (14:37)
[2021-12-16] MEDS: CHOLECALCIFEROL (VIT D3) 5000 UNITS (125 MCG) CAP PO SCH (16:56)
[2021-12-16] MEDS: ATORVASTATIN CA 20 MG TABLET (FP) PO SCH (21:28)
[2021-12-17 09:21] LABS: BASO % 0.7 % (0-2.0); EOS % 4.5 % (0-4.5); HEMATOCRIT 36.5 % (35.4-49); HEMOGLOBIN 12.4 GM/dL (11.7-16.9); LYMPH % 12.8 % (8-40); MCH 29.6 pg (25.7-33.7); MCHC 33.9 g/dl (32.0-35.9); MEAN CELL VOLUME 87.4 fl (80-96); PLATELET COUNT 212 10^3/uL (134-434); RBC 4.17 M/mm3 (4.00-5.60); RDW 16.6 % (11.9-15.9); WHITE BLOOD COUNT 5.4 K/mm3 (4.0-10.0)
[2021-12-17] MEDS: ASPIRIN COATED 81 MG TABLET.EC PO SCH (09:58)
[2021-12-17] MEDS: PANTOPRAZOLE 40 MG TABLET PO SCH (09:58)
[2021-12-17] MEDS: MAGNESIUM OXIDE 400 MG TABLET (FP) PO SCH ×2 (09:58→21:53)
[2021-12-17] MEDS: LACTOBACILLUS ACIDOPHILUS 1 TABLET PO SCH (09:59)
[2021-12-17 10:00] LABS: CHLORIDE 108 mmol/L (98-107); SODIUM 142 mmol/L (136-145)
[2021-12-17] MEDS: ASCORBIC ACID 500 MG TABLET (FP) PO SCH ×2 (10:01→21:53)
[2021-12-17] MEDS: SPIRONOLACTONE 25 MG TABLET PO SCH (10:01)
[2021-12-17] MEDS: LOSARTAN POTASSIUM 50 MG TABLET PO SCH ×2 (10:01→21:53)
[2021-12-17] MEDS: CHOLECALCIFEROL (VIT D3) 5000 UNITS (125 MCG) CAP PO SCH (10:02)
[2021-12-17] MEDS: METOPROLOL TARTRATE 50 MG TABLET (FP) PO SCH ×2 (10:02→21:53)
[2021-12-17] MEDS: FUROSEMIDE 40 MG/4 ML INJECTABLE VIAL IVPUSH SCH (10:02)
[2021-12-17 10:28] LABS: CALCIUM 8.7 mg/dL (8.5-10.1)
[2021-12-17 10:29] LABS: ANION GAP 7 MMOL/L (8-16); BLOOD UREA NITROGEN 25.1 mg/dL (7-18); CO2 27 mmol/L (21-32); GLUCOSE,RANDOM 135 mg/dL (74-106)
[2021-12-17 10:32] LABS: CREATININE 1.2 mg/dL (0.55-1.3)
[2021-12-17] MEDS: ATORVASTATIN CA 20 MG TABLET (FP) PO SCH ×2 (21:53→21:55)
[2021-12-18] MEDS: LACTOBACILLUS ACIDOPHILUS 1 TABLET PO SCH (08:43)
[2021-12-18 09:18] LABS: EOS % 3.7 % (0-4.5); HEMATOCRIT 37.5 % (35.4-49); HEMOGLOBIN 12.2 GM/dL (11.7-16.9); LYMPH % 15.7 % (8-40); MCH 28.4 pg (25.7-33.7); MCHC 32.5 g/dl (32.0-35.9); MEAN CELL VOLUME 87.2 fl (80-96); MEAN PLT VOLUME 8.6 fl (7.5-11.1); MONO % 14.3 % (3.8-10.2); NEUT % 65.3 % (42.8-82.8); PLATELET COUNT 208 10^3/uL (134-434); RDW 16.5 % (11.9-15.9); WHITE BLOOD COUNT 5.1 K/mm3 (4.0-10.0)
[2021-12-18 09:29] LABS: CHLORIDE 110 mmol/L (98-107); SODIUM 142 mmol/L (136-145)
[2021-12-18 09:31] LABS: CALCIUM 8.1 mg/dL (8.5-10.1)
[2021-12-18 09:32] LABS: ANION GAP 7 MMOL/L (8-16); BLOOD UREA NITROGEN 23.7 mg/dL (7-18); CO2 26 mmol/L (21-32); GLUCOSE,RANDOM 86 mg/dL (74-106)
[2021-12-18 09:35] LABS: CREATININE 1.1 mg/dL (0.55-1.3)
[2021-12-18] MEDS: ASCORBIC ACID 500 MG TABLET (FP) PO SCH ×2 (10:20→21:29)
[2021-12-18] MEDS: PANTOPRAZOLE 40 MG TABLET PO SCH (10:20)
[2021-12-18] MEDS: LOSARTAN POTASSIUM 50 MG TABLET PO SCH ×2 (10:21→21:29)
[2021-12-18] MEDS: SPIRONOLACTONE 25 MG TABLET PO SCH (10:21)
[2021-12-18] MEDS: ASPIRIN COATED 81 MG TABLET.EC PO SCH (10:21)
[2021-12-18] MEDS: CHOLECALCIFEROL (VIT D3) 5000 UNITS (125 MCG) CAP PO SCH (10:21)
[2021-12-18] MEDS: MAGNESIUM OXIDE 400 MG TABLET (FP) PO SCH ×2 (10:21→21:29)
[2021-12-18] MEDS: METOPROLOL TARTRATE 50 MG TABLET (FP) PO SCH ×2 (10:21→21:29)
[2021-12-18] MEDS: FUROSEMIDE 40 MG/4 ML INJECTABLE VIAL IVPUSH SCH (12:37)
[2021-12-18] MEDS: ATORVASTATIN CA 20 MG TABLET (FP) PO SCH (21:29)
[2021-12-18] MEDS: guaiFENesin 600 MG TABLET.ER (FP) PO SCH (21:57)
[2021-12-19 09:53] LABS: BASO % 0.8 % (0-2.0); EOS % 5.1 % (0-4.5); HEMATOCRIT 37.5 % (35.4-49); HEMOGLOBIN 12.6 GM/dL (11.7-16.9); LYMPH % 16.5 % (8-40); MCH 29.1 pg (25.7-33.7); MCHC 33.7 g/dl (32.0-35.9); MEAN CELL VOLUME 86.3 fl (80-96); MEAN PLT VOLUME 8.4 fl (7.5-11.1); MONO % 11.6 % (3.8-10.2); PLATELET COUNT 197 10^3/uL (134-434); RBC 4.34 M/mm3 (4.00-5.60); RDW 16.1 % (11.9-15.9); WHITE BLOOD COUNT 4.8 K/mm3 (4.0-10.0)
[2021-12-19 09:56] LABS: CHLORIDE 108 mmol/L (98-107); SODIUM 140 mmol/L (136-145)
[2021-12-19 09:57] LABS: ANION GAP 7 MMOL/L (8-16); BLOOD UREA NITROGEN 29.8 mg/dL (7-18); CALCIUM 8.5 mg/dL (8.5-10.1); CO2 26 mmol/L (21-32); GLUCOSE,RANDOM 145 mg/dL (74-106)
[2021-12-19 10:01] LABS: CREATININE 1.2 mg/dL (0.55-1.3)
[2021-12-19] MEDS: LOSARTAN POTASSIUM 50 MG TABLET PO SCH (11:34)
[2021-12-19] MEDS: LACTOBACILLUS ACIDOPHILUS 1 TABLET PO SCH (11:34)
[2021-12-19] MEDS: CHOLECALCIFEROL (VIT D3) 5000 UNITS (125 MCG) CAP PO SCH (11:35)
[2021-12-19] MEDS: ASPIRIN COATED 81 MG TABLET.EC PO SCH (11:35)
[2021-12-19] MEDS: MAGNESIUM OXIDE 400 MG TABLET (FP) PO SCH (11:35)
[2021-12-19] MEDS: METOPROLOL TARTRATE 50 MG TABLET (FP) PO SCH (11:35)
[2021-12-19] MEDS: guaiFENesin 600 MG TABLET.ER (FP) PO SCH (11:35)
[2021-12-19] MEDS: SPIRONOLACTONE 25 MG TABLET PO SCH (11:35)
[2021-12-19] MEDS: PANTOPRAZOLE 40 MG TABLET PO SCH (11:35)
[2021-12-19] MEDS: ASCORBIC ACID 500 MG TABLET (FP) PO SCH (11:36)
[2021-12-19] MEDS: FUROSEMIDE 40 MG/4 ML INJECTABLE VIAL IVPUSH SCH (11:36)
[2021-12-19 16:09] VITALS: BP 157/81; PULSE 60; TEMP 98.4
[2021-12-20] MEDS ORDERED: FUROSEMIDE 20 MG TABLET (FP) PO SCH (10:00)
== END 2021-12-19 16:36 | disposition home or self-care (01) | DRG 291 ==
LOC: JER 10:18 → JERBED 15:04 → J4S 20:24
PROVIDERS: ADMIT Internal Medicine; ATTEND Internal Medicine
DX: I13.0 Hypertensive heart and chronic kidney disease with heart failure and stage 1 through stage 4 chronic kidney disease, or unspecified chronic kidney disease (principal); I50.33 Acute on chronic diastolic (congestive) heart failure; I24.8 Other forms of acute ischemic heart disease; L97.518 Non-pressure chronic ulcer of other part of right foot with other specified severity; L97.528 Non-pressure chronic ulcer of other part of left foot with other specified severity; N18.9 Chronic kidney disease, unspecified; E78.5 Hyperlipidemia, unspecified; I25.10 Atherosclerotic heart disease of native coronary artery without angina pectoris; I42.2 Other hypertrophic cardiomyopathy; I73.9 Peripheral vascular disease, unspecified; R79.89 Other specified abnormal findings of blood chemistry; R26.81 Unsteadiness on feet; N40.0 Benign prostatic hyperplasia without lower urinary tract symptoms; K21.9 Gastro-esophageal reflux disease without esophagitis; I48.0 Paroxysmal atrial fibrillation; I83.015 Varicose veins of right lower extremity with ulcer other part of foot; I83.025 Varicose veins of left lower extremity with ulcer other part of foot; F41.9 Anxiety disorder, unspecified; E03.9 Hypothyroidism, unspecified; Z95.2 Presence of prosthetic heart valve; Z95.5 Presence of coronary angioplasty implant and graft; Z91.14 Patient's other noncompliance with medication regimen; Z95.818 Presence of other cardiac implants and grafts; Z95.0 Presence of cardiac pacemaker
CPT/HCPCS: 36415; 71045-TC-FY; 80048; 80053; 82803; 83880; 84484; 85025; 85610; 85730; 93005; 93010; 93970-TC; 97116-GP; 97161-GP; 99285-25; C9803; U0003; U0005

== ENCOUNTER 2022-01-19 11:43 | Emergency (ER) | payer OTHER, MEDICARE ==
[2022-01-19 12:14] VITALS: TEMP 97.4; BMI 29.0
[2022-01-19 13:16] LABS: EOS % 5.6 % (0-4.5); HEMATOCRIT 36.2 % (35.4-49); LYMPH % 16.9 % (8-40); MCH 28.7 pg (25.7-33.7); MCHC 33.2 g/dl (32.0-35.9); MEAN CELL VOLUME 86.2 fl (80-96); MEAN PLT VOLUME 8.2 fl (7.5-11.1); MONO % 10.1 % (3.8-10.2); NEUT % 66.4 % (42.8-82.8); PLATELET COUNT 203 10^3/uL (134-434); RDW 16.5 % (11.9-15.9); WHITE BLOOD COUNT 5.9 K/mm3 (4.0-10.0)
[2022-01-19 13:42] LABS: CHLORIDE 111 mmol/L (98-107); SODIUM 140 mmol/L (136-145)
[2022-01-19 13:44] LABS: ALBUMIN 2.9 g/dl (3.4-5.0); ANION GAP 8 MMOL/L (8-16); CALCIUM 8.3 mg/dL (8.5-10.1); CO2 21 mmol/L (21-32); GLUCOSE,RANDOM 91 mg/dL (74-106)
[2022-01-19 13:45] LABS: BLOOD UREA NITROGEN 38.4 mg/dL (7-18)
[2022-01-19 13:47] LABS: CREATININE 1.1 mg/dL (0.55-1.3)
[2022-01-19 13:48] LABS: SGOT/AST 20 U/L (15-37); SGPT/ALT 20 U/L (13-61)
[2022-01-19 13:49] LABS: BILIRUBIN,TOTAL 0.4 mg/dL (0.2-1); TOT PROT 6.5 g/dl (6.4-8.2)
[2022-01-19 13:50] LABS: ALK PHOS 91 U/L (45-117)
[2022-01-19 13:53] LABS: N-TERMINAL BNP 5887.2 pg/ml (5-450)
[2022-01-19] MEDS ORDERED: ASPIRIN 81 MG CHEWABLE TABLETS PO ONE (14:15)
[2022-01-19] MEDS ORDERED: ASPIRIN 81 MG CHEWABLE TABLETS ONE (14:45)
[2022-01-19 17:09] VITALS: BP 193/78; PULSE 65
[2022-01-19] MEDS ORDERED: METOPROLOL TARTRATE 50 MG TABLET (FP) PO ONE (17:16)
[2022-01-19] MEDS ORDERED: METOPROLOL TARTRATE 50 MG TABLET (FP) ONE (17:26)
[2022-01-19] MEDS ORDERED: guaiFENesin 600 MG TABLET.ER (FP) PO ONE (18:01)
[2022-01-19] MEDS ORDERED: guaiFENesin 200 MG/10 ML 10 ML UNIT-DOSE CUPS ONE (18:19)
[2022-01-20 16:09] LABS: SARS-CoV-2 NAA Not Detected (Not Detected)
== END 2022-01-19 18:30 | disposition home or self-care (01) ==
LOC: JER 11:43
DX: R05.1 Acute cough (principal)
CPT/HCPCS: 36415; 71046-TC-FY; 71250-TC; 80053; 83880; 84484; 85025; 87804; 93005; 93010; 99285-25; C9803-CS; U0003; U0005

== ENCOUNTER 2022-03-17 11:05 | Emergency (ER) | payer OTHER, MEDICARE ==
[2022-03-17 11:53] VITALS: BMI 29.0
[2022-03-17] MEDS ORDERED: ACETAMINOPHEN 500 MG TABLET (FP) PO ONE (12:13)
[2022-03-17] MEDS ORDERED: ACETAMINOPHEN 325 MG TABLET (FP) ONE (12:42)
[2022-03-17 12:48] LABS: BASO % 0.5 % (0-2.0); EOS % 1.1 % (0-4.5); HEMOGLOBIN 12.1 GM/dL (11.7-16.9); LYMPH % 8.1 % (8-40); MCH 29.1 pg (25.7-33.7); MCHC 33.6 g/dl (32.0-35.9); MEAN CELL VOLUME 86.5 fl (80-96); MEAN PLT VOLUME 8.2 fl (7.5-11.1); MONO % 14.1 % (3.8-10.2); NEUT % 76.2 % (42.8-82.8); PLATELET COUNT 202 10^3/uL (134-434); RBC 4.17 M/mm3 (4.00-5.60); RDW 16.8 % (11.9-15.9)
[2022-03-17] MEDS ORDERED: IBUPROFEN 400 MG TABLET (FP) PO ONE ×2 (13:04→13:52)
[2022-03-17 13:05] LABS: CALCIUM 8.7 mg/dL (8.5-10.1)
[2022-03-17 13:06] LABS: ALBUMIN 3.1 g/dl (3.4-5.0)
[2022-03-17 13:09] LABS: CREATININE 1.4 mg/dL (0.55-1.3)
[2022-03-17 13:10] LABS: BILIRUBIN,TOTAL 0.5 mg/dL (0.2-1); TOT PROT 6.5 g/dl (6.4-8.2)
[2022-03-17] MEDS ORDERED: SODIUM CHLORIDE 0.9% 500 ML INFUS.BAG IV ONE (13:22)
[2022-03-17 14:08] VITALS: BP 157/67; PULSE 66; TEMP 98.5
[2022-03-17] MEDS ORDERED: BEBTELOVIMAB (EUA) 175 MG/2 ML VIAL IVPUSH ONE (15:10)
[2022-03-17 17:45] LABS: MAGNESIUM 2.5 mg/dL (1.8-2.4)
== END 2022-03-17 18:00 | disposition home or self-care (01) ==
LOC: JER 11:05
DX: U07.1 COVID-19 (principal)
CPT/HCPCS: 0241U-QW; 36415; 71045-TC-FY; 80053; 83735; 85025; 93005; 93010; 99285-25; M0222; Q0222

== ENCOUNTER 2022-04-12 10:52 | Inpatient (IN) | payer OTHER, MEDICARE ==
[2022-04-12 14:07] LABS: BASO % 0.3 % (0-2.0); EOS % 0.4 % (0-4.5); HEMATOCRIT 39.2 % (35.4-49); HEMOGLOBIN 12.6 GM/dL (11.7-16.9); LYMPH % 14.4 % (8-40); MCH 28.2 pg (25.7-33.7); MCHC 32.1 g/dl (32.0-35.9); MEAN PLT VOLUME 9.2 fl (7.5-11.1); MONO % 11.4 % (3.8-10.2); NEUT % 73.5 % (42.8-82.8); PLATELET COUNT 205 10^3/uL (134-434); RBC 4.45 M/mm3 (4.00-5.60); RDW 16.7 % (11.9-15.9); WHITE BLOOD COUNT 7.6 K/mm3 (4.0-10.0)
[2022-04-12 14:16] LABS: INR 1.23 (0.83-1.09); PROTHROMBIN TIME (PATIENT) 14.2 SEC (9.7-13.0)
[2022-04-12 14:19] LABS: ACTIVATED PTT 31.4 SECONDS (25.2-36.5)
[2022-04-12 14:33] LABS: ALBUMIN 3.5 g/dl (3.4-5.0); BLOOD UREA NITROGEN 59.4 mg/dL (7-18); CALCIUM 8.9 mg/dL (8.5-10.1)
[2022-04-12 14:36] LABS: CREATININE 1.5 mg/dL (0.55-1.3); PHOSPHOROUS 3.7 mg/dL (2.5-4.9)
[2022-04-12 14:38] LABS: BILIRUBIN,TOTAL 0.6 mg/dL (0.2-1); TOT PROT 6.8 g/dl (6.4-8.2)
[2022-04-12] MEDS ORDERED: ASPIRIN 81 MG CHEWABLE TABLETS PO ONE (14:49)
[2022-04-12] MEDS ORDERED: ASPIRIN 81 MG CHEWABLE TABLETS ONE (15:08)
[2022-04-12] MEDS ORDERED: SODIUM CHLORIDE 1,000 ML IV SCH (19:00)
[2022-04-12] MEDS ORDERED: METOPROLOL TARTRATE 50 MG TABLET (FP) ONE (21:01)
[2022-04-12] MEDS ORDERED: ASCORBIC ACID 500 MG TABLET (FP) ONE (21:01)
[2022-04-12] MEDS: ASCORBIC ACID 500 MG TABLET (FP) PO SCH (21:04)
[2022-04-12] MEDS: METOPROLOL TARTRATE 50 MG TABLET (FP) PO SCH (21:04)
[2022-04-13 07:45] LABS: HEMATOCRIT 39.1 % (35.4-49); HEMOGLOBIN 12.7 GM/dL (11.7-16.9); MCH 28.6 pg (25.7-33.7); MCHC 32.3 g/dl (32.0-35.9); MEAN CELL VOLUME 88.3 fl (80-96); MEAN PLT VOLUME 9.1 fl (7.5-11.1); PLATELET COUNT 211 10^3/uL (134-434); RBC 4.43 M/mm3 (4.00-5.60); RDW 17.1 % (11.9-15.9); WHITE BLOOD COUNT 6.5 K/mm3 (4.0-10.0)
[2022-04-13 08:19] LABS: ALBUMIN 3.4 g/dl (3.4-5.0); BILIRUBIN,TOTAL 0.5 mg/dL (0.2-1); CALCIUM 8.5 mg/dL (8.5-10.1); CREATININE 1.4 mg/dL (0.55-1.3); TOT PROT 6.6 g/dl (6.4-8.2)
[2022-04-13] MEDS ORDERED: ENOXAPARIN NA (PORCINE) 40 MG/0.4 ML DISP.SYRIN SQ SCH (10:00)
[2022-04-13] MEDS ORDERED: MAGNESIUM OXIDE 400 MG TABLET (FP) PO SCH (10:00)
[2022-04-13] MEDS ORDERED: ASPIRIN COATED 81 MG TABLET.EC ONE (10:08)
[2022-04-13] MEDS ORDERED: POLYETHYLENE GLYCOL (HEALTHYLAX) 3350 17 GM PACKET ONE (10:08)
[2022-04-13] MEDS ORDERED: METOPROLOL TARTRATE 50 MG TABLET (FP) ONE ×2 (10:08→22:03)
[2022-04-13] MEDS ORDERED: PANTOPRAZOLE 40 MG TABLET PO ONE (10:08)
[2022-04-13] MEDS ORDERED: ASCORBIC ACID 500 MG TABLET (FP) ONE ×2 (10:08→22:03)
[2022-04-13] MEDS: LOSARTAN POTASSIUM 50 MG TABLET PO SCH ×2 (10:23→22:00)
[2022-04-13] MEDS: METOPROLOL TARTRATE 50 MG TABLET (FP) PO SCH ×2 (10:23→22:18)
[2022-04-13] MEDS: PANTOPRAZOLE 40 MG TABLET PO SCH (10:23)
[2022-04-13] MEDS: POLYETHYLENE GLYCOL (HEALTHYLAX) 3350 17 GM PACKET PO SCH (10:23)
[2022-04-13] MEDS: ASPIRIN COATED 81 MG TABLET.EC PO SCH (10:23)
[2022-04-13] MEDS: CHOLECALCIFEROL (VIT D3) 5000 UNITS (125 MCG) CAP PO SCH (10:23)
[2022-04-13] MEDS: ASCORBIC ACID 500 MG TABLET (FP) PO SCH ×2 (10:23→22:18)
[2022-04-13] MEDS ORDERED: LACTATED RINGERS SOLUTION 1,000 ML/1,000 ML INFUS.BAG IV SCH (10:45)
[2022-04-13] MEDS: LACTOBACILLUS ACIDOPHILUS 1 TABLET PO SCH (10:45)
[2022-04-13] MEDS: ATORVASTATIN CA 20 MG TABLET (FP) PO SCH (22:00)
[2022-04-14] MEDS: MELATONIN 5 MG TABLETS PO SCH ×2 (06:59→22:50)
[2022-04-14 07:28] LABS: BASO % 0.5 % (0-2.0); EOS % 3.9 % (0-4.5); HEMATOCRIT 39.8 % (35.4-49); HEMOGLOBIN 13.1 GM/dL (11.7-16.9); MCH 28.6 pg (25.7-33.7); MCHC 32.8 g/dl (32.0-35.9); MEAN CELL VOLUME 87.4 fl (80-96); MEAN PLT VOLUME 9.1 fl (7.5-11.1); MONO % 9.6 % (3.8-10.2); PLATELET COUNT 203 10^3/uL (134-434); RBC 4.56 M/mm3 (4.00-5.60); RDW 16.7 % (11.9-15.9)
[2022-04-14 07:37] LABS: ALBUMIN 3.3 g/dl (3.4-5.0); BLOOD UREA NITROGEN 42.1 mg/dL (7-18); CALCIUM 8.6 mg/dL (8.5-10.1)
[2022-04-14 07:40] LABS: CREATININE 1.3 mg/dL (0.55-1.3)
[2022-04-14 07:42] LABS: BILIRUBIN,TOTAL 0.9 mg/dL (0.2-1); TOT PROT 6.6 g/dl (6.4-8.2)
[2022-04-14] MEDS ORDERED: LOSARTAN POTASSIUM 50 MG TABLET ONE ×2 (09:41→22:41)
[2022-04-14] MEDS ORDERED: CHOLECALCIFEROL (VIT D3) 1,000 UNIT (25 MCG) TABLET ONE (09:41)
[2022-04-14] MEDS ORDERED: PANTOPRAZOLE 40 MG TABLET PO ONE (09:41)
[2022-04-14] MEDS ORDERED: ASPIRIN COATED 81 MG TABLET.EC ONE (09:41)
[2022-04-14] MEDS ORDERED: POLYETHYLENE GLYCOL (HEALTHYLAX) 3350 17 GM PACKET ONE (09:41)
[2022-04-14] MEDS ORDERED: METOPROLOL TARTRATE 50 MG TABLET (FP) ONE ×4 (09:41→22:41)
[2022-04-14] MEDS ORDERED: ASCORBIC ACID 500 MG TABLET (FP) ONE ×2 (09:42→22:41)
[2022-04-14] MEDS ORDERED: LACTATED RINGERS SOLUTION 1,000 ML/1,000 ML INFUS.BAG IV SCH (10:44)
[2022-04-14] MEDS: ASCORBIC ACID 500 MG TABLET (FP) PO SCH ×2 (11:30→22:50)
[2022-04-14] MEDS: ASPIRIN COATED 81 MG TABLET.EC PO SCH (11:30)
[2022-04-14] MEDS: LOSARTAN POTASSIUM 50 MG TABLET PO SCH ×2 (11:30→22:50)
[2022-04-14] MEDS: PANTOPRAZOLE 40 MG TABLET PO SCH (11:30)
[2022-04-14] MEDS: CHOLECALCIFEROL (VIT D3) 5000 UNITS (125 MCG) CAP PO SCH (11:30)
[2022-04-14] MEDS: METOPROLOL TARTRATE 50 MG TABLET (FP) PO SCH ×3 (11:30→22:50)
[2022-04-14] MEDS: POLYETHYLENE GLYCOL (HEALTHYLAX) 3350 17 GM PACKET PO SCH (12:27)
[2022-04-14] MEDS: LACTOBACILLUS ACIDOPHILUS 1 TABLET PO SCH (16:01)
[2022-04-14] MEDS ORDERED: METOPROLOL TARTRATE 50 MG TABLET (FP) PO ONE (18:07)
[2022-04-14] MEDS ORDERED: ALPRAZolam 0.25 MG TABLET PO ONE (20:12)
[2022-04-14] MEDS ORDERED: ALPRAZolam 0.25 MG TABLET ONE (20:26)
[2022-04-14] MEDS ORDERED: MELATONIN 5 MG TABLETS ONE (22:41)
[2022-04-14] MEDS ORDERED: ATORVASTATIN CA 20 MG TABLET (FP) ONE (22:41)
[2022-04-14] MEDS: ATORVASTATIN CA 20 MG TABLET (FP) PO SCH (22:50)
[2022-04-15] MEDS ORDERED: ACETAMINOPHEN 325 MG TABLET (FP) ONE (03:27)
[2022-04-15] MEDS: ACETAMINOPHEN 325 MG TABLET (FP) PO PRN (03:32)
[2022-04-15] MEDS: METOPROLOL TARTRATE 50 MG TABLET (FP) PO SCH ×3 (06:52→21:41)
[2022-04-15 08:03] VITALS: BMI 28.8
[2022-04-15] MEDS ORDERED: FUROSEMIDE 20 MG TABLET (FP) PO SCH ×2 (10:00→16:30)
[2022-04-15 10:10] LABS: BASO % 0.6 % (0-2.0); EOS % 4.5 % (0-4.5); HEMATOCRIT 38.2 % (35.4-49); HEMOGLOBIN 12.6 GM/dL (11.7-16.9); LYMPH % 13.1 % (8-40); MCH 28.6 pg (25.7-33.7); MCHC 33.1 g/dl (32.0-35.9); MEAN CELL VOLUME 86.2 fl (80-96); MEAN PLT VOLUME 8.6 fl (7.5-11.1); MONO % 8.4 % (3.8-10.2); NEUT % 73.4 % (42.8-82.8); PLATELET COUNT 199 10^3/uL (134-434); RBC 4.43 M/mm3 (4.00-5.60); RDW 16.5 % (11.9-15.9); WHITE BLOOD COUNT 5.7 K/mm3 (4.0-10.0)
[2022-04-15 10:30] LABS: CHLORIDE 111 mmol/L (98-107); SODIUM 143 mmol/L (136-145)
[2022-04-15 10:39] LABS: CALCIUM 8.4 mg/dL (8.5-10.1)
[2022-04-15 10:40] LABS: ANION GAP 7 MMOL/L (8-16); BLOOD UREA NITROGEN 32.3 mg/dL (7-18); CO2 25 mmol/L (21-32); GLUCOSE,RANDOM 187 mg/dL (74-106)
[2022-04-15 10:42] LABS: CREATININE 1.2 mg/dL (0.55-1.3)
[2022-04-15] MEDS: ASPIRIN COATED 81 MG TABLET.EC PO SCH (10:52)
[2022-04-15] MEDS: PANTOPRAZOLE 40 MG TABLET PO SCH (10:52)
[2022-04-15] MEDS: LACTOBACILLUS ACIDOPHILUS 1 TABLET PO SCH (10:52)
[2022-04-15] MEDS: ASCORBIC ACID 500 MG TABLET (FP) PO SCH ×2 (10:52→22:18)
[2022-04-15] MEDS: LOSARTAN POTASSIUM 50 MG TABLET PO SCH ×2 (10:52→21:43)
[2022-04-15] MEDS: POLYETHYLENE GLYCOL (HEALTHYLAX) 3350 17 GM PACKET PO SCH (10:53)
[2022-04-15] MEDS: CHOLECALCIFEROL (VIT D3) 5000 UNITS (125 MCG) CAP PO SCH (10:53)
[2022-04-15] MEDS: NYSTATIN POWDER 100,000 UNITS/GM - 15 GM TOPICAL POWDER TP SCH ×2 (13:43→21:46)
[2022-04-15] MEDS: COLLAGENASE CLOSTRIDIUM HIST. 30 GRAMS TUBE TP SCH (13:44)
[2022-04-15] MEDS: MELATONIN 5 MG TABLETS PO SCH (21:40)
[2022-04-15] MEDS: ATORVASTATIN CA 20 MG TABLET (FP) PO SCH (21:40)
[2022-04-16] MEDS: ACETAMINOPHEN 325 MG TABLET (FP) PO PRN (00:34)
[2022-04-16] MEDS: METOPROLOL TARTRATE 50 MG TABLET (FP) PO SCH ×2 (05:39→14:10)
[2022-04-16 06:08] VITALS: BP 160/82; PULSE 62; TEMP 97.7
[2022-04-16 07:23] LABS: BASO % 0.7 % (0-2.0); EOS % 4.4 % (0-4.5); HEMATOCRIT 38.8 % (35.4-49); HEMOGLOBIN 12.8 GM/dL (11.7-16.9); LYMPH % 13.5 % (8-40); MCH 28.6 pg (25.7-33.7); MEAN CELL VOLUME 86.6 fl (80-96); MEAN PLT VOLUME 9.1 fl (7.5-11.1); MONO % 9.1 % (3.8-10.2); NEUT % 72.3 % (42.8-82.8); PLATELET COUNT 210 10^3/uL (134-434); RBC 4.48 M/mm3 (4.00-5.60); RDW 15.9 % (11.9-15.9); WHITE BLOOD COUNT 7.6 K/mm3 (4.0-10.0)
[2022-04-16] MEDS: LACTOBACILLUS ACIDOPHILUS 1 TABLET PO SCH (10:21)
[2022-04-16] MEDS: PANTOPRAZOLE 40 MG TABLET PO SCH (10:21)
[2022-04-16] MEDS: ASCORBIC ACID 500 MG TABLET (FP) PO SCH (10:21)
[2022-04-16] MEDS: POLYETHYLENE GLYCOL (HEALTHYLAX) 3350 17 GM PACKET PO SCH (10:21)
[2022-04-16] MEDS: CHOLECALCIFEROL (VIT D3) 5000 UNITS (125 MCG) CAP PO SCH (10:28)
[2022-04-16] MEDS: ASPIRIN COATED 81 MG TABLET.EC PO SCH (10:28)
[2022-04-16] MEDS: LOSARTAN POTASSIUM 50 MG TABLET PO SCH (10:29)
[2022-04-16] MEDS: NYSTATIN POWDER 100,000 UNITS/GM - 15 GM TOPICAL POWDER TP SCH (14:09)
[2022-04-16] MEDS: COLLAGENASE CLOSTRIDIUM HIST. 30 GRAMS TUBE TP SCH (14:10)
== END 2022-04-16 14:10 | disposition left against medical advice (07) | DRG 303 ==
LOC: JER 10:52 → JERBED 20:39 → J4W 04-15 06:16
PROVIDERS: ADMIT Internal Medicine; ATTEND Internal Medicine
DX: I25.119 Atherosclerotic heart disease of native coronary artery with unspecified angina pectoris (principal); I24.8 Other forms of acute ischemic heart disease; L97.909 Non-pressure chronic ulcer of unspecified part of unspecified lower leg with unspecified severity; I50.32 Chronic diastolic (congestive) heart failure; N17.9 Acute kidney failure, unspecified; I13.0 Hypertensive heart and chronic kidney disease with heart failure and stage 1 through stage 4 chronic kidney disease, or unspecified chronic kidney disease; L03.90 Cellulitis, unspecified; Z95.0 Presence of cardiac pacemaker; E03.9 Hypothyroidism, unspecified; I27.20 Pulmonary hypertension, unspecified; E78.5 Hyperlipidemia, unspecified; K21.9 Gastro-esophageal reflux disease without esophagitis; I48.0 Paroxysmal atrial fibrillation; Z95.2 Presence of prosthetic heart valve; R94.5 Abnormal results of liver function studies; I73.9 Peripheral vascular disease, unspecified; N18.9 Chronic kidney disease, unspecified; I25.10 Atherosclerotic heart disease of native coronary artery without angina pectoris; Z98.61 Coronary angioplasty status; R74.01 Elevation of levels of liver transaminase levels; K59.00 Constipation, unspecified; N40.0 Benign prostatic hyperplasia without lower urinary tract symptoms
CPT/HCPCS: 0241U-QW; 36415; 71045-TC-FY; 74176-TC; 80048; 80053; 83605; 83690; 83735; 84100; 84443; 84484; 85025; 85027; 85379; 85610; 85730; 93005; 93010; 93306-TC; 97116-GP; 97162-GP; 99285-25